=== PATIENT | male | born 1950 | race Caucasian/White ===

== ENCOUNTER 2016-08-22 07:46 | Inpatient (IN) | payer OTHER ==
[2016-08-22] MEDS ORDERED: ASPIRIN EC 325 MG TAB PO ONE ×2 (07:52→09:25)
[2016-08-22] MEDS ORDERED: diphenhydrAMINE 25 MG CAP PO ONE (07:52)
[2016-08-22] MEDS ORDERED: NS 1,000 ML IV ONE (07:52)
[2016-08-22] MEDS ORDERED: DIAZEPAM 5 MG TAB PO ONE (07:52)
[2016-08-22] MEDS ORDERED: FAMOTIDINE 20 MG TAB PO ONE (07:52)
[2016-08-22 08:43] LABS: % IMMATURE GRANULYOCYTES 0.4 % (0.0-1.1); ABSOLUTE IMMATURE GRANULOCYTES 0.04 10^3/uL (0.00-0.10); ADD DIFF? NO; ADD MORPH? NO; ADD SCAN? NO; ATYPICAL LYMPHOCYTE FLAG 0 (0-99); FRAGMENT RBC FLAG 0 (0-99); HEMATOCRIT 39.3 % (40.0-51.0); HEMOGLOBIN 12.8 g/dL (13.7-17.5); LEFT SHIFT FLG 0 (0-99); LIPEMIA HEMOLYSIS FLAG 80 (0-99); MEAN CELL HEMOGLOBIN 31.7 pg (27.9-34.1); MEAN CELL HEMOGLOBIN CONCENTR. 32.6 g/dL (32.4-36.7); MEAN CELL VOLUME 97.3 fL (81.5-99.8); MEAN PLATELET VOLUME 10.5 fL (8.7-11.7); PLATELET CLUMPS FLAG 0 (0-99); PLATELET COUNT 162 10^3/uL (150-400); RED BLOOD CELL COUNT 4.04 10^6/uL (4.40-6.38); RED CELL DISTRIBUTION WIDTH 15.6 % (11.5-15.2)
[2016-08-22 09:02] LABS: INR 1.73 (0.83-1.16); PROTIME(PATIENT) 20.3 SEC (12.0-15.0)
[2016-08-22] MEDS ORDERED: LIDOCAINE 1% 30 ML SDV ONE (09:05)
[2016-08-22] MEDS ORDERED: IOPAMIDOL (ISOVUE 370) 100 ML BTL IV ONE ×2 (09:06→11:00)
[2016-08-22] MEDS ORDERED: MIDAZOLAM 2 MG/2 ML VIAL ONE ×2 (09:06→10:39)
[2016-08-22] MEDS ORDERED: fentaNYL 100 MCG/2 ML INJ ONE ×2 (09:06→10:46)
[2016-08-22 09:10] LABS: ANION GAP 15 mEq/L (8-16); CARBON DIOXIDE 29 mEq/l (22-31); CHLORIDE 94 mEq/L (97-110); CHOLESTEROL 61 mg/dL (140-220); CHOLESTEROL/HDL RATIO 2.18 RATIO (1.00-4.97); CREATININE 1.8 mg/dL (0.7-1.3); GLOMERULAR FILTRATION RATE 38; GLUCOSE 78 mg/dL (70-100); HIGH DENSITY LIPOPROTEIN 28 mg/dL (40-65); LDL/HDL RATIO 0.75 RATIO (1.00-3.64); LOW DENSITY LIPOPROTEIN 21 mg/dL (80-100); MAGNESIUM 1.9 mg/dL (1.6-2.3); NON-HIGH DENSITY LIPOPROTEIN 33 mg/dL (90-129); POTASSIUM 3.4 mEq/L (3.5-5.2); SODIUM 138 mEq/L (134-144); TRIGLYCERIDE 62 mg/dL (40-150); VERY LOW DENSITY LIPOPROTEINS 12 mg/dL (8-25)
--- NOTE | 2016-08-22 09:20 | CPEKG ---
Heart Rate: 77 RR Interval: 779 QRSD Interval: 130 QT Interval: 440 QTC Interval: 499 QRS [place]: -80 T Wave [place]: 78 EKG Severity - ABNORMAL ECG - EKG Impression: NORMAL SINUS RHYTHM EKG Impression: PAIRED VENTRICULAR PREMATURE COMPLEXES EKG Impression: NONSPECIFIC IVCD WITH LAD EKG Impression: CONSIDER ANTERIOR INFARCT EKG Impression: MODERATE BASELINE ARTIFACT Electronically Signed By: iHlton Lara 22-Aug-2016 13:04:38
[2016-08-22] MEDS ORDERED: FAMOTIDINE 20 MG TAB ONE (09:24)
[2016-08-22] MEDS ORDERED: BIVALIRUDIN 250 MG/5 ML VIAL IV ONE ×2 (10:39→11:08)
[2016-08-22] MEDS ORDERED: NITROGLYCERIN 1,500 MCG/15 ML VIAL MISC ONE (11:05)
[2016-08-22] MEDS ORDERED: OXYCODONE/APAP 5/325 TAB PO PRN (12:25)
[2016-08-22] MEDS ORDERED: HYDROCODONE/APAP 5/325 TAB PO PRN (12:25)
[2016-08-22] MEDS ORDERED: NITROGLYCERIN 0.4 MG BTL SL PRN (12:25)
[2016-08-22] MEDS ORDERED: ATROPINE SULFATE 1 MG/10 ML SYR IVP PRN (12:25)
[2016-08-22] MEDS ORDERED: ONDANSETRON 4 MG/2 ML VIAL IVP PRN (12:25)
--- NOTE | 2016-08-22 12:27 | CPIP ---
[f rep st] INVASIVE CARDIAC PROCEDURE DATE OF PROCEDURE: 08/22/2016 PROCEDURE: 1. Coronary angiography. 2. Left ventricular end-diastolic pressure. 3. Right heart catheterization. 4. Intravascular ultrasound of proximal left anterior descending coronary artery. INDICATION: 1. Cardiomyopathy. 2. Class 3 congestive heart failure symptoms. 3. Class 3 exertional dyspnea concerning for an anginal equivalent. 4. Normal pharmacologic nuclear stress test concerning for potential 3VD. ACCESS: Patient was prepped and draped in sterile fashion. 1% lidocaine was used to anesthetize th e right inguinal region. A 6-Nepalese introducer sheath was placed selectively in the right common fe moral artery via modified Seldinger technique. A 7-Nepalese introducer sheath was placed selectively in the right common femoral vein via modified Seldinger technique. CORONARY ANGIOGRAPHY: A 6-Nepalese JL4 was advanced to the left main coronary artery and images were obtained. The left main coronary artery bifurcated into an LAD and circumflex coronary arteries. T he left main coronary artery had mild diffuse disease with no stenosis greater than 20%. The left a nterior descending coronary artery gave rise to 4 prominent diagonal branches the left anterior desc ending coronary artery is diffusely diseased. In the proximal segment there is an eccentric calcifi ed shelf of uncertain severity. In the mid vessel there is sequential 20-30% stenosis present and i n the distal vessel there is a single discrete 60% stenosis present. The diagonal branches appeared free of any significant disease. The circumflex coronary artery is a moderate to large sized vesse l. The circumflex coronary artery gave rise to 2 OM branches. The circumflex coronary artery had m ild diffuse disease throughout. There was no stenosis greater than 20%. Six-Nepalese JR4 was advance d to the right coronary artery and images obtained. The right coronary artery is diffusely diseased . The right coronary artery had a proximal 50% stenosis present and in the distal vessel there is s equential 50% stenosis present as well. LEFT VENTRICULAR END-DIASTOLIC PRESSURE: A pigtail catheter was advanced in the left ventricle and left ventricular end-diastolic pressure obtained. Left ventricular end-diastolic pressure is elevat ed at 34 mmHg. Left ventriculography was not performed secondary to chronic renal insufficiency. I ntravascular ultrasound of the left anterior descending coronary artery. A 6-Nepalese EBU 3.5 cathete r was advanced to the left main coronary artery and images obtained. Angiography confirmed the pres ence of an intermediate grade lesion involving the proximal left anterior descending coronary artery of uncertain severity. A loose wire was placed in the distal vessel and position verified by angio graphy. Intravascular ultrasound probe was advanced and images obtained. Intravascular ultrasound demonstrated an eccentric calcified shelf in the proximal left anterior descending coronary artery w hich approached 50% in severity. RIGHT HEART CATHETERIZATION: Right heart catheter was advanced in the right atrium and right atrial pressure was obtained. Right atrial pressure was elevated at 24 mmHg. The catheter was then advan ying in the right ventricle and pressure obtained. The right ventricular pressure was 50/18 mmHg. T he catheter was then advanced to the pulmonary artery position and pressure obtained. The pulmonary artery pressure was 46/30 mmHg. Catheter was then advanced in the wedge position and pressure obta ined. The pulmonary capillary wedge pressure was 34 mmHg. Cardiac output was 7.39. Cardiac index 2.74. COMPLICATIONS: None. CONCLUSIONS: 1. Moderate coronary artery disease without flow limitation. 2. Elevated left ventricular end-diastolic pressure of 34 mmHg. 3. Moderate pulmonary hypertension with a mean pulmonary artery pressure of 42 mmHg. The transpulm onary gradient was 8 mmHg. /[id number]/MODL
[2016-08-22] MEDS ORDERED: ATROPINE SULFATE 1 MG/10 ML SYR ONE (13:53)
[2016-08-22] MEDS: CARVEDILOL 6.25 MG TAB PO SCH (18:59)
[2016-08-22] MEDS ORDERED: NON-FORMULARY NEW DRUG (Carvedilol [Coreg] 12.5 MG) PO SCH (21:00)
[2016-08-22] MEDS: ASPIRIN EC 81 MG TAB PO SCH ×2 (22:19→22:30)
[2016-08-22] MEDS: ALLOPURINOL 300 MG TAB PO SCH ×2 (22:19→22:30)
[2016-08-22] MEDS: glyBURIDE 2.5 MG TAB PO SCH ×2 (22:19→22:30)
[2016-08-23 04:44] LABS: % IMMATURE GRANULYOCYTES 0.7 % (0.0-1.1); ABSOLUTE IMMATURE GRANULOCYTES 0.05 10^3/uL (0.00-0.10); ADD DIFF? NO; ADD MORPH? NO; ADD SCAN? NO; ATYPICAL LYMPHOCYTE FLAG 0 (0-99); FRAGMENT RBC FLAG 0 (0-99); HEMOGLOBIN 12.5 g/dL (13.7-17.5); LEFT SHIFT FLG 0 (0-99); LIPEMIA HEMOLYSIS FLAG 80 (0-99); MEAN CELL HEMOGLOBIN 32.1 pg (27.9-34.1); MEAN CELL HEMOGLOBIN CONCENTR. 32.1 g/dL (32.4-36.7); MEAN PLATELET VOLUME 10.7 fL (8.7-11.7); PLATELET CLUMPS FLAG 0 (0-99); PLATELET COUNT 161 10^3/uL (150-400); RED CELL DISTRIBUTION WIDTH 15.9 % (11.5-15.2)
[2016-08-23 04:51] LABS: ANION GAP 14 mEq/L (8-16); CALCIUM 8.9 mg/dL (8.5-10.4); CARBON DIOXIDE 34 mEq/l (22-31); CHLORIDE 94 mEq/L (97-110); CREATININE 1.9 mg/dL (0.7-1.3); GLOMERULAR FILTRATION RATE 36; GLUCOSE 85 mg/dL (70-100); POTASSIUM 3.5 mEq/L (3.5-5.2); SODIUM 142 mEq/L (134-144)
[2016-08-23] MEDS: CARVEDILOL 6.25 MG TAB PO SCH ×2 (08:42→18:22)
[2016-08-23] MEDS: glyBURIDE 2.5 MG TAB PO SCH ×2 (08:44→20:43)
[2016-08-23] MEDS: LEVOTHYROXINE 75 MCG TAB PO SCH (08:45)
[2016-08-23] MEDS: FUROSEMIDE 100 MG/10 ML VIAL IVP SCH ×2 (12:09→15:41)
--- NOTE | 2016-08-23 13:00 | PDCARPN ---
Cardiology Progress Note Chief Complaint: Anasarca, Pedal edema Assessment/Plan: Assessment: 1. Moderate coronary artery disease 2. Pulmonary hypertension 3. Right heart failure 4. Renal insufficiency Plan: Start IV furosemide today, 80 mg twice daily. Dose to be adjusted tomorrow based on renal function. Estimate that he will need 2- 3 days of intravenous diuresis while in the hospital. 08/23/16 12:59 Subjective: reports pedal edema, this is my 1st visit with the patient Time Spent With Patient: 20 minutes Objective: Vital Signs (8 Hrs) Temp Pulse Resp BP Pulse Ox 08/23/16 11:15 36.4 C 66 16 113/75 96 08/23/16 08:42 85 114/68 08/23/16 07:48 36.4 C 58 L 18 102/1 L 98 Intake/Output (24 Hrs) 08/22/16 08/23/16 08/24/16 11:59 11:59 11:59 Intake Total 800 Output Total 1390 Balance -590 Intake: Oral (ml) 800 Output: Urine (ml) 1390 Urinal 1390 Other: Weight 153.7 kg Intake Quantity Yes Sufficient Result Diagrams: 08/23/16 04:02 08/23/16 04:02 ICD10 Worksheet Patient Problems: Problems Problem Status Onset Anasarca Acute Pulmonary hypertension Acute Chronic Disease Mgmt/Transitional Care Acute
[2016-08-23] MEDS: ALLOPURINOL 300 MG TAB PO SCH (20:43)
[2016-08-23] MEDS: ASPIRIN EC 81 MG TAB PO SCH (20:43)
[2016-08-24 05:24] LABS: ANION GAP 15 mEq/L (8-16); CALCIUM 8.8 mg/dL (8.5-10.4); CARBON DIOXIDE 28 mEq/l (22-31); CHLORIDE 94 mEq/L (97-110); CREATININE 2.1 mg/dL (0.7-1.3); GLOMERULAR FILTRATION RATE 32; GLUCOSE 65 mg/dL (70-100); MAGNESIUM 2.1 mg/dL (1.6-2.3); POTASSIUM 3.5 mEq/L (3.5-5.2); SODIUM 137 mEq/L (134-144)
[2016-08-24] MEDS: LEVOTHYROXINE 75 MCG TAB PO SCH (05:26)
[2016-08-24] MEDS: CARVEDILOL 6.25 MG TAB PO SCH ×2 (09:03→18:13)
[2016-08-24] MEDS: glyBURIDE 2.5 MG TAB PO SCH ×2 (09:03→19:48)
[2016-08-24] MEDS ORDERED: PROTOCOL POTASSIUM 1 DOSE MISC PRN (09:31)
[2016-08-24] MEDS ORDERED: PROTOCOL MAGNESIUM 1 DOSE IV PRN (09:31)
--- NOTE | 2016-08-24 10:15 | PDCARPN ---
Cardiology Progress Note Assessment/Plan: Assessment/ Plan: 65-year-old male with combined left ventricular systolic heart failure, more prominent right heart failure, pulmonary hypertension, morbid obesity, and chronic renal insufficiency. He was admitted after right and left heart catheterization on August 22. His angiogram showed moderate non flow-limiting coronary disease, left ventricular end-diastolic pressure of 34, mean PA pressure of 46. Had IV diuresis yesterday, and his creatinine has bumped slightly. 1. right greater than left heart failure: Acute on chronic. This is primarily related to his morbid obesity. He was counseled that he should wear his CPAP every night.Given his bump in creatinine and evidence of contraction alkalosis we will change him to his oral Demadex. As an outpatient he was taking 80 mg by mouth daily, per Dr. Maldonado. electrolyte protocol. Check BNP. 2. Pulmonary hypertension: As above, related to morbid obesity and sleep apnea. 3. Chronic renal insufficiency: Creatinine slightly worse today. Change to oral diuretics. Check basic metabolic panel tomorrow. 4. Morbid obesity: He understands the of most importance of continued weight loss. 5. diabetes: Continue his oral agents. Hopefully weight loss will help his overall metabolic picture. 6. moderate non flow-limiting coronary disease: He is on aspirin as an outpatient. His LDL is profoundly reduced here in the hospital. I have not started a statin, but this should be considered as an outpatient, perhaps with a repeat lipid panel prior to initiation. 7.. Paroxysmal atrial fibrillation: Currently in sinus rhythm with PVCs. Restart warfarin. His CHADS2 Vasc score is 4. 8. sleep apnea: He was encouraged to wear his CPAP. 9. Nonhealing lower extremity ulcers: This is likely related to his profound edema/venous stasis and less likely peripheral arterial disease. However, as per Dr. Maldonado' August 06 outpatient know, consideration should be given to radiographic evaluation of his lower extremity arteries. This has not been done during this admission due to his bump in creatinine. 10. Hypothyroidism: I do not see TSH since 2014. We will check that now. Continue levothyroxine. 08/24/16 10:15 Subjective: Robert denies chest pain or significant dyspnea. His lower extremity edema is minimally improved with 1 day of IV diuresis. He had a very short-lived episode of epistaxis this morning. Previously has not had significant problems with bleeding on chronic warfarin therapy. Objective: Vital Signs (8 Hrs) Temp Pulse Resp BP Pulse Ox 08/24/16 09:03 70 103/64 08/24/16 07:53 36.3 C 78 16 115/71 91 L 08/24/16 04:00 36.5 C 105 H 17 109/62 91 L Intake/Output (24 Hrs) 08/23/16 08/24/16 08/25/16 05:59 05:59 05:59 Intake Total 300 2230 Output Total 1390 1600 Balance -1090 630 Intake: Oral (ml) 300 2230 Output: Urine (ml) 1390 1600 Urinal 1390 1600 Other: Weight 153.7 kg 155.1 kg Intake Quantity Yes Yes Sufficient Number of Voids Urinal 2 No acute distress. JVP is to the ear. Regular rate and rhythm. 2/6 early systolic murmur at the left lower sternal border. No gallop. Lungs clear to auscultation bilaterally that was or rales Abdomen is obese Extremities are warm. There is tense brawny 2+ pitting edema to the knee bilaterally. Diffuse erythema. Ulcers are present. Neuro alert and oriented x3 without gross focal neurological deficits Result Diagrams: 08/23/16 04:02 08/24/16 04:42 Telemetry: Sinus rhythm with PVCs. Echocardiogram: I reviewed his November 2015 echo. This shows an left ventricular ejection fraction of 40%. Moderate RV dilation with mild to moderate RV systolic dysfunction. He does have tricuspid regurgitation and mild pulmonary hypertension based on this echo. ICD10 Worksheet Patient Problems: Problems Problem Status Onset Anasarca Acute Pulmonary hypertension Acute Chronic Disease Mgmt/Transitional Care Acute
[2016-08-24] MEDS: FUROSEMIDE 100 MG/10 ML VIAL IVP SCH (10:19)
[2016-08-24] MEDS: WARFARIN SODIUM 5 MG TAB PO SCH ×2 (10:39→16:15)
[2016-08-24] MEDS: TORSEMIDE 20 MG TAB PO SCH (10:52)
--- NOTE | 2016-08-24 12:38 | WOCRNPDOC ---
[facility] Advanced Assessment Note - Skin Integrity Problem, Advanced Assess Left Lateral Foot Diabetic Ulcer Dressing Type: Mepilex, Other Other Dressing Type: Medipore tape Dressing Description: Clean/Dry, Intact Exudate Amount: Scant Exudate Color: Reddish/Yellow Exudate Characteristic(s): Serosanguinous Sussy Wound Tissue: Dry, Calloused Wound Bed Color: Red Wound Bed Constitution: Smooth Tissue Wound Edges: Epithelizing Site Odor: None Site Measurement - Head-to-Toe Length X Width X Depth (cm): 1cmx0.4cmx0.2cm Skin Integrity Problem Comment: Healing diabetic foot ulcer noted on L lateral foot, plantar surface, over 5th metatarsal. Wound bed comprised of smooth tissue w/ no necrosis noted, and sussy-wound tissue is hyperkeratotic per dx. Patient is currently seeing a rack loader in the outpatient setting for this wound, and reports having a silver foam dressing. I sent some [employer] non- bordered silver foam down for nursing to apply. He also reports having off- loading inserts in his shoes, and has been wearing shoes for any ambulation as part of his ongoing treatment. Right Anterior Lower Leg Dressing Type: Allevyn Life Dressing Description: Clean/Dry, Intact Exudate Amount: Scant Exudate Color: Reddish/Yellow Exudate Characteristic(s): Serosanguinous Integumentary Issue Intervention: Visualized Under Dressing Sussy Wound Tissue: Erythema, Swollen, Weeping Sussy Wound Swelling: Moderate Wound Bed Constitution: Smooth Tissue, Loose Slough Site Odor: None Site Measurement - Head-to-Toe Length X Width X Depth (cm): 1.1cmx1.4cmx0.2cm Skin Integrity Problem Comment: Shallow ulceration noted on R anterior LE, uncertain of wound etiology. Patient's BLE are currently weepy and edematous r/ t diuresis, and both lower extremities have scattered small, fluid-filled blisters. He reports that this wound developed 4 days ago, but he is uncertain of the cause. He does not recall any trauma to this leg, nor does he report a previous blister at this site. Presently, the wound is comprised of mostly smooth tissue. There was some loose slough noted, but this was easily removed w / gauze. Erythema and swelling in sussy-wound tissue appears unrelated to this injury, and is bilateral. Recommend silver gel and protective bordered dressing , and advised him to consult wound care in the outpatient setting if this wound does not heal.
[2016-08-24] MEDS ORDERED: POTASSIUM CL 10 MEQ TAB PO ONE ×2 (15:57→20:40)
[2016-08-24] MEDS ORDERED: POTASSIUM CL 20 MEQ TAB PO ONE (16:30)
[2016-08-24 18:23] LABS: POTASSIUM 3.9 mEq/L (3.5-5.2)
[2016-08-24] MEDS: ASPIRIN EC 81 MG TAB PO SCH (19:48)
[2016-08-24] MEDS: ALLOPURINOL 300 MG TAB PO SCH (19:48)
[2016-08-25 04:57] LABS: INR 1.43 (0.83-1.16); PROTIME(PATIENT) 17.4 SEC (12.0-15.0)
[2016-08-25 05:13] LABS: ANION GAP 13 mEq/L (8-16); CALCIUM 8.7 mg/dL (8.5-10.4); CARBON DIOXIDE 31 mEq/l (22-31); CHLORIDE 93 mEq/L (97-110); CREATININE 2.1 mg/dL (0.7-1.3); GLOMERULAR FILTRATION RATE 32; GLUCOSE 62 mg/dL (70-100); MAGNESIUM 2.1 mg/dL (1.6-2.3); POTASSIUM 3.6 mEq/L (3.5-5.2); SODIUM 137 mEq/L (134-144)
[2016-08-25] MEDS: glyBURIDE 2.5 MG TAB PO SCH ×2 (08:07→19:34)
[2016-08-25] MEDS: TORSEMIDE 20 MG TAB PO SCH (08:07)
[2016-08-25] MEDS: CARVEDILOL 6.25 MG TAB PO SCH ×2 (08:08→16:54)
[2016-08-25] MEDS: LEVOTHYROXINE 75 MCG TAB PO SCH (08:08)
[2016-08-25] MEDS ORDERED: POTASSIUM CL 10 MEQ TAB PO ONE ×2 (08:33→19:12)
--- NOTE | 2016-08-25 09:45 | PDCARPN ---
Cardiology Progress Note Chief Complaint: R>LHF Assessment/Plan: Assessment: 65-year-old male with combined left ventricular systolic heart failure, NICM with EF as low as 15% but more recently 40%, more prominent right heart failure , pulmonary hypertension, morbid obesity, T2DM, and CKD, admitted after right and left heart catheterization on August 22. His angiogram showed moderate non flow-limiting coronary disease, left ventricular end-diastolic pressure of 34, mean PA pressure of 46. #. right greater than left heart failure: Acute on chronic. - we discussed presence of contraction alkalosis and also reviewed this with Dr. Maldonado - will start Lasix gtt at 5 mL/hr - add Diamox to mitigate contraction alkalosis #. contraction alkalosis: add Diamox #. Pulmonary hypertension: As above, related to morbid obesity and sleep apnea. - continue compliant CPAP usage #. CKD with ANGELLA: Cr 2.1 today which is slightly above b/l of 1.8 - will monitor #. Morbid obesity: He understands the of most importance of continued weight loss but mobility is limited due to wounds on legs #. diabetes: Continue his oral agents. #. moderate non flow-limiting coronary disease: continue ASA - LDL 21 in this admittiosn #. Paroxysmal atrial fibrillation: Currently in sinus rhythm with PVCs. - warfarin resumed for [id number] of 4 (age, htn, CHF, DM) #. sleep apnea: He was encouraged to wear his CPAP. #. Nonhealing lower extremity ulcers: likely related to his profound edema/ venous stasis and less likely peripheral arterial disease. - will consider inpt versus outpt evaluation to r/o PVD #. Hypothyroidism: TSH 4.6 #. LOS: continued inpt due to need for IV diuresis Plan: 08/25/16 09:40 08/25/16 09:46 Subjective: Feels somewhat better in regards to his edema. Weight loss/diuresis has been minimal. No dyspnea, pnd/orthopnea, palpitations. Reviewed/Discussed With: family Time Spent With Patient: 25 minutes Objective: Vital Signs (8 Hrs) Temp Pulse Resp BP Pulse Ox 08/25/16 07:43 97.5 F 72 18 113/68 92 08/25/16 04:00 97.6 F 70 15 115/71 90 L Intake/Output (24 Hrs) 08/24/16 08/25/16 08/26/16 05:59 05:59 05:59 Intake Total 2230 1900 400 Output Total 1600 2140 Balance 630 -240 400 Intake: Oral (ml) 2230 1900 400 Output: Urine (ml) 1600 2140 Urinal 1600 2140 Other: Weight 155.1 kg 155.9 kg Intake Quantity Yes Yes Yes Sufficient Number of Voids Urinal 2 Result Diagrams: 08/23/16 04:02 08/25/16 04:18 Cardiac Labs: Laboratory Tests 08/24/16 04:42 NT-Pro-B Natriuret Pep 6220 H TSH 4.640 EKG: SR with delayed RWP, 1st deg AVB, LAFB, IVCD, frequent PVCs with 1 PVC couplet Telemetry: SR with frequent PVCs - Physical Exam Constitutional: no apparent distress, obese, No general pain Eyes: PERRL Ears, Nose, Mouth, Throat: moist mucous membranes Cardiovascular: regular rate and rhythm, No systolic murmur Respiratory: clear to auscultate bilat, no crackles Gastrointestinal: normoactive bowel sounds Genitourinary: No fan in urethra Skin: warm, erythema, other (brawny 2-3+ edema) Neurologic: AAOx3 Psychiatric: cooperative, interactive ICD10 Worksheet Patient Problems: Problems Problem Status Onset Anasarca Acute Pulmonary hypertension Acute Chronic Disease Mgmt/Transitional Care Acute
[2016-08-25] MEDS ORDERED: FUROSEMIDE 100 MG in D5W 100 ML IV SCH (10:00)
[2016-08-25] MEDS: acetaZOLAMIDE 250 MG TAB PO SCH (10:35)
[2016-08-25] MEDS: WARFARIN SODIUM 5 MG TAB PO SCH ×2 (16:53→17:23)
[2016-08-25 18:36] LABS: POTASSIUM 3.9 mEq/L (3.5-5.2)
[2016-08-25] MEDS: ALLOPURINOL 300 MG TAB PO SCH (19:34)
[2016-08-25] MEDS: ASPIRIN EC 81 MG TAB PO SCH (19:34)
[2016-08-25] MEDS: FUROSEMIDE 100 MG in D5W 100 ML IV SCH (19:39)
[2016-08-26 05:04] LABS: ANION GAP 13 mEq/L (8-16); CARBON DIOXIDE 30 mEq/l (22-31); CHLORIDE 92 mEq/L (97-110); CREATININE 2.2 mg/dL (0.7-1.3); GLOMERULAR FILTRATION RATE 30; GLUCOSE 76 mg/dL (70-100); MAGNESIUM 2.1 mg/dL (1.6-2.3); POTASSIUM 3.5 mEq/L (3.5-5.2); SODIUM 135 mEq/L (134-144)
[2016-08-26] MEDS: LEVOTHYROXINE 75 MCG TAB PO SCH (06:08)
[2016-08-26] MEDS: acetaZOLAMIDE 250 MG TAB PO SCH (08:29)
[2016-08-26] MEDS: CARVEDILOL 6.25 MG TAB PO SCH ×2 (08:29→18:35)
[2016-08-26] MEDS: glyBURIDE 2.5 MG TAB PO SCH ×2 (08:29→21:00)
[2016-08-26] MEDS ORDERED: POTASSIUM CL 10 MEQ TAB PO ONE ×2 (09:13→19:59)
[2016-08-26] MEDS: TORSEMIDE 20 MG TAB PO SCH (10:33)
[2016-08-26] MEDS: FUROSEMIDE 100 MG in D5W 100 ML IV SCH ×2 (10:44→19:04)
--- NOTE | 2016-08-26 12:31 | PDCARPN ---
Cardiology Progress Note Chief Complaint: R>LHF Assessment/Plan: Assessment: 65-year-old male with combined left ventricular systolic heart failure, NICM with EF as low as 15% but more recently 40%, more prominent right heart failure , pulmonary hypertension, morbid obesity, T2DM, and CKD, admitted after right and left heart catheterization on August 22. His angiogram showed moderate non flow-limiting coronary disease, left ventricular end-diastolic pressure of 34, mean PA pressure of 46. #. right greater than left heart failure: Acute on chronic. - continue Lasix gtt at 20 mL/hr - cont Diamox to mitigate contraction alkalosis #. contraction alkalosis: added Diamox #. Pulmonary hypertension: As above, related to morbid obesity and sleep apnea. - continue compliant CPAP usage #. CKD with ANGELLA: Cr 2.2 today which is above b/l of 1.8 - will monitor #. Morbid obesity: He understands the of most importance of continued weight loss but mobility is limited due to wounds on legs #. diabetes: Continue his oral agents. #. moderate non flow-limiting coronary disease: continue ASA - LDL 21 in this admission #. Paroxysmal atrial fibrillation: Currently in sinus rhythm with PVCs. - warfarin resumed for [id number] of 4 (age, htn, CHF, DM) - INR for tomorrow #. sleep apnea: He was encouraged to wear his CPAP. #. Nonhealing lower extremity ulcers: likely related to his profound edema/ venous stasis and less likely peripheral arterial disease. - will consider inpt versus outpt evaluation to r/o PVD #. Hypothyroidism: TSH 4.6 #. LOS: continued inpt due to need for IV diuresis Plan: - Cont IV lasix gtt - Cont Diamox 08/26/16 12:28 Subjective: Reports no issues. Has had enhanced diuresis since starting Lasix gtt. Objective: Vital Signs (8 Hrs) Temp Pulse Resp BP Pulse Ox 08/26/16 07:14 97.7 F 59 L 15 104/75 90 L Intake/Output (24 Hrs) 08/25/16 08/26/16 08/27/16 05:59 05:59 05:59 Intake Total 1900 1075 240 Output Total 2140 3555 1325 Balance -240 -2480 -1085 Intake: Oral (ml) 1900 1000 240 IV Infused (ml) 75 Furosemide 100 mg In D5w 75 100 ml @ 20 mls/hr IV CONT CHELI Rx#:[id number] Output: Urine (ml) 2140 3555 1325 Urinal 2140 3555 1325 Other: Weight 155.9 kg 154 kg Intake Quantity Yes Yes Sufficient Result Diagrams: 08/23/16 04:02 08/26/16 03:52 Telemetry: SR with PVCs - Physical Exam Constitutional: no apparent distress Eyes: PERRL Ears, Nose, Mouth, Throat: moist mucous membranes Cardiovascular: regular rate and rhythm, no murmurs Respiratory: clear to auscultate bilat, no crackles Gastrointestinal: normoactive bowel sounds Genitourinary: No fan in urethra Skin: warm, fluctuance, other (blisterlike lesions on ant fontanez) Neurologic: AAOx3 Psychiatric: cooperative, interactive ICD10 Worksheet Patient Problems: Problems Problem Status Onset Anasarca Acute Chronic Disease Mgmt/Transitional Care Acute Pulmonary hypertension Acute
[2016-08-26 18:32] LABS: POTASSIUM 3.7 mEq/L (3.5-5.2)
[2016-08-26] MEDS: WARFARIN SODIUM 5 MG TAB PO SCH (18:36)
[2016-08-26] MEDS: ASPIRIN EC 81 MG TAB PO SCH (21:00)
[2016-08-26] MEDS: ALLOPURINOL 300 MG TAB PO SCH (21:00)
[2016-08-27 05:35] LABS: INR 1.48 (0.83-1.16); PROTIME(PATIENT) 17.9 SEC (12.0-15.0)
[2016-08-27] MEDS: LEVOTHYROXINE 75 MCG TAB PO SCH (05:49)
[2016-08-27 05:55] LABS: ANION GAP 12 mEq/L (8-16); CALCIUM 9.1 mg/dL (8.5-10.4); CARBON DIOXIDE 33 mEq/l (22-31); CHLORIDE 92 mEq/L (97-110); CREATININE 2.2 mg/dL (0.7-1.3); GLOMERULAR FILTRATION RATE 30; GLUCOSE 67 mg/dL (70-100); MAGNESIUM 2.2 mg/dL (1.6-2.3); POTASSIUM 3.5 mEq/L (3.5-5.2); SODIUM 137 mEq/L (134-144)
[2016-08-27] MEDS: FUROSEMIDE 100 MG in D5W 100 ML IV SCH ×3 (07:15→18:20)
[2016-08-27] MEDS ORDERED: POTASSIUM CL 10 MEQ TAB PO ONE ×2 (08:02→20:17)
[2016-08-27] MEDS: acetaZOLAMIDE 250 MG TAB PO SCH (09:07)
[2016-08-27] MEDS: glyBURIDE 2.5 MG TAB PO SCH ×2 (09:07→18:19)
[2016-08-27] MEDS: TORSEMIDE 20 MG TAB PO SCH (09:08)
[2016-08-27] MEDS: CARVEDILOL 6.25 MG TAB PO SCH ×2 (09:08→18:19)
--- NOTE | 2016-08-27 10:44 | PDCARPN ---
Cardiology Progress Note Chief Complaint: R>LHF Assessment/Plan: Assessment: 65-year-old male with combined left ventricular systolic heart failure, NICM with EF as low as 15% but more recently 40%, more prominent right heart failure , pulmonary hypertension, morbid obesity, T2DM, and CKD, admitted after right and left heart catheterization on August 22. His angiogram showed moderate non flow-limiting coronary disease, left ventricular end-diastolic pressure of 34, mean PA pressure of 46. #. right greater than left heart failure: Acute on chronic. - continue Lasix gtt at 20 mL/hr - cont Diamox to mitigate contraction alkalosis - has had excellent output #. contraction alkalosis: added Diamox #. Pulmonary hypertension: As above, related to morbid obesity and sleep apnea. - continue compliant CPAP usage #. CKD with ANGELLA: Cr 2.2 today which is above b/l of 1.8 - will monitor #. Morbid obesity: He understands the of most importance of continued weight loss but mobility is limited due to wounds on legs #. diabetes: Continue his oral agents. #. moderate non flow-limiting coronary disease: continue ASA - LDL 21 in this admission #. Paroxysmal atrial fibrillation: Currently in sinus rhythm with PVCs. - warfarin resumed for [id number] of 4 (age, htn, CHF, DM) - INR for tomorrow #. sleep apnea: He was encouraged to wear his CPAP. #. Nonhealing lower extremity ulcers: likely related to his profound edema/ venous stasis and less likely peripheral arterial disease. - outpt evaluation to r/o PVD #. Hypothyroidism: TSH 4.6 #. LOS: continued inpt due to need for IV diuresis Plan: - Cont IV lasix gtt - Cont Diamox 08/26/16 12:28 08/27/16 10:40 Subjective: Reports fatigue due to poor sleep. No dyspnea. Objective: Vital Signs (8 Hrs) Temp Pulse Resp BP Pulse Ox 08/27/16 07:26 97.6 F 66 19 103/62 90 L 08/27/16 04:00 97.6 F 67 18 104/69 93 Intake/Output (24 Hrs) 08/26/16 08/27/16 08/28/16 05:59 05:59 05:59 Intake Total 1075 1045 20.2 Output Total 3555 4925 1200 Balance -2480 -3880 -1179.8 Intake: Oral (ml) 1000 940 IV Infused (ml) 75 105 20.2 Furosemide 100 mg In D5w 75 105 20.2 100 ml @ 20 mls/hr IV CONT CHELI Rx#:[id number] Output: Urine (ml) 3555 4925 1200 Urinal 3555 4925 1200 Other: Weight 151.5 kg Intake Quantity Yes Yes Sufficient Result Diagrams: 08/23/16 04:02 08/27/16 04:41 Telemetry: SR w/ PVCs - Physical Exam Constitutional: no apparent distress Eyes: PERRL Ears, Nose, Mouth, Throat: moist mucous membranes Cardiovascular: regular rate and rhythm Respiratory: clear to auscultate bilat, no crackles Gastrointestinal: normoactive bowel sounds, no tenderness Neurologic: AAOx3 ICD10 Worksheet Patient Problems: Problems Problem Status Onset Anasarca Acute Chronic Disease Mgmt/Transitional Care Acute Pulmonary hypertension Acute
--- NOTE | 2016-08-27 15:44 | WOCRNPDOC ---
[facility] Advanced Assessment Note - Skin Integrity Problem, Advanced Assess Left Lateral Foot Diabetic Ulcer Dressing Type: Other Other Dressing Type: Aquacel Ag foam Dressing Description: Intact, Shadowed Exudate Amount: Minimal Exudate Color: Reddish/Yellow Exudate Characteristic(s): Serosanguinous Integumentary Issue Intervention: Dressing Changed Aimee Wound Tissue: Hyperkeratotic Aimee Wound Swelling: Mild Wound Bed Color: Red Wound Bed Constitution: Granulation Tissue Site Odor: Moderate Skin Integrity Problem Comment: Wound unchanged since previous assessment on . Wound bed consists of granulation tissue, unattached along margins. Periwound tissue is hyperkeratotic circumferentially. Dressing was not scheduled to be changed until tomorrow, but was shadowed and malodorous. Changed the frequency to daily. Patient to follow-up with crematorium operator after DC. Right Anterior Lower Leg Dressing Type: Allevyn Life Dressing Description: Clean/Dry, Intact Exudate Amount: Scant Exudate Color: Reddish/Yellow Exudate Characteristic(s): Mucous Integumentary Issue Intervention: Visualized Under Dressing Aimee Wound Tissue: Erythema, Swollen (edematous) Aimee Wound Swelling: Moderate Wound Bed Color: Red Wound Bed Constitution: Granulation Tissue Wound Edges: Epithelizing Skin Integrity Problem Comment: 100% granulation tissue throughout wound bed, w / epithelializing margins. Patient's entire RLE is edematous and erythmatous, but this is unrelated to this wound. Continue to keep site covered using moist healing.
[2016-08-27] MEDS ORDERED: WARFARIN SODIUM 2.5 MG TAB PO ONE (16:00)
[2016-08-27] MEDS: WARFARIN SODIUM 5 MG TAB PO SCH (16:02)
[2016-08-27 19:47] LABS: POTASSIUM 3.8 mEq/L (3.5-5.2)
[2016-08-27] MEDS: ASPIRIN EC 81 MG TAB PO SCH (20:37)
[2016-08-27] MEDS: ALLOPURINOL 300 MG TAB PO SCH (20:37)
[2016-08-28 05:22] LABS: ANION GAP 15 mEq/L (8-16); CALCIUM 9.2 mg/dL (8.5-10.4); CARBON DIOXIDE 33 mEq/l (22-31); CHLORIDE 92 mEq/L (97-110); CREATININE 2.1 mg/dL (0.7-1.3); GLOMERULAR FILTRATION RATE 32; GLUCOSE 83 mg/dL (70-100); MAGNESIUM 2.2 mg/dL (1.6-2.3); POTASSIUM 3.8 mEq/L (3.5-5.2); SODIUM 140 mEq/L (134-144)
[2016-08-28] MEDS: CARVEDILOL 6.25 MG TAB PO SCH (08:02)
[2016-08-28] MEDS: LEVOTHYROXINE 75 MCG TAB PO SCH (08:02)
[2016-08-28] MEDS: acetaZOLAMIDE 250 MG TAB PO SCH (08:03)
[2016-08-28] MEDS: glyBURIDE 2.5 MG TAB PO SCH (08:03)
[2016-08-28] MEDS ORDERED: POTASSIUM CL 10 MEQ TAB PO ONE (08:13)
[2016-08-28 08:23] LABS: INR 1.59 (0.83-1.16)
[2016-08-28] MEDS: FUROSEMIDE 100 MG in D5W 100 ML IV SCH (10:27)
[2016-08-28 10:59] VITALS: BP 87/55; PULSE 65; RESP 14; TEMP 97.6; O2SAT 94
--- NOTE | 2016-08-28 15:15 | GDS ---
[f rep st] DISCHARGE SUMMARY DISCHARGE DIAGNOSES: 1. Right greater than left heart failure. 2. Nonischemic cardiomyopathy with an EF last measured at 40%. 3. Pulmonary hypertension. 4. Morbid obesity. 5. Type 2 diabetes mellitus. 6. Moderate non-flow limiting coronary artery disease. 7. Paroxysmal atrial fibrillation. PROCEDURES: On 08/22/2016: Left and right heart catheterization that showed LVEDP of 34, mean PA pressure of 46, and moderate non-flow limiting coronary artery disease. BRIEF HISTORY: Please see dictated H and P from our office for complete details. In brief, the patient is a 65-year-old male admitted for elective right and left heart catheterization and then admitted further for IV diuresis. He has been followed in the outpatient setting with worsening edema. HOSPITAL COURSE BY PROBLEM: 1. Right greater than left heart failure. He had excellent diuresis with Lasix GTT at 20 mL/h. He is being discharged on torsemide at 80 mg p.o. b.i.d. 2. Contraction alkalosis. Diamox added through this admission. He will be continued for 1 week post discharge. 3. Pulmonary hypertension. We discussed compliant usage of CPAP. 4. CKD with acute kidney injury. His typical baseline creatinine is 1.8, and he was up to 2.1 in this admission. 5. Morbid obesity. We discussed weight loss in this admission. He is advised to consider seeing Endocrinology versus Bariatric Surgery for aggressive weight loss. 6. Type 2 diabetes mellitus. His oral agents were continued in this admission. 7. Moderate non-flow limiting coronary artery disease. He has been on aspirin therapy which has been continued. 8. Paroxysmal atrial fibrillation. In this admission, he remained in sinus rhythm. His warfarin was restarted, and his INR is 1.6 on day of discharge. He is advised to follow up with Coumadin clinic in 5 days' time. 9. Sleep apnea. Again, we have encouraged him to compliantly use his CPAP. 10. Nonhealing left lower extremity foot ulcer and right lower extremity ulcer. This is likely related to venous stasis. He will be considered for outpatient evaluation for peripheral vascular disease. He is also advised to consider seeing Wound Clinic as he has not had much in way of success of healing his lower extremity wounds. RESULTS PENDING: None. PHYSICAL EXAM: VITAL SIGNS: On day of discharge, blood pressure of 87/55, heart rate 65, respirations 14, O2 saturation 94% on room air, temp of 97.6. GENERAL: He is a very pleasant male in no apparent distress. EYES: PERRL. HEART: Regular rate and rhythm. LUNGS: Clear to auscultation bilaterally. ABDOMEN: Soft, nontender. LOWER EXTREMITIES: Show brawny edema with some oozing blistering. Legs are erythematous. LABORATORY DATA: CBC on 08/23/2016 showed WBC 7.21, hemoglobin 12.5, hematocrit 39, platelet count of 161. BNP of 140. Potassium 3.8, chloride 92, CO2 of 33, creatinine 2.1, BUN 98, glucose 83. DIET: Reviewed low-sodium and caloric restriction of less than 2000 calories per day. ACTIVITY: As tolerated. Consider Silver Sneakers. DISCHARGE MEDICATIONS: Please see med reconciliation for complete details. He is being discharged on warfarin, glyburide, levothyroxine, carvedilol, aspirin, allopurinol. His new medications are Diamox 250 p.o. daily, and torsemide dose is being increased to 80 p.o. b.i.d. FOLLOWUP: 1. Follow up labs in 1 week's time. 2. Coumadin Clinic in 1 week's time. 3. Consider [facility]. 4. Follow up with Dr. Maldonado in 1 week's time. Please note that greater than 30 minutes was spent on discharge and coordination of care. /[id number]/MODL MTDD
== END 2016-08-28 16:00 | disposition home or self-care (01) | DRG 287 ==
LOC: FCATH 07:46 → F2W 11:19 → OBSVTOIN 08-23 13:00
PROVIDERS: ADMIT Internal Medicine Cardiovascular Disease; ATTEND Internal Medicine Cardiovascular Disease
PROC: B2111ZZ Fluoroscopy of Multiple Coronary Arteries using Low Osmolar Contrast (ICD-10-PCS; principal; 2016-08-22)
PROC: 4A023N8 Measurement of Cardiac Sampling and Pressure, Bilateral, Percutaneous Approach (ICD-10-PCS; principal; 2016-08-22)
PROC: B240ZZ3 Ultrasonography of Single Coronary Artery, Intravascular (ICD-10-PCS; principal; 2016-08-22)
DX: I50.23 Acute on chronic systolic (congestive) heart failure (principal); I50.1 Left ventricular failure, unspecified; I42.9 Cardiomyopathy, unspecified; E87.3 Alkalosis; I27.2 Other secondary pulmonary hypertension; E66.01 Morbid (severe) obesity due to excess calories; I25.10 Atherosclerotic heart disease of native coronary artery without angina pectoris; I48.0 Paroxysmal atrial fibrillation; N18.9 Chronic kidney disease, unspecified; N17.9 Acute kidney failure, unspecified; E11.22 Type 2 diabetes mellitus with diabetic chronic kidney disease; G47.30 Sleep apnea, unspecified; E03.9 Hypothyroidism, unspecified; E11.621 Type 2 diabetes mellitus with foot ulcer; L97.529 Non-pressure chronic ulcer of other part of left foot with unspecified severity; L97.919 Non-pressure chronic ulcer of unspecified part of right lower leg with unspecified severity; Z79.82 Long term (current) use of aspirin; Z68.41 Body mass index [BMI] 40.0-44.9, adult
CPT/HCPCS: 80048-PO; C1753; C1769; C1887; J0461; J0583; J1200; J1644; J2250; J3010; Q9967

== ENCOUNTER → 2017-07-03 | Outpatient (CLI) | payer OTHER | LOC: BHCLAF 09:15 | PROVIDERS: ATTEND Internal Medicine Interventional Cardiology | DX: I50.9 Heart failure, unspecified (principal); R06.02 Shortness of breath; R60.9 Edema, unspecified | CPT/HCPCS: 93306-PO ==

== ENCOUNTER 2017-07-23 09:56 | Inpatient (IN) | payer OTHER ==
--- NOTE | 2017-07-23 10:19 | EDPHY ---
H & P Stated Complaint: Sent by PCP for infection to left foot. Time Seen by Provider: 07/23/17 10:18 HPI/ROS: CHIEF COMPLAINT: Worsening discharging erythema to left foot HISTORY OF PRESENT ILLNESS: Patient has a history of a chronic diabetic foot ulcer. He presents to the ED after his addictions counselor assistant has reported increased erythema, discharge in drainage from the left foot. Patient denies any acute fever. He did have an upper respiratory infection a week ago. During that time he was fairly weak and was experiencing a cough. The patient has not been on recent antibiotics. He denies any abdominal pain, vomiting or diarrhea. He denies any chest pain or shortness of breath currently. The patient has no sensation in his lower extremity secondary to neuropathy and denies acute pain. REVIEW OF SYSTEMS: A comprehensive 10 point review of systems is otherwise negative aside from elements mentioned in the history of present illness. Source: Patient - Personal History Current Tetanus Diphtheria and Acellular Pertussis (TDAP): Yes - Medical/Surgical History Hx Asthma: No Hx Chronic Respiratory Disease: No Hx Diabetes: Yes Hx Cardiac Disease: Yes Hx Renal Disease: No Hx Cirrhosis: No Hx Alcoholism: No Hx HIV/AIDS: No Hx Splenectomy or Spleen Trauma: No Other PMH: Morbid obesity, DM2, 3rd toe right foot surgery, pulmonary HTN, HTN, paroxysmal AFib, BPH, SUHAS w/CPAP, cardiomyopathy, hypothyroidism, perirectal abcess, CHF, DMII, Rosario placed one week, gout. - Social History Smoking Status: Former smoker - Physical Exam Exam: General Appearance: Alert male, obese Eyes: Pupils equal and round no pallor or injection ENT, Mouth: Mucous membranes moist Respiratory: There are no retractions, lungs are clear to auscultation Cardiovascular: Regular rate and rhythm Gastrointestinal: Abdomen is soft and nontender, no masses, bowel sounds normal Neurological: Decreased sensation to light touch bilateral lower extremities Skin: Diabetic foot ulcer noted to the lateral aspect of the left foot with active drainage and erythema Musculoskeletal: Neck is supple nontender Extremities: No clinical evidence of septic arthritis Constitutional: Initial Vital Signs Temperature (C) 36.5 C 07/23/17 10:02 Heart Rate 77 07/23/17 10:02 Respiratory Rate 18 07/23/17 10:02 Blood Pressure 129/90 H 07/23/17 10:02 O2 Sat (%) 95 07/23/17 10:02 O2 Delivery Mode Room Air Allergies/Adverse Reactions: No Known Allergies Allergy (Unverified 04/12/09 16:18) Home Medications: Medication Instructions Recorded Allopurinol [Allopurinol 300 MG 300 mg PO HS 04/22/16 (RX)] Aspirin EC [Aspirin EC 81 mg (*)] 81 mg PO HS 04/22/16 Herbals/Supplements -Info Only 1 ea PO DAILY 04/22/16 Levothyroxine [Synthroid 75 mcg 75 mcg PO DAILY06 04/22/16 (*)] Warfarin Sodium [Coumadin 5MG (*)] 7.5 mg PO SUTUTHSA 04/22/16 Carvedilol [Coreg] 12.5 mg PO BID 08/22/16 Warfarin Sodium [Coumadin 5MG (*)] 5 mg PO MWF 08/22/16 glyBURIDE [Glyburide] 2.5 mg PO BID 08/22/16 Torsemide 80 mg PO BID #60 tablet 08/28/16 acetaZOLAMIDE [Diamox] 250 mg PO DAILY #7 tab 08/28/16 Medical Decision Making - Diagnostics EKG Interpretation: EKG: Complete interpretation has been separately recorded in the [facility] archive. Summary impression: Sinus rhythm, first-degree AV block Imaging Results: Imaging Impressions Chest X-Ray 07/23/17 10:22 Impression: 1. Borderline cardiomegaly. 2. Poor inspiration with compressive changes at the lung bases. 3. Mild increased markings suspected at the lung bases that could represent some dependent interstitial edema versus less likely interstitial infiltrate. ED Course/Re-evaluation: I consulted with pharmacy the patient will be given a 4.5 g dose of Zosyn. The patient had blood cultures x2 obtained. The patient is afebrile and has no evidence of septic physiology. The patient will require admission to the hospital for further evaluation and management of his diabetic foot infection. Consultation is made with the hospitalist service and he will be admitted by Dr. Salcedo. Differential Diagnosis: Differential diagnosis considered includes cellulitis, abscess, necrotizing fasciitis, dehydration, renal failure, heart failure - Data Points Laboratory Results: Laboratory Results 07/23/17 10:30 07/23/17 10:30 07/23/17 07/23/17 07/23/17 10:30 10:30 10:30 WBC RBC Hgb Hct MCV MCH MCHC RDW Plt Count MPV Neut % (Auto) Lymph % (Auto) [place] % (Auto) Eos % (Auto) Baso % (Auto) Nucleat RBC Rel Count Absolute Neuts (auto) Absolute Lymphs (auto) Absolute Monos (auto) Absolute Eos (auto) Absolute Basos (auto) Absolute Nucleated RBC Immature Gran % Seg Neutrophils % Band Neutrophils % Lymphocytes % Monocytes % Eosinophils % Basophils % Metamyelocytes % Immature Gran # Absolute Seg Neuts Absolute Band Neuts Absolute Lymphocytes Absolute Monocytes Absolute Eosinophils Absolute Basophils Absolute Metamyelocyte Platelet Estimate Polychromasia Smear Review By PT 33.3 SEC H SEC (12.0-15.0) INR 3.30 H (0.83-1.16) Sodium 136 mEq/L mEq/L (135-145) Potassium 4.9 mEq/L mEq/L (3.5-5.2) Chloride 94 mEq/L L mEq/L (97-110) Carbon Dioxide 29 mEq/l mEq/l (22-31) Anion Gap 13 mEq/L mEq/L (8-16) BUN Cancelled 111 mg/dL H* mg/dL (7-23) Creatinine 1.9 mg/dL H mg/dL (0.7-1.3) Estimated GFR 35 Glucose 226 mg/dL H mg/dL (70-100) Calcium 9.0 mg/dL mg/dL (8.5-10.4) Specimen Hemolysis Cancelled 07/23/17 10:30 WBC 12.44 10^3/uL H 10^3/uL (3.80-9.50) RBC 4.69 10^6/uL 10^6/uL (4.40-6.38) Hgb 13.6 g/dL L g/dL (13.7-17.5) Hct 41.9 % % (40.0-51.0) MCV 89.3 fL fL (81.5-99.8) MCH 29.0 pg pg (27.9-34.1) MCHC 32.5 g/dL g/dL (32.4-36.7) RDW 17.7 % H % (11.5-15.2) Plt Count 204 10^3/uL 10^3/uL (150-400) MPV 10.7 fL fL (8.7-11.7) Neut % (Auto) Not Reported Lymph % (Auto) Not Reported [place] % (Auto) Not Reported Eos % (Auto) Not Reported Baso % (Auto) Not Reported Nucleat RBC Rel Count 0.0 % % (0.0-0.2) Absolute Neuts (auto) Not Reported Absolute Lymphs (auto) Not Reported Absolute Monos (auto) Not Reported Absolute Eos (auto) Not Reported Absolute Basos (auto) Not Reported Absolute Nucleated RBC 0.00 10^3/uL 10^3/uL (0-0.01) Immature Gran % Not Reported Seg Neutrophils % 69 % % Band Neutrophils % 5 % % Lymphocytes % 11 % % Monocytes % 10 % % Eosinophils % 1 % % Basophils % 2 % % Metamyelocytes % 2 % % Immature Gran # Not Reported Absolute Seg Neuts 8.58 10^/uL H 10^/uL (1.70-6.50) Absolute Band Neuts 0.62 10^3/uL 10^3/uL (0.00-0.70) Absolute Lymphocytes 1.37 10^3/uL 10^3/uL (1.00-3.00) Absolute Monocytes 1.24 10^3/uL H 10^3/uL (0.30-0.80) Absolute Eosinophils 0.12 10^3/uL 10^3/uL (0.03-0.40) Absolute Basophils 0.25 10^3/uL H 10^3/uL (0.02-0.10) Absolute Metamyelocyte 0.25 10^3/mL H 10^3/mL (0.00-0.00) Platelet Estimate ADEQUATE (ADEQ) Polychromasia 2+ H Smear Review By Pending PT INR Sodium Potassium Chloride Carbon Dioxide Anion Gap BUN Creatinine Estimated GFR Glucose Calcium Specimen Hemolysis Departure - Departure Disposition: [facility] Inpatient Acute Clinical Impression: Diabetic infection of left foot, Heart failure, Renal insufficiency Condition: Fair
--- NOTE | 2017-07-23 10:53 | CPEKG ---
Heart Rate: 73 RR Interval: 822 P-R Interval: 288 QRSD Interval: 130 QT Interval: 412 QTC Interval: 454 P Newhall: 41 QRS Newhall: 269 T Wave [place]hall: 62 EKG Severity - ABNORMAL ECG - EKG Impression: SINUS RHYTHM EKG Impression: FIRST DEGREE AV BLOCK EKG Impression: PROBABLE LEFT ATRIAL ABNORMALITY EKG Impression: NONSPECIFIC IVCD WITH LAD EKG Impression: CONSIDER ANTERIOR INFARCT Electronically Signed By: Guerrero Demarco 23-Jul-2017 12:12:50
[2017-07-23 10:55] LABS: PLATELET COUNT 204 10^3/uL (150-400)
[2017-07-23 11:04] LABS: INR 3.3 (0.83-1.16); PROTIME(PATIENT) 33.3 SEC (12.0-15.0)
[2017-07-23] MEDS ORDERED: NS 500 ML IV ONE (11:48)
[2017-07-23] MEDS ORDERED: NS 1,000 ML IV ONE (11:51)
[2017-07-23] MEDS ORDERED: ONDANSETRON DISINTEGRATING 4 MG TAB PO PRN (11:51)
[2017-07-23] MEDS ORDERED: ONDANSETRON 4 MG/2 ML VIAL IVP PRN (11:51)
[2017-07-23] MEDS ORDERED: ACETAMINOPHEN 325 MG TAB PO PRN (11:51)
--- NOTE | 2017-07-23 11:57 | ASMTLACE ---
TALA Acuity / Level of Answers: Yes Care: Did the patient have an inpatient admission? Comorbidities - select Answers: Chronic pulmonary disease all that apply Congestive heart failure Diabetes (uncontrolled or controlled) # of Emergency department Answers: 1-2 visits in the last 6 months Score: 9 Date Signed: 07/23/2017 11:57 AM Electronically Signed By:Erma Alan RN
[2017-07-23] MEDS ORDERED: PIPERACILLIN/TAZO 4.5 GM/DEX 100 ML IV ONE (12:00)
[2017-07-23] MEDS ORDERED: VANCOMYCIN HCL/NORMAL SALINE 250 ML IV ONE (13:00)
[2017-07-23] MEDS ORDERED: HEPARIN 5,000 UNIT/0.5 ML SYR SC SCH (14:00)
--- NOTE | 2017-07-23 15:44 | GHP ---
[f rep st] HISTORY AND PHYSICAL DATE OF ADMISSION: 07/23/2017 CHIEF COMPLAINT: Worsening lower extremity wound. HISTORY OF PRESENT ILLNESS: This is a 66-year-old male with a history of diabetes, who presents afte r being evaluated in the outpatient setting by his primary lead technical architect for his chronic diabetic foot w fartun, found to have worsening and progression of his wound, was instructed to present to the emergenc y department for evaluation. In the ED, patient reports a recent upper respiratory illness preceding his presentation to the ED by approximately 10 days, associated with subjective fevers, chills, coug h, malaise, and loose stools. Patient reports that his symptoms have all but resolved. Patient curr ently denies any shortness of breath. Denies fevers. Denies nausea, vomiting, diarrhea, dysuria. D oes report change in the odor of his wound as well as swelling in his lower extremity. PAST MEDICAL HISTORY: 1. Diabetes. 2. Atrial fibrillation. 3. Chronic systolic heart failure. 4. Gout. 5. Obesity. SOCIAL HISTORY: Negative for tobacco, alcohol, or illicit drugs. FAMILY HISTORY: Positive for diabetes. REVIEW OF SYSTEMS: A 10-point review of systems is negative with the exception of that reported in t he HPI. PHYSICAL EXAMINATION: VITAL SIGNS: Blood pressure is 129/90, heart rate 77, respiratory rate 18, 95 % on room air, 36.5. GENERAL: This is an obese, elderly male sitting up in bed. HEENT: Notable fo r dry mucous membranes. Eye exam is negative for any icterus. CARDIAC: Sounds are distant, but reg ular. PULMONARY: No rales, rhonchi, or wheezing. GASTROINTESTINAL: Positive bowel sounds. Abdome n is obese and nontender. MUSCULOSKELETAL: Notable for symmetric lower extremity edema. There is a significant wound on the lateral aspect of the left foot with purulent drainage. No other rashes ar e noted. NEUROLOGIC: He is alert and oriented x3. PSYCHIATRIC: He is pleasant and cooperative on interview and examination. DATA: Chest x-ray which I personally reviewed and interpreted shows no acute infiltrates or edema. Laboratory: White count is 12.4, hematocrit 41.9, platelet count of 204. INR 3.3. Creatinine 1.8, sodium 135, blood glucose of 210. ASSESSMENT AND PLAN: This is a 66-year-old male with a chronic left diabetic foot wound, presenting with worsening purulence. 1. Acute diabetic foot infection. We will initiate empiric antibiotics with intravenous vancomycin and either Zosyn or cefepime. Have consulted Wound Care for recommendations on best way to proceed d iagnostically approaching the wound. We will wait on additional imaging until the appropriate care leon gutierrez are involved. 2. Chronic kidney disease. Patient appears to be at baseline renal function. Creatinine 1.8 at pre sentation. We will renally dose medications accordingly. 3. Chronic systolic heart failure. Last documentation in our system I can see is systolics in the 4 0s. We will continue his outpatient medications. He appears compensated at this time. I have chose n to give some fluids as he clinically appears a little bit volume back. We will hold diuretics this evening, can reinitiate tomorrow. We will continue patient's anticoagulation which he attributes to his depressed systolic function. 4. Diabetes. We will continue his outpatient medications where appropriate and cover hyperglycemia with sliding scale insulin. 5. Hypothyroidism. We will continue patient's home dosing of Synthroid. 6. Prophylaxis: Patient is on full-dose anticoagulation. DISPOSITION: I expect greater than 2 midnights as the patient is presenting with a diabetic foot wou nd requiring IV antibiotics and diagnostic workup. I have discussed the case with the emergency room physician. We will initiate empiric antibiotics now that blood cultures have been drawn. /[id number]/MODL
--- NOTE | 2017-07-23 16:27 | PDMN ---
Medical Necessity Medical necessity: Pt meets IP criteria per MD; est los >2 mn for eval/tx of diabetic foot infection requiring diagnostic workup, IV abx, Wound Care consult & therapies; hx CKD, systolic heart failure, diabetes, AFIB on AC; per H&P & order 07/23/17
[2017-07-23] MEDS ORDERED: GADOBUTROL 10 ML VIAL IVP ONE (18:10)
[2017-07-23] MEDS: ASPIRIN EC 81 MG TAB PO SCH (20:34)
[2017-07-23] MEDS: PIPERACILLIN/TAZO 3.375 GM/DEX 50 ML IV SCH (20:35)
[2017-07-23] MEDS: ALLOPURINOL 300 MG TAB PO SCH (20:35)
[2017-07-23] MEDS: CARVEDILOL 6.25 MG TAB PO SCH (21:02)
--- NOTE | 2017-07-23 21:15 | GCON ---
[f rep st] CONSULTATION INPATIENT INFECTIOUS DISEASE CONSULTATION REFERRING PHYSICIAN: Selina Salcedo MD REASON FOR REFERRAL: Left foot diabetic infection. HISTORY OF PRESENT ILLNESS: Patient is a 66-year-old male, who presented to [facility] Emergency Room on 07/23/2017. The patient was sent over by his facility practice specialist secondary to a chronic le ft lateral foot plantar diabetic ulcer worsening. The patient had an increase in erythema, discharge and malodor from that foot over the last week. He denied any fever and chills. The patient also almonte d a recent respiratory virus infection a couple of weeks ago. His symptoms have all resolved at this point. PAST MEDICAL HISTORY: 1. Diabetes type 2. 2. Obesity. 3. Pulmonary hypertension. 4. Hypertension. 5. Paroxysmal atrial fibrillation. 6. Benign prostatic hypertrophy. 7. Obstructive sleep apnea. 8. Hypothyroidism. 9. Cardiomyopathy. 10. History of a perirectal abscess. 11. Congestive heart failure. 12. Gout. PAST SURGICAL HISTORY: Status post right 3rd toe amputation secondary to diabetic foot infection. ANTIBIOTICS: 1. Vancomycin. 2. Zosyn. ALLERGIES: The patient has no known medical allergies. SOCIAL HISTORY: The patient is . No significant tobacco, alcohol or drug use noted. FAMILY HISTORY: Reviewed but noncontributory. REVIEW OF SYSTEMS: Other than that detailed above in history of present illness, a comprehensive 10- system review is negative. PHYSICAL EXAMINATION: VITAL SIGNS: Temperature maximum is 36.5, temperature current 36.4. Heart ra te 69, respiratory rate is 20, blood pressure is 111/68. GENERAL: The patient is a well-formed, obe se, older male, in no acute distress. He is not toxic in appearance. He is alert and oriented x3. He has a pleasant demeanor. HEENT: Normocephalic for age. Atraumatic. No scleral icterus. No ora l lesion or drainage from the nares. Eyes: Lids and conjunctivae are within normal limits. Pupils are equal and round bilaterally. NECK: Supple. No meningismus. LUNGS: Clear to auscultation bila terally with good effort. HEART: Regular rate and rhythm. No murmur, rub, or gallop noted. No sig nificant peripheral edema. ABDOMEN: Soft, nontender. SKIN: Warm and dry to the touch. No rash no hanna. Patient has a chronic left plantar ulcer underneath the 5th MTP, which also extends to the late ral aspect of the foot with a significant amount of surrounding soft tissue erythema as well as indur ation and callus. There is significant malodor of the wound. Unable to express any pus. Fluctuance noted during surrounding tissue palpation. No tenderness but patient has underlying neuropathy. MU SCULOSKELETAL: No other muscle belly tenderness is noted. No joint line effusion or arthritis seen. NEURO: Cranial nerves 2-12 seem to be intact. Peripheral sensation seems intact in extremities. LABORATORY DATA: The patient has a CBC dated 07/23/2017, shows a white blood cell count of 12.4, hem oglobin of 13.6, hematocrit of 41.9, and platelet count of 204. Differential is within normal limits . Serum chemistries on 07/23/2017 show sodium of 135, potassium 4.6, chloride of 96, bicarb of 25, B UN of 109 and creatinine of 1.8. MICROBIOLOGIC DATA: Patient has blood cultures dated 07/23/2017 which are pending. ASSESSMENT: Acute worsening or chronic left-sided diabetic foot ulcer. Suspect the patient has a de ep seated infection of the left foot. Will need an MRI with contrast. Patient does have underlying acute kidney injury probably secondary to dehydration. Baseline creatinine function appears to be in the upper 1's over the last year. We will continue the vancomycin and Zosyn renally adjusted. We w ill evaluate the MRI and probably have Surgery come and see him for debridement tomorrow. PLAN: 1. MRI of the left foot with and without contrast. 2. Likely surgical consult tomorrow for debridement. 3. Follow up blood cultures and clinical course. /[id number]/MODL
[2017-07-23] MEDS ORDERED: D50W 25 GM/50 ML VIAL IVP PRN (22:32)
[2017-07-23] MEDS: INSULIN LISPRO 100 UNIT/ML SC SCH (23:45)
[2017-07-24] MEDS ORDERED: VANCOMYCIN 1 GM in NS 250 ML IV SCH (01:30)
[2017-07-24] MEDS ORDERED: VANCOMYCIN HCL/NORMAL SALINE 250 ML IV SCH ×2 (01:30→01:33)
[2017-07-24] MEDS: LEVOTHYROXINE 75 MCG TAB PO SCH (04:30)
[2017-07-24] MEDS: PIPERACILLIN/TAZO 3.375 GM/DEX 50 ML IV SCH ×3 (04:30→20:43)
[2017-07-24 05:09] LABS: PLATELET COUNT 199 10^3/uL (150-400)
[2017-07-24 05:21] LABS: INR 3.69 (0.83-1.16); PROTIME(PATIENT) 36.3 SEC (12.0-15.0)
[2017-07-24] MEDS ORDERED: Herbals/Supplements -Info Only PO SCH (09:00)
[2017-07-24] MEDS: INSULIN LISPRO 100 UNIT/ML SC SCH ×4 (09:27→21:27)
[2017-07-24] MEDS: CARVEDILOL 6.25 MG TAB PO SCH ×2 (09:45→21:25)
[2017-07-24] MEDS: VITAMIN B COMPLEX 1 EA CAP/TAB PO SCH (09:45)
--- NOTE | 2017-07-24 10:22 | PCMIDPN ---
Assessment/Plan: 1. 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 Will therefore discontinue vancomycin and continue Zosyn as is, renally dosed at 3.375 g IV q.8 hours. Will call Podiatry today; will likely need debridement tomorrow, as his INR is too high for surgery today. Blood cultures remain negative. Check ESR and CRP. Reviewed plan with patient moving forward (need for surgical debridement, await cultures to tailor antibiotics, etc). He expressed understanding. Subjective: Chart reviewed. Patient tells me he really has very little sensation in his feet. States he has had this ulceration for quite some time now, and it was looking markedly improved up until last week. He does not walk around barefoot , and has no water exposure. He has a cat and a dog, but they do not lick his wound. 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 Risks for MRSA therefore low. Objective: Zosyn 3.375 g IV q.8 hours day 1 Vancomycin 1 g IV q.12 hours day 1 Afebrile Vital Signs Temp Pulse Resp BP Pulse Ox 36.9 C 74 16 107/64 94 07/24/17 07:32 07/24/17 09:45 07/24/17 07:32 07/24/17 09:45 07/24/17 07:32 Laboratory Results 07/24/17 04:25 07/23/17 07/24/17 07/25/17 05:59 05:59 05:59 Intake Total 1400 Output Total 1950 400 Balance -550 -400 Blood cultures pending Reviewed MRI with Radiology. Patient with osteomyelitis distal 5th metatarsal - Physical Exam General Appearance: no apparent distress, obese EENT: pharynx normal, No thrush Respiratory: lungs clear Extremities: other (Lower extremities with chronic venous stasis changes. Left foot with nickel sized ulceration plantar aspect 5th metatarsal laterally that is malodorous. Am able to express bloody purulence from the wound. Minimal tenderness given lack of sensation in this area.) ICD10 Worksheet Patient Problems: Problems Problem Status Onset Diabetic infection of left foot Acute Heart failure Acute Renal insufficiency Acute Anasarca Acute Chronic Disease Mgmt/Transitional Care Acute Pulmonary hypertension Acute
[2017-07-24] MEDS ORDERED: PHYTONADIONE 100 MCG TAB PO ONE ×2 (10:41→10:45)
--- NOTE | 2017-07-24 12:08 | WOCRNPDOC ---
WOCRN Advanced Assessment Note - Skin Integrity Problem, Advanced Assess Pannus Dermatitis Dressing Type: Open to Air Exudate Amount: None Aimee Wound Tissue: Blanching, Erythema, Denuded Aimee Wound Swelling: Mild Wound Bed Color: Red Wound Bed Constitution: Red/[place] - Non Granular Tissue Skin Integrity Problem Comment: Linear wounds noted at base of skin crease along bilateral pannus, consistent in appearance w/ intertriginous dermatitis r/ t moisture. In addition, patient has mirrored areas of denudement in the pannus , w/ satellite lesions indicative of candidiasis. Will have nursing initiate tx of miconazole 2% powder and pillow cases BID to keep folds dry. Bilateral Groin Dermatitis Dressing Type: Open to Air Exudate Amount: None Exudate Characteristic(s): None Aimee Wound Tissue: Blanching, Erythema, Denuded Aimee Wound Swelling: Mild Wound Bed Color: Red Wound Bed Constitution: Red/[place] - Non Granular Tissue Skin Integrity Problem Comment: Linear wounds noted at base of skin crease along bilateral groin folds, consistent in appearance w/ intertriginous dermatitis r/t moisture. Patient has mirrored areas of denudement w/ satellite lesions indicative of candidiasis. Will have nursing initiate tx of miconazole 2 % powder and pillow cases BID to keep folds dry.
--- NOTE | 2017-07-24 15:39 | HOSPPROG ---
Hospitalist Progress Note Assessment/Plan: # acute diabetic foot infection- being followed in the outpatient setting with Podiatry MRI foot (personally reviewed and interpreted) confirm infection with concern for osteomyelitis - ID consulting - continue Zosyn IV - DC vancomycin - podiatry consulted by Dr. Day for debridement # supratherapeutic INR- warfarin held overnight INR jumped 3.3->3.9 - give small dose 100 mcg vitamin K now - hold warfarin # diabetes- BS [id number] - oxygen saturations 94% on room air - continue sliding scale insulin # hypothyroidism-continue Synthroid # prophylaxis -on full-dose anticoagulation # diet diabetic # disposition greater than 2 midnights this requires debridement and ongoing IV antibiotics I have discussed the case with Dr. Day will proceed with IV antibiotics and surgical debridement Subjective: Denies chest pain Objective: Vital Signs Temp Pulse Resp BP Pulse Ox 36.9 C 78 12 108/69 94 07/24/17 07:32 07/24/17 10:54 07/24/17 10:54 07/24/17 10:54 07/24/17 14:30 Laboratory Results 07/24/17 04:28 07/24/17 04:25 07/23/17 07/24/17 07/25/17 05:59 05:59 05:59 Intake Total 1400 100 Output Total 1950 525 Balance -550 -425 PT 36.3 SEC (12.0-15.0) H 07/24/17 04:25 INR 3.69 (0.83-1.16) H 07/24/17 04:25 - Physical Exam Constitutional: obese Eyes: anicteric sclera Ears, Nose, Mouth, Throat: moist mucous membranes Cardiovascular: regular rate and rhythym Respiratory: no respiratory distress Gastrointestinal: normoactive bowel sounds Genitourinary: no bladder fullness Skin: warm, other (Left foot lateral wound) Musculoskeletal: No asymmetric calves Neurologic: AAOx3 Psychiatric: interacting appropriately Lymph, Heme, Immunologic: no cervical LAD ICD10 Worksheet Patient Problems: Problems Problem Status Onset Diabetic infection of left foot Acute Heart failure Acute Renal insufficiency Acute Anasarca Acute Chronic Disease Mgmt/Transitional Care Acute Pulmonary hypertension Acute
--- NOTE | 2017-07-24 17:36 | PDCONSULT ---
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 He was seen by his pharmacist hospital and sent in for IV antibiotics as the foot became swollen, the ulcer had some drainage and became malodorous. The patient denies any pain he has no fevers or chills. Review of systems significant for recent flu/URI with bed rest for 5 days prior to having this problem Diabetic foot neuropathy Obesity All others are reviewed and are negative Past medical history: Diabetes type 2, morbid obesity, diabetic neuropathy, gout, atrial fibrillation, congestive heart failure Past surgical history: Right 4th toe amputation Allergies: No known drug allergies Medications at home include: Allopurinol [Allopurinol 300 MG (RX)] 150 mg PO HS 04/22/16 [Last Taken 07/22/17 ] Aspirin EC [Aspirin EC 81 mg (*)] 81 mg PO HS 04/22/16 [Last Taken 07/22/17] Herbals/Supplements -Info Only 1 ea PO DAILY 04/22/16 [Last Taken 04/20/16] Levothyroxine [Synthroid 75 mcg (*)] 75 mcg PO DAILY06 04/22/16 [Last Taken ] Carvedilol [Coreg] 12.5 mg PO BID 08/22/16 [Last Taken 07/23/17] Warfarin Sodium [Coumadin 5MG (*)] 5 mg PO DAILY@16 08/22/16 [Last Taken ] Spironolactone [Aldactone 25 MG (*)] 12.5 mg PO DAILY 07/23/17 [Last Taken Unknown] Torsemide 40 mg PO DAILY 07/23/17 [Last Taken 07/23/17] Vit B Comp/C/FA/Iron/Vit E [Vitamin B Complex Tablet] 1 each PO DAILY 07/23/17 [ Last Taken Unknown] Family history: Noncontributory (diabetes) Social history: Denies smoking alcohol or illicit drug use Temp Pulse Resp BP Pulse Ox 36.6 C 77 18 123/76 H 94 07/24/17 16:00 07/24/17 16:00 07/24/17 16:00 07/24/17 16:00 07/24/17 16:00 Alert oriented. Well-developed obese man Normal affect Sclerae anicteric Oropharynx moist Lungs clear bilaterally Abdomen soft protuberant normoactive bowel sounds 2+ over 2+ femoral popliteal and dorsalis pedis pulses bilaterally Bilateral venous insufficiency changes CEAP class 2-3. Left lateral ulcer 1 cm in diameter with surrounding erythema to the mid forefoot approximately 6-7 cm from the ulcer. Malodor. The tract goes to the bone. MRI reviewed on PACS agree with finding which shows osteo myelitis with destruction of the metatarsal joint. 07/24/17 04:28 07/24/17 04:25 Total Bilirubin 2.6 mg/dL (0.1-1.4) H 07/24/17 04:25 Conjugated Bilirubin 1.2 mg/dL (0.0-0.5) H 07/24/17 04:25 Unconjugated Bilirubin 1.4 mg/dL (0.0-1.1) H 07/24/17 04:25 AST 27 IU/L (17-59) 07/24/17 04:25 ALT 35 IU/L (21-72) 07/24/17 04:25 Impression/plan: Diabetic foot ulcer in presence of neuropathy and morbid obesity. Acquired coagulopathy. Atrial fibrillation. Wound debridement is requested but INR is 3.9 today. Pulse lavage was performed at bedside with 3 L of normal saline and debridement of ulcer bed sharply acute bleeding tissue. Continue antibiotics if desires to avoid surgery would re-evaluate after course of 6 weeks of antibiotics. If necessary 5th ray amputation with wound VAC and delayed closure is an option. This was discussed in detail with the patient. All questions were addressed. Continue to monitor blood sugars
[2017-07-24] MEDS: ALLOPURINOL 300 MG TAB PO SCH (21:25)
[2017-07-24] MEDS: ASPIRIN EC 81 MG TAB PO SCH (21:25)
[2017-07-25 04:57] LABS: INR 2.69 (0.83-1.16); PROTIME(PATIENT) 28.5 SEC (12.0-15.0)
[2017-07-25] MEDS: LEVOTHYROXINE 75 MCG TAB PO SCH (05:35)
[2017-07-25] MEDS: PIPERACILLIN/TAZO 3.375 GM/DEX 50 ML IV SCH ×3 (05:35→21:22)
--- NOTE | 2017-07-25 09:18 | HOSPPROG ---
Hospitalist Progress Note Assessment/Plan: #Left foot diabetic ulcer -bedside irrigation by Dr. Whiteside 07/23. May need partial amputation in future -IV Zosyn #Leukocytosis: resolved. Blood cultures negative #CKD: Cr 2 (at baseline) #Permanent a fib: holding coumadin with elevated INR. Can likely restart Thursday #DM 2: SSI #Compensated systolic HF: Coreg. Will resume diuretics tomorrow #Gout: renally-dosed Allopurinol #Non-flow limiting CAD: ASA CAth 08/22) #Moderate pulmonary HTN: #Diet: DM #DVT ppx: on coumadin #Disp: warrants inpatient admission for diabetic ulcer, IV abx. Plan for home with IV abx vs. SNF depending on costs; CM will discuss with patient today Subjective: denies pain in foot. " Have min feeling there" Objective: Vital Signs Temp Pulse Resp BP Pulse Ox 36.3 C 73 16 111/73 94 07/25/17 08:00 07/25/17 08:00 07/25/17 08:00 07/25/17 08:00 07/25/17 08:00 Laboratory Results 07/25/17 04:29 07/25/17 04:29 07/24/17 07/25/17 07/26/17 05:59 05:59 05:59 Intake Total 1400 100 300 Output Total 1950 1300 125 Balance -550 -1200 175 PT 28.5 SEC (12.0-15.0) H 07/25/17 04:29 INR 2.69 (0.83-1.16) H 07/25/17 04:29 - Time Spent With Patient Time Spent with Patient: greater than 35 minutes Time Spent with Patient: Greater than 35 minutes spent on this patients care, greater than 50% of time spent counseling, educating, and coordinating care regarding the above mentioned plan. - Physical Exam Constitutional: obese Eyes: PERRL Ears, Nose, Mouth, Throat: moist mucous membranes Cardiovascular: regular rate and rhythym, no murmur, rub, or gallop Respiratory: no respiratory distress, reduced air movement, No rhonchi Gastrointestinal: normoactive bowel sounds Genitourinary: No fan in urethra Skin: warm Musculoskeletal: other (left 5th metatarsal wound size of nickel. No purulence) Neurologic: other (decreased sensation to light touch BL feet) Psychiatric: interacting appropriately ICD10 Worksheet Patient Problems: Problems Problem Status Onset Diabetic infection of left foot Acute Heart failure Acute Renal insufficiency Acute Anasarca Acute Chronic Disease Mgmt/Transitional Care Acute Pulmonary hypertension Acute
[2017-07-25] MEDS: CARVEDILOL 6.25 MG TAB PO SCH ×2 (09:22→21:22)
[2017-07-25] MEDS: VITAMIN B COMPLEX 1 EA CAP/TAB PO SCH (09:22)
[2017-07-25] MEDS: INSULIN LISPRO 100 UNIT/ML SC SCH ×4 (09:23→21:22)
[2017-07-25] MEDS ORDERED: ALTEPLASE 2 MG VIAL IVP PRN (10:49)
--- NOTE | 2017-07-25 10:52 | PCMIDPN ---
Assessment/Plan: 1. Left Diabetic foot infection/osteomyelitis of distal 5th metatarsal: Appreciate 's assistance. Status post bedside pulse lavage. No culture data to go by. Blood cultures remain sterile. I stopped vancomycin yesterday given low suspicion for MRSA. Talked to the patient about the need for 6 weeks of IV antibiotics moving forward, and wound care. Have notified social work, who will start working on his plan moving forward. PICC line today. 07/25/17 10:49 Subjective: In good spirits. Status post pulse lavage of his foot wound yesterday. No diarrhea. Objective: Zosyn 3.375 g IV q.8 hours day 2 Afebrile Vital Signs Temp Pulse Resp BP Pulse Ox 36.3 C 73 16 111/73 94 07/25/17 08:00 07/25/17 08:00 07/25/17 08:00 07/25/17 08:00 07/25/17 08:00 Laboratory Results 07/25/17 04:29 07/25/17 04:29 07/24/17 07/25/17 07/26/17 05:59 05:59 05:59 Intake Total 1400 100 300 Output Total 1950 1300 250 Balance -550 -1200 50 ESR 40 MM/HR (0-20) H 07/24/17 04:28 C-Reactive Protein 39.4 mg/L (<10.0) H 07/24/17 04:28 Blood cultures remain sterile - Physical Exam General Appearance: no apparent distress, obese EENT: No thrush Respiratory: lungs clear Extremities: other (Left foot, lateral 5th metatarsal area with nickel sized ulceration that has a clean base. Minimal surrounding dusky erythema. Patient has no sensation in this area. I am not able to express any purulence from the ulceration.) ICD10 Worksheet Patient Problems: Problems Problem Status Onset Diabetic infection of left foot Acute Heart failure Acute Renal insufficiency Acute Anasarca Acute Chronic Disease Mgmt/Transitional Care Acute Pulmonary hypertension Acute
--- NOTE | 2017-07-25 10:55 | SOAPPROG ---
SOAP Progress Note Assessment/Plan: Assessment:no overnight complaints. afebrile. foot wound soft, immature granulation with extension toward distal phalynx. INR 2.8. wound irrigated last evening. continuing zosyn per ID reccs. will likely need at least partial if not complete ray amp in the future. Plan: 07/25/17 10:53 07/25/17 10:55 Objective: Vital Signs Temp Pulse Resp BP Pulse Ox 36.3 C 73 16 111/73 94 07/25/17 08:00 07/25/17 08:00 07/25/17 08:00 07/25/17 08:00 07/25/17 08:00 Laboratory Results 07/25/17 04:29 07/25/17 04:29 07/24/17 07/25/17 07/26/17 05:59 05:59 05:59 Intake Total 1400 100 300 Output Total 1950 1300 250 Balance -550 -1200 50 PT 28.5 SEC (12.0-15.0) H 07/25/17 04:29 INR 2.69 (0.83-1.16) H 07/25/17 04:29 ICD10 Worksheet Patient Problems: Problems Problem Status Onset Diabetic infection of left foot Acute Heart failure Acute Renal insufficiency Acute Anasarca Acute Chronic Disease Mgmt/Transitional Care Acute Pulmonary hypertension Acute
--- NOTE | 2017-07-25 12:06 | ASMTCMCOM ---
CM Note CM Note Notes: Chart reviewed for discharge planning purposes. Pt has complex medical history. He is here with diabetic foot would r/o osteomylitis. 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 Has had HHC in the past he thinks through the hospital. He verablized no preference. Needs wound debridement and final antibiotic choice is unknown at present. Plan home with likely home infusion and HHC RN. CM to follow. Date Signed: 07/25/2017 12:06 PM Electronically Signed By:Gail Turner RN
--- NOTE | 2017-07-25 12:09 | ASMTCMCOM ---
CM Note CM Note Notes: Spoke w/MD, pt will need 6 weeks IV abx. Spoke w/pt, will send referral to [facility] to run benefits. DC Plan: Home infusion/[facility] Date Signed: 07/25/2017 12:08 PM Electronically Signed By:Gail Turner RN
--- NOTE | 2017-07-25 14:15 | ASMTCMCOM ---
CM Note CM Note Notes: Received call from [facility] copay for IV abx is $585.00/week. Spoke w/pt cannot afford but will go to SNF as needs 6 weeks of IV therapy. Would like referrals sent to SNFs in [place]. Dr Day notified. DC Plan: SNF Date Signed: 07/25/2017 02:14 PM Electronically Signed By:Gail Turner RN
[2017-07-25] MEDS: WARFARIN SODIUM 5 MG TAB PO SCH ×2 (16:37→17:18)
[2017-07-25] MEDS: ALLOPURINOL 300 MG TAB PO SCH (21:22)
[2017-07-25] MEDS: ASPIRIN EC 81 MG TAB PO SCH (21:22)
[2017-07-26] MEDS: LEVOTHYROXINE 75 MCG TAB PO SCH (05:14)
[2017-07-26] MEDS: PIPERACILLIN/TAZO 3.375 GM/DEX 50 ML IV SCH ×2 (05:14→12:41)
[2017-07-26 05:38] LABS: INR 2.03 (0.83-1.16)
--- NOTE | 2017-07-26 07:17 | SOAPPROG ---
SOAP Progress Note Assessment/Plan: Assessment:PICC placed yesterday. ID note reviewed - plan for 6 wks zosyn. patient without complaints. avss. comfortable. wound clean, unchanged. 5th MT osteo - patient desirous to keep his toe - I am not optimistic he will heal with abx alone but given his 2 year history, there is no urgency to surgery. he will plan to follow-up with his marine resource economist in [place] (Dr. Zaldivar). no further acute intervention needed at this time. no overnight complaints. afebrile. foot wound soft, immature granulation with extension toward distal phalynx. INR 2.8. wound irrigated last evening. continuing zosyn per ID reccs. will likely need at least partial if not complete ray amp in the future. Plan: 07/25/17 10:53 07/25/17 10:55 07/26/17 07:13 Objective: Vital Signs Temp Pulse Resp BP Pulse Ox 36.5 C 74 18 113/75 90 L 07/26/17 04:00 07/26/17 04:00 07/26/17 04:00 07/26/17 04:00 07/26/17 04:00 Laboratory Results 07/25/17 04:29 07/26/17 05:05 07/25/17 07/26/17 07/27/17 05:59 05:59 05:59 Intake Total 100 800 Output Total 1300 1300 Balance -1200 -500 PT 23.0 SEC (12.0-15.0) H 07/26/17 05:05 INR 2.03 (0.83-1.16) H 07/26/17 05:05 ICD10 Worksheet Patient Problems: Problems Problem Status Onset Diabetic infection of left foot Acute Heart failure Acute Renal insufficiency Acute Anasarca Acute Chronic Disease [facility]/Transitional Care Acute Pulmonary hypertension Acute
[2017-07-26 07:20] VITALS: RESP 16
--- NOTE | 2017-07-26 08:42 | HOSPPROG ---
Hospitalist Progress Note Assessment/Plan: #Left foot diabetic ulcer -bedside irrigation by Dr. Whiteside 07/23. May need partial amputation in future -IV Zosyn x 6 weeks. PICC placed #Leukocytosis: resolved. Blood cultures negative #CKD: Cr 2 (at baseline) #Permanent a fib: resume Coumadin today #DM 2: SSI #Compensated systolic HF: Coreg. Will resume diuretics tomorrow #Gout: renally-dosed Allopurinol #Non-flow limiting CAD: ASA (Cath 08/22) #Moderate pulmonary HTN: #Diet: DM #DVT ppx: on coumadin #Disp: warrants inpatient admission for diabetic ulcer, IV abx. Plan for home with IV abx vs. SNF depending on costs; CM will discuss with patient today Subjective: no pain in foot. Deciding whether to do IV abx at home or SNF Objective: Vital Signs Temp Pulse Resp BP Pulse Ox 36.6 C 75 16 110/71 93 07/26/17 07:18 07/26/17 07:18 07/26/17 07:18 07/26/17 07:18 07/26/17 07:18 Laboratory Results 07/25/17 04:29 07/26/17 05:05 07/25/17 07/26/17 07/27/17 05:59 05:59 05:59 Intake Total 100 800 Output Total 1300 1300 125 Balance -1200 -500 -125 PT 23.0 SEC (12.0-15.0) H 07/26/17 05:05 INR 2.03 (0.83-1.16) H 07/26/17 05:05 - Physical Exam Constitutional: no apparent distress, obese Eyes: PERRL Ears, Nose, Mouth, Throat: moist mucous membranes Cardiovascular: regular rate and rhythym Respiratory: no respiratory distress, no rales or rhonchi Gastrointestinal: normoactive bowel sounds, soft, non-tender abdomen Genitourinary: no bladder fullness Skin: warm Musculoskeletal: other (left foot wound wrapped. No LE erythema) Neurologic: AAOx3, CN II-XII Intact Psychiatric: interacting appropriately ICD10 Worksheet Patient Problems: Problems Problem Status Onset Diabetic infection of left foot Acute Heart failure Acute Renal insufficiency Acute Anasarca Acute Chronic Disease Mgmt/Transitional Care Acute Pulmonary hypertension Acute
--- NOTE | 2017-07-26 08:50 | PDIAF ---
- Diagnosis Diagnosis: Osteomyelitis left 5th metatarsal Code Status: Full Code - Medication Management Discharge Medications: Medications to Continue on Transfer Allopurinol [Allopurinol 300 MG (RX)] 150 mg PO HS 04/22/16 [Last Taken 07/22/17 ] Aspirin EC [Aspirin EC 81 mg (*)] 81 mg PO HS 04/22/16 [Last Taken 07/22/17] Herbals/Supplements -Info Only 1 ea PO DAILY 04/22/16 [Last Taken 04/20/16] Levothyroxine [Synthroid 75 mcg (*)] 75 mcg PO DAILY06 04/22/16 [Last Taken ] Carvedilol [Coreg] 12.5 mg PO BID 08/22/16 [Last Taken 07/23/17] Warfarin Sodium [Coumadin 5MG (*)] 5 mg PO DAILY@16 08/22/16 [Last Taken ] Spironolactone [Aldactone 25 MG (*)] 12.5 mg PO DAILY 07/23/17 [Last Taken Unknown] Torsemide 40 mg PO DAILY 07/23/17 [Last Taken 07/23/17] Vit B Comp/C/FA/Iron/Vit E [Vitamin B Complex Tablet] 1 each PO DAILY 07/23/17 [ Last Taken Unknown] Mcc Antibiotics: Zosyn 3.375 g IV q.8 hours Geophysical Laboratory Chief Antibiotic Stop Date: 09/06/17 Discharge Medications: Refer to the Discharge Home Medication list for PRN reason. - Labs/Radiology CBC w/diff Date: 07/30/17 (Fax results to Dr. Arya Caldwell [phone]) CMP Date: 07/30/17 (Fax results to Dr. Arya Caldwell [phone]) - Follow Up Care Current Providers and Referrals: Lucy sEparza MD [Primary Care Provider] - As per Instructions Arya Caldwell MD [Medical Doctor] - (Our clinic will call to schedule)
[2017-07-26] MEDS: INSULIN LISPRO 100 UNIT/ML SC SCH ×2 (08:55→12:40)
--- NOTE | 2017-07-26 08:55 | PCMIDPN ---
Assessment/Plan: 1. Left Diabetic foot infection/osteomyelitis of distal 5th metatarsal: Patient will go to a [facility] facility in [place]. Inter agency form completed. Needs antibiotics through September 06 along with wound care. No new recommendations at this point in time. Awaiting placement. Subjective: In good spirits, no complaints. No diarrhea. Objective: Zosyn 3.375 g IV q.8 hours day 3 No fever Vital Signs Temp Pulse Resp BP Pulse Ox 36.6 C 75 16 110/71 93 07/26/17 07:18 07/26/17 07:18 07/26/17 07:18 07/26/17 07:18 07/26/17 07:18 Laboratory Results 07/25/17 04:29 07/26/17 05:05 07/25/17 07/26/17 07/27/17 05:59 05:59 05:59 Intake Total 100 800 Output Total 1300 1300 125 Balance -1200 -500 -125 ESR 40 MM/HR (0-20) H 07/24/17 04:28 C-Reactive Protein 39.4 mg/L (<10.0) H 07/24/17 04:28 Blood culture sterile - Physical Exam General Appearance: alert, no apparent distress, obese Extremities: other (Left foot wrapped, I did not take the dressing down. No significant cellulitis.) ICD10 Worksheet Patient Problems: Problems Problem Status Onset Diabetic infection of left foot Acute Heart failure Acute Renal insufficiency Acute Anasarca Acute Chronic Disease [facility]/Transitional Care Acute Pulmonary hypertension Acute
[2017-07-26] MEDS: CARVEDILOL 6.25 MG TAB PO SCH (08:56)
[2017-07-26] MEDS: VITAMIN B COMPLEX 1 EA CAP/TAB PO SCH (08:57)
--- NOTE | 2017-07-26 09:22 | ASMTCMCOM ---
CM Note CM Note Notes: Chart reviewed, Met with patient to review placement options and he was unaware this plan of care would require he stay at SNF for entire duration of IV therapy. Reviewed options with patient . He states he will discuss with when she arrives this pm after work, He is accepted to both [facility] as well as [facility] in [place]. He again states cost of [place] services is cost prohibitive. CM to follow Date Signed: 07/26/2017 09:21 AM Electronically Signed By:Lidia Danielle RN
--- NOTE | 2017-07-26 13:18 | ASMTCMCOM ---
CM Note CM Note Notes: Patient had inquired of MD whether or not he might be able to go from SNF to home if he is able to come up with money to cover costs. We reviewed that his numbers on out of packet cost were based on home infusion services. He can pursue that if he wishes with his ID doctor if that becomes a option. He would like to have his transport him to their choice of facility [facility] in [place] on [address], Final orders faxed via [employer]. Awaiting return call from facility, CARYL to follow. Date Signed: 07/26/2017 10:59 AM Electronically Signed By:Lidia Danielle RN
[2017-07-26 15:22] VITALS: BP 129/88; PULSE 74; TEMP 97.5; O2SAT 95
--- NOTE | 2017-07-26 15:47 | WOCRNPDOC ---
WOCRN Advanced Assessment Note - Skin Integrity Problem, Advanced Assess Left Lateral Foot Diabetic Ulcer Dressing Type: Gauze Dressing Description: Shadowed Exudate Amount: Moderate Exudate Color: Brown Exudate Characteristic(s): Dried, Sanguinous Aimee Wound Tissue: Erythema, Swollen, Calloused Aimee Wound Swelling: Moderate Wound Bed Color: Red Wound Bed Constitution: Red/[place] - Non Granular Tissue, Undermining (0.6cm from 12-10 o'clock) Site Measurement - Head-to-Toe Length X Width X Depth (cm): 0.6cmx0.5cmx0.4cm Skin Integrity Problem Comment: Left lateral foot DFU over 5th metatarsal, undermining almost circumferentially approx. 0.6cm. Some trace adhered necrotic tissue, otherwise mostly red, bloody non-granulating tissue. Periwound tissue w / callous and mod swelling throughout. Did not probe the wound extensively, but softness of underlying tissue does suggest it goes deeper than the 0.4cm at wound base. Will have nursing apply Aqaucel Ag to help manage exudate and confer some antimicrobial benefit, followed by foam and kerrlix to secure.
[2017-07-26] MEDS ORDERED: WARFARIN SODIUM 5 MG TAB PO SCH ×2 (16:00)
--- NOTE | 2017-07-26 16:26 | PDIAF ---
- Diagnosis Diagnosis: Osteomyelitis left 5th metatarsal Code Status: Full Code - Medication Management Discharge Medications: Medications to Continue on Transfer Allopurinol [Allopurinol 300 MG (RX)] 150 mg PO HS 04/22/16 [Last Taken 07/22/17 ] Aspirin EC [Aspirin EC 81 mg (*)] 81 mg PO HS 04/22/16 [Last Taken 07/22/17] Herbals/Supplements -Info Only 1 ea PO DAILY 04/22/16 [Last Taken 04/20/16] Levothyroxine [Synthroid 75 mcg (*)] 75 mcg PO DAILY06 04/22/16 [Last Taken ] Carvedilol [Coreg] 12.5 mg PO BID 08/22/16 [Last Taken 07/23/17] Warfarin Sodium [Coumadin 5MG (*)] 5 mg PO DAILY@16 08/22/16 [Last Taken ] Spironolactone [Aldactone 25 MG (*)] 12.5 mg PO DAILY 07/23/17 [Last Taken Unknown] Torsemide 40 mg PO DAILY 07/23/17 [Last Taken 07/23/17] Vit B Comp/C/FA/Iron/Vit E [Vitamin B Complex Tablet] 1 each PO DAILY 07/23/17 [ Last Taken Unknown] Alteplase [Cathflo Activase 2 mg (*)] 2 mg IVP PRN PRN vial 07/26/17 [Last Taken Unknown] Insulin Lispro [HumaLOG LISPRO] 0 unit SC ACHS unit 07/26/17 [Last Taken Unknown] Piperacillin/Tazo 3.375 gm/Dex [Zosyn 3.375 gm (Premix)] 3.375 ml IV Q8H bag [Last Taken Unknown] Usp Antibiotics: Zosyn 3.375 g IV q.8 hours Usp Antibiotic Stop Date: 09/06/17 Discharge Medications: Refer to the Discharge Home Medication list for PRN reason. - Orders Services needed: Registered Nurse, Master Retail Sales Consultant Diet Recommendation: ADA 2200 consistent carb Diet Texture: Regular Texture Diet Additional: Follow glucose levels. May benefit from low-dose glargine - Labs/Radiology CBC w/diff Date: 07/30/17 (Fax results to Dr. Arya Caldwell [phone]) CMP Date: 07/30/17 (Fax results to Dr. Arya Caldwell [phone]) - Follow Up Care Current Providers and Referrals: Lucy Esparza MD [Primary Care Provider] - As per Instructions Arya Caldwell MD [Medical Doctor] - (Our clinic will call to schedule)
--- NOTE | 2017-07-26 17:06 | GDS ---
[f rep st] DISCHARGE SUMMARY DISCHARGE DIAGNOSES: 1. Diabetes, A1c 7.8, progressive chronic diabetic foot wound. 2. Permanent atrial fibrillation, compensated systolic heart failure. 3. Gout. 4. Obesity. 5. Hypothyroidism. 6. Leukocytosis. 7. Chronic kidney disease with creatinine 1.8 to 1.2. HISTORY OF PRESENT ILLNESS: A 66-year-old male with history of diabetes, presenting after being eval uated as an outpatient by his primary ibm bpm architect for his chronic diabetic foot wound, found to have w orsening progression of his wound. In the ED he reported upper respiratory symptoms 10 days prior, i ncluding subjective fevers, cough, chills, malaise, and loose stools. He does report change in the o zo of his wound, as well as swelling in the lower extremity. HOSPITAL COURSE BY PROBLEM: 1. Acute on chronic diabetic foot infection: MRI showed postoperative change versus osteo of distal left 5th metatarsal. He was evaluated by Surgery, and underwent bedside pulse lavage. He was evalu ated by ID, who started him on 6 weeks of IV Zosyn and wound care. He was unable to afford the cost for home antibiotics. He will continue his treatment at [facility]. PICC line in place. Followup labs will be sent to Dr. Caldwell with Infectious Disease. Antibiotics will be continued thr ough September 06, 2017. 2. Supratherapeutic international normalized ratio: Initially was 3.9. This was held, and it is at 2 today. He may resume this. 3. Diabetes: A1c 7.3. He had previously been on glyburide, but in his most recent clinic notes I d o not see any oral agents. He has been on sliding scale here. We will continue this at discharge fo r good control given acute infection. Could consider low-dose glargine. 4. Hypothyroidism: Synthroid. 5. Permanent atrial fibrillation: Rate controlled on Coreg. Resume Coumadin. 6. Diet: Diabetic. 7. Leukocytosis secondary to acute diabetic foot ulcer: This resolved with antibiotics. 8. CKD: Creatinine was at baseline. 9. Compensated systolic heart failure: No evidence of volume overload. Continue Coreg and diuretic s. 10. Gout: Renally dosed allopurinol. 11. History of non flow-limiting coronary artery disease: This was on catheterization August 2016. Continue aspirin and beta juanita. He is followed by Cardiology. 12. Moderate pulmonary hypertension: Stable. DISPOSITION: The patient is stable for discharge to [facility]. MEDICATIONS: Zosyn 3.75 IV q.8 hours. Stop date 09/06/2017. FOLLOWUP: 1. CBC with diff on 07/30. 2. CMP on 07/30/2017. 3. INR on 07/30 for atrial fibrillation. 4. Follow up with Dr. Crow, PCP. 5. Dr. Arya Caldwell with Infectious Disease. 6. Followup glucose control. Could consider low-dose glargine if warranted. /[id number]/MODL
--- NOTE | 2017-07-27 13:52 | ASDISCHSUM ---
Discharge Information Plan Status:SNF Medically Cleared to Leave:07/25/2017 Discharge Date:07/26/2017 05:47 PM CM D/C Disposition: ADT D/C Disposition:Longterm Facility Projected Discharge Date:07/26/2017 11:00 AM Transportation at D/C: Discharge Delay Reason: Follow-Up Date:07/26/2017 11:00 AM Discharge Slot: Final Diagnosis: Placement Information Referral Type:Home Infusion Referral ID:[id number] Provider Name: Address 1: Phone Number: Address 2: Fax Number: City: Selection Factors: State: Referral Type:*Mcfp/SNF Referral ID:[id number] Provider Name:[facility] Address 1:[address] [place] [address] Address 2: City:[place] Selection Factors: State:[place] Patient Contact Information Contact Name:EMIL Relationship: Address:[address] Work Phone: [facility] Phone: State/Zip Code:[place] [address] Email: Financial Information Financial Class:Medicare Primary Plan Desc:MEDICARE INPATIENT Primary Plan Number:[id number] Secondary Plan Desc:NAKUL EDUARDO JAMES Secondary Plan Number:[id number] Assessment Information LACE LACE Acuity / Level of Answers: Yes Care: Did the patient have an inpatient admission? Comorbidities - select Answers: Chronic pulmonary disease all that apply Congestive heart failure Diabetes (uncontrolled or controlled) # of Emergency department Answers: 1-2 visits in the last 6 months Score: 9 Date Signed: 07/23/2017 11:57 AM Electronically Signed By:Erma Alan RN [facility] CM Progress Note CM Note CM Note Notes: Chart reviewed for discharge planning purposes. Pt has complex medical history. He is here with diabetic foot would r/o osteomylitis. Likely to need alf antibiotics. Has had HHC in the past he thinks through the hospital. He verablized no preference. Needs wound debridement and final antibiotic choice is unknown at present. Plan home with likely home infusion and HHC RN. CM to follow. Date Signed: 07/25/2017 12:06 PM Electronically Signed By:Gail Turner RN [facility] Progress Note CM Note CM Note Notes: Spoke w/, pt will need 6 weeks IV abx. Spoke w/pt, will send referral to [facility] to run benefits. DC Plan: Home infusion/[facility] Date Signed: 07/25/2017 12:08 PM Electronically Signed By:Gail Turner RN [facility] Progress Note CM Note CM Note Notes: Received call from [facility], pt's copay for IV abx is $585.00/week. Spoke w/pt cannot afford but will go to SNF as needs 6 weeks of IV therapy. Would like referrals sent to SNFs in [place]. Dr Day notified. DC Plan: SNF Date Signed: 07/25/2017 02:14 PM Electronically Signed By:Gail Turner RN [facility] CM Progress Note CM Note CM Note Notes: Chart reviewed, Met with patient to review placement options and he was unaware this plan of care would require he stay at SNF for entire duration of IV therapy. Reviewed options with patient . He states he will discuss with when she arrives this pm after work, He is accepted to both [facility] as well as [facility] in [place]. He again states cost of [place] services is cost prohibitive. CM to follow Date Signed: 07/26/2017 09:21 AM Electronically Signed By:Lidia Danielle RN Case Management Discharge Plan Note Case Management Discharge Discharge Order Complete? Answers: Yes Patient to Obtain Answers: Other Notes: snf Medications Transportation Arranged Answers: Family/Friends Faxed Final Orders Answers: Yes Notes: [facility] [place] Agency/Facility Transfer Answers: Yes Notes: [facility] [place] Report Printed & Faxed to Receiving Agency Family Notified Answers: Yes Date Signed: 07/26/2017 10:54 AM Electronically Signed By:Lidia Danielle RN [facility] Progress Note CM Note CM Note Notes: Patient had inquired of MD whether or not he might be able to go from SNF to home if he is able to come up with money to cover costs. We reviewed that his numbers on out of packet cost were based on home infusion services. He can pursue that if he wishes with his ID doctor if that becomes a option. He would like to have his transport him to their choice of facility [facility] in [place] [address], Final orders faxed via [facility]. Awaiting return call from facility, CM to follow. Date Signed: 07/26/2017 10:59 AM Electronically Signed By:Lidia Danielle RN Intervention Information
== END 2017-07-26 17:47 | DRG 982 ==
LOC: F3E 14:39
PROVIDERS: ADMIT Hospitalist; ATTEND Hospitalist
PROC: 0JDR0ZZ Extraction of Left Foot Subcutaneous Tissue and Fascia, Open Approach (ICD-10-PCS; principal; 2017-07-25)
PROC: 02HV33Z Insertion of Infusion Device into Superior Vena Cava, Percutaneous Approach (ICD-10-PCS; 2017-07-25)
DX: E11.69 Type 2 diabetes mellitus with other specified complication (principal); M86.672 Other chronic osteomyelitis, left ankle and foot; E11.621 Type 2 diabetes mellitus with foot ulcer; L97.529 Non-pressure chronic ulcer of other part of left foot with unspecified severity; I50.22 Chronic systolic (congestive) heart failure; E11.22 Type 2 diabetes mellitus with diabetic chronic kidney disease; E11.40 Type 2 diabetes mellitus with diabetic neuropathy, unspecified; N18.9 Chronic kidney disease, unspecified; I48.2 Chronic atrial fibrillation; M10.9 Gout, unspecified; E66.9 Obesity, unspecified; E03.9 Hypothyroidism, unspecified; I25.10 Atherosclerotic heart disease of native coronary artery without angina pectoris; I27.20 Pulmonary hypertension, unspecified; G47.33 Obstructive sleep apnea (adult) (pediatric); N40.0 Benign prostatic hyperplasia without lower urinary tract symptoms; Z68.37 Body mass index [BMI] 37.0-37.9, adult
CPT/HCPCS: 97116-GP; 97161-GP; 97165-GO; A9585; C1751; G8978-GP-CH; G8979-GP-CH; G8980-GP-CH; G8987-GO-CI; G8988-GO-CI; G8989-GO-CI; J1815; J2543; J3370

== ENCOUNTER 2017-11-10 09:00 | Inpatient (IN) | payer OTHER ==
--- NOTE | 2017-11-10 09:32 | CPEKG ---
Heart Rate: 67 RR Interval: 896 P-R Interval: 191 QRSD Interval: 120 QT Interval: 428 QTC Interval: 452 P Al[place]: 0 QRS [place]: 253 T Wave Al[place]: 74 EKG Severity - ABNORMAL ECG - EKG Impression: SINUS RHYTHM EKG Impression: MULTIPLE VENTRICULAR PREMATURE COMPLEXES EKG Impression: PROBABLE LEFT ATRIAL ABNORMALITY EKG Impression: NONSPECIFIC IVCD WITH LAD EKG Impression: CONSIDER INFERIOR INFARCT EKG Impression: EXTENSIVE ANTERIOR INFARCT, AGE INDETERMINATE Electronically Signed By: Papi Vela 10-Nov-2017 14:37:47
[2017-11-10 09:52] LABS: PLATELET COUNT 176 10^3/uL (150-400)
--- NOTE | 2017-11-10 09:55 | EDPHY ---
H & P Time Seen by Provider: 11/10/17 09:11 HPI/ROS: Chief complaint. Water retention HPI. 67-year-old male with history of CHF and renal disease presents emergency department with 3 month history of water retention. He has been using diuretics but not losing weight. He has shortness of breath with exertion. No chest pain. He has cough but no fever. No abdominal pain. Swelling in both legs. Has been seen by survey data technician who recommends admission. Similar symptoms previously. Symptoms began after having ft infection and in [facility] for antibiotics. ROS Constitutional. no fever/chills, no weakness Eyes. no problems with vision ENT. no sore throat, no nasal drainage Cardiovascular. no chest pain Respiratory. Shortness of breath with exertion and cough Abdominal. no abdominal pain, no nausea/vomiting, no diarrhea . no problems urinating MS. Leg swelling Skin. no rash Lymph. no swollen glands Neuro. no headache, no dizziness, no difficulty walking or with speech Past Medical/Surgical History: Past medical history obesity, diabetes, pulmonary hypertension, essential hypertension, AFib, cardiomyopathy, hypothyroid, CHF, gout Social History: , nonsmoker, no alcohol Smoking Status: Former smoker Physical Exam: General Appearance: Alert well-developed male mild distress vital signs are stable Eyes: Pupils equal and round no pallor or injection. ENT, Mouth: Mucous membranes are moist. Respiratory: There are no retractions, lungs are clear to auscultation. Cardiovascular: Regular rate and rhythm. Gastrointestinal: Abdomen is soft and nontender, no masses, bowel sounds normal. Neurological: Awake and alert, sensory and motor exams grossly normal. Skin: Warm and dry, no rashes. Musculoskeletal: Neck is supple nontender. Extremities 3+ edema bilaterally Psychiatric: Patient is oriented X 3, there is no agitation. Constitutional: Initial Vital Signs Temperature (C) 36.4 C 11/10/17 09:05 Heart Rate 71 11/10/17 09:05 Respiratory Rate 18 11/10/17 09:05 Blood Pressure 104/78 11/10/17 09:05 O2 Sat (%) 95 11/10/17 09:05 O2 Delivery Mode Nasal Cannula Allergies/Adverse Reactions: No Known Allergies Allergy (Unverified 04/12/09 16:18) Home Medications: Medication Instructions Recorded Allopurinol [Allopurinol 300 MG 150 mg PO HS 04/22/16 (RX)] Aspirin EC [Aspirin EC 81 mg (*)] 81 mg PO HS 04/22/16 Herbals/Supplements -Info Only 1 ea PO DAILY 04/22/16 Levothyroxine [Synthroid 75 mcg 75 mcg PO DAILY06 04/22/16 (*)] Carvedilol [Coreg] 12.5 mg PO BID 08/22/16 Warfarin Sodium [Coumadin 5MG (*)] 5 mg PO DAILY@16 08/22/16 Spironolactone [Aldactone 25 MG 12.5 mg PO DAILY 07/23/17 (*)] Vit B Comp/C/FA/Iron/Vit E 1 each PO DAILY 07/23/17 [Vitamin B Complex Tablet] Medical Decision Making - Diagnostics EKG Interpretation: EKG interpreted by me shows normal sinus rhythm. First-degree AV block. Interventricular conduction delay with left axis deviation, appearance of old anterior OH. No arrhythmia. The rate is 67 No significant change from previous EKG July 2017 Procedures: IV normal saline, monitor ED Course/Re-evaluation: Re-evaluation 10:30 a.m.. Patient is stable. The patient and I discussed imaging and lab results. We discussed treatment plan including recommendation for admission. He expresses understanding and agreement I consulted and discussed case Dr. Trevizo, hospitalist, who agrees to the admission Differential Diagnosis: I considered congestive heart failure, acute coronary syndrome, renal failure, pneumonia. This appears to be CHF in the setting of chronic renal disease - Data Points Laboratory Results: Laboratory Results 11/10/17 09:20 11/10/17 09:20 11/10/17 11/10/17 11/10/17 09:57 09:20 09:20 WBC 7.10 10^3/uL 10^3/uL (3.80-9.50) RBC 4.17 10^6/uL L 10^6/uL (4.40-6.38) Hgb 12.4 g/dL L g/dL (13.7-17.5) Hct 38.7 % L % (40.0-51.0) MCV 92.8 fL fL (81.5-99.8) MCH 29.7 pg pg (27.9-34.1) MCHC 32.0 g/dL L g/dL (32.4-36.7) RDW 17.2 % H % (11.5-15.2) Plt Count 176 10^3/uL 10^3/uL (150-400) MPV 11.2 fL fL (8.7-11.7) Neut % (Auto) 75.1 % H % (39.3-74.2) Lymph % (Auto) 9.2 % L % (15.0-45.0) Barren % (Auto) 11.1 % % (4.5-13.0) Eos % (Auto) 3.2 % % (0.6-7.6) Baso % (Auto) 0.4 % % (0.3-1.7) Nucleat RBC Rel Count 0.0 % % (0.0-0.2) Absolute Neuts (auto) 5.33 10^3/uL 10^3/uL (1.70-6.50) Absolute Lymphs (auto) 0.65 10^3/uL L 10^3/uL (1.00-3.00) Absolute Monos (auto) 0.79 10^3/uL 10^3/uL (0.30-0.80) Absolute Eos (auto) 0.23 10^3/uL 10^3/uL (0.03-0.40) Absolute Basos (auto) 0.03 10^3/uL 10^3/uL (0.02-0.10) Absolute Nucleated RBC 0.00 10^3/uL 10^3/uL (0-0.01) Immature Gran % 1.0 % % (0.0-1.1) Immature Gran # 0.07 10^3/uL 10^3/uL (0.00-0.10) Sodium 138 mEq/L mEq/L (135-145) Potassium 3.9 mEq/L mEq/L (3.3-5.0) Chloride 93 mEq/L L mEq/L (97-110) Carbon Dioxide 30 mEq/l mEq/l (22-31) Anion Gap 15 mEq/L mEq/L (8-16) BUN 139 mg/dL H* mg/dL (7-23) Creatinine 2.4 mg/dL H mg/dL (0.7-1.3) Estimated GFR 27 Glucose 128 mg/dL H mg/dL (70-100) Calcium 9.0 mg/dL mg/dL (8.5-10.4) POC Troponin I 0.02 ng/mL ng/mL (0.00-0.08) NT-Pro-B Natriuret Pep 8760 pg/mL H pg/mL (0-125) Point of Care Test Results: Chemistry 11/10/17 09:57 POC Troponin I 0.02 ng/mL ng/mL (0.00-0.08) Departure - Departure Disposition: [facility] Inpatient Acute Clinical Impression: Acute exacerbation of congestive heart failure Qualifiers: Heart failure type: unspecified Qualified Code(s): I50.9 - Heart failure, unspecified Condition: Fair Referrals: JESSICA,JERAD [Other] - As per Instructions
[2017-11-10] MEDS ORDERED: FUROSEMIDE 100 MG/10 ML VIAL IVP ONE (12:04)
[2017-11-10 12:17] LABS: INR 4.11 (0.83-1.16); PROTIME(PATIENT) 39.4 SEC (12.0-15.0)
--- NOTE | 2017-11-10 13:02 | GHP ---
[f rep st] HISTORY AND PHYSICAL DATE OF ADMISSION: 11/10/2017 CHIEF COMPLAINT: Volume overload. HISTORY OF PRESENT ILLNESS: This is a 67-year-old man with chronic CHF as well as chronic kidney dis ease who presents with volume overload. He has been working with Dr. Crowell of Nephrology on diuresis as an outpatient. However, he has been unsuccessful. He was admitted here in July for a diabeti c foot infection with osteomyelitis, discharged to [facility] on July 26. It is about that time, he started to notice increased lower extremity edema. It has progressed since. He has n ot changed his diet, although he has certainly been in different living situations which may have con tributed to increased salt intake. He does not normally salt his food, however. He has had slightly worsening cough, but not any significant shortness of breath. He does not use oxygen at home. He d enies any chest pain. He does notice increased abdominal girth as well. He believes he has gained a bout 30 or 40 pounds of fluid. In my chart review, I see about a 9 kg weight gain at least on his in itial weight from July. PAST MEDICAL/SURGICAL HISTORY: 1. Diabetes mellitus, currently off all medications. His last A1c was reported as 5%. 2. Systolic congestive heart failure with an EF of 40% followed by Dr. Maldonado. 3. Paroxysmal atrial fibrillation on anticoagulation. 4. Gout. 5. Chronic kidney disease with a baseline creatinine somewhere around 2. 6. Morbid obesity. 7. Osteomyelitis. He has been off antibiotics for at least a month. MEDICATIONS: Please see medication reconciliation. ALLERGIES: No known drug allergies. SOCIAL HISTORY: He is currently living at home. He does not drink or smoke. He is . FAMILY HISTORY: Reviewed and noncontributory. REVIEW OF SYSTEMS: 10-point review of systems is conducted and is negative except per HPI. PHYSICAL EXAM: VITAL SIGNS: Blood pressure 121/79, heart rate 67, respiration rate 20, saturating 9 4% on 2 L. Temperature 36.4. GENERAL. The patient is a pleasant man who is resting comfortably, alt arti he is coughing occasionally. HEENT: Shows him to be normocephalic, atraumatic. CARDIOVASCULA R: Very distant S1 and S2. I do not appreciate any murmurs, rubs, or gallops. PULMONARY: Shows mi ld inspiratory right-sided wheezes as well as left basilar crackles. He has 2+ edema bilaterally to his mid thighs. ABDOMEN: Shows him to be slightly distended. He is nontender. There is no guardin g or rebound. SKIN: Shows no rash. : Shows no Rosario. NEUROLOGIC: Shows him to be alert and or iented x3. He is moving all extremities. PSYCHIATRIC: Shows a normal mood and affect. LABS: Hemoglobin is 12.4. White count is 7.1. INR is 4.11. Creatinine is 2.4. BUN is 139. BNP i s 8760. DATA: 1. I personally viewed and interpreted his chest x-ray. It is read as normal. I see mild increased diffuse infiltrates consistent with CHF as well as some cephalization. 2. EKG, which I personally viewed and interpreted, shows sinus arrhythmia. There are frequent PACs. He has a borderline 1st degree AV block. He has incomplete left bundle branch pattern. IMPRESSION/PLAN: 1. Acute on chronic congestive heart failure exacerbation: Suspect that change in diet was the prec ipitant giving the time course. Unsuccessfully diuresed as an outpatient. I have discussed with chani mann Renal as well as Cardiology who both will consult. Dr. Sykes recommends an initial dose of Lasi x 80 intravenous which I have ordered for now. Will defer to Cardiology whether repeating echocardio gram would be of benefit. I do not have any evidence that he is having active ischemia. His EKG is relatively unchanged. He will be monitored on telemetry. 2. Paroxysmal atrial fibrillation: His INR is elevated. Suspect that this is due to hepatic conges tion. Will hold his Coumadin for tonight's dose and recheck an INR tomorrow. He is rate controlled on Coreg. Will continue this. I have checked LFTs as well. 3. Diabetes mellitus: He is off medications. His initial blood glucose is 128. Would follow this daily with his BMP at this point. 4. Chronic kidney disease: His BUN and creatinine are slightly above their baseline. Will need to take care with this while diuresing. 5. Venous thromboembolism risk is low as he is on Coumadin. 6. Code status: He would like to be full code. /[id number]/MODL
--- NOTE | 2017-11-10 13:26 | PDMN ---
Medical Necessity Medical necessity: est los>2mn for acute on chronic CHF exacerbation, with cough and increased abd girth, failing OP diuresis, INR 4.8; admit to PCU for IV Lasix, hold Coumadin, nephrology and cardiology consults; comorbid PAF on AC , DM, CKD; per order and H&P 11/10/17
--- NOTE | 2017-11-10 14:52 | ASMTCMCOM ---
CM Note CM Note Notes: Patient admitted for acute on chronic CHF exacerbation. He has been unsuccessfully diuresed as an outpatient. He will be followed by Cardiology and Nephrology while here. Patient lives with his and has a supportive daughter. He spent some time at [facility] after his last hospitalization in July (nonhealing diabetic foot ulcer). No therapies have been ordered; however, Case Management is available if he has any discharge needs. Date Signed: 11/10/2017 02:52 PM Electronically Signed By:Dina Porras RN
[2017-11-10] MEDS: ACETAMINOPHEN 325 MG TAB PO PRN ×2 (17:27→22:22)
--- NOTE | 2017-11-10 18:15 | GCON ---
[f rep st] CONSULTATION NEPHROLOGY CONSULTATION DATE OF CONSULTATION: 11/10/2017 REASON FOR CONSULTATION: Volume overload. HISTORY OF PRESENT ILLNESS: I have been asked to evaluate Mr. Mak regarding his volume overload. He is a 67-year-old gentleman with history of longstanding diabetes and hypertension, as well as con gestive heart failure. He also has a history of chronic renal failure with a creatinine that has bee n progressively rising over the past several years. Since early 2017 his creatinine has mainly been 2 or higher, and for the past 2-3 months has been around 2.5-3. He was recently evaluated by my part ner, Dr. Crowell, approximately 6 weeks ago. At that time, the patient was on Lasix alone and metolazon e was added. Metolazone was subsequently switched to spironolactone due to hypokalemia. Due to incr ease in his BUN and creatinine, his spironolactone was held. The metolazone was then added again at his last clinic appointment approximately 2 weeks ago. His pattern has been that he does achieve pastora e net diuresis, but this is at the cause of an elevated BUN and creatinine. He has not been on an AC E inhibitor or angiotensin receptor juanita recently and does not use any NSAIDs. There have been di scussions about inpatient admission for more aggressive diuresis, but he has declined in the past. Yesterday he called with complaints of ongoing volume overload and requested hospital admission and, therefore, was instructed to report to the emergency room, which he did this afternoon. His BUN and creatinine today are 139 and 2.4, respectively. A chest x-ray was essentially clear. He received on e dose of IV Lasix on admission and repeat echocardiogram is pending. He is not completely clear if his baseline shortness of breath has significantly changed, though he does report the development of a cough recently. This is worse when he lies down in bed. Of note, he does have a history of sleep apnea, but has not been compliant with CPAP. The most recent echocardiogram in the [facility] is from 2016. This documented a left ventricular ejection fraction of approximately 4 5% with pulmonary hypertension and somewhat depressed RV function. His blood pressure has been runni ng slightly low with systolic readings in the 90s to 100s. He denies any lightheadedness or dizzines s with standing. His only antihypertensive currently is carvedilol. PAST MEDICAL HISTORY: 1. Chronic renal failure as outlined above. 2. Congestive heart failure; in 2016 left ventricular ejection fraction equals 40%, right ventricle mildly dilated with slightly reduced systolic function, trace mitral valve regurgitation, pulmonary h ypertension, mild tricuspid valve regurgitation. 3. Paroxysmal atrial fibrillation on anticoagulation. 4. Longstanding type 2 diabetes mellitus complicated by peripheral neuropathy. 5. Longstanding hypertension, very well controlled recently. 6. Gout. 7. Obstructive sleep apnea, untreated. 8. Hypothyroidism. 9. History of osteomyelitis. 10. Gout. PAST SURGICAL HISTORY: Cataracts. ALLERGIES: No known drug allergies. ADMISSION MEDICATIONS: Lasix 80 mg twice daily, metolazone 5 mg daily, carvedilol mg twice daily, Coumadin daily, Synthroid daily, allopurinol daily, aspirin 81 mg daily, chromium daily, cinn sondra daily, benfotiamine daily, vitamin B complex daily. SOCIAL HISTORY: He is originally from [place]. Following graduation from the [employer], he mo anna to [place] in 1970. 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 He is a former smoker , but quit many years ago. FAMILY HISTORY: Negative for renal disease or heart disease that he is aware. REVIEW OF SYSTEMS: Positive for edema, weight gain, shortness of breath and cough. He denies any ch est pain. He does have some mild numbness in his feet bilaterally. He denies any difficulty voiding . Aside from other positives in the HPI, the remainder of the 10 organ system review is negative. PHYSICAL EXAM: GENERAL: He is in no acute distress. VITAL SIGNS: Blood pressure is 103/62, heart rate is 73, oxygenation is 94% on room air. HEENT: Sclerae are anicteric. Oral mucosa is moist. I cannot visualize his oropharynx. NECK: Large and supple. I cannot appreciate JVD or lymphadenopat hy. There are no carotid bruits. LUNGS: Diminished breath sounds throughout. Essentially clear to auscultation. BACK: No CVA tenderness. HEART: Very distant heart sounds, but regular rate and rhythm. I cannot appreciate murmurs, gallops, or rubs. ABDOMEN: Obese, but soft, nontender with normoactive bowel sounds. Some abdominal wall edema is present. I cannot appreciate hepatosplenomegaly, masses, or bruits. EXTREMITIES: Pitting edema is present in his lower extremit ies bilaterally extending to above the knees. His feet are warm and appear well perfused, but I lukas ot appreciate any pedal pulses. SKIN: There are no skin rashes. He does have some chronic venous s tasis changes in his lower legs bilaterally and what appears to be a heel ulcer on the medial aspect of his right lower fontanez. : A Rosario catheter is absent. NEURO: He is awake, alert, and appropria te. There is no facial droop. Sensation is mildly diminished in his feet bilaterally. LABS: Sodium 138, potassium 3.9, chloride 93, CO2 30, BUN 139, creatinine 2.4, glucose 128, calcium 9.0, albumin 3.7, total protein 7.5. Brain natriuretic peptide 8760. AST 31, ALT 27, alkaline phosp hatase 166, total bilirubin 2.9. INR is 4.1. White blood cell count 7.1, hemoglobin 12.4, platelets 176. IMPRESSION AND PLAN: 1. Volume overload: I suspect this is driven by a combination of heart failure and renal failure. It is unclear to me how much of his renal failure is due to cardiorenal syndrome versus progressive d iabetic nephropathy or hypertensive nephrosclerosis. His volume status does appear to have become mu ch more challenging over the past few months, which makes me concerned that his cardiac function may have changed. An echocardiogram is pending; I agree with this. I believe Cardiology has also been a sked to evaluate him. Lasix 80 mg IV twice daily has been ordered; I agree with this dosing for now. He is not on an FRANCHESKA inhibitor or angiotensin receptor juanita; therefore, options for medical manag ement will be somewhat limited. I do suspect that his BUN and creatinine will increase even further with additional diuresis. If his cardiac function has decreased significantly since last documented, it may be worth a trial of inotropic support. Higher blood pressure may be of benefit and I will cu t his carvedilol dose in half. We did discuss today that the outcome of this could theoretically res ult in him initiating chronic dialysis, though there is certainly no indication to pursue this this e vening. He does understand. He should absolutely avoid any imaging studies utilizing IV contrast. Of note, efforts at diuresis do appear to have been successful in the past, but have needed to be abo rted due to worsened azotemia. At this time, I am concerned that the only means of improving his vol ume status long-term will be with dialysis. 2. Chronic renal failure: As noted above, it is unclear to me how much of this is due to underlying diabetic and hypertensive disease versus cardiorenal syndrome. If his echocardiogram is significant ly worse, I think it would be worth a trial of inotropic therapy. He should avoid FRANCHESKA inhibitors and angiotensin receptor blockers, and I believe would actually benefit from significantly higher blood pressure and therefore I have reduced his carvedilol dose as noted above. He is at very high risk of reaching ESRD as a result of his overall situation. He has had a serologic evaluation in the past t hat was negative, though it does not appear that he has had significant proteinuria. 3. Hypertension: His blood pressure is actually running borderline low as outlined above. I have d ecreased his carvedilol. I would be tempted to discontinue it altogether, but do not wish to provoke rapid atrial fibrillation. 4. Obstructive sleep apnea: He has apparently been noncompliant with CPAP which makes me suspicious that his overall clinical picture is being driven by worsened pulmonary hypertension and cor pulmona le. Thank you for the consultation. We will follow with you. /[id number]/MODL
--- NOTE | 2017-11-10 19:41 | GCON ---
[f rep st] CONSULTATION CARDIOLOGY CONSULT CHIEF COMPLAINT: Shortness of breath. Volume overload. HISTORY OF PRESENT ILLNESS: This is a 67-year-old male with history of nonischemic cardiomyopathy an d chronic renal insufficiency who presents to [facility] with complaints of volume overload, mainly in the l ower extremities. The patient denies any chest pain. He does indicate having mild dyspnea on exerti on and orthopnea. He indicated that he was trying to work with outpatient Cardiology, Nephrology for fluid restriction as well as diabetic management. However, he indicates that the last couple of wee ks, he has been gaining excessive weight and has not been responding to the diuretics appropriately. ECG shows sinus rhythm with no acute ST changes. The patient did have an INR in the ER of 4.1. Tro ponins are negative x1 set. BNP was elevated over 8000. Blood pressure and heart rate are currently stable. PAST MEDICAL HISTORY: Significant for diabetes mellitus, chronic renal insufficiency, systolic heart failure. Paroxysmal atrial fibrillation. Gout. Morbid obesity. SOCIAL HISTORY: The patient denies any active smoking or drinking or drug use. FAMILY HISTORY: Noncontributory. REVIEW OF SYSTEMS: Patient currently denies any vision changes. No headache. No palpitations. No chest pain. No abdominal pain. He does indicate having lower extremity swelling. No throat pain. No neurologic issues. He does indicate having orthopnea at night as well as dyspnea with minimal to moderate exertion. PHYSICAL EXAM: VITAL SIGNS: Patient is afebrile at 96, blood pressure 130/70, the heart rate is 72, respiratory rate is 12, satting 95% on 2 L nasal cannula. HEENT: Pupils equal and reactive to ligh t and accommodation. Extraocular movements intact. CARDIOVASCULAR: Regular rate and rhythm. S1, S 2. LUNGS: Decreased breath sounds bilaterally, especially at the bases. ABDOMEN: Obese, soft, non tender. No guarding. EXTREMITIES: There is 2 to 3+ edema, pitting, bilaterally in the lower extrem ities. NEUROLOGIC: The patient is the patient is alert and oriented x3. LABORATORY VALUES: Currently show a sodium 138, potassium 3.9, chloride 93, BUN of 139, creatinine o f 2.4. BNP of 8760. Troponin negative x1 set. INR 4.1, hemoglobin 12.4, hematocrit 38.7, platelets of 176, white count of 7.1. Chest x-ray shows mild cardiomegaly. ASSESSMENT/PLAN: Shortness of breath/volume overload. At this time, we will continue with aggressiv e IV diuresis. However, we will be mindful of the patient's underlying renal insufficiency as well a s his baseline elevated BUN and creatinine. Suggest Nephrology to be consulted as well for additiona l assistance. Check laboratory values in the morning and repeat echocardiogram, as it has been nearl y 5 months since his last echocardiogram. /[id number]/MODL
[2017-11-10] MEDS: CARVEDILOL 6.25 MG TAB PO SCH (20:34)
[2017-11-10] MEDS: ASPIRIN EC 81 MG TAB PO SCH (20:34)
[2017-11-10] MEDS: FUROSEMIDE 100 MG/10 ML VIAL IVP SCH (20:35)
[2017-11-10] MEDS ORDERED: CARVEDILOL 6.25 MG TAB PO SCH (21:00)
[2017-11-10] MEDS ORDERED: WARFARIN SODIUM 5 MG TAB PO SCH (21:00)
[2017-11-11] MEDS: ACETAMINOPHEN 325 MG TAB PO PRN ×2 (04:09→08:43)
[2017-11-11 04:41] LABS: INR 4.22 (0.83-1.16); PROTIME(PATIENT) 40.2 SEC (12.0-15.0)
[2017-11-11] MEDS: LEVOTHYROXINE 75 MCG TAB PO SCH (05:37)
[2017-11-11] MEDS ORDERED: LIDOCAINE 4%/MENTHOL 1% PATCH TD ONE (06:42)
[2017-11-11] MEDS: LIDOCAINE 4%/MENTHOL 1% PATCH TD SCH (06:43)
--- NOTE | 2017-11-11 07:04 | PDCARPN ---
Cardiology Progress Note Chief Complaint: edema Assessment/Plan: Assessment: edema HF AF gout Plan: 11/11/17 07:02 c/o right knee pain--consistent with hx of gout, start colchicine continue diuresis appreciate renal input check echo Agree if EF reduced, may need dobutamine support and coreg cessation Subjective: c/o knee pain Reviewed/Discussed With: multidisciplinary team Time Spent with Patient: greater than 25 minutes Time Spent with Patient: Greater than 25 minutes spent on this patients care, greater than 50% of time spent counseling, educating, and coordinating care regarding the above mentioned plan. Objective: Vital Signs (8 Hrs) Temp Pulse Resp BP Pulse Ox 11/11/17 03:54 36.6 C 72 20 112/67 93 11/10/17 23:07 36.6 C 67 15 94/73 L 87 L Intake/Output (24 Hrs) 11/10/17 11/11/17 11/12/17 05:59 05:59 05:59 Intake Total 1050 Output Total 1760 100 Balance -710 -100 Intake: Oral (ml) 1050 Output: Urine (ml) 1760 100 Toilet 150 Urinal 1610 100 Other: Weight 140.6 kg Result Diagrams: 11/10/17 09:20 11/11/17 03:46 - Physical Exam Constitutional: no apparent distress Eyes: PERRL Ears, Nose, Mouth, Throat: moist mucous membranes Cardiovascular: regular rate and rhythm Peripheral Pulses: 1+: femoral (R), femoral (L) Respiratory: no crackles, reduced air movement Gastrointestinal: normoactive bowel sounds Genitourinary: no suprapubic tenderness Skin: other (LE edema) Musculoskeletal: other (c/o right knee pain) Neurologic: AAOx3 Psychiatric: cooperative ICD10 Worksheet Patient Problems: Problems Problem Status Onset Acute exacerbation of congestive heart failure Acute Anasarca Acute Chronic Disease Mgmt/Transitional Care Acute Diabetic infection of left foot Acute Heart failure Acute Pulmonary hypertension Acute Renal insufficiency Acute
[2017-11-11] MEDS ORDERED: PERFLUTREN LIPID MICROSPHERES 1.1 MG/ML VIAL IV ONE (07:48)
[2017-11-11] MEDS: ALLOPURINOL 300 MG TAB PO SCH (08:42)
[2017-11-11] MEDS: CARVEDILOL 6.25 MG TAB PO SCH ×2 (08:42→20:22)
[2017-11-11] MEDS: VITAMIN B COMPLEX 1 EA CAP/TAB PO SCH (08:43)
--- NOTE | 2017-11-11 08:44 | SOAPPROG ---
SOAP Progress Note Assessment/Plan: Assessment: #ANGELLA on CKD -underlying advanced CKD likely DM/HTN with cardiorenal. Recently baseline Cr ~ 2.5 -Now with worsening volume status--anticipate he will need HD soon to manage definitively- I had long discussion with him about this and he is willing to proceed when time (will hold today to await TTE results, cardiology eval but anticipate need for it soon). TTE pending/cards following to see if able to better optimize cardiac function -continue lasix, may need diamox if bicarb continues to rise #CHF with severe volume overload -TTE pending, cards seeing- may consider trial ionotropes -continue diuresis-- I anticipate he will need dialysis to manage definitively and would hold coumadin in anticipation of line placement -continue CPAP at night #gout -will start short course prednisone-- no NSAIDs given renal function -check uric acid-- suspect diuresis/worsening renal function contributing, will need allopurinol soon #Anemia of CKD -Hb at goal, not on Epo #MBD of CKD -check phos, PTH Martha Trevizo MD [facility] [phone] 11/11/17 09:24 Subjective: Having R knee pain- thinks it feels like prior gout flare. No n/v. Objective: Vital Signs Temp Pulse Resp BP Pulse Ox 36.8 C 99 18 117/76 90 L 11/11/17 08:21 11/11/17 08:21 11/11/17 08:21 11/11/17 08:21 11/11/17 08:21 Laboratory Results 11/11/17 03:46 11/10/17 11/11/17 11/12/17 05:59 05:59 05:59 Intake Total 1050 Output Total 1760 100 Balance -710 -100 PT 40.2 SEC (12.0-15.0) H 11/11/17 03:46 INR 4.22 (0.83-1.16) H 11/11/17 03:46 Physical Exam - Physical Exam General Appearance: alert, no apparent distress EENT: other (mmm) Neck: supple Respiratory: lungs clear Cardiac/Chest: regular rate, rhythm, other (no rub) Abdomen: non-tender, soft Extremities: other (++edema bilat, +venous stasis changes, R knee swollen/tender ) Neuro/Psych: alert, oriented x 3 ICD10 Worksheet Patient Problems: Problems Problem Status Onset Acute exacerbation of congestive heart failure Acute Anasarca Acute Chronic Disease Mgmt/Transitional Care Acute Diabetic infection of left foot Acute Heart failure Acute Pulmonary hypertension Acute Renal insufficiency Acute
[2017-11-11] MEDS ORDERED: COLCHICINE 0.6 MG CAP/TAB PO SCH ×2 (09:00)
[2017-11-11] MEDS: FUROSEMIDE 100 MG/10 ML VIAL IVP SCH ×2 (09:05→20:22)
[2017-11-11] MEDS: HYDROCODONE/APAP 5/325 TAB PO PRN ×4 (09:06→22:38)
[2017-11-11] MEDS ORDERED: RANITIDINE SYRUP 15 MG/1 ML UDSYR PO SCH (09:30)
[2017-11-11] MEDS ORDERED: COLCHICINE 0.6 MG CAP/TAB PO ONE (09:45)
--- NOTE | 2017-11-11 09:46 | ECHO ---
[email or web address] [address] [address] Main: [phone] Fax: Transthoracic Echocardiogram Name: MICHELLE BHANDARI MR#: [id number] Study Date: 11/11/2017 Study Time: 07:31 AM Date of : 1950 Age: 67 year(s) Height: 185.4 cm (73 in.) Weight: 142.88 kg (315 lb.) BSA: 2.61 m2 Gender: Male Examination: Echo with Definity Indication: HF Image Quality: Technically Difficult Contrast: Requested by: Nakul Mitchell BP: 112 mmHg/67 mmHg Heart Rate: Rhythm: Indication: HF Procedure Staff Square Shear Operator: Diane Navarro RDCS Reading Physician: Nakul Mitchell MD Requesting Provider: Conclusions: Moderately to severely reduced systolic function. The ejection fraction is estimated to be 25-30 %. Moderate to severe mitral regurgitation. Moderate tricuspid regurgitation is present. Technically difficult exam due to patient body habitus. Unable to adequately assess pulmonary pressure due to inadequate TR velocity measurement. . Measurements: Chambers Valvular Assessment AV/MV Valvular Assessment TV/PV Normal Normal Normal Name Value Range Name Value Range Name Value Range Ao Elizabeth (2D): 3.2 cm (1.4 cm-2.6 AV Vmax: 1.14 m/s (1 m/s-1.7 TR Vmax: 2.82 mm/s ( - ) cm) m/s) TR PGmax: 32 mmHg ( - ) IVSd (2D): 1.0 cm (0.6 cm-1.1 AV meanP mmHg ( - ) syst. PAP: 37 mmHg ( - ) cm) JARED (VTI): 3.2 cm ( - ) PV Vmax: 0.86 m/s (0.6 m/s-0.9 LVDd (2D): 6.5 cm (4.2 cm-5.9 MV E Vmax: 0.85 m/s ( - ) m/s) cm) MV PHT: 0.054 s ( - ) PV PGmax: 3 mmHg ( - ) LVDs (2D): 5.8 cm (2.1 cm-4 MVA (PHT): 4.1 s ( - ) cm) LVPWd (2D): 1.0 cm (0.6 cm-1 cm) LVOTd 2.2 cm 2.2 cm mm LVEF (BP): 37 % (>=55 %) EF Range: 25-30 % RVDd(2D): 4.4 cm (1.9 cm-3.8 cmmm) Continued Measurements: Chambers Valvular Assessment AV/MV Valvular Assessment TV/PV Patient: MICHELLE BHANDARI Study Date: 11/11/2017 Page 1 of 2 07:31 AM Name Value Name Value Name Value LADs: 5.1 cm MV DecTime: 215 m/s CVP (est.): 5 mmHg LADs Lon.2 cm MV E' Septal: 0.06 m/s LA Area: 36.2 cm2 MV E/E' Septal: 13.20 LA Volume: 146 ml MV E/E' Lateral: 6.60 LA Volume Index: 55.9 ml/m2 Additional Vessels Name Value Ao Ascendin.2 cm Findings: Left Ventricle: Left ventricle upper limits of normal. No LV hypertrophy. Moderately to severely reduced systolic function. The ejection fraction is estimated to be 25-30 %. Regional wall motion abnormality noted. Unable to assess diastolic dysfunction. Right Ventricle: Normal size right ventricle. Normal RV function. Left Atrium: The left atrium is severely dilated. Right Atrium: The right atrium is normal in size. Mitral Valve: The mitral valve is normal in appearance and function. Moderate to severe mitral regurgitation. No mitral stenosis is present. Aortic Valve: The aortic valve is tri-leaflet. There is no significant aortic valve regurgitation. No aortic valve stenosis is present. Tricuspid Valve: The tricuspid valve is normal in appearance and function. The pulmonary artery pressure is normal. Right ventricular systolic pressure measures 37mmHg. Moderate tricuspid regurgitation is present. Pulmonic Valve: The pulmonic valve is normal in appearance and function. There is no pulmonic regurgitation seen. Aorta: The aorta is normal. Normal size aortic root measuring 3.2 cm. Normal size ascending aorta measuring 3.2 cm. IVC: The IVC is normal sized. Pericardium: No pericardial effusion. No pleural effusion. Exam Comments: Technically difficult exam due to patient body habitus. Unable to adequately assess pulmonary pressure due to inadequate TR velocity measurement. . (No Signature Object) Patient: MICHELLE BHANDARI Study Date: 11/11/2017 Page 2 of 2 07:31 AM [id number]
[2017-11-11] MEDS: FAMOTIDINE 20 MG TAB PO SCH (09:54)
[2017-11-11] MEDS: predniSONE 20 MG TAB PO SCH (09:54)
--- NOTE | 2017-11-11 12:29 | ASMTCMCOM ---
CM Note CM Note Notes: 11/11/2017 Case Management Note Discussed pt during rounds this morning. Transitional Care RN to follow after discharge. There are currently no therapy evals ordered at this time. Case Management d/c poc: independent with follow up as directed. Case Management to follow. Date Signed: 11/11/2017 12:28 PM Electronically Signed By:Kassidy Mitchell RN
--- NOTE | 2017-11-11 15:09 | HOSPPROG ---
Hospitalist Progress Note Assessment/Plan: 67 yo M w ckd, non ischemic CMP here w volume overload, renal failure renal: markedly elevated bun diuresing may need HD for volume removal sCHF: diuresis ef 25-30% down from 40 per cardiology, may need dobutamine, holdong of carvedilol gout: pred colchicine as tolerated pAF: in sinus AC on hold dispo: inpt Subjective: case d/w dr whitley. leg pain improved Objective: Vital Signs Temp Pulse Resp BP Pulse Ox 36.3 C 73 15 135/82 H 91 L 11/11/17 11:15 11/11/17 11:15 11/11/17 11:15 11/11/17 11:15 11/11/17 11:15 Laboratory Results 11/11/17 03:46 11/10/17 11/11/17 11/12/17 05:59 05:59 05:59 Intake Total 1050 250 Output Total 1760 1050 Balance -710 -800 PT 40.2 SEC (12.0-15.0) H 11/11/17 03:46 INR 4.22 (0.83-1.16) H 11/11/17 03:46 - Physical Exam Constitutional: no apparent distress, appears nourished Eyes: PERRL, anicteric sclera Ears, Nose, Mouth, Throat: moist mucous membranes, hearing normal Cardiovascular: regular rate and rhythym, no murmur, rub, or gallop, edema Respiratory: no respiratory distress, no rales or rhonchi Gastrointestinal: normoactive bowel sounds, soft, non-tender abdomen Genitourinary: No fan in urethra Skin: warm Musculoskeletal: other (edema) Neurologic: AAOx3 ICD10 Worksheet Patient Problems: Problems Problem Status Onset Acute exacerbation of congestive heart failure Acute Anasarca Acute Chronic Disease Mgmt/Transitional Care Acute Diabetic infection of left foot Acute Heart failure Acute Pulmonary hypertension Acute Renal insufficiency Acute
[2017-11-11] MEDS: ASPIRIN EC 81 MG TAB PO SCH (20:21)
[2017-11-11] MEDS: PATCH REMOVAL 1 EA PATCH TD SCH (20:28)
[2017-11-12] MEDS: LEVOTHYROXINE 75 MCG TAB PO SCH (05:58)
--- NOTE | 2017-11-12 07:11 | PDCARPN ---
Cardiology Progress Note Chief Complaint: edema Assessment/Plan: Assessment: edema HF AF gout Plan: 11/11/17 07:02 c/o right knee pain--consistent with hx of gout, start colchicine continue diuresis appreciate renal input check echo Agree if EF reduced, may need dobutamine support and coreg cessation 11/12/17 07:09 patient's edema reduced less SOB labs relatively stable EF reduced on echo Though inotropes can be used, his labs/clinical status are slowly improving and I'm concerned about inducing AF with RVR with dobutamine Certainly if patient worsens, this would be option Continue aggressive IV diuresis Knee pain resolved with colchicine Subjective: feels better Reviewed/Discussed With: multidisciplinary team Time Spent with Patient: greater than 25 minutes Time Spent with Patient: Greater than 25 minutes spent on this patients care, greater than 50% of time spent counseling, educating, and coordinating care regarding the above mentioned plan. Objective: Vital Signs (8 Hrs) Temp Pulse Resp BP Pulse Ox 11/12/17 07:06 36.3 C 73 16 107/73 97 11/12/17 04:00 68 12 112/71 96 Intake/Output (24 Hrs) 11/11/17 11/12/17 11/13/17 05:59 05:59 05:59 Intake Total 1050 1300 Output Total 1760 4100 Balance -710 -2800 Intake: Oral (ml) 1050 1300 Output: Urine (ml) 1760 4100 Toilet 150 2150 Urinal 1610 1950 Other: Weight 140.6 kg 138.3 kg Number of Voids Toilet 4 Urinal 1 Number of Stools Toilet 1 Result Diagrams: 11/10/17 09:20 11/12/17 03:27 - Physical Exam Constitutional: no apparent distress Eyes: PERRL Ears, Nose, Mouth, Throat: moist mucous membranes Cardiovascular: systolic murmur, irregularly irregular Peripheral Pulses: 1+: femoral (R), femoral (L) Respiratory: no crackles Gastrointestinal: normoactive bowel sounds Genitourinary: no suprapubic tenderness Skin: other (reduced LE edema) Musculoskeletal: no muscular tenderness Neurologic: AAOx3 Psychiatric: cooperative ICD10 Worksheet Patient Problems: Problems Problem Status Onset Acute exacerbation of congestive heart failure Acute Anasarca Acute Chronic Disease Mgmt/Transitional Care Acute Diabetic infection of left foot Acute Heart failure Acute Pulmonary hypertension Acute Renal insufficiency Acute
[2017-11-12] MEDS ORDERED: COLCHICINE 0.6 MG CAP/TAB PO SCH (09:00)
[2017-11-12] MEDS: CARVEDILOL 6.25 MG TAB PO SCH ×2 (09:15→20:12)
[2017-11-12] MEDS: COLCHICINE 0.6 MG CAP/TAB PO SCH (09:15)
[2017-11-12] MEDS: ALLOPURINOL 300 MG TAB PO SCH (09:15)
[2017-11-12] MEDS: predniSONE 20 MG TAB PO SCH (09:17)
[2017-11-12] MEDS: VITAMIN B COMPLEX 1 EA CAP/TAB PO SCH (09:17)
[2017-11-12] MEDS: FAMOTIDINE 20 MG TAB PO SCH (09:17)
[2017-11-12] MEDS: FUROSEMIDE 100 MG/10 ML VIAL IVP SCH ×2 (09:18→14:40)
[2017-11-12] MEDS: LIDOCAINE 4%/MENTHOL 1% PATCH TD SCH (09:58)
[2017-11-12 11:02] LABS: INR 4.3 (0.83-1.16); PROTIME(PATIENT) 40.8 SEC (12.0-15.0)
--- NOTE | 2017-11-12 12:48 | SOAPPROG ---
SOAP Progress Note Assessment/Plan: Assessment/Plan: 67 y/o M with CKD Stage IV presents with volume overload and found to have reduced EF of 25-30% on TTE. ANGELLA on CKD -underlying advanced CKD likely DM/HTN with cardiorenal. Recently baseline Cr ~ 2.5 -will hold iHD for now, BUN 130's but stable and making good urine, however not sure it will improve -continue lasix 80mg IV BID for now -Cr down to 2.4, UO>4L CHF with severe volume overload -TTE as above, cardiology considering dobutamine gtt however may exacerbate arrhythmia and will hold for now -diuresis as above, on BB -continue CPAP at night Gout -continue short course prednisone-- no NSAIDs given renal function -uric acid >13, will need to begin low dose colchicine and renally dosed allopurinol 100mg daily upon discharge Anemia of CKD -Hb at goal, not on Epo 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 He states he wants to "give it a few more days" before he begins dialysis. He denies N/V, confusion, or trouble breathing at this time. Objective: Vital Signs Temp Pulse Resp BP Pulse Ox 36.4 C 76 18 101/67 91 L 11/12/17 12:00 11/12/17 12:00 11/12/17 12:00 11/12/17 12:00 11/12/17 12:00 Laboratory Results 11/12/17 03:27 11/11/17 11/12/17 11/13/17 05:59 05:59 05:59 Intake Total 1050 1300 Output Total 1760 4100 Balance -710 -2800 PT 40.8 SEC (12.0-15.0) H 11/12/17 10:47 INR 4.30 (0.83-1.16) H 11/12/17 10:47 Physical Exam - Physical Exam General Appearance: WD/WN, alert, no apparent distress EENT: PERRL/EOMI, pharynx normal Neck: non-tender, full range of motion, supple Respiratory: accessory muscle use, decreased breath sounds, crackles Cardiac/Chest: edema, JVD, irregularly irregular Abdomen: normal bowel sounds, non-tender, soft, distended Skin: other (chronic venous stasis) Extremities: pedal edema, swelling Neuro/Psych: alert, normal mood/affect, oriented x 3 ICD10 Worksheet Patient Problems: Problems Problem Status Onset Acute exacerbation of congestive heart failure Acute Anasarca Acute Chronic Disease Mgmt/Transitional Care Acute Diabetic infection of left foot Acute Heart failure Acute Pulmonary hypertension Acute Renal insufficiency Acute
--- NOTE | 2017-11-12 15:48 | HOSPPROG ---
Hospitalist Progress Note Assessment/Plan: 67 yo M w ckd, non ischemic CMP here w volume overload, renal failure renal: markedly elevated bun diuresing may need HD for volume removal sCHF: diuresis ef 25-30% down from 40 per cardiology, may need dobutamine, holding of carvedilol may be worth reevaluating EF after diuresis gout: pred colchicine as tolerated much improved 5 days pred pAF: in sinus AC on hold dispo: inpt Subjective: case d/w dr Mitchell Objective: Vital Signs Temp Pulse Resp BP Pulse Ox 36.4 C 75 16 115/77 93 11/12/17 15:24 11/12/17 15:24 11/12/17 15:24 11/12/17 15:24 11/12/17 15:24 Laboratory Results 11/12/17 03:27 11/11/17 11/12/17 11/13/17 05:59 05:59 05:59 Intake Total 1050 1300 480 Output Total 1760 4100 525 Balance -710 -2800 -45 PT 40.8 SEC (12.0-15.0) H 11/12/17 10:47 INR 4.30 (0.83-1.16) H 11/12/17 10:47 - Physical Exam Constitutional: no apparent distress Eyes: PERRL, anicteric sclera Ears, Nose, Mouth, Throat: moist mucous membranes, hearing normal Cardiovascular: regular rate and rhythym, no murmur, rub, or gallop, edema Respiratory: no respiratory distress, no rales or rhonchi Gastrointestinal: normoactive bowel sounds, soft, non-tender abdomen Genitourinary: no bladder fullness, No fan in urethra Skin: warm Musculoskeletal: other (R knee not warm) Neurologic: AAOx3, sensation intact bilaterally Psychiatric: interacting appropriately, not anxious Lymph, Heme, Immunologic: no cervical LAD ICD10 Worksheet Patient Problems: Problems Problem Status Onset Acute exacerbation of congestive heart failure Acute Anasarca Acute Chronic Disease Mgmt/Transitional Care Acute Diabetic infection of left foot Acute Heart failure Acute Pulmonary hypertension Acute Renal insufficiency Acute
--- NOTE | 2017-11-12 15:50 | ASMTCMCOM ---
CM Note CM Note Notes: Pts case discussed in morning rounds. CM met w/ pt for dispo planning. PT is recommending HC w/ 24hr supervision. Pt reports that he does not think that HC will be helpful at this time. Pt was agreeable for CM to call his Maite, his . CM left a msg for Maite. CM to follow. Plan: TBD Date Signed: 11/12/2017 03:49 PM Electronically Signed By:ORLANDO Diaz
[2017-11-12] MEDS: ASPIRIN EC 81 MG TAB PO SCH (20:12)
[2017-11-12] MEDS: PATCH REMOVAL 1 EA PATCH TD SCH (23:36)
[2017-11-13 04:16] LABS: INR 3.62 (0.83-1.16); PROTIME(PATIENT) 35.8 SEC (12.0-15.0)
[2017-11-13] MEDS: HYDROCODONE/APAP 5/325 TAB PO PRN ×2 (04:32→20:12)
[2017-11-13] MEDS: LEVOTHYROXINE 75 MCG TAB PO SCH (04:32)
--- NOTE | 2017-11-13 06:58 | PDCARPN ---
Cardiology Progress Note Chief Complaint: edema Assessment/Plan: Assessment: edema HF AF gout Plan: 11/11/17 07:02 c/o right knee pain--consistent with hx of gout, start colchicine continue diuresis appreciate renal input check echo Agree if EF reduced, may need dobutamine support and coreg cessation 11/12/17 07:09 patient's edema reduced less SOB labs relatively stable EF reduced on echo Though inotropes can be used, his labs/clinical status are slowly improving and I'm concerned about inducing AF with RVR with dobutamine Certainly if patient worsens, this would be option Continue aggressive IV diuresis Knee pain resolved with colchicine 11/13/17 06:55 patient feels OK, but BUN/Cr are rising I discussed with nephrology yesterday about temporary dialysis if BUN worsens I have explained to patient that we may be encountering diuretic resistance development and that dialysis would be helpful Would avoid dobutamine currently as HR already in 90s Patient appears amenable to dialysis although he would like to discuss further with nephrology Subjective: feels OK Reviewed/Discussed With: multidisciplinary team Time Spent with Patient: greater than 25 minutes Time Spent with Patient: Greater than 25 minutes spent on this patients care, greater than 50% of time spent counseling, educating, and coordinating care regarding the above mentioned plan. Objective: Vital Signs (8 Hrs) Temp Pulse Resp BP Pulse Ox 11/13/17 04:00 36.4 C 75 14 110/68 92 11/12/17 23:27 36.4 C 74 16 111/64 92 Intake/Output (24 Hrs) 11/12/17 11/13/17 11/14/17 05:59 05:59 05:59 Intake Total 1300 480 Output Total 4100 1750 Balance -2800 -1270 Intake: Oral (ml) 1300 480 Output: Urine (ml) 4100 1750 Toilet 2150 1375 Urinal 1950 375 Other: Weight 138.3 kg 141.43 kg Number of Voids Toilet 4 2 Urinal 1 1 Number of Stools Toilet 1 Result Diagrams: 11/10/17 09:20 11/13/17 03:29 - Physical Exam Constitutional: no apparent distress Eyes: PERRL Ears, Nose, Mouth, Throat: moist mucous membranes Cardiovascular: regular rate and rhythm Peripheral Pulses: 1+: femoral (R), femoral (L) Respiratory: no crackles Gastrointestinal: normoactive bowel sounds Genitourinary: no suprapubic tenderness Skin: other (LE edema) Musculoskeletal: other (right knee tenderness) Neurologic: AAOx3 Psychiatric: cooperative ICD10 Worksheet Patient Problems: Problems Problem Status Onset Acute exacerbation of congestive heart failure Acute Anasarca Acute Chronic Disease Mgmt/Transitional Care Acute Diabetic infection of left foot Acute Heart failure Acute Pulmonary hypertension Acute Renal insufficiency Acute
[2017-11-13] MEDS: FUROSEMIDE 100 MG/10 ML VIAL IVP SCH ×2 (08:46→16:33)
[2017-11-13] MEDS: COLCHICINE 0.6 MG CAP/TAB PO SCH (08:47)
[2017-11-13] MEDS: ALLOPURINOL 300 MG TAB PO SCH (08:48)
[2017-11-13] MEDS: FAMOTIDINE 20 MG TAB PO SCH (08:48)
[2017-11-13] MEDS: CARVEDILOL 6.25 MG TAB PO SCH ×2 (08:49→20:12)
[2017-11-13] MEDS: VITAMIN B COMPLEX 1 EA CAP/TAB PO SCH (08:49)
[2017-11-13] MEDS: predniSONE 20 MG TAB PO SCH (08:49)
[2017-11-13] MEDS: LIDOCAINE 4%/MENTHOL 1% PATCH TD SCH (08:50)
[2017-11-13] MEDS: ACETAMINOPHEN 325 MG TAB PO PRN (08:57)
--- NOTE | 2017-11-13 10:24 | SOAPPROG ---
[facility] Progress Note Assessment/Plan: Assessment: Patient with severe systolic heart failure and advanced CKD presents with severe volume overload 1. Renal Failure Very high BUN/Cr ratio. Not uremic. Given poor systolic function, I believe he is going to need dialysis in terms of having any meaningful chance of avoiding recurrent hospital admissions. I believe he would have a better quality and quantity of life with peritoneal dialysis. I spent time explaining this modality to him. For now, we will follow and educate. He does not have emergent need to start dialysis now. 2. Systolic Heart Failure Most recent EF 25%. Cards following. Lung exam clear. 3. Volume overload Add metolazone and follow. Continue IV lasix. 4. Gout Worse today. Continue colchicine and prednisone Plan: 11/13/17 10:19 11/13/17 10:21 Subjective: Doing fair Objective: Vital Signs Temp Pulse Resp BP Pulse Ox 36.5 C 86 16 111/75 90 L 11/13/17 08:00 11/13/17 08:00 11/13/17 08:00 11/13/17 08:00 11/13/17 08:00 Laboratory Results 11/13/17 03:29 11/12/17 11/13/17 11/14/17 05:59 05:59 05:59 Intake Total 1300 480 240 Output Total 4100 1750 Balance -2800 -1270 240 PT 35.8 SEC (12.0-15.0) H 11/13/17 03:29 INR 3.62 (0.83-1.16) H 11/13/17 03:29 Physical Exam - Physical Exam General Appearance: no apparent distress Respiratory: lungs clear Cardiac/Chest: regular rate, rhythm Skin: normal color Extremities: pedal edema (3+ LE Edema) Neuro/Psych: oriented x 3 ICD10 Worksheet Patient Problems: Problems Problem Status Onset Acute exacerbation of congestive heart failure Acute Anasarca Acute Chronic Disease Mgmt/Transitional Care Acute Diabetic infection of left foot Acute Heart failure Acute Pulmonary hypertension Acute Renal insufficiency Acute
[2017-11-13] MEDS: METOLAZONE 2.5 MG TAB PO SCH (12:22)
--- NOTE | 2017-11-13 15:12 | HOSPPROG ---
Hospitalist Progress Note Assessment/Plan: 67 yo M w ckd, non ischemic CMP here w volume overload, renal failure renal: markedly elevated bun diuresing may need HD for volume removal discussions initiated re: PD sCHF: diuresis ef 25-30% down from 40 per cardiology, may need dobutamine, holding of carvedilol may be worth reevaluating EF after diuresis gout: pred colchicine as tolerated much improved 5 days pred pAF: in sinus AC on hold dispo: inpt Subjective: case d.w dr thacker Objective: Vital Signs Temp Pulse Resp BP Pulse Ox 36.4 C 72 14 93/72 L 95 11/13/17 11:10 11/13/17 11:10 11/13/17 11:10 11/13/17 11:10 11/13/17 11:10 Laboratory Results 11/13/17 03:29 11/12/17 11/13/17 11/14/17 05:59 05:59 05:59 Intake Total 1300 480 240 Output Total 4100 1750 400 Balance -2800 -1270 -160 PT 35.8 SEC (12.0-15.0) H 11/13/17 03:29 INR 3.62 (0.83-1.16) H 11/13/17 03:29 - Physical Exam Constitutional: no apparent distress, appears nourished Eyes: PERRL, anicteric sclera Ears, Nose, Mouth, Throat: moist mucous membranes, hearing normal Cardiovascular: no murmur, rub, or gallop, edema Respiratory: no respiratory distress, no rales or rhonchi Gastrointestinal: normoactive bowel sounds, soft, non-tender abdomen Genitourinary: No fan in urethra Skin: warm Musculoskeletal: full muscle strength Neurologic: AAOx3 ICD10 Worksheet Patient Problems: Problems Problem Status Onset Acute exacerbation of congestive heart failure Acute Anasarca Acute Chronic Disease Mgmt/Transitional Care Acute Diabetic infection of left foot Acute Heart failure Acute Pulmonary hypertension Acute Renal insufficiency Acute
--- NOTE | 2017-11-13 15:14 | ASMTCMCOM ---
CM Note CM Note Notes: Pts case discussed in morning rounds. CM has been unable to get in contact w/ pts since she works during the day. CM spoke to pts daughter Elvie and spoke to her about PTs recommendations. Elvie will speak to pts about this. Pt was reluctant to having PT when CM spoke to him. CM to follow. Plan: TBD Date Signed: 11/13/2017 03:13 PM Electronically Signed By:ORLANDO Diaz
[2017-11-13] MEDS: ASPIRIN EC 81 MG TAB PO SCH (20:12)
[2017-11-13] MEDS: PATCH REMOVAL 1 EA PATCH TD SCH (20:14)
[2017-11-14] MEDS: ACETAMINOPHEN 325 MG TAB PO PRN ×2 (01:06→22:42)
[2017-11-14 04:48] LABS: INR 2.8 (0.83-1.16); PROTIME(PATIENT) 29.4 SEC (12.0-15.0)
[2017-11-14] MEDS: LEVOTHYROXINE 75 MCG TAB PO SCH (05:09)
[2017-11-14] MEDS: LIDOCAINE 4%/MENTHOL 1% PATCH TD SCH (08:34)
[2017-11-14] MEDS: ALLOPURINOL 300 MG TAB PO SCH (08:35)
[2017-11-14] MEDS: FAMOTIDINE 20 MG TAB PO SCH (08:35)
[2017-11-14] MEDS: predniSONE 20 MG TAB PO SCH (08:35)
[2017-11-14] MEDS: CARVEDILOL 6.25 MG TAB PO SCH ×2 (08:35→20:04)
[2017-11-14] MEDS: COLCHICINE 0.6 MG CAP/TAB PO SCH (08:35)
[2017-11-14] MEDS: HYDROCODONE/APAP 5/325 TAB PO PRN ×2 (08:36→12:37)
[2017-11-14] MEDS: VITAMIN B COMPLEX 1 EA CAP/TAB PO SCH (08:36)
--- NOTE | 2017-11-14 08:58 | SOAPPROG ---
[facility] Progress Note Assessment/Plan: Assessment:1. cm..non ischemi ef 25%...seeems to be tolerating current therapy well...no changes from my standpoint today 2. crf...assessing needs for dialysis with renal md's Plan:1.continue current care from cv standpoint 11/14/17 08:56 Subjective: pt feeling ok today...b/p stable and o>i 500cc...considerling dialysis with renal MD's Objective: Vital Signs Temp Pulse Resp BP Pulse Ox 36.4 C 84 13 113/80 93 11/14/17 07:59 11/14/17 07:59 11/14/17 07:59 11/14/17 07:59 11/14/17 07:59 Laboratory Results 11/14/17 03:28 11/13/17 11/14/17 11/15/17 05:59 05:59 05:59 Intake Total 480 1490 Output Total 1750 3300 575 Balance -1270 -1810 -575 PT 29.4 SEC (12.0-15.0) H 11/14/17 03:28 INR 2.80 (0.83-1.16) H 11/14/17 03:28 Physical Exam - Physical Exam Respiratory: lungs clear Cardiac/Chest: edema (stable with some venous stasis changes), systolic murmur ICD10 Worksheet Patient Problems: Problems Problem Status Onset Anasarca Acute Pulmonary hypertension Acute Chronic Disease Mgmt/Transitional Care Acute Diabetic infection of left foot Acute Heart failure Acute Renal insufficiency Acute Acute exacerbation of congestive heart failure Acute
[2017-11-14] MEDS: METOLAZONE 2.5 MG TAB PO SCH (09:05)
[2017-11-14] MEDS: FUROSEMIDE 100 MG/10 ML VIAL IVP SCH ×2 (09:05→14:41)
--- NOTE | 2017-11-14 09:57 | SOAPPROG ---
PATRICE Progress Note Assessment/Plan: Assessment: Patient with severe systolic heart failure and advanced CKD presents with severe volume overload 1. Renal Failure Long talk again with patient and daughter. I believe his best choice to optimize quantity and quality of life would by peritoneal dialysis. I have given information on this. 2. Systolic Heart Failure Most recent EF 25%. On exam, it would seem that he has RHF > LHF, but this is not born out on echo. 3. Volume overload Add metolazone and follow. Continue IV lasix. 4. Gout Continue prednisone and colchicine. Given renal failure, colchicine would need to be decreased in dosing. Plan: 11/13/17 10:19 11/13/17 10:21 11/14/17 09:54 Subjective: Volume improving, but R knee painful Objective: Vital Signs Temp Pulse Resp BP Pulse Ox 36.4 C 84 13 113/80 93 11/14/17 07:59 11/14/17 07:59 11/14/17 07:59 11/14/17 07:59 11/14/17 07:59 Laboratory Results 11/14/17 03:28 11/13/17 11/14/17 11/15/17 05:59 05:59 05:59 Intake Total 480 1490 Output Total 1750 3300 575 Balance -1270 -1810 -575 PT 29.4 SEC (12.0-15.0) H 11/14/17 03:28 INR 2.80 (0.83-1.16) H 11/14/17 03:28 Physical Exam - Physical Exam General Appearance: no apparent distress Respiratory: lungs clear Cardiac/Chest: regular rate, rhythm Abdomen: non-tender Skin: normal color Extremities: pedal edema Neuro/Psych: oriented x 3 ICD10 Worksheet Patient Problems: Problems Problem Status Onset Acute exacerbation of congestive heart failure Acute Anasarca Acute Chronic Disease Mgmt/Transitional Care Acute Diabetic infection of left foot Acute Heart failure Acute Pulmonary hypertension Acute Renal insufficiency Acute
--- NOTE | 2017-11-14 14:43 | HOSPPROG ---
Hospitalist Progress Note Assessment/Plan: 67 yo M w ckd, non ischemic CMP here w volume overload, renal failure renal: markedly elevated bun diuresing slowly but steadily discussions initiated re: PD will discuss catheter placement sCHF: diuresis ef 25-30% down from 40 per cardiology, may need dobutamine, holding of carvedilol may be worth reevaluating EF after diuresis gout: pred colchicine as tolerated much improved 5 days pred pAF: in sinus AC on hold dispo: inpt Subjective: case d/w dr cadena Objective: Vital Signs Temp Pulse Resp BP Pulse Ox 36.7 C 84 14 122/84 H 94 11/14/17 11:59 11/14/17 11:59 11/14/17 11:59 11/14/17 11:59 11/14/17 11:59 Laboratory Results 11/14/17 03:28 11/13/17 11/14/17 11/15/17 05:59 05:59 05:59 Intake Total 480 1490 500 Output Total 1750 3300 2525 Balance -1270 -1810 -2024 PT 29.4 SEC (12.0-15.0) H 11/14/17 03:28 INR 2.80 (0.83-1.16) H 11/14/17 03:28 - Physical Exam Constitutional: no apparent distress, appears nourished Eyes: PERRL, anicteric sclera Ears, Nose, Mouth, Throat: moist mucous membranes, hearing normal Cardiovascular: regular rate and rhythym, no murmur, rub, or gallop, edema Respiratory: no respiratory distress, no rales or rhonchi Gastrointestinal: normoactive bowel sounds, soft, non-tender abdomen Genitourinary: no bladder fullness, No fan in urethra Skin: warm, normal color Musculoskeletal: full muscle strength, no muscle tenderness Neurologic: AAOx3 ICD10 Worksheet Patient Problems: Problems Problem Status Onset Acute exacerbation of congestive heart failure Acute Anasarca Acute Chronic Disease Mgmt/Transitional Care Acute Diabetic infection of left foot Acute Heart failure Acute Pulmonary hypertension Acute Renal insufficiency Acute
[2017-11-14] MEDS: ASPIRIN EC 81 MG TAB PO SCH (20:03)
[2017-11-14] MEDS: PATCH REMOVAL 1 EA PATCH TD SCH (20:05)
[2017-11-15 04:54] LABS: INR 2.43 (0.83-1.16); PROTIME(PATIENT) 26.4 SEC (12.0-15.0)
[2017-11-15] MEDS: ACETAMINOPHEN 325 MG TAB PO PRN (05:34)
[2017-11-15] MEDS: LEVOTHYROXINE 75 MCG TAB PO SCH (05:34)
[2017-11-15] MEDS: ALLOPURINOL 300 MG TAB PO SCH (07:58)
[2017-11-15] MEDS: VITAMIN B COMPLEX 1 EA CAP/TAB PO SCH (07:59)
[2017-11-15] MEDS: predniSONE 20 MG TAB PO SCH (07:59)
[2017-11-15] MEDS: FAMOTIDINE 20 MG TAB PO SCH (07:59)
[2017-11-15] MEDS: COLCHICINE 0.6 MG CAP/TAB PO SCH (07:59)
[2017-11-15] MEDS: FUROSEMIDE 100 MG/10 ML VIAL IVP SCH ×2 (07:59→14:22)
[2017-11-15] MEDS: METOLAZONE 2.5 MG TAB PO SCH (07:59)
[2017-11-15] MEDS: CARVEDILOL 6.25 MG TAB PO SCH ×2 (07:59→20:24)
[2017-11-15] MEDS: LIDOCAINE 4%/MENTHOL 1% PATCH TD SCH (08:16)
--- NOTE | 2017-11-15 09:35 | SOAPPROG ---
SOAP Progress Note Assessment/Plan: Assessment:1. cm..non ischemi ef 25%...seeems to be tolerating current therapy well...no changes from my standpoint today 2. crf.. Plan:1.continue current care from cv standpoint 11/14/17 08:56 11/15/17 09:34 Subjective: pt doing well..diuresing well..considering dialysis Objective: Vital Signs Temp Pulse Resp BP Pulse Ox 35.6 C L 82 12 116/85 H 88 L 11/15/17 07:57 11/15/17 07:57 11/15/17 07:57 11/15/17 07:57 11/15/17 07:57 Laboratory Results 11/15/17 03:52 11/14/17 11/15/17 11/16/17 05:59 05:59 05:59 Intake Total 1490 2100 Output Total 3300 5754 Balance -1810 -3675 PT 26.4 SEC (12.0-15.0) H 11/15/17 03:52 INR 2.43 (0.83-1.16) H 11/15/17 03:52 Physical Exam - Physical Exam Respiratory: lungs clear Cardiac/Chest: regular rate, rhythm, edema (stable edema), systolic murmur ICD10 Worksheet Patient Problems: Problems Problem Status Onset Acute exacerbation of congestive heart failure Acute Anasarca Acute Chronic Disease Mgmt/Transitional Care Acute Diabetic infection of left foot Acute Heart failure Acute Pulmonary hypertension Acute Renal insufficiency Acute
--- NOTE | 2017-11-15 09:38 | SOAPPROG ---
SOAP Progress Note Assessment/Plan: Assessment: Patient with severe systolic heart failure and advanced CKD presents with severe volume overload 1. Renal Failure Cr stable with diuresis, which is good. He may have element of cardiorenal. Lytes stable. I believe that PD is reasonable option. I have given a DVD relating to this. BUN high, steroids also contributing. 2. Systolic Heart Failure Most recent EF 25%. On exam, it would seem that he has RHF > LHF, but this is not born out on echo. 3. Volume overload Add metolazone and follow. Continue IV lasix. 4. Gout Continue prednisone and colchicine. Given renal failure, colchicine would need to be decreased in dosing. Subjective: Doing pretty well today. Objective: Vital Signs Temp Pulse Resp BP Pulse Ox 35.6 C L 82 12 116/85 H 88 L 11/15/17 07:57 11/15/17 07:57 11/15/17 07:57 11/15/17 07:57 11/15/17 07:57 Laboratory Results 11/15/17 03:52 11/14/17 11/15/17 11/16/17 05:59 05:59 05:59 Intake Total 1490 2100 Output Total 3300 5775 Balance -1810 -3675 PT 26.4 SEC (12.0-15.0) H 11/15/17 03:52 INR 2.43 (0.83-1.16) H 11/15/17 03:52 Physical Exam - Physical Exam Respiratory: lungs clear Cardiac/Chest: regular rate, rhythm Neuro/Psych: oriented x 3 ICD10 Worksheet Patient Problems: Problems Problem Status Onset Acute exacerbation of congestive heart failure Acute Anasarca Acute Chronic Disease Mgmt/Transitional Care Acute Diabetic infection of left foot Acute Heart failure Acute Pulmonary hypertension Acute Renal insufficiency Acute
--- NOTE | 2017-11-15 14:02 | HOSPPROG ---
Hospitalist Progress Note Assessment/Plan: 67 yo M w ckd, non ischemic CMP here w volume overload, renal failure renal: markedly elevated bun diuresing slowly but steadily discussions initiated re: PD will discuss catheter placement good diuresis w improved renal function overnight sCHF: diuresis ef 25-30% down from 40 per cardiology, may need dobutamine, holding of carvedilol may be worth reevaluating EF after diuresis gout: pred colchicine as tolerated much improved 5 days pred 11/11-11/15 pAF: in sinus AC on hold dispo: inpt Subjective: case d/w dr thacker Objective: Vital Signs Temp Pulse Resp BP Pulse Ox 36.6 C 85 16 120/79 98 11/15/17 11:48 11/15/17 11:48 11/15/17 11:48 11/15/17 11:48 11/15/17 11:48 Laboratory Results 11/15/17 03:52 11/14/17 11/15/17 11/16/17 05:59 05:59 05:59 Intake Total 1490 2100 Output Total 3300 5775 450 Balance -1810 -3675 -450 PT 26.4 SEC (12.0-15.0) H 11/15/17 03:52 INR 2.43 (0.83-1.16) H 11/15/17 03:52 - Physical Exam Constitutional: no apparent distress, appears nourished Eyes: PERRL, anicteric sclera Ears, Nose, Mouth, Throat: moist mucous membranes, hearing normal Cardiovascular: regular rate and rhythym, no murmur, rub, or gallop Respiratory: no respiratory distress, no rales or rhonchi Gastrointestinal: normoactive bowel sounds, soft, non-tender abdomen Genitourinary: No fan in urethra Skin: warm, normal color Musculoskeletal: full muscle strength Neurologic: AAOx3 ICD10 Worksheet Patient Problems: Problems Problem Status Onset Acute exacerbation of congestive heart failure Acute Anasarca Acute Chronic Disease Mgmt/Transitional Care Acute Diabetic infection of left foot Acute Heart failure Acute Pulmonary hypertension Acute Renal insufficiency Acute
--- NOTE | 2017-11-15 15:08 | ASMTCMCOM ---
CM Note CM Note Notes: 11/15/2017 Case Management Note Discussed pt during rounds this morning. Met w/pt to discuss d/c plan. Discussed need for group home manager and PT. Pt in agreement. Faxed referral to [facility] via [employer]. Left VM. Case Management d/c poc: [facility] pending acceptance Case Management will continue to follow. Date Signed: 11/15/2017 03:07 PM Electronically Signed By:Kassidy Mitchell RN
[2017-11-15] MEDS: ASPIRIN EC 81 MG TAB PO SCH (20:24)
[2017-11-15] MEDS: PATCH REMOVAL 1 EA PATCH TD SCH (20:24)
[2017-11-16 03:53] LABS: INR 2.13 (0.83-1.16); PROTIME(PATIENT) 23.9 SEC (12.0-15.0)
[2017-11-16] MEDS: LEVOTHYROXINE 75 MCG TAB PO SCH (05:01)
[2017-11-16] MEDS: LIDOCAINE 4%/MENTHOL 1% PATCH TD SCH (08:54)
[2017-11-16] MEDS: ALLOPURINOL 300 MG TAB PO SCH (08:55)
[2017-11-16] MEDS: FAMOTIDINE 20 MG TAB PO SCH (08:55)
[2017-11-16] MEDS: VITAMIN B COMPLEX 1 EA CAP/TAB PO SCH (08:56)
[2017-11-16] MEDS: CARVEDILOL 6.25 MG TAB PO SCH ×2 (08:56→20:50)
[2017-11-16] MEDS: COLCHICINE 0.6 MG CAP/TAB PO SCH (08:56)
[2017-11-16 10:21] LABS: HEPATITIS B SURFACE ANTIGEN NEGATIVE (NEGATIVE)
--- NOTE | 2017-11-16 10:23 | SOAPPROG ---
SOAP Progress Note Assessment/Plan: Assessment: CKD 4. creat at baseline, but urea nitrogen rising gout flare, recent steroids, may be contributing to urea nitrogen level volume overload, diuresing nicely CHF with EF of about 25% Plan: counseled regarding the possible need for dialysis, all questions answered will check timed urine collection would probably do best with PD if he and his can manage, coming this evening, they will discuss tonight continue therapy for gout (allopurinol and colchicine) 11/16/17 10:18 Subjective: frustrated about his gout no cp sob nausea vomiting or anorexia still with right knee pain, but overall better understands situation Objective: Vital Signs Temp Pulse Resp BP Pulse Ox 36.4 C 70 16 125/80 H 98 11/16/17 07:10 11/16/17 07:10 11/16/17 07:10 11/16/17 07:10 11/16/17 07:10 Laboratory Results 11/16/17 03:12 11/15/17 11/16/17 11/17/17 05:59 05:59 05:59 Intake Total 2100 1200 Output Total 5775 3775 375 Balance -3675 -2575 -375 PT 23.9 SEC (12.0-15.0) H 11/16/17 03:12 INR 2.13 (0.83-1.16) H 11/16/17 03:12 Physical Exam - Physical Exam General Appearance: WD/WN, alert, obese Neck: non-tender Respiratory: No rhonchi, No wheezing, No pleural rub Cardiac/Chest: regular rate, rhythm, edema, No gallop, No friction rub Abdomen: normal bowel sounds, non-tender, soft Skin: other (changes of venous stasis) Extremities: other (bilateral edema) Neuro/Psych: alert, normal mood/affect, oriented x 3 ICD10 Worksheet Patient Problems: Problems Problem Status Onset Acute exacerbation of congestive heart failure Acute Anasarca Acute Chronic Disease Mgmt/Transitional Care Acute Diabetic infection of left foot Acute Heart failure Acute Pulmonary hypertension Acute Renal insufficiency Acute
[2017-11-16 10:38] LABS: HEPATITIS C ANTIBODY TOTAL NEGATIVE (NEGATIVE)
[2017-11-16] MEDS: ACETAMINOPHEN 325 MG TAB PO PRN ×2 (10:41→20:50)
[2017-11-16] MEDS: FUROSEMIDE 100 MG/10 ML VIAL IVP SCH ×2 (11:00→16:36)
[2017-11-16] MEDS: METOLAZONE 2.5 MG TAB PO SCH (11:01)
--- NOTE | 2017-11-16 11:41 | ASMTCMCOM ---
CM Note CM Note Notes: 11/15/2017 Case Management Note Discussed pt during rounds this morning. Pt continues to require IV lasix. Phone call from [facility] accepting pt. Case Management d/c poc: [facility] RN PT Case Management to follow. Date Signed: 11/16/2017 11:41 AM Electronically Signed By:Kassidy Mitchell RN
--- NOTE | 2017-11-16 13:29 | PDCARPN ---
Cardiology Progress Note Chief Complaint: lower extremity edema Assessment/Plan: Assessment: Kwame is a 67 y/o M with a history of CRI, NICMP with EF of 25%, PAF, moderate CAD by angiogram in 08/2016, moderate to severe MR, and moderate TR admitted with systolic CHF. He is diuresing with IV Lasix but his BUN is rising. He is considering PD and will discuss this with his this evening. Plan: 1. NICMP with CHF- He is diuresing with IV Lasix. I/0 -2575. Continue BB for his CMP. He is not on a FRANCHESKA-I secondary to renal insufficiency. 2. CRI-considering PD 3. PAF- currently in NSR. Coumadin has been on hold b/c he has been supratherapeutic. 11/16/17 13:52 Subjective: He denies any CP or SOB. His edema is improving but still present. He is having rt knee pain. Reviewed/Discussed With: hospitalist Objective: Vital Signs (8 Hrs) Temp Pulse Resp BP Pulse Ox 11/16/17 11:12 36.4 C 61 14 121/70 H 94 11/16/17 07:10 36.4 C 70 16 125/80 H 98 Intake/Output (24 Hrs) 11/15/17 11/16/17 11/17/17 05:59 05:59 05:59 Intake Total 2100 1200 Output Total 5775 3775 575 Balance -3675 -2575 -575 Intake: Oral (ml) 2100 1200 Output: Urine (ml) 5775 3775 575 Toilet 3100 2725 Urinal 2675 1050 575 Other: Weight 140.2 kg 140.3 kg Intake Quantity Yes Sufficient Number of Voids Toilet 2 Number of Stools Toilet 1 Result Diagrams: 11/10/17 09:20 11/16/17 03:12 Telemetry: NSR - Physical Exam Constitutional: no apparent distress Cardiovascular: regular rate and rhythm, no rubs, no gallops, systolic murmur Respiratory: clear to auscultate bilat, no crackles, no wheezes Skin: other (edema L>R to just below the knees) Neurologic: AAOx3 ICD10 Worksheet Patient Problems: Problems Problem Status Onset Acute exacerbation of congestive heart failure Acute Anasarca Acute Chronic Disease Mgmt/Transitional Care Acute Diabetic infection of left foot Acute Heart failure Acute Pulmonary hypertension Acute Renal insufficiency Acute
--- NOTE | 2017-11-16 15:20 | HOSPPROG ---
Hospitalist Progress Note Assessment/Plan: 67 yo M w ckd, non ischemic CMP here w volume overload, renal failure renal: markedly elevated bun diuresing slowly but steadily discussions initiated re: PD will discuss catheter placement good diuresis w improved renal function overnight 11/16- continues sCHF: diuresis ef 25-30% down from 40 per cardiology, may need dobutamine, holding of carvedilol may be worth reevaluating EF after diuresis gout: pred colchicine as tolerated much improved 5 days pred 11/11-11/15 pAF: in sinus AC on hold dispo: inpt Subjective: case d/w dr santiago Objective: Vital Signs Temp Pulse Resp BP Pulse Ox 36.4 C 87 14 114/67 93 11/16/17 15:13 11/16/17 15:13 11/16/17 15:13 11/16/17 15:13 11/16/17 15:13 Laboratory Results 11/16/17 03:12 11/15/17 11/16/17 11/17/17 05:59 05:59 05:59 Intake Total 2100 1200 Output Total 5742 3775 775 Balance -3675 -2575 -775 PT 23.9 SEC (12.0-15.0) H 11/16/17 03:12 INR 2.13 (0.83-1.16) H 11/16/17 03:12 - Physical Exam Constitutional: no apparent distress, appears nourished Eyes: PERRL, anicteric sclera Ears, Nose, Mouth, Throat: moist mucous membranes, hearing normal Cardiovascular: regular rate and rhythym, no murmur, rub, or gallop Respiratory: no respiratory distress, no rales or rhonchi Gastrointestinal: normoactive bowel sounds, soft, non-tender abdomen Genitourinary: no bladder fullness, No fan in urethra Skin: warm, normal color Musculoskeletal: full muscle strength Neurologic: AAOx3 ICD10 Worksheet Patient Problems: Problems Problem Status Onset Acute exacerbation of congestive heart failure Acute Anasarca Acute Chronic Disease Mgmt/Transitional Care Acute Diabetic infection of left foot Acute Heart failure Acute Pulmonary hypertension Acute Renal insufficiency Acute
[2017-11-16] MEDS: WARFARIN SODIUM 5 MG TAB PO SCH (16:33)
[2017-11-16] MEDS: ASPIRIN EC 81 MG TAB PO SCH (20:50)
[2017-11-16] MEDS: PATCH REMOVAL 1 EA PATCH TD SCH (21:00)
[2017-11-17 20:49] LABS: PLATELET COUNT 159 10^3/uL (150-400)
--- NOTE | 2017-11-17 22:30 | GPROG ---
[f rep st] PROGRESS NOTE DATE OF SERVICE: 11/17/2017 SUBJECTIVE: The patient feels a bit better today. He denies chest pain, shortness of breath, or ort hopnea. He continues to have lower extremity edema. He complains of gout pain in his right knee. H e is afebrile. OBJECTIVE: VITAL SIGNS: Stable. GENERAL: The patient is awake, alert and oriented, in no distress . HEENT: Head is atraumatic, normocephalic. Pupils equal, round, reactive to light. Extraocular m ovements intact. Oropharynx is clear. Mucous membranes are moist. NECK: Supple. There is no JVD. HEART: Regular rate and rhythm. LUNGS: Reveal faint crackles at bilateral bases, otherwise clear to auscultation. ABDOMEN: Soft, nondistended, and nontender. Normoactive bowel tones. EXTREMITIE S: He has 2+ bilateral brawny, pitting edema. His right knee is slightly swollen secondary to gout. NEUROLOGIC: Exam is grossly nonfocal. LABORATORY DATA: All his labs were reviewed this morning. Of note, his BUN is 150. Creatinine is 2 .1, down from 2.2, blood sugar 235. ASSESSMENT AND PLAN: The patient is a 67-year-old male admitted with acute on chronic heart failure with acute kidney injury. 1. Acute systolic heart failure. He has diuresed 3 kg overnight. Will continue aggressive IV Lasix diuresis. Continue to follow his I's and O's and daily weights. 2. Acute kidney injury. The chronicity of this is unclear. Nephrology is following and considering initiation of peritoneal dialysis. There may be a cardiorenal component. 3. Diabetes mellitus. Continue current management. 4. Gout. The patient is not a candidate for Indocin given his acute kidney injury. Continue colchi cine. Consider addition of prednisone if pain persists. 5. Disposition: Continue inpatient status. PT/OT evaluations are requested for disposition krystle Calle #: [id number]
[2017-11-18] MEDS: COLCHICINE 0.6 MG CAP/TAB PO SCH ×2 (05:52→09:05)
[2017-11-18] MEDS: FUROSEMIDE 100 MG/10 ML VIAL IVP SCH ×4 (05:52→15:08)
[2017-11-18] MEDS: FAMOTIDINE 20 MG TAB PO SCH ×2 (05:52→09:06)
[2017-11-18] MEDS: ASPIRIN EC 81 MG TAB PO SCH ×2 (05:52→20:14)
[2017-11-18] MEDS: CARVEDILOL 6.25 MG TAB PO SCH ×3 (05:52→20:14)
[2017-11-18] MEDS: ALLOPURINOL 300 MG TAB PO SCH ×2 (05:52→09:06)
[2017-11-18] MEDS: VITAMIN B COMPLEX 1 EA CAP/TAB PO SCH ×2 (05:53→09:05)
[2017-11-18] MEDS: PATCH REMOVAL 1 EA PATCH TD SCH ×2 (05:53→20:14)
[2017-11-18] MEDS: WARFARIN SODIUM 5 MG TAB PO SCH (05:53)
[2017-11-18] MEDS: LEVOTHYROXINE 75 MCG TAB PO SCH ×2 (05:53→05:54)
[2017-11-18] MEDS: LIDOCAINE 4%/MENTHOL 1% PATCH TD SCH ×2 (05:53→09:06)
[2017-11-18] MEDS ORDERED: POTASSIUM CL 20 MEQ TAB PO ONE ×2 (06:58→09:45)
--- NOTE | 2017-11-18 09:55 | SOAPPROG ---
SOAP Progress Note Assessment/Plan: Assessment: CKD 4. creat at baseline, but urea nitrogen rising, leveled off [id number] gout flare, recent steroids, may be contributing to urea nitrogen level volume overload, diuresing nicely CHF with EF of about 25% Plan: counseled regarding the possible need for dialysis, all questions answered will check timed urine collection, measured GFR about 15 ml/min would probably do best with PD if he and his can manage continue therapy for gout (allopurinol and colchicine), stopped metolazone 24 hour uric acid was quite low at 186, consistent with thiazide diuretic effect 11/16/17 10:18 11/18/17 09:52 Subjective: feeling better no cp nausea or vomiting SOB about at his baseline knee continues to feel better appetite improving spirits good slept OK Objective: Vital Signs Temp Pulse Resp BP Pulse Ox 36.6 C 86 12 100/63 90 L 11/18/17 07:51 11/18/17 07:51 11/18/17 07:51 11/18/17 07:51 11/18/17 07:51 Laboratory Results 11/17/17 03:26 11/18/17 03:33 11/17/17 11/18/17 11/19/17 05:59 05:59 05:59 Intake Total 1150 300 Output Total 1650 1200 Balance -500 -900 PT 23.9 SEC (12.0-15.0) H 11/16/17 03:12 INR 2.13 (0.83-1.16) H 11/16/17 03:12 Physical Exam - Physical Exam General Appearance: alert, obese Neck: supple Respiratory: rales, No rhonchi, No wheezing, No pleural rub Cardiac/Chest: regular rate, rhythm, edema, systolic murmur Abdomen: normal bowel sounds, non-tender, soft Extremities: swelling Neuro/Psych: alert, normal mood/affect, oriented x 3 ICD10 Worksheet Patient Problems: Problems Problem Status Onset Acute exacerbation of congestive heart failure Acute Anasarca Acute Chronic Disease Mgmt/Transitional Care Acute Diabetic infection of left foot Acute Heart failure Acute Pulmonary hypertension Acute Renal insufficiency Acute
[2017-11-18 10:34] LABS: INR 1.71 (0.83-1.16); PROTIME(PATIENT) 20.2 SEC (12.0-15.0)
--- NOTE | 2017-11-18 14:58 | SOAPPROG ---
[facility] Patient Name: MICHELLE BHANDARI Rpt#: [id number] Unit Number: [id number] Attending/ER Physician: Christopher Trevizo MD Patient Type: ADM IN Adm Date/Source: 11/10/17 EMR Discharge Date: Primary Carrier: MEDICARE INPATIENT SOAP NOTE SOAP Progress Note Assessment/Plan: Assessment: CKD 4. creat at baseline, but urea nitrogen rising gout flare, recent steroids, will DC Zarox, can increase uric acid/precipitate gout volume overload, diuresing nicely CHF with EF of about 25% Plan: counseled regarding the possible need for dialysis, all questions answered will check timed urine collection would probably do best with PD if he and his can manage, coming this evening, they will discuss tonight continue therapy for gout (allopurinol and colchicine)/stop zarox 11/16/17 10:18 11/17/17 08:38 Subjective: feels a little better today appetite improved knee feels better, but still some pain 24 hour urine collection underway no cp, SOB continues to improve no nausea or vomiting spirits improving Objective: Vital Signs Temp Pulse Resp BP Pulse Ox 36.9 C 73 18 106/68 91 L 11/17/17 08:02 11/17/17 08:02 11/17/17 08:02 11/17/17 08:02 11/17/17 08:02 Laboratory Results 11/17/17 03:26 11/17/17 03:26 11/16/17 11/17/17 11/18/17 05:59 05:59 05:59 Intake Total 1200 1150 300 Output Total 377 1650 1000 Balance -2575 -500 -700 PT 23.9 SEC (12.0-15.0) H 11/16/17 03:12 INR 2.13 (0.83-1.16) H 11/16/17 03:12 Physical Exam - Physical Exam General Appearance: alert, obese Neck: supple Respiratory: No rales, No rhonchi, No wheezing Cardiac/Chest: regular rate, rhythm, edema, No friction rub Abdomen: normal bowel sounds, non-tender, soft Extremities: swelling Neuro/Psych: alert, normal mood/affect, oriented x 3 ICD10 Worksheet Patient Problems: Problems Problem Status Onset Acute exacerbation of congestive heart failure Acute Anasarca Acute Chronic Disease Mgmt/Transitional Care Acute Diabetic infection of left foot Acute Heart failure Acute Pulmonary hypertension Acute Renal insufficiency Acute *This report may have been compiled using a voice recognition system, and might contain typographical errors and blanks.* Guerrero Sykes MD 11/17/17 [id number] <Electronically signed by Guerrero Sykes MD> 7 T: JANET 11/17/17837 CC:
[2017-11-18] MEDS: WARFARIN SODIUM 2.5 MG TAB PO SCH (15:08)
[2017-11-18] MEDS: ACETAMINOPHEN 325 MG TAB PO PRN (20:18)
--- NOTE | 2017-11-18 20:18 | HOSPPROG ---
Hospitalist Progress Note Objective: Vital Signs Temp Pulse Resp BP Pulse Ox 36.4 C 76 18 110/64 95 11/18/17 15:35 11/18/17 20:14 11/18/17 15:35 11/18/17 20:14 11/18/17 15:35 Laboratory Results 11/17/17 03:26 11/18/17 03:33 11/17/17 11/18/17 11/19/17 05:59 05:59 05:59 Intake Total 1853 342 6914 Output Total 1650 1200 2500 Balance -500 -900 -1050 PT 20.2 SEC (12.0-15.0) H 11/18/17 09:46 INR 1.71 (0.83-1.16) H 11/18/17 09:46 ICD10 Worksheet Patient Problems: Problems Problem Status Onset Acute exacerbation of congestive heart failure Acute Anasarca Acute Chronic Disease Mgmt/Transitional Care Acute Diabetic infection of left foot Acute Heart failure Acute Pulmonary hypertension Acute Renal insufficiency Acute
--- NOTE | 2017-11-18 20:19 | HOSPPROG ---
Hospitalist Progress Note Assessment/Plan: Acute systolic heart failure 2/2 NICM - diuresing effectively, but continues to be volume overloaded -cont high dose lasix -monitor I&O's, daily weights ANGELLA / CKD - Cr 2.4 --> 2.1. Renal following, may need dialysis, considering PD. Gout - Cont allopurinol, colchicine. Already took course of Prednisone. Paroxysmal A fib - rate controlled. Pharmacy to dose coumadin for CVA prevention. DM type 2 - per chart review, last a1c was 6.8% in 09/2017. Not on insulin or oral hypoglycemics. -add SSI for glycemic control Full code Dispo - cont inpt, ADD uncertain Subjective: Pt feels ok, still c/o gout pain in knee. Able to ambulate. No CP or SOB. Still with significant LE edema. Objective: Vital Signs Temp Pulse Resp BP Pulse Ox 36.4 C 76 18 110/64 95 11/18/17 15:35 11/18/17 20:14 11/18/17 15:35 11/18/17 20:14 11/18/17 15:35 Laboratory Results 11/17/17 03:26 11/18/17 03:33 11/17/17 11/18/17 11/19/17 05:59 05:59 05:59 Intake Total 0997 423 0668 Output Total 1650 1200 2500 Balance -500 -900 -1050 PT 20.2 SEC (12.0-15.0) H 11/18/17 09:46 INR 1.71 (0.83-1.16) H 11/18/17 09:46 - Physical Exam Constitutional: no apparent distress Eyes: PERRL Ears, Nose, Mouth, Throat: moist mucous membranes Cardiovascular: regular rate and rhythym Respiratory: no respiratory distress, clear to auscultation Gastrointestinal: normoactive bowel sounds, soft, non-tender abdomen Skin: warm Musculoskeletal: full muscle strength, other (2+ b/l brawny LE edema) Neurologic: AAOx3 Psychiatric: interacting appropriately ICD10 Worksheet Patient Problems: Problems Problem Status Onset Acute exacerbation of congestive heart failure Acute Anasarca Acute Chronic Disease Mgmt/Transitional Care Acute Diabetic infection of left foot Acute Heart failure Acute Pulmonary hypertension Acute Renal insufficiency Acute
[2017-11-18] MEDS ORDERED: D50W 25 GM/50 ML SYR IVP PRN (20:22)
[2017-11-18] MEDS: INSULIN LISPRO 100 UNIT/ML SC SCH (22:13)
[2017-11-19 04:36] LABS: INR 1.77 (0.83-1.16); PROTIME(PATIENT) 20.7 SEC (12.0-15.0)
[2017-11-19] MEDS: LEVOTHYROXINE 75 MCG TAB PO SCH (06:39)
[2017-11-19] MEDS: INSULIN LISPRO 100 UNIT/ML SC SCH ×4 (08:23→21:44)
[2017-11-19] MEDS: COLCHICINE 0.6 MG CAP/TAB PO SCH (08:23)
[2017-11-19] MEDS: CARVEDILOL 6.25 MG TAB PO SCH ×2 (08:24→20:30)
[2017-11-19] MEDS: FAMOTIDINE 20 MG TAB PO SCH (08:24)
[2017-11-19] MEDS: ALLOPURINOL 300 MG TAB PO SCH (08:24)
[2017-11-19] MEDS: VITAMIN B COMPLEX 1 EA CAP/TAB PO SCH (08:24)
[2017-11-19] MEDS: FUROSEMIDE 100 MG/10 ML VIAL IVP SCH ×2 (08:25→16:46)
[2017-11-19] MEDS: POTASSIUM CL 20 MEQ TAB PO SCH (08:25)
[2017-11-19] MEDS: ACETAMINOPHEN 325 MG TAB PO PRN ×2 (08:27→20:50)
[2017-11-19] MEDS: LIDOCAINE 4%/MENTHOL 1% PATCH TD SCH (08:28)
--- NOTE | 2017-11-19 09:55 | SOAPPROG ---
SOAP Progress Note Assessment/Plan: Assessment: CKD 4. creat at baseline, but urea nitrogen rising, leveled off [id number] Elevated urea nitrogen due to CHF, prednisone and CKD gout flare, recent steroids, likely contributing to urea nitrogen level volume overload, diuresing nicely CHF with EF of about 25% Plan: counseled regarding the possible need for dialysis, all questions answered, discussed with , doesn't look like home dialysis is viable for them checked timed urine collection, measured GFR about 15 ml/min would probably do best with PD if he and his can manage, doesn't sound like he will have support at home for PD. If needs dialysis, in-center HD essentially the only option for him continue therapy for gout (allopurinol and colchicine), stopped metolazone 24 hour uric acid was quite low at 186, consistent with thiazide diuretic effect 11/16/17 10:18 11/18/17 09:52 11/19/17 09:52 11/19/17 09:55 Subjective: tired today, didn't sleep well last night sob overall better knee feels better no cp nausea vomiting or anorexia overall spirits good Objective: Vital Signs Temp Pulse Resp BP Pulse Ox 36.4 C 73 15 123/72 H 91 L 11/19/17 07:44 11/19/17 07:44 11/19/17 07:44 11/19/17 07:44 11/19/17 07:44 Laboratory Results 11/17/17 03:26 11/19/17 03:18 11/18/1718 11/20/17 05:59 05:59 05:59 Intake Total 300 3250 100 Output Total 1200 4602 800 Balance -900 -1352 -700 PT 20.7 SEC (12.0-15.0) H 11/19/17 03:18 INR 1.77 (0.83-1.16) H 11/19/17 03:18 Physical Exam - Physical Exam General Appearance: alert Neck: non-tender Respiratory: rales, No rhonchi, No wheezing Cardiac/Chest: regular rate, rhythm, systolic murmur, No friction rub Abdomen: normal bowel sounds, non-tender, soft Skin: other (changes of venous insufficiency) Neuro/Psych: alert, normal mood/affect, oriented x 3 ICD10 Worksheet Patient Problems: Problems Problem Status Onset Acute exacerbation of congestive heart failure Acute Anasarca Acute Chronic Disease Mgmt/Transitional Care Acute Diabetic infection of left foot Acute Heart failure Acute Pulmonary hypertension Acute Renal insufficiency Acute
--- NOTE | 2017-11-19 11:24 | HOSPPROG ---
Hospitalist Progress Note Assessment/Plan: Acute systolic heart failure 2/2 NICM - diuresing slowly, but continues to be volume overloaded -cont high dose lasix -monitor I&O's, daily weights ANGELLA / CKD - Cr 2.4 --> 1.9. Renal following, may need dialysis, considering PD , but hoping to avoid. Discussed with renal. Gout - Cont allopurinol, colchicine. Already took course of Prednisone. Paroxysmal A fib - rate controlled. Pharmacy to dose coumadin for CVA prevention. DM type 2 - per chart review, last a1c was 6.8% in 09/2017. Not on insulin or oral hypoglycemics. -add SSI for glycemic control Full code Dispo - cont inpt, ADD uncertain, PT/OT evals, suspect he'll need SNF Subjective: Pt feels ok, he is ambulating more. Right knee gout pain is a wee bit better today. Excellent uop with IV Lasix. No CP or SOB. Objective: Vital Signs Temp Pulse Resp BP Pulse Ox 36.4 C 72 19 111/67 95 11/19/17 07:44 11/19/17 11:18 11/19/17 11:18 11/19/17 11:18 11/19/17 11:18 Laboratory Results 11/17/17 03:26 11/19/17 03:18 11/18/17 11/19/17 11/20/17 05:59 05:59 05:59 Intake Total 300 3250 100 Output Total 1200 4602 1000 Balance -900 -1352 -900 PT 20.7 SEC (12.0-15.0) H 11/19/17 03:18 INR 1.77 (0.83-1.16) H 11/19/17 03:18 - Physical Exam Constitutional: no apparent distress Eyes: PERRL Ears, Nose, Mouth, Throat: moist mucous membranes Cardiovascular: regular rate and rhythym Respiratory: no respiratory distress Gastrointestinal: normoactive bowel sounds, soft, non-tender abdomen Skin: warm Musculoskeletal: other (2+ b/l LE brawny pre-tibial edema, slightly improved from yesterday) Neurologic: AAOx3 Psychiatric: interacting appropriately ICD10 Worksheet Patient Problems: Problems Problem Status Onset Acute exacerbation of congestive heart failure Acute Anasarca Acute Chronic Disease Mgmt/Transitional Care Acute Diabetic infection of left foot Acute Heart failure Acute Pulmonary hypertension Acute Renal insufficiency Acute
[2017-11-19] MEDS: WARFARIN SODIUM 5 MG TAB PO SCH (16:46)
[2017-11-19] MEDS: ASPIRIN EC 81 MG TAB PO SCH (20:30)
[2017-11-19] MEDS: PATCH REMOVAL 1 EA PATCH TD SCH (20:32)
[2017-11-20 04:11] LABS: PLATELET COUNT 169 10^3/uL (150-400)
[2017-11-20 04:27] LABS: INR 1.8 (0.83-1.16)
[2017-11-20] MEDS: LEVOTHYROXINE 75 MCG TAB PO SCH (06:27)
[2017-11-20] MEDS: INSULIN LISPRO 100 UNIT/ML SC SCH ×4 (09:39→21:14)
[2017-11-20] MEDS: VITAMIN B COMPLEX 1 EA CAP/TAB PO SCH (09:40)
[2017-11-20] MEDS: POTASSIUM CL 20 MEQ TAB PO SCH (09:40)
[2017-11-20] MEDS: COLCHICINE 0.6 MG CAP/TAB PO SCH (09:40)
[2017-11-20] MEDS: ALLOPURINOL 300 MG TAB PO SCH (09:40)
[2017-11-20] MEDS: FAMOTIDINE 20 MG TAB PO SCH (09:40)
[2017-11-20] MEDS: CARVEDILOL 6.25 MG TAB PO SCH ×2 (09:41→21:15)
[2017-11-20] MEDS: FUROSEMIDE 100 MG/10 ML VIAL IVP SCH ×2 (09:43→15:11)
[2017-11-20] MEDS: LIDOCAINE 4%/MENTHOL 1% PATCH TD SCH (09:43)
--- NOTE | 2017-11-20 10:30 | SOAPPROG ---
SOAP Progress Note Assessment/Plan: Assessment/Plan: ANGELLA: pt with improving Cr down to 1.9 with diuresis, but urine CrCl still 20 and BUN quite high, but coming down. He is not uremic and has no dialysis needs currently, hopefully will not need it as his only option would be in- center dialysis. - Will continue diuresis as below. - Will continue to monitor. - Avoid hypotension and nephrotoxins. Hypervolemia: improving with Lasix but still massively volume overloaded. - Will decrease Lasix to 60mg IV BID given metabolic alkalosis. - Will add acetazolamide 250mg BID. - Will continue to monitor. Metabolic alkalosis: due to diuresis, will decrease Lasix and add acetazolamide as above and continue to monitor. Hypokalemia: will continue daily K replacement and continue to monitor, K ok today at 3.8. Subjective: No acute events overnight. Pt still has some pain in his R knee but improving. He is walking around more He states that overall he is much better but still has a lot of extra fluid. He deneis any chest pain or dyspnea. Objective: Vital Signs Temp Pulse Resp BP Pulse Ox 36.7 C 80 15 123/76 H 94 11/20/17 08:21 11/20/17 09:41 11/20/17 08:21 11/20/17 09:41 11/20/17 08:21 Laboratory Results 11/20/17 03:27 11/20/17 03:27 11/19/17 11/20/17 11/21/17 05:59 05:59 05:59 Intake Total 3250 500 120 Output Total 4602 2825 500 Balance -1352 -2325 -380 PT 21.0 SEC (12.0-15.0) H 11/20/17 03:27 INR 1.80 (0.83-1.16) H 11/20/17 03:27 General: alert and oriented, no acute distress Eyes; EOMI, PERRL OP: Clear CV: RRR Resp: nonlabored respirations, CTAB Abd: Soft, NT Ext: +3 edema BLE Neuro: CN II-XII Grossly intact, no asterixis Psych: cooperative, appropriate mood and affect ICD10 Worksheet Patient Problems: Problems Problem Status Onset Acute exacerbation of congestive heart failure Acute Anasarca Acute Chronic Disease [facility]/Transitional Care Acute Diabetic infection of left foot Acute Heart failure Acute Pulmonary hypertension Acute Renal insufficiency Acute
--- NOTE | 2017-11-20 12:02 | ASMTCMCOM ---
CM Note CM Note Notes: Pts case discussed in morning rounds. Pt is making improvements everyday. Pt may be able to d/c home w/ [facility] instead of going to SNF. Pt is resistant to going to a SNF. Pt will continue to work w/ therapies and go on walks w/ staff. CM to follow. Plan: [facility] vs SNF Date Signed: 11/20/2017 12:01 PM Electronically Signed By:ORLANDO Diaz
[2017-11-20] MEDS: acetaZOLAMIDE 250 MG TAB PO SCH (15:10)
[2017-11-20] MEDS: WARFARIN SODIUM 5 MG TAB PO SCH (15:11)
--- NOTE | 2017-11-20 19:26 | HOSPPROG ---
Hospitalist Progress Note Assessment/Plan: Acute systolic heart failure 2/2 NICM - diuresing slowly. Continues to be volume overloaded, but decreasing LE edema -lasix reduced to 60 IV BID per renal, plus diamox -monitor I&O's, daily weights Metabolic alkalosis - likely contraction alkalosis from diuresis -decrease lasix, adding diamox as above -follow ANGELLA / CKD - Cr 2.4 --> 1.9. Renal following, may need dialysis, considering PD , but hoping to avoid. Discussed with renal. Gout - Cont allopurinol, colchicine. Already took course of Prednisone. Starting to improve. Paroxysmal A fib - rate controlled. Pharmacy dosing coumadin for CVA prevention , INR still sub-therapeutic. DM type 2 - per chart review, last a1c was 6.8% in 09/2017. Not on insulin or oral hypoglycemics. -cont SSI for glycemic control Full code Dispo - cont inpt, ADD uncertain, PT/OT evals, suspect he'll need SNF Subjective: Pt feels well, in better spirits today. Ambulating more. Less knee pain. Good uop. No CP or SOB. Objective: Vital Signs Temp Pulse Resp BP Pulse Ox 36.6 C 76 15 110/72 94 11/20/17 15:35 11/20/17 15:35 11/20/17 15:35 11/20/17 15:35 11/20/17 15:35 Laboratory Results 11/20/17 03:27 11/20/17 03:27 11/19/17 11/20/17 11/21/17 05:59 05:59 05:59 Intake Total 3250 500 1420 Output Total 4602 2825 1600 Balance -1352 -2325 -180 PT 21.0 SEC (12.0-15.0) H 11/20/17 03:27 INR 1.80 (0.83-1.16) H 11/20/17 03:27 - Physical Exam Constitutional: no apparent distress Eyes: PERRL Ears, Nose, Mouth, Throat: moist mucous membranes Cardiovascular: regular rate and rhythym Respiratory: no respiratory distress, clear to auscultation Gastrointestinal: normoactive bowel sounds, soft, non-tender abdomen Skin: warm Musculoskeletal: other (1-2+ LE brawny pitting edema, improving) Neurologic: AAOx3 Psychiatric: interacting appropriately ICD10 Worksheet Patient Problems: Problems Problem Status Onset Acute exacerbation of congestive heart failure Acute Anasarca Acute Chronic Disease Mgmt/Transitional Care Acute Diabetic infection of left foot Acute Heart failure Acute Pulmonary hypertension Acute Renal insufficiency Acute
[2017-11-20] MEDS: ASPIRIN EC 81 MG TAB PO SCH (21:15)
[2017-11-20] MEDS: PATCH REMOVAL 1 EA PATCH TD SCH (21:17)
[2017-11-21] MEDS: ACETAMINOPHEN 325 MG TAB PO PRN (03:17)
[2017-11-21] MEDS: LEVOTHYROXINE 75 MCG TAB PO SCH (05:26)
[2017-11-21] MEDS: FAMOTIDINE 20 MG TAB PO SCH (09:01)
[2017-11-21] MEDS: POTASSIUM CL 20 MEQ TAB PO SCH (09:01)
[2017-11-21] MEDS: COLCHICINE 0.6 MG CAP/TAB PO SCH (09:01)
[2017-11-21] MEDS: ALLOPURINOL 300 MG TAB PO SCH (09:01)
[2017-11-21] MEDS: acetaZOLAMIDE 250 MG TAB PO SCH ×2 (09:01→15:31)
[2017-11-21] MEDS: VITAMIN B COMPLEX 1 EA CAP/TAB PO SCH (09:02)
[2017-11-21] MEDS: CARVEDILOL 6.25 MG TAB PO SCH ×2 (09:02→21:41)
[2017-11-21] MEDS: LIDOCAINE 4%/MENTHOL 1% PATCH TD SCH (09:02)
[2017-11-21] MEDS: FUROSEMIDE 100 MG/10 ML VIAL IVP SCH ×2 (09:02→15:30)
[2017-11-21] MEDS: INSULIN LISPRO 100 UNIT/ML SC SCH ×4 (09:04→21:42)
--- NOTE | 2017-11-21 10:50 | HOSPPROG ---
Hospitalist Progress Note Assessment/Plan: Acute systolic heart failure 2/2 NICM - diuresing slowly. Continues to be volume overloaded, but decreasing LE edema -lasix reduced to 40 IV BID per renal, plus diamox -monitor I&O's, daily weights Metabolic alkalosis - likely contraction alkalosis from diuresis -decreased lasix, cont diamox as above -follow ANGELLA / CKD - Cr 2.4 --> 1.9 --> 2.1. Renal following, may need dialysis, considering PD, but hoping to avoid. Discussed with renal. Gout - Cont allopurinol, colchicine. Already took course of Prednisone. Starting to improve. Paroxysmal A fib - rate controlled. Pharmacy dosing coumadin for CVA prevention , INR still sub-therapeutic, slowly on the rise -follow INR daily DM type 2 - per chart review, last a1c was 6.8% in 09/2017. Not on insulin or oral hypoglycemics. -cont SSI for glycemic control Full code Dispo - cont inpt, ADD uncertain, PT/OT evals, suspect he'll need SNF Subjective: PT doing a little better every day, but still with LE edema and gout pain in right knee, all improving. No CP or SOB. He is not ambulating much, but is getting up to chair. Eating fine. Objective: Vital Signs Temp Pulse Resp BP Pulse Ox 36.6 C 68 15 120/62 97 11/21/17 03:44 11/21/17 07:19 11/21/17 07:19 11/21/17 07:19 11/21/17 07:19 Laboratory Results 11/20/17 03:27 11/21/17 03:16 11/20/17 11/21/17 11/22/17 05:59 05:59 05:59 Intake Total 500 1670 Output Total 2825 2725 400 Balance -2325 -1055 -400 PT 21.0 SEC (12.0-15.0) H 11/20/17 03:27 INR 1.80 (0.83-1.16) H 11/20/17 03:27 - Physical Exam Constitutional: no apparent distress Eyes: PERRL Ears, Nose, Mouth, Throat: moist mucous membranes Cardiovascular: regular rate and rhythym Respiratory: no respiratory distress, clear to auscultation Gastrointestinal: normoactive bowel sounds, soft, non-tender abdomen Skin: warm Musculoskeletal: other (1-2+ bl LE brawny pitting edema, slowly improving) Neurologic: AAOx3 Psychiatric: interacting appropriately ICD10 Worksheet Patient Problems: Problems Problem Status Onset Acute exacerbation of congestive heart failure Acute Anasarca Acute Chronic Disease Mgmt/Transitional Care Acute Diabetic infection of left foot Acute Heart failure Acute Pulmonary hypertension Acute Renal insufficiency Acute
[2017-11-21 11:52] LABS: INR 1.79 (0.83-1.16); PROTIME(PATIENT) 20.9 SEC (12.0-15.0)
--- NOTE | 2017-11-21 14:28 | ASMTCMCOM ---
CM Note CM Note Notes: Spoke with RN & MD; discussed concerns regarding pt returning home. Met with pt to discuss; pt adament he does not go to SNF. Pt reports he was at [facility] in the past & became volume overloaded, but it was not addressed by staff; pt believes that is the reason he is now "in the shape he's in". Pt agreeable to [facility]; past notes indicate [facility] is willing to accept. Pt lives with his & son & reports they will be able to assist with ADLs. RN updated. CM will continue to follow. Dc poc-[facility] RN/PT Date Signed: 11/21/2017 02:27 PM Electronically Signed By:Farideh Gruber RN
[2017-11-21] MEDS: WARFARIN SODIUM 5 MG TAB PO SCH (15:31)
--- NOTE | 2017-11-21 18:10 | SOAPPROG ---
SOAP Progress Note Assessment/Plan: Assessment/Plan: ANGELLA: pt with improving Cr with diuresis, Cr today up to 2.1, but urine CrCl still 20 and BUN quite high, but coming down. He is not uremic and has no dialysis needs currently, hopefully will not need it as his only option would be in-center dialysis. - Will continue diuresis as below. - Will continue to monitor. - Avoid hypotension and nephrotoxins. Hypervolemia: improving with Lasix but still massively volume overloaded. - Will decrease Lasix to 40mg IV BID given metabolic alkalosis. - Will add acetazolamide 250mg BID. - Will continue to monitor. Metabolic alkalosis: due to diuresis, improved with addition of acetazolamide, will continue to monitor. Hypokalemia: will continue daily K replacement and continue to monitor, K ok today at 3.7. Subjective: No acute events overnight. Pt continues to have good UOP, denies any chest pain or dyspnea. Objective: Vital Signs Temp Pulse Resp BP Pulse Ox 36.4 C 72 14 112/73 95 11/21/17 15:05 11/21/17 15:05 11/21/17 15:05 11/21/17 15:05 11/21/17 15:05 Laboratory Results 11/20/17 03:27 11/21/17 03:16 11/20/17 11/21/17 11/22/17 05:59 05:59 05:59 Intake Total 500 1670 1000 Output Total 2825 2725 1800 Balance -2325 -1055 -800 PT 20.9 SEC (12.0-15.0) H 11/21/17 11:10 INR 1.79 (0.83-1.16) H 11/21/17 11:10 General: alert and oriented, no acute distress Eyes; EOMI, PERRL OP: Clear CV: RRR Resp: nonlabored respirations Abd: Soft, NT Ext: +2 edema BLE Neuro: CN II-XII grossly intact, no asterixis psych: cooperative ICD10 Worksheet Patient Problems: Problems Problem Status Onset Acute exacerbation of congestive heart failure Acute Anasarca Acute Chronic Disease Mgmt/Transitional Care Acute Diabetic infection of left foot Acute Heart failure Acute Pulmonary hypertension Acute Renal insufficiency Acute
[2017-11-21] MEDS: ASPIRIN EC 81 MG TAB PO SCH ×2 (21:41→21:42)
[2017-11-21] MEDS: PATCH REMOVAL 1 EA PATCH TD SCH (21:45)
[2017-11-22] MEDS: ACETAMINOPHEN 325 MG TAB PO PRN (02:39)
[2017-11-22 04:34] LABS: INR 2.11 (0.83-1.16); PROTIME(PATIENT) 23.7 SEC (12.0-15.0)
[2017-11-22] MEDS: LEVOTHYROXINE 75 MCG TAB PO SCH (06:12)
[2017-11-22] MEDS ORDERED: POTASSIUM CL 20 MEQ TAB PO ONE (07:02)
[2017-11-22] MEDS ORDERED: POTASSIUM CL 10 MEQ TAB PO ONE ×2 (08:13→23:21)
[2017-11-22] MEDS: FUROSEMIDE 40 MG/4 ML VIAL IVP SCH ×2 (08:24→15:20)
[2017-11-22] MEDS: acetaZOLAMIDE 250 MG TAB PO SCH ×2 (08:24→15:20)
[2017-11-22] MEDS: FAMOTIDINE 20 MG TAB PO SCH (08:25)
[2017-11-22] MEDS: COLCHICINE 0.6 MG CAP/TAB PO SCH (08:25)
[2017-11-22] MEDS: INSULIN LISPRO 100 UNIT/ML SC SCH ×4 (08:25→21:41)
[2017-11-22] MEDS: ALLOPURINOL 300 MG TAB PO SCH (08:25)
[2017-11-22] MEDS: VITAMIN B COMPLEX 1 EA CAP/TAB PO SCH (08:25)
[2017-11-22] MEDS: CARVEDILOL 6.25 MG TAB PO SCH ×2 (08:26→21:37)
[2017-11-22] MEDS: LIDOCAINE 4%/MENTHOL 1% PATCH TD SCH (08:28)
[2017-11-22] MEDS: POTASSIUM CL 20 MEQ TAB PO SCH (09:54)
--- NOTE | 2017-11-22 10:36 | HOSPPROG ---
Hospitalist Progress Note Assessment/Plan: Acute systolic heart failure 2/2 NICM - diuresing slowly. Wt 142 kg --> 129 kg. Continues to be volume overloaded, but decreasing LE edema. -lasix reduced to 40 IV BID per renal, diamox added -monitor I&O's, daily weights Metabolic alkalosis - likely contraction alkalosis from diuresis -decreased lasix, cont diamox as above -follow ANGELLA / CKD - Cr 2.4 --> 1.9 --> 2.1. BUN trending down. Renal following, may need dialysis, considering PD, but hoping to avoid. Discussed with renal. Hypokalemia - replace, follow Gout - Cont allopurinol, colchicine. Already took course of Prednisone. Starting to improve. Paroxysmal A fib - rate controlled. Pharmacy dosing coumadin for CVA prevention , INR still sub-therapeutic, slowly on the rise -follow INR daily DM type 2 - per chart review, last a1c was 6.8% in 09/2017. Not on insulin or oral hypoglycemics. -cont SSI for glycemic control Full code Dispo - cont inpt, ADD uncertain, PT/OT evals, suspect he'll need SNF though sounds like he is refusing Subjective: Pt doing fine. No complaints today. No CP or SOB. Spends a lot of time in bed. Objective: Vital Signs Temp Pulse Resp BP Pulse Ox 36.4 C 84 12 106/71 94 11/22/17 07:53 11/22/17 07:53 11/22/17 07:53 11/22/17 07:53 11/22/17 07:53 Laboratory Results 11/20/17 03:27 11/22/17 03:40 11/21/17 11/22/17 11/23/17 05:59 05:59 05:59 Intake Total 1670 1900 Output Total 2725 3600 Balance -1055 -1700 PT 23.7 SEC (12.0-15.0) H 11/22/17 03:40 INR 2.11 (0.83-1.16) H 11/22/17 03:40 - Physical Exam Constitutional: no apparent distress Eyes: PERRL Ears, Nose, Mouth, Throat: moist mucous membranes Cardiovascular: regular rate and rhythym Respiratory: no respiratory distress, clear to auscultation Gastrointestinal: normoactive bowel sounds, soft, non-tender abdomen Skin: warm Musculoskeletal: full muscle strength, other (2+ b/l LE brawny pitting edema L>R ) Neurologic: AAOx3 Psychiatric: interacting appropriately ICD10 Worksheet Patient Problems: Problems Problem Status Onset Acute exacerbation of congestive heart failure Acute Anasarca Acute Chronic Disease Mgmt/Transitional Care Acute Diabetic infection of left foot Acute Heart failure Acute Pulmonary hypertension Acute Renal insufficiency Acute
[2017-11-22] MEDS: WARFARIN SODIUM 2.5 MG TAB PO SCH (15:20)
--- NOTE | 2017-11-22 16:30 | ASMTCMCOM ---
CM Note CM Note Notes: Spoke with RN; pt still having a difficult time getting out of his hospital bed; requiring 2 person assist. Met with pt again, pt's daughter Elvie at bedside; pt admits to having a hard time getting up & ambulating. Discussed concerns about pt returning home & pt's concerns going to SNF again. Pt currently agreeable to considering SNF; pt to discuss with his family. CM will continue to follow. Date Signed: 11/22/2017 04:29 PM Electronically Signed By:Farideh Gruber RN
--- NOTE | 2017-11-22 16:55 | SOAPPROG ---
SOAP Progress Note Assessment/Plan: Assessment/Plan: ANGELLA: pt with improving Cr with diuresis, Cr today stable at 2.1, but urine CrCl still 20 and BUN quite high, but coming down. He is not uremic and has no dialysis needs currently, hopefully will not need it as his only option would be in-center dialysis. - Will continue diuresis as below. - Will continue to monitor. - Avoid hypotension and nephrotoxins. Hypervolemia: improving with Lasix but still massively volume overloaded. - Will continue Lasix 40mg IV BID. - Will continue acetazolamide 250mg BID. - Will continue to monitor. Metabolic alkalosis: due to diuresis, improved with addition of acetazolamide, will continue to monitor. Hypokalemia: K 3.2 today, additional replacement given, will continue to monitor in setting of diuresis. Subjective: No acute events overnight. Pt states that he is feeling better overall, still urinating well and swelling continues to slowly improve. Objective: Vital Signs Temp Pulse Resp BP Pulse Ox 36.4 C 72 14 97/63 L 96 11/22/17 15:46 11/22/17 15:46 11/22/17 15:46 11/22/17 15:46 11/22/17 15:46 Laboratory Results 11/20/17 03:27 11/22/17 03:40 11/21/17 11/22/17 11/23/17 05:59 05:59 05:59 Intake Total 1670 1900 400 Output Total 2725 3600 850 Balance -1055 -1700 -450 PT 23.7 SEC (12.0-15.0) H 11/22/17 03:40 INR 2.11 (0.83-1.16) H 11/22/17 03:40 General: alert and oriented, no acute distress Eyes: EOMI, PERRL OP: Clear CV: RRR Resp: nonlabored respirations Abd; Soft, NT Ext: +2 edema BLE Neuro: CN II-XII grossly intact, no asterixis Psych: cooperative ICD10 Worksheet Patient Problems: Problems Problem Status Onset Acute exacerbation of congestive heart failure Acute Anasarca Acute Chronic Disease Mgmt/Transitional Care Acute Diabetic infection of left foot Acute Heart failure Acute Pulmonary hypertension Acute Renal insufficiency Acute
[2017-11-22] MEDS: PATCH REMOVAL 1 EA PATCH TD SCH (21:38)
[2017-11-23 04:32] LABS: INR 2.11 (0.83-1.16); PROTIME(PATIENT) 23.7 SEC (12.0-15.0)
[2017-11-23] MEDS: LEVOTHYROXINE 75 MCG TAB PO SCH (06:10)
[2017-11-23] MEDS: INSULIN LISPRO 100 UNIT/ML SC SCH ×3 (07:45→18:58)
[2017-11-23] MEDS ORDERED: POTASSIUM CL 10 MEQ TAB PO ONE (08:20)
[2017-11-23] MEDS: COLCHICINE 0.6 MG CAP/TAB PO SCH (08:35)
[2017-11-23] MEDS: FUROSEMIDE 40 MG/4 ML VIAL IVP SCH ×2 (08:36→15:20)
[2017-11-23] MEDS: VITAMIN B COMPLEX 1 EA CAP/TAB PO SCH (08:36)
[2017-11-23] MEDS: FAMOTIDINE 20 MG TAB PO SCH (08:36)
[2017-11-23] MEDS: POTASSIUM CL 20 MEQ TAB PO SCH (08:36)
[2017-11-23] MEDS: CARVEDILOL 6.25 MG TAB PO SCH ×2 (08:36→21:53)
[2017-11-23] MEDS: acetaZOLAMIDE 250 MG TAB PO SCH ×2 (08:36→15:21)
[2017-11-23] MEDS: ALLOPURINOL 300 MG TAB PO SCH (08:36)
[2017-11-23] MEDS: LIDOCAINE 4%/MENTHOL 1% PATCH TD SCH (08:38)
--- NOTE | 2017-11-23 14:02 | SOAPPROG ---
SOAP Progress Note Assessment/Plan: Assessment/Plan: 67 y/o M with CKD Stage IV presents with volume overload and found to have reduced EF of 25-30% on TTE. ANGELLA on CKD -underlying advanced CKD likely DM/HTN with cardiorenal. Recently baseline Cr ~ 2.5 -BUN still trending down, Cr 2.2 today -continue lasix 40mg IV BID for now -monitoring UO, no indication for HD CHF with severe volume overload -TTE as above, cardiology following -diuresis as above, on BB -continue CPAP at night Gout -completed short course prednisone-- no NSAIDs given renal function -uric acid improving on allopurinol and colchicine low dose Metabolic alkalosis -2/2 to contraction -continue diamox 11/23/17 14:41 Subjective: UO>3L yesterday. Planning for rehab soon. Sleeping and not wanting to answer questions. Objective: Vital Signs Temp Pulse Resp BP Pulse Ox 36.5 C 84 12 106/62 94 11/23/17 10:52 11/23/17 10:52 11/23/17 10:52 11/23/17 10:52 11/23/17 10:52 Laboratory Results 11/20/17 03:27 11/23/17 03:40 11/22/17 11/23/17 11/24/17 05:59 05:59 05:59 Intake Total 1900 1300 900 Output Total 3600 2350 900 Balance -1700 -1050 0 PT 23.7 SEC (12.0-15.0) H 11/23/17 03:34 INR 2.11 (0.83-1.16) H 11/23/17 03:34 Physical Exam - Physical Exam General Appearance: WD/WN, alert, mild distress, obese EENT: PERRL/EOMI, TMs normal Neck: non-tender, full range of motion, supple Respiratory: accessory muscle use, decreased breath sounds Cardiac/Chest: normal peripheral pulses, tachycardia Abdomen: normal bowel sounds, non-tender, soft, distended Back: Normal inspection Skin: normal color, warm/dry Extremities: normal range of motion, non-tender, pedal edema Neuro/Psych: alert, normal mood/affect, oriented x 3 ICD10 Worksheet Patient Problems: Problems Problem Status Onset Acute exacerbation of congestive heart failure Acute Anasarca Acute Chronic Disease Mgmt/Transitional Care Acute Diabetic infection of left foot Acute Heart failure Acute Pulmonary hypertension Acute Renal insufficiency Acute
--- NOTE | 2017-11-23 14:22 | HOSPPROG ---
Hospitalist Progress Note Assessment/Plan: DIAGNOSES: Acute systolic heart failure 2/2 NICM - diuresing slowly. * Diamox and Lasix use together at this time due to alkalosis * Excellent diuresis continues, so far renal function holding steady and better than a month ago, suspect at current baseline * Will continue current diuresis, suspect he will need a few more days of IV diuretics here before we try and move on, particularly as we need to follow his renal function very closely Acute on chronic kidney failure * Hemodynamic mechanism * Creatinine stable today over the last few days, notably better than 1 month ago when he was greater than 3 * Will need ongoing close monitoring as we diurese him Hypokalemia - * Will continue to follow closely Gout - Cont allopurinol, colchicine. Status post Prednisone. * Continues to improve Paroxysmal A fib - rate controlled. Pharmacy dosing coumadin for CVA prevention , INR still sub-therapeutic, slowly on the rise -follow INR daily DM type 2 - * Sugars are somewhat variable, has not really been treated home; sliding scale insulin being use hears not consistently effective * Will add some scheduled regular insulin and stop the sliding scale, but he should be seen by product support consultant in the outpatient setting to review treatment options and may do better with a newer agent, cannot use metformin with his renal function Seen by me today on hospitals rounds as well as multidisciplinary rounds Full code SUBJECTIVE: Feels somewhat better overall though still very weak and having the burden of caring quite a bit of weight around as he tries ambulate due to his edema Gout the symptoms still present but continuing to improve OBJECTIVE Vitals reviewed: Stable without fever Disabilities Services Officer, my review: Sinus Exam: alert oriented skin warm dry color ok resps not labored lungs very diminished breath sounds heart regular abd soft nondistended nontender, bowel sounds present limbs warm, still with very remarkable edema of both legs and abdominal wall iv site ok Laboratory data: INR at 2.1 Creatinine stable at 2.2 Sugars and potassium good Objective: Vital Signs Temp Pulse Resp BP Pulse Ox 36.5 C 84 12 106/62 94 11/23/17 10:52 11/23/17 10:52 11/23/17 10:52 11/23/17 10:52 11/23/17 10:52 Laboratory Results 11/20/17 03:27 11/23/17 03:40 11/22/17 11/23/17 11/24/17 06:59 06:59 06:59 Intake Total 1900 1300 900 Output Total 3600 2650 600 Balance -1700 -1350 300 PT 23.7 SEC (12.0-15.0) H 11/23/17 03:34 INR 2.11 (0.83-1.16) H 11/23/17 03:34 - Time Spent With Patient Time Spent with Patient: greater than 35 minutes Time Spent with Patient: Greater than 35 minutes spent on this patients care, greater than 50% of time spent counseling, educating, and coordinating care regarding the above mentioned plan. ICD10 Worksheet Patient Problems: Problems Problem Status Onset Acute exacerbation of congestive heart failure Acute Anasarca Acute Chronic Disease Mgmt/Transitional Care Acute Diabetic infection of left foot Acute Heart failure Acute Pulmonary hypertension Acute Renal insufficiency Acute
[2017-11-23] MEDS: WARFARIN SODIUM 5 MG TAB PO SCH (15:22)
--- NOTE | 2017-11-23 17:09 | ASMTCMCOM ---
CM Note CM Note Notes: 11/23/2017 Case Management Note Met w/pt and Maite [phone]. Pt agreeable to SNF referral. Faxed referrals to [facility] (pt first choice) and [facility]. Discussed benefits of palliative care. Pt in agreement. Provided info. Pt asked to resume conversation tomorrow. Case Management d/c poc: SNF pending acceptance. Case Management to follow. Date Signed: 11/23/2017 05:09 PM Electronically Signed By:Kassidy Mitchell RN
[2017-11-23] MEDS: ASPIRIN EC 81 MG TAB PO SCH (21:53)
[2017-11-23] MEDS: PATCH REMOVAL 1 EA PATCH TD SCH (21:56)
[2017-11-24 04:19] LABS: INR 2.2 (0.83-1.16); PROTIME(PATIENT) 24.5 SEC (12.0-15.0)
[2017-11-24] MEDS: LEVOTHYROXINE 75 MCG TAB PO SCH (05:55)
[2017-11-24] MEDS: INSULIN LISPRO 100 UNIT/ML SC SCH ×3 (08:46→18:45)
[2017-11-24] MEDS: acetaZOLAMIDE 250 MG TAB PO SCH ×2 (10:06→15:23)
[2017-11-24] MEDS: COLCHICINE 0.6 MG CAP/TAB PO SCH ×2 (10:06→20:27)
[2017-11-24] MEDS: ALLOPURINOL 300 MG TAB PO SCH (10:07)
[2017-11-24] MEDS: FAMOTIDINE 20 MG TAB PO SCH (10:07)
[2017-11-24] MEDS: CARVEDILOL 6.25 MG TAB PO SCH ×2 (10:07→20:26)
[2017-11-24] MEDS: VITAMIN B COMPLEX 1 EA CAP/TAB PO SCH (10:07)
[2017-11-24] MEDS: POTASSIUM CL 20 MEQ TAB PO SCH (10:07)
[2017-11-24] MEDS: FUROSEMIDE 40 MG/4 ML VIAL IVP SCH ×2 (10:08→15:23)
[2017-11-24] MEDS: LIDOCAINE 4%/MENTHOL 1% PATCH TD SCH (10:08)
[2017-11-24] MEDS: ACETAMINOPHEN 325 MG TAB PO PRN (10:19)
--- NOTE | 2017-11-24 14:05 | SOAPPROG ---
SOAP Progress Note Assessment/Plan: Assessment/Plan: 67 y/o M with CKD Stage IV presents with volume overload and found to have reduced EF of 25-30% on TTE. ANGELLA on CKD -underlying advanced CKD likely DM/HTN with cardiorenal. Recently baseline Cr ~ 2.5 -BUN still trending down, Cr 2.0 today -consider switching to lasix 80mg po BID tomorrow, may check a Emily 3h post for goal 60-80mEq -monitoring UO, no indication for HD CHF with severe volume overload -TTE as above, cardiology following -diuresis as above, on BB -continue CPAP at night Gout -completed short course prednisone-- no NSAIDs given renal function -uric acid improving on allopurinol -may d/c colchicine once uric acid <7 Metabolic alkalosis -2/2 to contraction -continue diamox for now Hypokalemia -replete prn for goal 3.5mg/dL -may use po or eat more potassium (non-renal diet) 11/24/17 14:03 Subjective: Good UO>2L. Patient feeling much improved. Objective: Vital Signs Temp Pulse Resp BP Pulse Ox 36.9 C 67 19 101/65 93 11/24/17 08:03 11/24/17 08:03 11/24/17 08:03 11/24/17 08:03 11/24/17 08:03 Laboratory Results 11/20/17 03:27 11/24/17 12:02 11/23/17 11/24/17 11/25/17 05:59 05:59 05:59 Intake Total 1300 2170 Output Total 2350 2600 Balance -1050 -430 PT 24.5 SEC (12.0-15.0) H 11/24/17 03:26 INR 2.20 (0.83-1.16) H 11/24/17 03:26 Physical Exam - Physical Exam General Appearance: WD/WN, alert, no apparent distress, obese EENT: PERRL/EOMI, normal ENT inspection Neck: non-tender, full range of motion, supple Respiratory: chest non-tender, lungs clear, decreased breath sounds Abdomen: normal bowel sounds, non-tender, soft, distended Back: Normal inspection Skin: normal color, warm/dry Extremities: normal range of motion, pedal edema Neuro/Psych: alert, normal mood/affect, oriented x 3 ICD10 Worksheet Patient Problems: Problems Problem Status Onset Acute exacerbation of congestive heart failure Acute Anasarca Acute Chronic Disease Mgmt/Transitional Care Acute Diabetic infection of left foot Acute Heart failure Acute Pulmonary hypertension Acute Renal insufficiency Acute
--- NOTE | 2017-11-24 14:27 | ASMTCMCOM ---
CM Note CM Note Notes: 11/24/2017 Case Management Note Met w/pt and El from Palliative Team this morning. See Palliative Note for details. Faxed referral to [facility] Palliative. Discussed pt with [facility] Palliative authorization coordinator on phone. Pt accepted for outpatient Palliative Care with plan for initial meeting at [facility] after d/c. Pt accepted by [facility] for SNF rehab. Case Management d/c poc: [facility] with [facility] Pallative outpatient. Case Management to follow. Date Signed: 11/24/2017 02:27 PM Electronically Signed By:Kassidy Mitchell RN
[2017-11-24] MEDS: WARFARIN SODIUM 5 MG TAB PO SCH (15:23)
--- NOTE | 2017-11-24 15:25 | SOAPPROG ---
PATRICE Progress Note Assessment/Plan: Kwame is a 67 y/o M with a history of CRI, NICMP with EF of 25%, PAF, moderate CAD by angiogram in 08/2016, moderate to severe MR, and moderate TR was admitted with systolic CHF. Course complicated by renal insufficiency. He is diuresing gradually with IV Lasix. Plan: 1. NICMP with CHF- He is diuresing with IV Lasix. Weight down 2KG. Continue BB for his CMP. He is not on a FRANCHESKA-I secondary to renal insufficiency. --> Consider transition to PO lasix in am 2. CRI-Cr stable at 2.2 with diuresis. 3. PAF- currently in NSR. Therapeutic on coumadin Subjective: No chest pain No PND + edema ambulation improved Objective: Vital Signs Temp Pulse Resp BP Pulse Ox 36.9 C 85 19 101/65 94 11/24/17 08:03 11/24/17 12:00 11/24/17 08:03 11/24/17 08:03 11/24/17 12:00 Laboratory Results 11/20/17 03:27 11/24/17 12:02 11/23/17 11/24/17 11/25/17 05:59 05:59 05:59 Intake Total 1300 2170 Output Total 2350 2600 Balance -1050 -430 PT 24.5 SEC (12.0-15.0) H 11/24/17 03:26 INR 2.20 (0.83-1.16) H 11/24/17 03:26 Physical Exam - Physical Exam General Appearance: alert, no apparent distress Respiratory: lungs clear Cardiac/Chest: regular rate, rhythm, systolic murmur Abdomen: non-tender, soft Skin: other (stasis changes) Extremities: pedal edema Neuro/Psych: alert, oriented x 3 ICD10 Worksheet Patient Problems: Problems Problem Status Onset Acute exacerbation of congestive heart failure Acute Anasarca Acute Chronic Disease Mgmt/Transitional Care Acute Diabetic infection of left foot Acute Heart failure Acute Pulmonary hypertension Acute Renal insufficiency Acute
--- NOTE | 2017-11-24 19:29 | HOSPPROG ---
Hospitalist Progress Note Assessment/Plan: DIAGNOSES: Acute systolic heart failure 2/2 NICM - diuresing slowly. * Diamox and Lasix use together at this time due to alkalosis * Excellent diuresis continues, so far renal function holding steady and better than a month ago, suspect at current baseline * Will continue current diuresis, suspect he will need a few more days of IV diuretics here before we try and move on, particularly as we need to follow his renal function very closely Acute on chronic kidney failure * Hemodynamic mechanism * Creatinine stable today over the last few days, notably better than 1 month ago when he was greater than 3 * Will need ongoing close monitoring as we diurese him Hypokalemia - * Will continue to follow closely Gout - Cont allopurinol, colchicine. Status post Prednisone. * Continues to improve Paroxysmal A fib - rate controlled. Pharmacy dosing coumadin for CVA prevention , INR still sub-therapeutic, slowly on the rise -follow INR daily DM type 2 - * Sugars are somewhat variable, has not really been treated home; sliding scale insulin being use hears not consistently effective * Will add some scheduled regular insulin and stop the sliding scale, but he should be seen by automotive teacher in the outpatient setting to review treatment options and may do better with a newer agent, cannot use metformin with his renal function Seen by me today on hospitals rounds as well as multidisciplinary rounds I reviewed in detail today with Dr. Hilton Lubin Full code SUBJECTIVE: Feels somewhat better overall though still very weak and having the burden of caring quite a bit of weight around as he tries ambulate due to his edema Gout the symptoms still present but continuing to improve OBJECTIVE Vitals reviewed: Stable without fever Motion Picture Set Grip, my review: Sinus Exam: alert oriented skin warm dry color ok resps not labored lungs very diminished breath sounds heart regular abd soft nondistended nontender, bowel sounds present limbs still with very remarkable edema of both legs though less of the abdominal wall today iv site ok Laboratory data: INR at 2.1 Creatinine improved to 2.0 Sugars and potassium good Objective: Vital Signs Temp Pulse Resp BP Pulse Ox 36.8 C 69 18 104/76 93 11/24/17 15:19 11/24/17 15:19 11/24/17 15:19 11/24/17 15:19 11/24/17 15:19 Laboratory Results 11/20/17 03:27 11/24/17 12:02 11/23/17 11/24/17 11/25/17 06:59 06:59 06:59 Intake Total 1300 2170 1250 Output Total 2650 2300 1700 Balance -1350 -130 -450 PT 24.5 SEC (12.0-15.0) H 11/24/17 03:26 INR 2.20 (0.83-1.16) H 11/24/17 03:26 - Time Spent With Patient Time Spent with Patient: greater than 35 minutes Time Spent with Patient: Greater than 35 minutes spent on this patients care, greater than 50% of time spent counseling, educating, and coordinating care regarding the above mentioned plan. ICD10 Worksheet Patient Problems: Problems Problem Status Onset Acute exacerbation of congestive heart failure Acute Anasarca Acute Chronic Disease Mgmt/Transitional Care Acute Diabetic infection of left foot Acute Heart failure Acute Pulmonary hypertension Acute Renal insufficiency Acute
[2017-11-24] MEDS: ASPIRIN EC 81 MG TAB PO SCH (20:26)
[2017-11-24] MEDS: PATCH REMOVAL 1 EA PATCH TD SCH (20:28)
[2017-11-25] MEDS: LEVOTHYROXINE 75 MCG TAB PO SCH (06:11)
[2017-11-25] MEDS: ALLOPURINOL 300 MG TAB PO SCH (10:09)
[2017-11-25] MEDS: VITAMIN B COMPLEX 1 EA CAP/TAB PO SCH (10:09)
[2017-11-25] MEDS: POTASSIUM CL 20 MEQ TAB PO SCH (10:09)
[2017-11-25] MEDS: CARVEDILOL 6.25 MG TAB PO SCH ×2 (10:10→20:05)
[2017-11-25] MEDS: FAMOTIDINE 20 MG TAB PO SCH (10:10)
[2017-11-25] MEDS: INSULIN LISPRO 100 UNIT/ML SC SCH ×3 (10:10→18:20)
[2017-11-25] MEDS: acetaZOLAMIDE 250 MG TAB PO SCH ×2 (10:10→15:29)
[2017-11-25] MEDS: COLCHICINE 0.6 MG CAP/TAB PO SCH ×2 (10:10→20:06)
[2017-11-25] MEDS: LIDOCAINE 4%/MENTHOL 1% PATCH TD SCH (10:10)
[2017-11-25] MEDS: FUROSEMIDE 40 MG/4 ML VIAL IVP SCH (10:11)
[2017-11-25] MEDS ORDERED: FUROSEMIDE 40 MG/4 ML VIAL IVP ONE (10:30)
--- NOTE | 2017-11-25 11:49 | SOAPPROG ---
PATRICE Progress Note Assessment/Plan: Kwame is a 67 y/o M with a history of CRI, NICMP with EF of 25%, PAF, moderate CAD by angiogram in 08/2016, moderate to severe MR, and moderate TR was admitted with systolic CHF. Course complicated by renal insufficiency. He is diuresing gradually with IV Lasix. Plan: 1. NICMP with CHF- He is diuresing with IV Lasix. Weight down 2KG. Continue BB for his CMP. He is not on a FRANCHESKA-I secondary to renal insufficiency. --> Will change IV lasix to PO lasix today 2. CRI-Cr stable at 2.0 with diuresis. 3. PAF- currently in NSR. Therapeutic on coumadin 11/25/17 11:47 Subjective: No chest pain No PND limited ambulation edema improved Objective: Vital Signs Temp Pulse Resp BP Pulse Ox 36.4 C 74 18 106/70 95 11/25/17 07:45 11/25/17 07:45 11/25/17 07:45 11/25/17 07:45 11/25/17 07:45 Laboratory Results 11/20/17 03:27 11/25/17 03:16 11/24/17 11/25/17 11/26/17 05:59 05:59 05:59 Intake Total 2170 1500 Output Total 2600 0 275 Balance -430 -550 -275 PT 24.5 SEC (12.0-15.0) H 11/24/17 03:26 INR 2.20 (0.83-1.16) H 11/24/17 03:26 Physical Exam - Physical Exam General Appearance: no apparent distress, other (sleepy) Respiratory: lungs clear Cardiac/Chest: regular rate, rhythm, systolic murmur Abdomen: non-tender, soft Extremities: pedal edema ICD10 Worksheet Patient Problems: Problems Problem Status Onset Acute exacerbation of congestive heart failure Acute Anasarca Acute Chronic Disease Mgmt/Transitional Care Acute Diabetic infection of left foot Acute Heart failure Acute Pulmonary hypertension Acute Renal insufficiency Acute
[2017-11-25] MEDS: ACETAMINOPHEN 325 MG TAB PO PRN (13:04)
--- NOTE | 2017-11-25 14:10 | ASMTCMCOM ---
CM Note CM Note Notes: Pts case discussed in morning rounds. Updates sent to [facility]. CM spoke to Carole at [facility] and informed her that pt will most likely be ready to d/c tomorrow. CM completed non triggering pasrr. CM to follow. Plan: [facility] Date Signed: 11/25/2017 02:09 PM Electronically Signed By:ORLANDO Diaz
[2017-11-25] MEDS: FUROSEMIDE 80 MG TAB PO SCH (15:30)
[2017-11-25] MEDS ORDERED: WARFARIN SODIUM 2.5 MG TAB PO SCH (16:00)
--- NOTE | 2017-11-25 17:23 | SOAPPROG ---
SOAP Progress Note Assessment/Plan: Assessment: CKD 4. creat at baseline, but urea nitrogen better, leveled off [id number] Elevated urea nitrogen due to CHF, prednisone and CKD gout flare, recent steroids, likely contributing to urea nitrogen level volume overload, diuresing nicely CHF with EF of about 25% Plan: counseled regarding the possible need for dialysis, all questions answered, discussed with , doesn't look like home dialysis is viable for them checked timed urine collection, measured GFR about 15 ml/min, maybe a little better today would probably do best with PD if he and his can manage, doesn't sound like he will have support at home for PD. If needs dialysis, in-center HD essentially the only option for him continue therapy for gout (allopurinol and colchicine), stopped metolazone 24 hour uric acid was quite low at 186, consistent with thiazide diuretic effect 11/16/17 10:18 11/18/17 09:52 11/19/17 09:52 11/19/17 09:55 11/25/17 17:20 Subjective: more mobile than when I last saw him tired of the menu sleeping OK, no cp sob nausea or vomiting spirits good, all things considered Objective: Vital Signs Temp Pulse Resp BP Pulse Ox 36.4 C 79 14 110/65 98 11/25/17 15:46 11/25/17 15:46 11/25/17 15:46 11/25/17 15:46 11/25/17 15:46 Laboratory Results 11/20/17 03:27 11/25/17 03:16 11/24/17 11/25/17 11/26/17 05:59 05:59 05:59 Intake Total 2170 1500 Output Total 2600 2050 675 Balance -430 -550 -675 PT 24.5 SEC (12.0-15.0) H 11/24/17 03:26 INR 2.20 (0.83-1.16) H 11/24/17 03:26 Physical Exam - Physical Exam General Appearance: alert Neck: normal inspection Respiratory: No rhonchi, No wheezing Cardiac/Chest: edema, systolic murmur, other (better), No gallop, No friction rub Abdomen: normal bowel sounds, non-tender, soft Skin: warm/dry Extremities: non-tender, swelling Neuro/Psych: alert, normal mood/affect, oriented x 3 ICD10 Worksheet Patient Problems: Problems Problem Status Onset Acute exacerbation of congestive heart failure Acute Anasarca Acute Chronic Disease Mgmt/Transitional Care Acute Diabetic infection of left foot Acute Heart failure Acute Pulmonary hypertension Acute Renal insufficiency Acute
[2017-11-25] MEDS: PATCH REMOVAL 1 EA PATCH TD SCH (20:06)
[2017-11-25] MEDS: ASPIRIN EC 81 MG TAB PO SCH (20:06)
--- NOTE | 2017-11-25 21:14 | HOSPPROG ---
Hospitalist Progress Note Assessment/Plan: DIAGNOSES: Acute systolic heart failure 2/2 NICM - diuresing slowly but has lost approximately 14 kg of weight here so far * Continue current diuretics Acute on chronic kidney failure * Hemodynamic mechanism * Creatinine stable today over the last few days, notably better than 1 month ago when he was greater than 3 * Will need ongoing close monitoring as we diurese him further Hypokalemia - * Will continue to follow closely Gout - Cont allopurinol, colchicine. Status post Prednisone. * Continues to improve and better today with increased in his colchicine dose Paroxysmal A fib - rate controlled. Pharmacy dosing coumadin for CVA prevention , INR still sub-therapeutic, slowly on the rise -follow INR daily DM type 2 - Seen by me today on hospitals rounds as well as multidisciplinary rounds I reviewed in detail today with Dr. Hilton Lubin He is now doing well on oral diuretics, and will potentially plan to discharge him tomorrow to [facility] if he continues to do well without complications SUBJECTIVE: Overall feeling better, walking a little bit more easily, still has trouble getting up out of bed due to weakness and pain Gout the symptoms still present but continuing to improve with the increased dose of colchicine, no diarrhea with that so far OBJECTIVE Vitals reviewed: Stable without fever A R Specialist, my review: Sinus Exam: alert oriented skin warm dry color ok resps not labored lungs very diminished breath sounds heart regular abd soft nondistended nontender, bowel sounds present limbs still with very remarkable edema of both legs though less of the abdominal wall today iv site ok Laboratory data: INR at 2.1 Creatinine stable at 2.0 Objective: Vital Signs Temp Pulse Resp BP Pulse Ox 36.3 C 82 16 101/62 95 11/25/17 20:13 11/25/17 20:13 11/25/17 20:13 11/25/17 20:13 11/25/17 20:13 Laboratory Results 11/20/17 03:27 11/25/17 03:16 11/24/17 11/25/17 11/26/17 06:59 06:59 06:59 Intake Total 2170 1500 740 Output Total 2300 2325 1000 Balance -130 -825 -260 PT 24.5 SEC (12.0-15.0) H 11/24/17 03:26 INR 2.20 (0.83-1.16) H 11/24/17 03:26 ICD10 Worksheet Patient Problems: Problems Problem Status Onset Acute exacerbation of congestive heart failure Acute Anasarca Acute Chronic Disease Mgmt/Transitional Care Acute Diabetic infection of left foot Acute Heart failure Acute Pulmonary hypertension Acute Renal insufficiency Acute
[2017-11-26 04:15] LABS: INR 2.6 (0.83-1.16); PROTIME(PATIENT) 27.8 SEC (12.0-15.0)
[2017-11-26] MEDS: LEVOTHYROXINE 75 MCG TAB PO SCH (06:10)
--- NOTE | 2017-11-26 09:40 | SOAPPROG ---
[facility]EX[facility] Progress Note Assessment/Plan: Assessment: Patient with severe systolic heart failure and advanced CKD presents with severe volume overload 1. Renal Failure Cr is better, suggesting cardiorenal picture. I believe he is going to need dialysis in the near future, unless he is able to show absolute perfect compliance. 2. Systolic Heart Failure Most recent EF 25%. On exam, it would seem that he has RHF > LHF, but this is not born out on echo. 3. Volume overload Much improved. He is going to need very close monitoring. His compliance will need to be enforced. We will need to work with transitional care team, SNF, Cards, and renal. He may need to go on spironolactone. Follow. 4. Gout Continue prednisone and colchicine. Given renal failure, colchicine would need to be decreased in dosing. 11/26/17 09:37 Subjective: Sleepy this am. Objective: Vital Signs Temp Pulse Resp BP Pulse Ox 36.6 C 74 16 105/69 94 11/26/17 03:54 11/26/17 03:54 11/26/17 03:54 11/26/17 03:54 11/26/17 03:54 Laboratory Results 11/20/17 03:27 11/25/17 03:16 11/25/17 11/26/17 11/27/17 05:59 05:59 05:59 Intake Total 1500 2089 Output Total 2049 2299 Balance -550 -210 PT 27.8 SEC (12.0-15.0) H 11/26/17 03:31 INR 2.60 (0.83-1.16) H 11/26/17 03:31 Physical Exam - Physical Exam General Appearance: no apparent distress Respiratory: lungs clear Cardiac/Chest: irregularly irregular Extremities: pedal edema (2+) Neuro/Psych: other (responds appropriately after waking) ICD10 Worksheet Patient Problems: Problems Problem Status Onset Acute exacerbation of congestive heart failure Acute Anasarca Acute Chronic Disease Mgmt/Transitional Care Acute Diabetic infection of left foot Acute Heart failure Acute Pulmonary hypertension Acute Renal insufficiency Acute
[2017-11-26] MEDS: LIDOCAINE 4%/MENTHOL 1% PATCH TD SCH (10:01)
[2017-11-26] MEDS: ALLOPURINOL 300 MG TAB PO SCH (10:02)
[2017-11-26] MEDS: POTASSIUM CL 20 MEQ TAB PO SCH (10:02)
[2017-11-26] MEDS: CARVEDILOL 6.25 MG TAB PO SCH ×2 (10:03→20:12)
[2017-11-26] MEDS: acetaZOLAMIDE 250 MG TAB PO SCH ×2 (10:03→15:17)
[2017-11-26] MEDS: COLCHICINE 0.6 MG CAP/TAB PO SCH (10:03)
[2017-11-26] MEDS: FAMOTIDINE 20 MG TAB PO SCH (10:03)
[2017-11-26] MEDS: FUROSEMIDE 80 MG TAB PO SCH ×2 (10:03→15:17)
[2017-11-26] MEDS: VITAMIN B COMPLEX 1 EA CAP/TAB PO SCH (10:03)
[2017-11-26] MEDS: INSULIN LISPRO 100 UNIT/ML SC SCH ×3 (10:44→20:13)
--- NOTE | 2017-11-26 15:10 | SOAPPROG ---
PATRICE Progress Note Assessment/Plan: Kwame is a 67 y/o M with a history of CRI, NICMP with EF of 25%, PAF, moderate CAD by angiogram in 08/2016, moderate to severe MR, and moderate TR was admitted with systolic CHF. Course complicated by renal insufficiency. He is diuresing gradually with Lasix. Plan: 1. NICM with CHF - He is diuresing with PO Lasix. Weight down approximately 1KG over last 24 to 48 hrs. Continue BB for his CMP. He is not on a FRANCHESKA-I secondary to renal insufficiency. --> Continue gentle diuresis --> OK to DC from a cardiology stand point --> F/U Dr. Eddy in 5 days. 2. CRI-Cr stable at 2.0 with diuresis. 3. PAF- currently in NSR. Therapeutic on coumadin Subjective: No chest pain No orthopnea or PND ambulating to end of pod edema improved Objective: Vital Signs Temp Pulse Resp BP Pulse Ox 36.8 C 70 15 95/63 L 95 11/26/17 12:00 11/26/17 12:00 11/26/17 12:00 11/26/17 12:00 11/26/17 12:00 Laboratory Results 11/20/17 03:27 11/25/17 03:16 11/25/17 11/26/17 11/27/17 05:59 05:59 05:59 Intake Total 1500 2090 400 Output Total 2050 2300 300 Balance -550 -210 100 PT 27.8 SEC (12.0-15.0) H 11/26/17 03:31 INR 2.60 (0.83-1.16) H 11/26/17 03:31 Physical Exam - Physical Exam General Appearance: alert, no apparent distress Respiratory: lungs clear Cardiac/Chest: regular rate, rhythm, systolic murmur Extremities: pedal edema Neuro/Psych: alert ICD10 Worksheet Patient Problems: Problems Problem Status Onset Acute exacerbation of congestive heart failure Acute Anasarca Acute Chronic Disease Mgmt/Transitional Care Acute Diabetic infection of left foot Acute Heart failure Acute Pulmonary hypertension Acute Renal insufficiency Acute
--- NOTE | 2017-11-26 15:13 | ASMTCMCOM ---
CM Note CM Note Notes: Pts case discussed in tx rounds. [facility] does not have a bed for pt until tomorrow. CM to follow. Date Signed: 11/26/2017 03:12 PM Electronically Signed By:ORLANDO Diaz
--- NOTE | 2017-11-26 15:14 | PDIAF ---
- Diagnosis Diagnosis: Acute congestive heart failure, chronic renal failure, acute gout Code Status: Full Code - Medication Management Discharge Medications: Medications to Continue on Transfer Allopurinol [Allopurinol 300 MG (RX)] 150 mg PO DAILY 04/22/16 [Last Taken 11/10] Aspirin EC [Aspirin EC 81 mg (*)] 81 mg PO HS 04/22/16 [Last Taken 11/09/17] Levothyroxine [Synthroid 75 mcg (*)] 75 mcg PO DAILY06 04/22/16 [Last Taken 10/23] Vit B Comp/C/FA/Iron/Vit E [Vitamin B Complex Tablet] 1 each PO DAILY 07/23/17 [ Last Taken 11/09/17] Carvedilol [Coreg (*)] 12.5 mg PO BID 11/10/17 [Last Taken 11/10/17] Colchicine [Colchicine (*)] 0.6 mg PO DAILY ea 11/26/17 [Last Taken Unknown] Famotidine [Pepcid 20 MG (*)] 20 mg PO DAILY tab 11/26/17 [Last Taken Unknown] Furosemide [Lasix 80 MG (*)] 80 mg PO BID@0900,1500 tab 11/26/17 [Last Taken Unknown] Insulin Lispro [HumaLOG LISPRO] 2 unit SC TIDMEAL unit 11/26/17 [Last Taken Unknown] Lidocaine 4%/Menthol 1% [Icy Hot Lidocaine/Menthol 4%/1% Patch (*)] 1 patch TD DAILY patch 11/26/17 [Last Taken Unknown] Patch Removal 1 ea TD DAILY21 patch 11/26/17 [Last Taken Unknown] Potassium Cl [Klor-Con 20 meq (*)] 20 meq PO DAILY tab 11/26/17 [Last Taken Unknown] Warfarin Sodium [Coumadin 2.5MG (*)] 2.5 mg PO SuWe@1600 tab 11/26/17 [Last Taken Unknown] Warfarin Sodium [Coumadin 5MG (*)] 5 mg PO MoTuThFrSa@1600 tab 11/26/17 [Last Taken Unknown] acetaZOLAMIDE [Diamox] 250 mg PO BIDDIUR tab 11/26/17 [Last Taken Unknown] Discharge Medications: Refer to the Discharge Home Medication list for PRN reason. - Orders Diet Recommendation: sodium restricted (2 g sodium daily), ADA 2000 consistent carb Diet Texture: Regular Texture Diet Weigh Patient: daily Additional Instructions: Restricted sodium diet at 2 g per day will be critical to keep the patient from having progressive heart failure Contact Dr. Brigido Maldonado of [facility] and/or Dr. Kwame Hanson of [facility] promptly for any worsening edema or increase in weight suggesting worsening heart failure - Labs/Radiology BMP Date: 12/03/17 (Check weekly while at the [facility]) PT/INR Date: 12/03/17 Call or Fax Lab and Imaging Results to: Dr. Kwame Hanson [facility] - Follow Up Care Current Providers and Referrals: JERAD LOPEZ [Other] - As per Instructions Brigido Maldonado MD [Medical Doctor] - follow up in 1 week
[2017-11-26] MEDS: WARFARIN SODIUM 5 MG TAB PO SCH (15:16)
--- NOTE | 2017-11-26 15:23 | PDDCSUM ---
Discharge Summary Discharge Summary: DISCHARGE DIAGNOSES: -acute systolic congestive heart failure with massive edema -acute on chronic renal failure -acute gouty arthropathy of the knees -hypokalemia -chronic paroxysmal atrial fibrillation well rate controlled on chronic anticoagulation -diabetes mellitus type 2 -generalized deconditioning weakness and gait instability CONSULTANTS: Doctors Hilton Lubin and Kwame Hanson along with other members of [facility] and [facility] PROCEDURES: Echocardiogram showing moderate to severe mitral regurgitation HOSPITAL COURSE SUMMARY: This patient with known chronic systolic heart failure and chronic renal failure comes in with massive volume overload and congestive heart failure. There is nothing to suggest ischemia. His renal function was significantly worsened from his most recent studies, though better than a month ago when his creatinine was 3.5, entering hospital now at 2.4. He was in a sinus rhythm though has history of atrial fibrillation. The patient was started on IV Lasix at high doses, and due to some evidence of alkalosis his metolazone was stopped and acetazolamide was added. Over the course of his hospitalization he had excellent diuresis, with more than 16 kg of fluid removal. He still does have significant volume excess but we have switched him now to oral diuretics for last couple days any does continue to diurese. Fortunately his renal function has improved during his hospital stay and is fairly close to his recent baseline with a creatinine now 2.0. There been no complications of this diuresis. The plan will be to continue diuresis. The patient is probably not been very compliant with low-salt diet and this was emphasized repeatedly to him here. At this point he will be a care to detention facility and we have sent instructions are orders to include low-salt diet and remained recommended the patient keep an eye on that at the nursing facility. In addition to the above the patient did have acute gouty arthropathy of both knees. He did have elevated uric acid levels. Colchicine and lidocaine patches were added and he is having reasonable relief of his pain with that. He also is extremely weak in generalized without any focal weakness. He is able to walk when he gets his feet but not really able to get to his feet by myself. He is therefore being transferred this time detention facility for ongoing physical therapy rehab. PENDING TEST RESULTS: None MEDICATION CHANGES: Warfarin dose has been decreased to 5 mg 5 days a week 2.5 mg 2 days per week Acetazolamide is added for diuretic due to alkalosis Lidocaine patch and colchicine are added for gout Metolazone is discontinued Insulin 2 units before meals is added FOLLOW-UP PLAN: He will be transferred to [facility] for detention and ongoing physical therapy rehabilitation He will follow up with Dr. Brigido Maldonado in Cardiology Clinic 1 week and will continue follow up with Dr. Hanson in Nephrology Clinic Greater than 35 minutes bedside and care coordination time today
--- NOTE | 2017-11-26 15:26 | HOSPPROG ---
Hospitalist Progress Note Assessment/Plan: DIAGNOSES: Acute systolic heart failure 2/2 NICM - diuresing slowly but has lost approximately 14 kg of weight here so far * Continue current diuretics Acute on chronic kidney failure * Hemodynamic mechanism * Creatinine stable today over the last few days, notably better than 1 month ago when he was greater than 3 Hypokalemia - * Resolved with replacement Gout - Cont allopurinol, colchicine. Status post Prednisone. * Continues to improve daily * Offered patient arthrocentesis but he declines at this time as he is improving Paroxysmal A fib - rate controlled. Pharmacy dosing coumadin for CVA prevention , INR still sub-therapeutic, slowly on the rise -follow INR daily DM type 2 - * Sugars in good range Seen by me today on hospitals rounds as well as multidisciplinary rounds I reviewed in detail today with Dr. Hilton Lubin and Dr. Kwame Hanson. At this point he is doing well with continued diuresis on oral diuretics. Is emphasize that he will need ongoing diuretic care as well as strict salt restriction. Is recommended that he have weekly follow up with Dr. Maldonado in Cardiology Clinic. At this point the patient is stable for transfer to senior care facility. Initially we had set him up for transfer to [facility] [place], however we heard now that they will not have a bed for him until tomorrow so his discharge is delayed until tomorrow SUBJECTIVE: States he feels about the same today. Gout symptoms continue slowly improve OBJECTIVE Vitals reviewed: Stable without fever Exercise Teacher, my review: Sinus Exam: alert oriented skin warm dry color ok resps not labored lungs very diminished breath sounds heart regular abd soft nondistended nontender, bowel sounds present limbs still with very some edema of both legs but is visibly better iv site ok Laboratory data: INR at 2.1 Creatinine stable at 2.6 Objective: Vital Signs Temp Pulse Resp BP Pulse Ox 36.8 C 70 15 95/63 L 95 11/26/17 12:00 11/26/17 12:00 11/26/17 12:00 11/26/17 12:00 11/26/17 12:00 Laboratory Results 11/20/17 03:27 11/25/17 03:16 11/25/17 11/26/17 11/27/17 06:59 06:59 06:59 Intake Total 1500 2090 600 Output Total 2325 2024 300 Balance -825 65 300 PT 27.8 SEC (12.0-15.0) H 11/26/17 03:31 INR 2.60 (0.83-1.16) H 11/26/17 03:31 - Time Spent With Patient Time Spent with Patient: greater than 35 minutes Time Spent with Patient: Greater than 35 minutes spent on this patients care, greater than 50% of time spent counseling, educating, and coordinating care regarding the above mentioned plan. ICD10 Worksheet Patient Problems: Problems Problem Status Onset Acute exacerbation of congestive heart failure Acute Anasarca Acute Chronic Disease Mgmt/Transitional Care Acute Diabetic infection of left foot Acute Heart failure Acute Pulmonary hypertension Acute Renal insufficiency Acute
[2017-11-26] MEDS: ASPIRIN EC 81 MG TAB PO SCH (20:12)
[2017-11-26] MEDS: PATCH REMOVAL 1 EA PATCH TD SCH (20:38)
[2017-11-27] MEDS: LEVOTHYROXINE 75 MCG TAB PO SCH (05:54)
[2017-11-27] MEDS ORDERED: COLCHICINE 0.6 MG CAP/TAB PO SCH (09:00)
--- NOTE | 2017-11-27 09:37 | SOAPPROG ---
SOAP Progress Note Assessment/Plan: Assessment/Plan: ANGELLA: pt with improving Cr with diuresis, Cr today stable at 2.0, BUN improving. He is not uremic and has no dialysis needs currently, although likely he will need HD in the future at some point. - Will continue diuresis as below. - Will continue to monitor. - Avoid hypotension and nephrotoxins. Hypervolemia: improving with diuresis. - Continue current dose of Lasix and acetazolamide. - Continue 1500ml fluid restriction on discharge. Hypokalemia: K 3.4 today, additional replacement given. Subjective: No acute events overnight. He continues to have good UOP. He feels fine, going to rehab today. Objective: Vital Signs Temp Pulse Resp BP Pulse Ox 36.7 C 76 15 110/64 94 11/27/17 08:00 11/27/17 08:00 11/27/17 08:00 11/27/17 08:00 11/27/17 08:00 Laboratory Results 11/20/17 03:27 11/27/17 03:15 11/26/17 11/27/17 11/28/17 05:59 05:59 05:59 Intake Total 2090 1250 Output Total 2300 1500 Balance -210 -250 PT 27.8 SEC (12.0-15.0) H 11/26/17 03:31 INR 2.60 (0.83-1.16) H 11/26/17 03:31 General: alert and oriented, no acute distress Eyes; EOMI, PERRL OP: Clear CV: RRR Resp: nonlabored respirations Abd: Soft, NT Ext: +2 edema BLE, much improved overall Neuro: CN II-XII Grossly intact ICD10 Worksheet Patient Problems: Problems Problem Status Onset Acute exacerbation of congestive heart failure Acute Anasarca Acute Chronic Disease Mgmt/Transitional Care Acute Diabetic infection of left foot Acute Heart failure Acute Pulmonary hypertension Acute Renal insufficiency Acute
[2017-11-27] MEDS: LIDOCAINE 4%/MENTHOL 1% PATCH TD SCH (09:56)
[2017-11-27] MEDS: acetaZOLAMIDE 250 MG TAB PO SCH ×2 (09:57→14:42)
[2017-11-27] MEDS: INSULIN LISPRO 100 UNIT/ML SC SCH ×2 (09:57→12:17)
[2017-11-27] MEDS: FAMOTIDINE 20 MG TAB PO SCH (09:57)
[2017-11-27] MEDS: ALLOPURINOL 300 MG TAB PO SCH (09:58)
[2017-11-27] MEDS: VITAMIN B COMPLEX 1 EA CAP/TAB PO SCH (09:58)
[2017-11-27] MEDS: CARVEDILOL 6.25 MG TAB PO SCH (09:58)
[2017-11-27] MEDS: FUROSEMIDE 80 MG TAB PO SCH ×2 (09:58→14:41)
[2017-11-27] MEDS ORDERED: predniSONE 20 MG TAB PO ONE (10:55)
--- NOTE | 2017-11-27 11:00 | PDIAF ---
- Diagnosis Diagnosis: Acute congestive heart failure, chronic renal failure, acute gout Code Status: Full Code - Medication Management Discharge Medications: Medications to Continue on Transfer Allopurinol [Allopurinol 300 MG (RX)] 150 mg PO DAILY 04/22/16 [Last Taken 11/10] Aspirin EC [Aspirin EC 81 mg (*)] 81 mg PO HS 04/22/16 [Last Taken 11/09/17] Levothyroxine [Synthroid 75 mcg (*)] 75 mcg PO DAILY06 04/22/16 [Last Taken 10/23] Vit B Comp/C/FA/Iron/Vit E [Vitamin B Complex Tablet] 1 each PO DAILY 07/23/17 [ Last Taken 11/09/17] Carvedilol [Coreg (*)] 12.5 mg PO BID 11/10/17 [Last Taken 11/10/17] Colchicine [Colchicine (*)] 0.6 mg PO DAILY ea 11/26/17 [Last Taken Unknown] Famotidine [Pepcid 20 MG (*)] 20 mg PO DAILY tab 11/26/17 [Last Taken Unknown] Furosemide [Lasix 80 MG (*)] 80 mg PO BID@0900,1500 tab 11/26/17 [Last Taken Unknown] Insulin Lispro [HumaLOG LISPRO] 2 unit SC TIDMEAL unit 11/26/17 [Last Taken Unknown] Lidocaine 4%/Menthol 1% [Icy Hot Lidocaine/Menthol 4%/1% Patch (*)] 1 patch TD DAILY patch 11/26/17 [Last Taken Unknown] Patch Removal 1 ea TD DAILY21 patch 11/26/17 [Last Taken Unknown] Potassium Cl [Klor-Con 20 meq (*)] 20 meq PO DAILY tab 11/26/17 [Last Taken Unknown] Warfarin Sodium [Coumadin 2.5MG (*)] 2.5 mg PO SuWe@1600 tab 11/26/17 [Last Taken Unknown] Warfarin Sodium [Coumadin 5MG (*)] 5 mg PO MoTuThFrSa@1600 tab 11/26/17 [Last Taken Unknown] acetaZOLAMIDE [Diamox] 250 mg PO BIDDIUR tab 11/26/17 [Last Taken Unknown] predniSONE 20 mg PO DAILY #4 tablet 11/27/17 [Last Taken Unknown] Additional Medication Instructions: stop prednisone after 12/01/17 dose; stop colchicine after gout flare resolved Discharge Medications: Refer to the Discharge Home Medication list for PRN reason. PICC Care - Routine: N/A - Orders Services needed: Registered Nurse, Physical Therapy, Occupational Therapy Isolation Type: None Oxygen: NA Diet Recommendation: sodium restricted, ADA 2000 consistent carb, fluid restriction (use comment for amount) (1.5L/day) Diet Texture: Regular Texture Diet Weigh Patient: daily (keep daily log) Additional Instructions: Restricted sodium diet at 2 g per day will be critical to keep the patient from having progressive heart failure Contact Dr. Brigido Maldonado of [facility] and/or Dr. Crowell of [facility] promptly for any worsening edema or increase in weight suggesting worsening heart failure - Labs/Radiology BMP Date: 12/03/17 (Check weekly while at the [facility]) PT/INR Date: 12/03/17 Call or Fax Lab and Imaging Results to: Dr. Megan Crowell [facility], Dr. Brigido Maldonado - Follow Up Care Current Providers and Referrals: JERAD LOPEZ [Other] - As per Instructions Brigido Maldonado MD [Medical Doctor] - 3-5 days (please call to schedule follow-up ) Lucy Esparza MD [Primary Care Provider] - 3 days of d/c SNF/Rehab Megan Crowell MD [Medical Doctor] - follow up in 1 week (please call to schedule follow-up)
[2017-11-27] MEDS ORDERED: POTASSIUM CL 20 MEQ TAB PO ONE (12:00)
[2017-11-27] MEDS: POTASSIUM CL 20 MEQ TAB PO SCH (12:02)
--- NOTE | 2017-11-27 12:04 | ASMTDCNOTE ---
Case Management Discharge Discharge Order Complete? Answers: Yes Patient to Obtain Answers: Other Notes: [facility] Medications Transportation Arranged Answers: Other Notes: [facility] Transport will Pick (Date 11/27/2017 04:30 PM & Time) EMTALA Complete Answers: No Case Management Transport Answers: Yes Form Complete Faxed Final Orders Answers: Yes Agency/Facility Transfer Answers: Yes Report Printed & Faxed to Receiving Agency Family Notified Answers: No Discharge Comments Notes: Pts case discussed in tx rounds. Pt is being discharged today. CM spoke to [facility] and they have a bed ready for pt. [facility] will be picking pt [facility]. DC orders sent. CM provided ANJANA Miramontes w/ phone number to give report. CM available for changes. Plan: [facility] Date Signed: 11/27/2017 12:03 PM Electronically Signed By:ORLANDO Diaz
[2017-11-27 12:10] VITALS: BP 124/64
--- NOTE | 2017-11-27 12:11 | ASMTLACE ---
LACE Length of stay for Answers: 14 days or more current admission Acuity / Level of Answers: Yes Care: Did the patient have an inpatient admission? Comorbidities - select Answers: Congestive heart failure all that apply Diabetes (uncontrolled or controlled) Mild liver or renal disease Score: 15 Date Signed: 11/27/2017 12:10 PM Electronically Signed By:ORLANDO Diaz
[2017-11-27] MEDS: WARFARIN SODIUM 5 MG TAB PO SCH (14:42)
--- NOTE | 2017-11-27 18:29 | PDDCSUM ---
Discharge Summary Discharge Summary: DISCHARGE SUMMARY FOLLOW-UP ITEMS: Repeat creatinine BUN and lytes next week with results to [facility] in [facility] DATE OF ADMISSION: 11/10/2017 DATE OF DISCHARGE: 11/27/2017 DISCHARGE DIAGNOSES: 1. Acute systolic congestive heart failure exacerbation 2. Nonischemic cardiomyopathy 3. Acute injury on chronic chronic kidney disease stage 3 4. Acute gout flare 5. Acute hypokalemia 6. Paroxysmal atrial fibrillation 7. Diabetes mellitus type 2 8. Acute hyponatremia 9. Acute metabolic alkalosis 10. Secondary hyperparathyroidism 11. Moderate to severe mitral regurgitation CONSULTATIONS: Nephrology, Cardiology PROCEDURES / IMAGIN11/10/2017 echocardiogram demonstrating ejection fraction 25-30% with moderate to severe mitral regurgitation CHIEF COMPLAINT: Acute lower extremity edema SUBJECTIVE: Patient is feeling well at time of discharge, he feels comfortable being discharged at this time PHYSICAL EXAM ON DISCHARGE: Systolic blood pressure is 95-110, heart rate 70-80, afebrile night, net -16 kg length of stay, 1+ bilateral lower extremity edema LABS ON DISCHARGE: Creatinine 2, serum bicarbonate 26, potassium 3.4, INR 2.6 HOSPITAL COURSE BY PROBLEM: 1. Acute systolic congestive heart failure exacerbation. This was the patient' s principal reason for presentation with increased lower extremity edema, most likely secondary to a ejection fraction 25-30% secondary to nonischemic cardiomyopathy with recent weight gain and hospitalization for treatment of osteomyelitis. The patient was seen in consultation by Cardiology, he was initiated on aggressive diuretics, these were titrated at the direction of Nephrology as the patient had acute worsening of his chronic kidney disease. The patient also experienced clinically significant volume shifts, resulting in acute hyponatremia, acute hypokalemia, acute metabolic alkalosis. Consequently , our Nephrology colleagues recommended initiating acetazolamide in addition to his Lasix, and the dosage upon which he stabilized was acetazolamide 250 mg twice daily, Lasix 80 mg twice daily, supplemental potassium. I discussed these dosages with Dr. Megan Crowell prior to discharge, and she will see the patient in follow-up and monitor his outpatient labs. At the time of discharge , the patient has diuresed 16 kg of water weight and he is feeling like he is a safe to ambulate and work with physical therapy. He is also breathing well on room air. 2. Acute gout flare. The patient reports that his principal limitation in mobility is secondary to pain located in his right lower extremity, most likely secondary to an acute gout flare. The patient has experienced gout in a similar area and he has responded positively to prednisone in the past. At the present time, the patient continues to be markedly symptomatic with renally dosed colchicine and allopurinol. Given that nonsteroidal anti-inflammatory medications are contraindicated, the patient was re-initiated on a prednisone burst of 20 mg x5 days, to be discontinued thereafter. Of note, his uric acid level was significantly elevated, and this should be repeated in the setting of a non flare, to determine his baseline. 3. Paroxysmal atrial fibrillation. The patient was rate controlled, he was continued on carvedilol, and his Coumadin dosage was titrated. His Coumadin is therapeutic at time of discharge. 4. Moderate to severe mitral regurgitation. Present on echocardiogram, most likely a result of as well as a contributing factor to his congestive heart failure exacerbation. The degree of regurgitation will be monitored at [facility]. DISCHARGE MEDICATIONS: Please see official discharge medication reconciliation sheet in chart , acetazolamide 250 twice daily, Lasix 80 twice daily, Coreg 6.25 twice daily, potassium 20 mEq daily, prednisone 20 mg x5 days, colchicine 0.6 daily until gout flare resolved. DISCHARGE INSTRUCTIONS: Please have labs drawn next week, follow up with Dr. Crowell and Dr. Brigido Maldonado. TIME SPENT: Greater than 30 minutes were spent on direct patient care, as well as discharge planning and preparation.
[2017-11-28] MEDS ORDERED: predniSONE 20 MG TAB PO SCH (09:00)
--- NOTE | 2017-11-29 15:45 | ASDISCHSUM ---
Discharge Information Plan Status:SNF Medically Cleared to Leave:11/27/2017 Discharge Date:11/27/2017 04:30 PM CM D/C Disposition:Fpc Facility ADT D/C Disposition:Fpc Facility Projected Discharge Date:11/17/2017 11:00 AM Transportation at D/C:Wheelchair Van Discharge Delay Reason: Follow-Up Date:11/17/2017 11:00 AM Discharge Slot: Final Diagnosis: Placement Information Referral Type:*Home Health Care Services Referral ID:[id number] Provider Name: Address 1: Phone Number: Address 2: Fax Number: City: Selection Factors: State: Referral Type:*Fpc/SNF Referral ID:[id number] Provider Name:[facility] Address 1:[address] Address 2: City:[place] Selection Factors: State:[place] Referral Type:Palliative Care Referral ID:[id number] Provider Name:[employer], [facility] Address 1:[address] [place] [address] Address 2: City:[place] Selection Factors: State:[place] Patient Contact Information Contact Name:EMIL Relationship: Address:[address] Work Phone: City:[facility] Phone: [facility]/Zip Code:[place] [address] Email: Financial Information Financial Class:Medicare Primary Plan Desc:MEDICARE INPATIENT Primary Plan Number:[id number] Secondary Plan Desc:[id number] Secondary Plan Number:[id number] Assessment Information LACE LACE Length of stay for Answers: 14 days or more current admission Acuity / Level of Answers: Yes Care: Did the patient have an inpatient admission? Comorbidities - select Answers: Congestive heart failure all that apply Diabetes (uncontrolled or controlled) Mild liver or renal disease Score: 15 Date Signed: 11/27/2017 12:10 PM Electronically Signed By:ORLANDO Diaz [facility] CM Progress Note CM Note CM Note Notes: Patient admitted for acute on chronic CHF exacerbation. He has been unsuccessfully diuresed as an outpatient. He will be followed by Cardiology and Nephrology while here. Patient lives with his and has a supportive daughter. He spent some time at [facility] after his last hospitalization in July (nonhealing diabetic foot ulcer). No therapies have been ordered; however, Case Management is available if he has any discharge needs. Date Signed: 11/10/2017 02:52 PM Electronically Signed By:Dina Porras RN [facility] CM Progress Note CM Note CM Note Notes: 11/11/2017 Case Management Note Discussed pt during rounds this morning. Transitional Care RN to follow after discharge. There are currently no therapy evals ordered at this time. Case Management d/c poc: independent with follow up as directed. Case Management to follow. Date Signed: 11/11/2017 12:28 PM Electronically Signed By:Kassidy Mitchell RN [facility] CM Progress Note CM Note CM Note Notes: Pts case discussed in morning rounds. CM met w/ pt for dispo planning. PT is recommending HC w/ 24hr supervision. Pt reports that he does not think that HC will be helpful at this time. Pt was agreeable for CM to call his Maite, his . CM left a msg for Maite. CM to follow. Plan: TBD Date Signed: 11/12/2017 03:49 PM Electronically Signed By:ORLANDO Diaz [facility] CARYL Progress Note CM Note CM Note Notes: Pts case discussed in morning rounds. CM has been unable to get in contact w/ pts since she works during the day. CM spoke to pts daughter Elvie and spoke to her about PTs recommendations. Elvie will speak to pts about this. Pt was reluctant to having PT when CM spoke to him. CM to follow. Plan: TBD Date Signed: 11/13/2017 03:13 PM Electronically Signed By:ORLANDO Diaz [facility] CARYL Progress Note CM Note CARYL Note Notes: 11/15/2017 Case Management Note Discussed pt during rounds this morning. Met w/pt to discuss d/c plan. Discussed need for manager home improvement and PT. Pt in agreement. Faxed referral to [facility] via [employer]. Left VM. Case Management d/c poc: [facility] pending acceptance Case Management will continue to follow. Date Signed: 11/15/2017 03:07 PM Electronically Signed By:Kassidy Mitchell RN [facility] CM Progress Note CM Note CM Note Notes: 11/15/2017 Case Management Note Discussed pt during rounds this morning. Pt continues to require IV lasix. Phone call from [facility] accepting pt. Case Management d/c poc: [facility] RN PT Case Management to follow. Date Signed: 11/16/2017 11:41 AM Electronically Signed By:Kassidy Mitchell RN [facility] CM Progress Note CM Note CM Note Notes: Pts case discussed in morning rounds. Pt is making improvements everyday. Pt may be able to d/c home w/ [facility] instead of going to SNF. Pt is resistant to going to a SNF. Pt will continue to work w/ therapies and go on walks w/ staff. CM to follow. Plan: [facility] vs SNF Date Signed: 11/20/2017 12:01 PM Electronically Signed By:ORLANDO Diaz [facility] CM Progress Note CM Note CM Note Notes: Spoke with RN & MD; discussed concerns regarding pt returning home. Met with pt to discuss; pt adament he does not go to SNF. Pt reports he was at [facility] in the past & became volume overloaded, but it was not addressed by staff; pt believes that is the reason he is now "in the shape he's in". Pt agreeable to [facility]; past notes indicate [facility] is willing to accept. Pt lives with his & son & reports they will be able to assist with ADLs. RN updated. CM will continue to follow. [facility] RN/PT Date Signed: 11/21/2017 02:27 PM Electronically Signed By:Farideh Gruber RN [facility] CM Progress Note CM Note CM Note Notes: Spoke with RN; pt still having a difficult time getting out of his hospital bed; requiring 2 person assist. Met with pt again, pt's daughter Elvie at bedside; pt admits to having a hard time getting up & ambulating. Discussed concerns about pt returning home & pt's concerns going to SNF again. Pt currently agreeable to considering SNF; pt to discuss with his family. CM will continue to follow. Date Signed: 11/22/2017 04:29 PM Electronically Signed By:Farideh Gruber RN [facility] CM Progress Note CM Note CM Note Notes: 11/23/2017 Case Management Note Met w/pt and Maite [phone]. Pt agreeable to SNF referral. Faxed referrals to [facility] (pt first choice) and [facility]. Discussed benefits of palliative care. Pt in agreement. Provided info. Pt asked to resume conversation tomorrow. Case Management d/c poc: SNF pending acceptance. Case Management to follow. Date Signed: 11/23/2017 05:09 PM Electronically Signed By:Kassidy Mitchell RN [facility] CARYL Progress Note CM Note CM Note Notes: 11/24/2017 Case Management Note Met w/pt and El from Palliative Team this morning. See Palliative Note for details. Faxed referral to [facility]. Discussed pt with [facility] Palliative helper coordinator on phone. Pt accepted for outpatient Palliative Care with plan for initial meeting at [facility] after d/c. Pt accepted by [facility] for SNF rehab. Case Management d/c poc: [facility] with [facility] Pallative outpatient. Case Management to follow. Date Signed: 11/24/2017 02:27 PM Electronically Signed By:Kassidy Mitchell RN [facility] Progress Note CARYL Note CARYL Note Notes: Pts case discussed in morning rounds. Updates sent to [facility]. CARYL spoke to Carole at [facility] and informed her that pt will most likely be ready to d/c tomorrow. CM completed non triggering pasrr. CM to follow. Plan: [facility] Date Signed: 11/25/2017 02:09 PM Electronically Signed By:ORLANDO Diaz [facility] Progress Note CM Note CM Note Notes: Pts case discussed in tx rounds. [facility] does not have a bed for pt until tomorrow. CM to follow. Date Signed: 11/26/2017 03:12 PM Electronically Signed By:ORLANDO Diaz Case Management Discharge Plan Note Case Management Discharge Discharge Order Complete? Answers: Yes Patient to Obtain Answers: Other Notes: [facility] Medications Transportation Arranged Answers: Other Notes: [facility] Transport will Pick (Date 11/27/2017 04:30 PM & Time) LILI Complete Answers: No Case Management Transport Answers: Yes Form Complete Faxed Final Orders Answers: Yes Agency/Facility Transfer Answers: Yes Report Printed & Faxed to Receiving Agency Family Notified Answers: No Discharge Comments Notes: Pts case discussed in tx rounds. Pt is being discharged today. CM spoke to [facility] and they have a bed ready for pt. [facility] will be picking pt up. DC orders sent. CM provided ANJANA Miramontes w/ phone number to give report. CM available for changes. Plan: [facility] Date Signed: 11/27/2017 12:03 PM Electronically Signed By:ORLANDO Diaz Intervention Information Intervention Type:*IM-Signed Date of Service:11/26/2017 03:54 PM Patient Type:Inpatient Staff Member:Barbara Donald Hours: Discipline: Severity: Comment:
== END 2017-11-27 16:30 | DRG 291 ==
LOC: F2W 12:30
PROVIDERS: ADMIT Student in an Organized Health Care Education/Training Program; ATTEND Student in an Organized Health Care Education/Training Program
DX: I13.0 Hypertensive heart and chronic kidney disease with heart failure and stage 1 through stage 4 chronic kidney disease, or unspecified chronic kidney disease (principal); I50.23 Acute on chronic systolic (congestive) heart failure; N18.3 Chronic kidney disease, stage 3 (moderate); I42.9 Cardiomyopathy, unspecified; N17.9 Acute kidney failure, unspecified; E87.70 Fluid overload, unspecified; E87.6 Hypokalemia; E11.22 Type 2 diabetes mellitus with diabetic chronic kidney disease; M10.9 Gout, unspecified; E87.1 Hypo-osmolality and hyponatremia; I34.0 Nonrheumatic mitral (valve) insufficiency; I48.0 Paroxysmal atrial fibrillation; E11.42 Type 2 diabetes mellitus with diabetic polyneuropathy; G47.33 Obstructive sleep apnea (adult) (pediatric)
CPT/HCPCS: 84484-PO; 97116-GP; 97161-GP; 97166-GO; 97530-GO; 97530-GP; 97535-GO; G0472; G8978-GP-CL; G8979-GP-CI; G8980-GP-CK; G8987-GO-CK; G8988-GO-CJ; J1815; J1940; J7512; Q9957

== ENCOUNTER → 2017-11-30 | Outpatient (CLI) | payer OTHER | LOC: BHLMT 10:00 | PROVIDERS: ATTEND Nurse Practitioner Family | DX: I50.33 Acute on chronic diastolic (congestive) heart failure (principal); R06.02 Shortness of breath; I48.0 Paroxysmal atrial fibrillation; I34.0 Nonrheumatic mitral (valve) insufficiency; I27.20 Pulmonary hypertension, unspecified; I25.10 Atherosclerotic heart disease of native coronary artery without angina pectoris; N18.9 Chronic kidney disease, unspecified; R60.9 Edema, unspecified; E66.01 Morbid (severe) obesity due to excess calories | CPT/HCPCS: 93005-PO ==

== ENCOUNTER 2018-02-01 09:15 | Inpatient (IN) | payer OTHER ==
[2018-02-01 11:07] LABS: PLATELET COUNT 187 10^3/uL (150-400)
--- NOTE | 2018-02-01 11:15 | SOAPPROG ---
SOAP Progress Note Assessment/Plan: Assessment: NEEDS DIALYSIS CATH/ LABS PENDING/ SOME FLUID OVERLOAD RISKS AND OPTIONS FULLY DISCUSSED WITH WHO AGREES TO SURGERY AND ANESTHESIA Plan:TUNNELLED DIALYSIS CATH NOW/ AVF IN AM 02/01/18 11:13 Objective: Laboratory Results 02/01/18 10:47 ICD10 Worksheet Patient Problems: Problems Problem Status Onset Acute exacerbation of congestive heart failure Acute Anasarca Acute Chronic Disease Mgmt/Transitional Care Acute Diabetic infection of left foot Acute Heart failure Acute Pulmonary hypertension Acute Renal insufficiency Acute
[2018-02-01 11:16] LABS: INR 1.76 (0.83-1.16); PROTIME(PATIENT) 20.6 SEC (12.0-15.0)
--- NOTE | 2018-02-01 11:37 | PDANEPAE ---
ANE History of Present Illness dialysis catheter placement ANE Past Medical History - Cardiovascular History Hx Hypertension: Yes Hx Arrhythmias: Yes Hx Chest Pain: No Hx Coronary Artery / Peripheral Vascular Disease: No Hx CHF / Valvular Disease: Yes Hx Palpitations: No - Pulmonary History Hx COPD: No Hx Asthma/Reactive Airway Disease: No Hx Recent Upper Respiratory Infection: No Hx Oxygen in Use at Home: No Hx Sleep Apnea: Yes - Neurologic History Hx Cerebrovascular Accident: No Hx Seizures: No Hx Dementia: No - Endocrine History Hx Diabetes: Yes Hypothyroid: No Hyperthyroid: No Obesity: no - Renal History Hx Renal Disorders: Yes - Liver History Hx Hepatic Disorders: No - Neurological & Psychiatric Hx Hx Neurological and Psychiatric Disorders: No - Chronic Pain History Chronic Pain: No ANE Review of Systems Review of Systems: - Exercise capacity Exercise capacity: <4 METS ANE Patient History - Allergies Allergies/Adverse Reactions: No Known Allergies Allergy (Unverified 04/12/09 16:18) - Home Medications Home medications: home medication list seen and reviewed Home Medications: Allopurinol [Allopurinol 300 MG (RX)] 300 mg PO DAILY@04/22/16 [Last Taken ] Aspirin EC [Aspirin EC 81 mg (*)] 81 mg PO HS 04/22/16 [Last Taken 01/31/18] Levothyroxine [Synthroid 75 mcg (*)] 75 mcg PO DAILY@04/22/16 [Last Taken ] Carvedilol [Coreg (*)] 12.5 mg PO BID@11/10/17 [Last Taken 01/31/18 18:00] Acetaminophen [Tylenol 325mg (*)] 325 mg PO Q6HRS PRN 02/01/18 [Last Taken Unknown] Famotidine [Pepcid 20 MG (*)] 20 mg PO DAILY@02/01/18 [Last Taken 01/31/18] Furosemide [Lasix 80 MG (*)] 80 mg PO TID@,02/01/18 [Last Taken 15:00] Potassium Cl [Klor-Con 20 meq (*)] 20 meq PO BID@02/01/18 [Last Taken 18:00] Sodium Chloride [[place]] 1 gissell NS DAILY PRN 02/01/18 [Last Taken Unknown] Spironolactone [Aldactone 25 MG (*)] 25 mg PO BID@02/01/18 [Last Taken 18:00] Vitamin B Complex [Vitamin B Complex (OTC)] 1 each PO DAILY 02/01/18 [Last Taken 01/31/18] Warfarin Sodium [Coumadin 3MG (*)] 3 mg PO WEFR@02/01/18 [Last Taken 1 Week Ago ~01/25/18] Warfarin Sodium [Coumadin 4MG (*)] 4 mg PO SUMOTUTHSA@02/01/18 [Last Taken 1 Week Ago ~01/25/18] acetaZOLAMIDE [Diamox 250 mg (RX)] 250 mg PO BID@02/01/18 [Last Taken 12:00] - Smoking Hx Smoking Status: Former smoker ANE Labs/Vital Signs - Labs Result Diagrams: 02/01/18 10:47 02/01/18 10:47 - Vital Signs Blood Pressure: 87/52 Heart Rate: 75 Respiratory Rate: 20 O2 Sat (%): 100 ANE Physical Exam - Airway Mallampati Score: Class 2 Mouth exam: normal dental/mouth exam - Pulmonary Pulmonary: no respiratory distress - Cardiovascular Cardiovascular: irregularly irregular - ASA Status ASA Status: III ANE Anesthesia Plan Anesthesia Plan: MAC
[2018-02-01] MEDS ORDERED: fentaNYL 100 MCG/2 ML INJ ONE (11:41)
[2018-02-01] MEDS ORDERED: PROPOFOL/EMULSION 500 MG/50 ML BOTTLE IV ONE (11:41)
[2018-02-01] MEDS ORDERED: LIDOCAINE 2% 2 ML INJ ONE ×2 (11:41)
[2018-02-01] MEDS ORDERED: BUPIVACAINE 0.5% 30 ML SDV ONE (11:43)
[2018-02-01] MEDS ORDERED: HEPARIN 50,000 UNIT/10 ML VIAL ONE (11:43)
[2018-02-01] MEDS ORDERED: NA BICARBONATE 50 MEQ/50 ML VIAL ONE (11:43)
[2018-02-01] MEDS ORDERED: LIDOCAINE 1% 300 MG/30 ML SDV ONE (11:43)
[2018-02-01] MEDS ORDERED: SODIUM BICARBONATE 10 MEQ/10 ML SYR IVP ONE (11:58)
[2018-02-01] MEDS ORDERED: NS 500 ML IV ONE (12:00)
--- NOTE | 2018-02-01 12:20 | GCON ---
[f rep st] CONSULTATION NEPHROLOGY CONSULTATION DATE OF CONSULTATION: 02/01/2018 REASON FOR CONSULTATION: Renal failure. HISTORY OF PRESENT ILLNESS: Mr. Mak is well known to our service. He has a history of multiple s ignificant medical issues, including advancing stage 4 chronic kidney disease, obesity, biventricular heart failure with a nonischemic cardiomyopathy, diabetes, and paroxysmal atrial fibrillation, who n ow presents with mental status changes and worsening renal function. History was obtained primarily from the medical staff and the charts. The patient is unable to provide an adequate history at [facility]. The patient was last admitted in November of this year. He has had recurrent admissions for volume overload. During that admission, he underwent an echocardiogram for a known nonischemic cardiomyopat hy, which showed an ejection fraction of 25% to 30% with moderate to severe mitral regurgitation. He was successfully diuresed, and at the time of discharge, his creatinine was stable near 2. Since di scharge, the patient has had ongoing issues with compliance and fluid gains. His diuretics have been adjusted, and he has been on a loop diuretic, spironolactone, and acetazolamide. The patient did almonte ve an elective fistula placement scheduled for tomorrow with Dr. Simmons. Unfortunately, the patient h as had progressively worsening mental status changes, and he was referred for admission today. [place]rbrock wolfly, his blood pressure is running low, near 87. His CBC is stable, but his bicarbonate level is lo w at 14, and his creatinine is up to 4.2. As related to the above issues, we are asked by the [facility] to assist the patient's renal diagnosis and management. PAST MEDICAL HISTORY: 1. Stage 4 chronic kidney disease. 2. History of nonischemic cardiomyopathy with ejection fraction of 25%. 3. Sleep apnea with pulmonary hypertension. 4. Valvular heart disease with mitral regurgitation. 5. 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 6. Hypertension. 7. Gout. 8. Hypothyroidism. 9. Osteomyelitis. PAST SURGICAL HISTORY: Includes cataract surgery. ALLERGIES: No known allergies. HOME MEDICATIONS: Acetazolamide 250 mg b.i.d., vitamin B complex daily, spironolactone 25 mg b.i.d., potassium chloride 20 mEq b.i.d., Lasix 80 mg t.i.d., carvedilol 12.5 mg b.i.d., aspirin 81 mg daily , allopurinol 300 mg daily, Pepcid 20 mg daily, levothyroxine 75 mcg daily, Tylenol p.r.n., warfarin as prescribed. FAMILY HISTORY: Noncontributory. SOCIAL HISTORY: He is originally from [place]. He has lived in [place] since 1970. 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 He has quit smoking. He is . REVIEW OF SYSTEMS: Unobtainable at the present time. PHYSICAL EXAM: GENERAL: At time of exam, the patient can arouse briefly. He knows his name and loc ation. VITAL SIGNS: Temperature afebrile, pulse 75, blood pressure 87/52. HEENT: Eyes, sclerae guadalupe ar. Oropharynx, unable to really examine. NECK: No lymphadenopathy or thyromegaly. LUNGS: Clear to auscultation. CARDIOVASCULAR: regular rate and rhythm, without gallops or rubs. ABDOMEN: Obese. No guarding. Nontender. /RECTAL: Deferred. EXTREMITIES: 1+ bilateral lower extremity edema. INTEGUMENT: The patient has some skin breakdown on his shins relating to edema with some erythema. NEURO: The patient is somnolent. He is able to awaken occasionally and responds to questions, but cannot sustain this. LABORATORY STUDIES: Sodium 140, potassium 5.2, chloride 110, bicarb 14, creatinine 4.2, glucose 137. INR 1.7. White count 9.1, hematocrit 38.7, platelet count 187. IMPRESSION AND PLAN: 1. Renal failure. The patient's creatinine is increased. His blood pressure is running low. His v olume status actually looks pretty good, in light of his past history. At this time, given his blood pressure is low, I do believe it is appropriate to give him some IV fluid. We will continue to brian tor his hemodynamic status. He will not tolerate large amounts of fluid given his poor ejection frac tion and his mitral regurgitation, so caution will be needed to ensure his IV fluids were given judic iously. The patient really should begin dialysis at this point given his lability in volume status a nd laboratory studies. Dr. Simmons is consulting relating to potential access placement. 2. Mental status changes. The patient has had issues with recent mental status changes, per the [facility] staff. Presently, he is somnolent and potentially delirious. His electrolytes appear okay, alt arti he is acidemic. We will check an ABG to make sure he is not hypercapnic. We will also check a TSH. If all of these are normal, then we should evaluate for evidence of infection. Of note, howev er, he does not have an elevated white count or fever. 3. Acidosis. The patient has been on acetazolamide, but he also has renal failure. We will monitor this and treat with either bicarbonate or dialysis. His acetazolamide will be held. 4. Cardiac. As noted, the patient has nonischemic cardiomyopathy and valvular heart disease. We wi ll keep this with his treatments. 5. Anemia. This appears stable. Thank you for allowing us to participate in this gentleman's care. We will continue to follow him cl osely with you. /[id number]/MODL
[2018-02-01] MEDS ORDERED: fentaNYL 100 MCG/2 ML INJ IVP PRN (12:52)
[2018-02-01] MEDS ORDERED: ALBUTEROL 3 ML DEYVIAL IH PRN (12:52)
[2018-02-01] MEDS ORDERED: NALOXONE HCL 0.4 MG/ML INJ IVP PRN (12:52)
--- NOTE | 2018-02-01 12:52 | POSTANESTH ---
Post Anesthetic Evaluation Cardiovascular Status: Normal, Stable, Similar to Pre-Op Cond Respiratory Status: Normal, Stable, Similar to Pre-op Cond. Level of Consciousness/Mental Status: Mildly Sleepy, Arousable Pain Control: Adequate, Prn Tx Ordered Nausea/Vomiting Control: Adequate, Prn Tx Ordered Complications Possibly Related to Anesthesia: None Noted
--- NOTE | 2018-02-01 13:15 | GCON ---
[f rep st] CONSULTATION PEDORTHIST CONSULTATION REASON FOR ADMISSION: Acute renal failure. HISTORY OF PRESENT ILLNESS: The patient is a 67-year-old white male with an extensive past medical h istory, including diabetes mellitus that is poorly controlled, atrial fibrillation, chronic renal ins ufficiency, osteomyelitis, morbid obesity, gout, congestive heart failure. He was admitted with acut e renal failure, requiring a tunneled catheter. He has been followed by Nephrology. On the day of a dmission, he began having altered mental status, and his creatinine increased to 4.2. The patient is awake and alert, but difficult to obtain history from. All history was gleaned from the medical rec ord. PAST MEDICAL HISTORY: Again, significant for renal insufficiency, sleep apnea with pulmonary hyperte nsion, diabetes, gout, osteomyelitis, hypothyroidism, hypertension, severe mitral regurgitation, sev ere cardiomyopathy with ejection fraction of 25%. FAMILY HISTORY: Noncontributory. PAST SURGICAL HISTORY: Cataract surgery. SOCIAL HISTORY: Previous heavy smoker, none for many years. No significant alcohol use. 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 He has lived in [place] for 47 years. Was originally from [place]. REVIEW OF SYSTEMS: A 10-point review of systems was attempted but unable to obtain secondary to the patient's current mental status. PHYSICAL EXAM: VITAL SIGNS: Blood pressure is 87/52, pulse 75, respirations 20, temperature 36.1, o xygen saturation 100% on room air. GENERAL: He is a mildly overweight, elderly white male who is ar ousable but not conversant. HEENT: Eyes are PERRLA, EOMI. Throat shows no erythema or tonsillar hyp ertrophy. NECK: Supple. No cervical adenopathy. HEART: Irregular/irregular, with a 3/6 systolic murmur at the left sternal border without radiation. LUNGS: Diminished breath sounds. Bibasilar ra les. ABDOMEN: Soft, nontender. Bowel sounds are present. EXTREMITIES: No clubbing, cyanosis, or edema. LABORATORY DATA: White count 9.1, hemoglobin 13, hematocrit 38, platelet count 187. INR is 1.76. S odium 140, potassium 4.2, chloride 110. CO2 is 14. BUN is 192. Creatinine 4.2. Glucose is 137. Ar terial blood gas: pH 7.31, pCO2 of 24, PO2 of 96, bicarb of 12, oxygen saturation 97%. IMPRESSION: 1. Acute on chronic renal failure with marked worsening of his baseline creatinine. 2. Altered mental status secondary to above. 3. Cardiomyopathy and severe mitral regurgitation. 4. Cxp-lrfffkd-xzlhcqxzw diabetes. 5. History of peripheral neuropathy. 6. History of hypertension. 7. History of hypothyroidism. 8. History of sleep apnea with pulmonary hypertension. RECOMMENDATIONS: 1. Aggressive blood sugar control. 2. Tunneled catheter replaced soon. 3. Anticipate shunt to be placed soon. 4. Continue the majority of his home medications. 5. DVT and PE prophylaxis. 6. Stress ulcer prophylaxis. /[id number]/MODL
--- NOTE | 2018-02-01 14:16 | ASMTCMCOM ---
CM Note CM Note Notes: 02/01/2018 Case Management Note Pt discussed during rounds this morning. Pt admitted from [facility] for renal failure. Planning for dialysis. Pt is known to case management with recent discharge from on 11/27/2017. Pt discharged to [facility]. Pt had palliative consult during the November admission. Discharged with [facility] Palliative outpatient support. Notified Palliative team of admission. El planning to meet pt tomorrow. Case Management d/c poc: to be determined. Case Management will follow. Date Signed: 02/01/2018 02:16 PM Electronically Signed By:Kassidy Mitchell RN
[2018-02-01] MEDS ORDERED: ACETAMINOPHEN 325 MG TAB PO PRN (14:54)
--- NOTE | 2018-02-01 14:57 | POSTOPPROG ---
Post Op Note Date of Operation: 02/01/18 Surgeon: Grant Simmons Anesthesiologist: JUDIE DIMAS Anesthesia: IV Sedation Pre-op Diagnosis: RENAL FAILURE Post-op Diagnosis: SAME Indication: DIALYSIS ACCESS Procedure: RIGHT IJ PALINDROME INSERTION WITH ULTRASOUND GUIDANCE Findings: GOOD POSITION AND FLOW Inf/Abcess present in the surg proc area at time of surgery?: No Depth: Deep Incisional (Fascial) EBL: Minimal Complications: NONE
[2018-02-01] MEDS ORDERED: FUROSEMIDE 80 MG TAB PO SCH (15:00)
[2018-02-01] MEDS ORDERED: SODIUM CL NASAL 45 ML BTL EACHNARE PRN (15:05)
--- NOTE | 2018-02-01 15:36 | PDMN ---
Medical Necessity Medical necessity: [facility] M326 Renal Failure, Acute: 67 y/o admitted w/ acute renal failure requiring tunneled catheter placement to start dialysis. Newly altered mental status on admission, creatinine increased to 4.2. Extensive past medical hx including diabetes poorly controlled, afib, chronic renal insufficiency, osteomyelitis, morbid obesity gout, CHF w/ EF 25%, HTN, severe mitral regurg.
--- NOTE | 2018-02-01 16:56 | GHP ---
[f rep st] HISTORY AND PHYSICAL DATE OF ADMISSION: 02/01/2018 CHIEF COMPLAINT: Acute on chronic kidney disease. HISTORY OF PRESENT ILLNESS: Mr. Mak is a 67-year-old gentleman with a past medical history of chr onic kidney disease, as well as chronic systolic heart failure and paroxysmal atrial fibrillation, wh o was transferred to [facility] in anticipation of hemodialysis for acute on chronic kidney disease. He had apparently been undergoing an outpatient workup, and was actually scheduled t o have AV fistula surgery done tomorrow. His baseline creatinine has previously been documented to marielos markham around 2.0. He had a creatinine measured at 4.2 with a BUN of 192. His potassium was also elev ated at 5.4. With these findings, he was transferred to [facility] and subsequently had a temporary dialysis catheter placed by Dr. Grant Simmons, and Dr. Hanson has been involved wi th his care today and the plan is for hemodialysis later today. PAST MEDICAL HISTORY: 1. Chronic systolic heart failure with an estimated ejection fraction of 40%, followed by Dr. Maldonado. 2. Atrial fibrillation, paroxysmal. 3. Chronic kidney disease, previously documented as stage 3. 4. Diabetes mellitus, type 2, diet controlled. 5. Gout. 6. Recent treatment for osteomyelitis. MEDICATIONS: This medication list is taken from his most recent discharge summary from November 2017: 1. Acetazolamide 250 mg twice a day. 2. Lasix 80 mg twice a day. 3. Coreg 6.25 mg twice a day. 4. Potassium 20 mEq daily. ALLERGIES: No known drug allergies. FAMILY HISTORY: Parents both , uncertain causes. SOCIAL HISTORY: The patient is apparently and has been listed as a full code status. He res ides in [place]. 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 REVIEW OF SYSTEMS: CONSTITUTIONAL: No reports of any fevers or chills. ENT: No recent upper respi ratory illnesses. CARDIOVASCULAR: No complaints of any chest pains, palpitations, or syncopal episo jose. RESPIRATORY: No reports of any shortness of breath or productive cough. GI: No nausea, vomit ing. Positive for loose stools today after arrival to the hospital. : The patient is producing u rine. NEUROLOGIC: No complaints of any headaches or focal weakness. HEMATOLOGIC: No history of an y deep vein thrombosis or pulmonary embolism. PSYCHIATRIC: No history of anxiety or depression. EN DOCRINE: Negative for polyuria or heat intolerance. His diabetes is apparently diet controlled. SK IN: No report of any new skin rashes. MUSCULOSKELETAL: No focal joint pains. PHYSICAL EXAM: VITAL SIGNS: Temperature 35.7, blood pressure 142/114, heart rate 76, respirations 1 9, saturating 99% with 2 L nasal cannula. GENERAL: The patient is quite sedate at the time my evalu ation, after coming back from the OR from his temporary dialysis catheter. HEENT: Extraocular movem ents intact. No scleral icterus is noted. Neck: No thyroid enlargement appreciated. No jugular ve nous distention noted. CHEST: Clear to auscultation anteriorly with normal respiratory effort. No significant wheezing. HEART: Regular. No murmurs appreciated. ABDOMEN: Soft, nontender, nondiste nded. Normal bowel sounds. : No Rosario catheter in place. EXTREMITIES: Pitting edema of all ext remities including upper and lower. NEUROLOGIC: Somewhat difficult to assess due to sedation. LABORATORY: White blood cell count 9, hemoglobin 13, platelets 187. Sodium 140, potassium 5.2, chlo ride 110, bicarb 14, BUN 192, creatinine is 4.2, glucose is 137. INR 1.7. ABG shows a pH of 7.3/24/ 96/12. IMAGING: Chest x-ray: Tunneled dialysis catheter tip overlying right atrium with no visible complic ation. ASSESSMENT AND PLAN: 1. Acute on chronic kidney disease: At this point in time we could consider patient end- stage, sta rting hemodialysis. Dr. Hanson is involved with the case and plan is for a session of hemodialysi s today. 2. Hyperkalemia, treated prior to transfer here and did improve. He will be having hemodialysis, wh ich should correct. 3. Acute hypoxic respiratory failure: Patient is needing a small amount of oxygen after being in th e operating room today. Likely related to atelectasis. Continue supplemental oxygen, as able wean. 4. Metabolic acidosis: Likely related to uremia. 5. Chronic systolic heart failure: We will continue his medical therapy including Coreg if he is ab le to tolerate, but he has been having some lower blood pressures this afternoon. He is followed by Dr. Maldonado in the outpatient setting. 6. Atrial fibrillation: Coreg for rate control. The patient has been anticoagulated with Coumadin. This is on hold currently in light of catheter placement. 7. Diabetes mellitus, type 2: We will check a hemoglobin A1c with his morning labs to reassess his control, but apparently diet controlled at this time. 8. Gout: Continue allopurinol. 9. Deep venous thrombosis prophylaxis: Compression devices for now. DISPOSITION: I anticipate he will need at least 2-3 days here in the hospital to stabilize him, so w ill admit him under inpatient status. /[id number]/MODL
--- NOTE | 2018-02-01 18:17 | GOP ---
[f rep st] OPERATIVE REPORT DATE OF OPERATION: SURGEON: Grant Simmons MD PREOPERATIVE DIAGNOSIS: Worsening renal failure. POSTOPERATIVE DIAGNOSIS: Worsening renal failure. PROCEDURE PERFORMED: Right IJ tunneled catheter placement with fluoroscopic and ultrasound guidance. FINDINGS: Patient was found to have good flow and position of the catheter. DESCRIPTION OF PROCEDURE: The patient was taken to the operating room where he received a satisfacto ry IV sedation, monitored anesthesia care by Dr. Pride, placed in supine position, prepped and drape d in the usual sterile fashion. Then placed in Trendelenburg. Using ultrasound guidance, a single s tick was made in the right internal jugular vein using 1% Xylocaine local infiltration. A guidewire was introduced, position was confirmed with fluoroscopy. A second incision was made in the anterior chest wall, again with 1% Xylocaine local infiltration and the condom catheter was tunneled over the clavicle into the insertion site. A series of dilators was passed over the guidewire under fluorosco pic guidance and the introducer sheath was introduced into the right atrium. The palindrome catheter was then introduced and the split sheath was removed. Position was confirmed with fluoroscopy. The catheter functioned well with a nice gentle curve as it crossed over the clavicle. This was secured to the exit site with 3-0 Prolene sutures. The entrance site was closed with 3-0 Prolene mattress s utures. Wounds were infiltrated with 0.5% Marcaine. Catheter was flushed and then instilled with th e appropriate amount of 5000 units/cc heparin. The wounds were dressed. He tolerated the procedure well, was taken to the recovery room in good condition. There were no complications. /[id number]/MODL
[2018-02-01] MEDS: CARVEDILOL 6.25 MG TAB PO SCH (19:05)
[2018-02-01] MEDS: ASPIRIN EC 81 MG TAB PO SCH (22:38)
[2018-02-02 04:28] LABS: PLATELET COUNT 149 10^3/uL (150-400)
[2018-02-02 04:36] LABS: INR 1.62 (0.83-1.16); PROTIME(PATIENT) 19.4 SEC (12.0-15.0)
[2018-02-02] MEDS ORDERED: ceFAZolin 2 GM/DEXTROSE 100 ML IV ONE (06:00)
[2018-02-02] MEDS: LEVOTHYROXINE 75 MCG TAB PO SCH (07:06)
--- NOTE | 2018-02-02 08:42 | PDINTPN ---
Computer Hardware Developer Progress Note Assessment/Plan: Assessment/Plan: * Acute on chronic renal failure-dialysis catheter placed yesterday -continue dialysis * Obstructive sleep apnea * Pulmonary hypertension * Hypothyroidism * Hypertension * Non insulin dependent diabetes-blood sugars under control * Severe cardiomyopathy * Severe mitral regurgitation * VT prophylaxis * Stress ulcer prophylaxis * Disposition-? Subjective: Resting comfortably on dialysis. No current complaints. Objective: Vital Signs Temp Pulse Resp BP Pulse Ox 36.1 C 76 17 108/53 L 99 02/01/18 19:30 02/02/18 07:25 02/02/18 07:25 02/02/18 07:25 02/02/18 07:25 Laboratory Results 02/02/18 04:15 02/02/18 04:15 02/01/18 02/02/18 02/03/18 05:59 05:59 05:59 Intake Total 1320 Output Total 1980 Balance -660 PT 19.4 SEC (12.0-15.0) H 02/02/18 04:15 INR 1.62 (0.83-1.16) H 02/02/18 04:15 Chest x-ray by myself. Dialysis catheter in good position. There is no pneumothorax. There is diffuse mild pulmonary edema Physical Exam - Physical Exam General Appearance: alert EENT: PERRL/EOMI Neck: non-tender, full range of motion, supple, normal inspection Respiratory: rales (Bibasilar), No respiratory distress, No wheezing Cardiac/Chest: normal peripheral pulses, regular rate, rhythm, systolic murmur Peripheral Pulses: 2+: carotid (R), carotid (L), femoral (R), femoral (L), dorsalis-pedis (R), dorsalis-pedis (L) Abdomen: normal bowel sounds, non-tender, soft Male Genitalia: deferred Rectal: deferred Skin: normal color, warm/dry Extremities: normal range of motion, non-tender, normal inspection, normal capillary refill Neuro/Psych: alert ICD10 Worksheet Patient Problems: Problems Problem Status Onset Acute exacerbation of congestive heart failure Acute Anasarca Acute Chronic Disease Mgmt/Transitional Care Acute Diabetic infection of left foot Acute Heart failure Acute Pulmonary hypertension Acute Renal insufficiency Acute
[2018-02-02 09:23] LABS: HEPATITIS B CORE AB IGM NEGATIVE (NEGATIVE); HEPATITIS B SURFACE ANTIGEN NEGATIVE (NEGATIVE)
[2018-02-02] MEDS: FAMOTIDINE 20 MG TAB PO SCH (11:19)
[2018-02-02] MEDS: ALLOPURINOL 300 MG TAB PO SCH (11:19)
[2018-02-02] MEDS: CARVEDILOL 6.25 MG TAB PO SCH ×3 (11:19→23:08)
--- NOTE | 2018-02-02 13:56 | SOAPPROG ---
PATRICE Progress Note Assessment/Plan: Assessment/Plan: The patient is a 67 y/o M with a known h/o CKD who presented with symptoms of uremia and began dialysis yesterday. Altered mental status appears greatly improved. CKD now ESRD -tolerated HD this am, will do one more run tomorrow -used mannitol for dysequilibrium, may need to consider tomorrow pending BUN and sympotms -awaiting placement as outpt, lives in [place] (d/w case management who will speak to pt) -acute hep studies (pending), EKG ?, CXR (done) -appreciate Dr. Simmons for TDC placement, and will need future appt for AVF HTN/vol: -BP's low -continue BB for h/o valvular disease -TSH pending -will UF as tolerated Anemia -Hb >12, no EPO indicated BMD -check phos -vitamin D, PTH as outpt Acidosis -bicarb up to 16 -start supplement and will improve on HD Hyperkalemia -improved on HD -renal diet Will continue to follow, consult appreciated. 02/02/18 14:17 Subjective: Patient tolerated HD this am. Feeling very tired but no longer confused. States he would like to review units in [place]. Objective: Vital Signs Temp Pulse Resp BP Pulse Ox 36.1 C 92 80 H 114/69 97 02/01/18 19:30 02/02/18 12:02 02/02/18 12:02 02/02/18 12:02 02/02/18 12:02 Laboratory Results 02/02/18 04:15 02/02/18 04:15 02/01/18 02/02/18 02/03/18 05:59 05:59 05:59 Intake Total 1320 Output Total 1980 Balance -660 PT 19.4 SEC (12.0-15.0) H 02/02/18 04:15 INR 1.62 (0.83-1.16) H 02/02/18 04:15 Physical Exam - Physical Exam General Appearance: no apparent distress, other (sleepy) EENT: PERRL/EOMI, normal ENT inspection, other (poor dentition) Neck: non-tender, full range of motion, supple Respiratory: chest non-tender, decreased breath sounds Cardiac/Chest: regular rate, rhythm, edema Abdomen: normal bowel sounds, non-tender, distended, other (TDC in place on chest with large bandage) Skin: warm/dry, pallor Extremities: normal range of motion, non-tender, pedal edema Neuro/Psych: no motor/sensory deficits, alert, normal mood/affect ICD10 Worksheet Patient Problems: Problems Problem Status Onset Acute exacerbation of congestive heart failure Acute Anasarca Acute Chronic Disease Mgmt/Transitional Care Acute Diabetic infection of left foot Acute Heart failure Acute Pulmonary hypertension Acute Renal insufficiency Acute
[2018-02-02] MEDS ORDERED: NS 1,000 ML IV ONE (15:59)
[2018-02-02] MEDS ORDERED: THROMBIN (BOVINE) 5,000 UNIT VIAL TP ONE (16:00)
[2018-02-02] MEDS ORDERED: THROMBIN (BOVINE) 20,000 UNIT SPRAY TP ONE (16:00)
[2018-02-02] MEDS ORDERED: PROTAMINE SULFATE 50 MG/5 ML VIAL IVP ONE (16:00)
[2018-02-02] MEDS ORDERED: BUPIVACAINE 0.5% 30 ML SDV ONE (16:00)
[2018-02-02] MEDS ORDERED: PAPAVERINE HCL 60 MG/2 ML SDV ONE (16:01)
[2018-02-02] MEDS ORDERED: CEFAZOLIN 2 GM/DEXTROSE/100 ML BAG IV ONE (16:08)
--- NOTE | 2018-02-02 16:15 | PDANEPAE ---
ANE Past Medical History - Cardiovascular History Hx Hypertension: Yes Hx Arrhythmias: Yes Hx Chest Pain: No Hx Coronary Artery / Peripheral Vascular Disease: No Hx CHF / Valvular Disease: Yes Hx Palpitations: No - Pulmonary History Hx COPD: No Hx Asthma/Reactive Airway Disease: No Hx Recent Upper Respiratory Infection: No Hx Oxygen in Use at Home: No Hx Sleep Apnea: No Sleep Apnea Screening Result - Last Documented: Positive - Neurologic History Hx Cerebrovascular Accident: No Hx Seizures: No Hx Dementia: No - Endocrine History Hx Diabetes: Yes Hypothyroid: No Hyperthyroid: No Obesity: yes, mild - Renal History Hx Renal Disorders: Yes - Liver History Hx Hepatic Disorders: No - Neurological & Psychiatric Hx Hx Neurological and Psychiatric Disorders: No - GI History GERD: mild - Chronic Pain History Chronic Pain: No ANE Review of Systems Review of Systems: - Exercise capacity Exercise capacity: <4 METS ANE Patient History - Allergies Allergies/Adverse Reactions: No Known Allergies Allergy (Unverified 04/12/09 16:18) - Home Medications Home Medications: Allopurinol [Allopurinol 300 MG (RX)] 300 mg PO DAILY@04/22/16 [Last Taken ] Aspirin EC [Aspirin EC 81 mg (*)] 81 mg PO HS 04/22/16 [Last Taken 01/31/18] Levothyroxine [Synthroid 75 mcg (*)] 75 mcg PO DAILY@04/22/16 [Last Taken ] Carvedilol [Coreg (*)] 12.5 mg PO BID@11/10/17 [Last Taken 01/31/18 18:00] Acetaminophen [Tylenol 325mg (*)] 325 mg PO Q6HRS PRN 02/01/18 [Last Taken Unknown] Famotidine [Pepcid 20 MG (*)] 20 mg PO DAILY@02/01/18 [Last Taken 01/31/18] Furosemide [Lasix 80 MG (*)] 80 mg PO TID@,02/01/18 [Last Taken 15:00] Potassium Cl [Klor-Con 20 meq (*)] 20 meq PO BID@02/01/18 [Last Taken 18:00] Sodium Chloride [[place]] 1 gissell NS DAILY PRN 02/01/18 [Last Taken Unknown] Spironolactone [Aldactone 25 MG (*)] 25 mg PO BID@02/01/18 [Last Taken 18:00] Vitamin B Complex [Vitamin B Complex (OTC)] 1 each PO DAILY 02/01/18 [Last Taken 01/31/18] Warfarin Sodium [Coumadin 3MG (*)] 3 mg PO WEFR@02/01/18 [Last Taken 1 Week Ago ~01/25/18] Warfarin Sodium [Coumadin 4MG (*)] 4 mg PO SUMOTUTHSA@02/01/18 [Last Taken 1 Week Ago ~01/25/18] acetaZOLAMIDE [Diamox 250 mg (RX)] 250 mg PO BID@02/01/18 [Last Taken 12:00] - NPO status NPO Since - Liquids (Date): 02/02/18 NPO Since - Liquids (Time): 00:00 NPO Since - Solids (Date): 02/02/18 NPO Since - Solids (Time): 00:00 - Smoking Hx Smoking Status: Former smoker ANE Labs/Vital Signs - Labs Result Diagrams: 02/02/18 04:15 02/02/18 04:15 - Vital Signs Blood Pressure: 116/60 Heart Rate: 87 Respiratory Rate: 15 O2 Sat (%): 97 Height: 187.96 cm Weight: 108.4 kg ANE Physical Exam - ASA Status ASA Status: IV ANE Anesthesia Plan Anesthesia Plan: GA w LMA Total IV Anesthesia: No
--- NOTE | 2018-02-02 17:00 | PDANEPAE ---
ANE History of Present Illness esrd ANE Past Medical History - Cardiovascular History Hx Hypertension: Yes Hx Arrhythmias: Yes Hx Chest Pain: No Hx Coronary Artery / Peripheral Vascular Disease: No Hx CHF / Valvular Disease: Yes Hx Palpitations: No - Pulmonary History Hx COPD: No Hx Asthma/Reactive Airway Disease: No Hx Recent Upper Respiratory Infection: No Hx Oxygen in Use at Home: No Hx Sleep Apnea: Yes Sleep Apnea Screening Result - Last Documented: Positive - Neurologic History Hx Cerebrovascular Accident: No Hx Seizures: No Hx Dementia: No - Endocrine History Hx Diabetes: Yes Hypothyroid: No Hyperthyroid: No Obesity: yes, mild - Renal History Hx Renal Disorders: Yes - Liver History Hx Hepatic Disorders: No - Neurological & Psychiatric Hx Hx Neurological and Psychiatric Disorders: No - GI History GERD: mild - Chronic Pain History Chronic Pain: No ANE Review of Systems Review of Systems: - Exercise capacity Exercise capacity: <4 METS ANE Patient History - Allergies Allergies/Adverse Reactions: No Known Allergies Allergy (Unverified 04/12/09 16:18) - Home Medications Home medications: home medication list seen and reviewed Home Medications: Allopurinol [Allopurinol 300 MG (RX)] 300 mg PO DAILY@04/22/16 [Last Taken ] Aspirin EC [Aspirin EC 81 mg (*)] 81 mg PO HS 04/22/16 [Last Taken 01/31/18] Levothyroxine [Synthroid 75 mcg (*)] 75 mcg PO DAILY@04/22/16 [Last Taken ] Carvedilol [Coreg (*)] 12.5 mg PO BID@11/10/17 [Last Taken 01/31/18 18:00] Acetaminophen [Tylenol 325mg (*)] 325 mg PO Q6HRS PRN 02/01/18 [Last Taken Unknown] Famotidine [Pepcid 20 MG (*)] 20 mg PO DAILY@02/01/18 [Last Taken 01/31/18] Furosemide [Lasix 80 MG (*)] 80 mg PO TID@,,02/01/18 [Last Taken 15:00] Potassium Cl [Klor-Con 20 meq (*)] 20 meq PO BID@02/01/18 [Last Taken 18:00] Sodium Chloride [[place]] 1 gissell NS DAILY PRN 02/01/18 [Last Taken Unknown] Spironolactone [Aldactone 25 MG (*)] 25 mg PO BID@02/01/18 [Last Taken 18:00] Vitamin B Complex [Vitamin B Complex (OTC)] 1 each PO DAILY 02/01/18 [Last Taken 01/31/18] Warfarin Sodium [Coumadin 3MG (*)] 3 mg PO WEFR@02/01/18 [Last Taken 1 Week Ago ~01/25/18] Warfarin Sodium [Coumadin 4MG (*)] 4 mg PO SUMOTUTHSA@02/01/18 [Last Taken 1 Week Ago ~01/25/18] acetaZOLAMIDE [Diamox 250 mg (RX)] 250 mg PO BID@02/01/18 [Last Taken 12:00] - NPO status NPO Status: no food or drink >8 hours NPO Since - Liquids (Date): 02/02/18 NPO Since - Liquids (Time): 00:00 NPO Since - Solids (Date): 02/02/18 NPO Since - Solids (Time): 00:00 - Smoking Hx Smoking Status: Former smoker ANE Labs/Vital Signs - Labs Result Diagrams: 02/02/18 04:15 02/02/18 04:15 - Vital Signs Blood Pressure: 116/60 Heart Rate: 87 Respiratory Rate: 15 O2 Sat (%): 97 Height: 187.96 cm Weight: 108.4 kg ANE Physical Exam - Airway Mallampati Score: Class 2 Mouth exam: normal dental/mouth exam - Pulmonary Pulmonary: no respiratory distress - Cardiovascular Cardiovascular: regular rate and rhythym - ASA Status ASA Status: III ANE Anesthesia Plan Anesthesia Plan: GA w LMA
[2018-02-02] MEDS ORDERED: fentaNYL 100 MCG/2 ML INJ ONE (17:19)
[2018-02-02] MEDS ORDERED: PROPOFOL 200 MG/20 ML VIAL ONE (17:20)
[2018-02-02] MEDS ORDERED: LIDOCAINE 2% 2 ML INJ ONE ×3 (17:20)
[2018-02-02] MEDS ORDERED: PHENYLEPHRINE HCL 100 MCG/ML SYR ONE (17:29)
[2018-02-02] MEDS ORDERED: CISATRACURIUM BESYLATE 20 MG/10 ML VIAL IV ONE (17:38)
[2018-02-02] MEDS ORDERED: HEPARIN 10,000 UNIT/10 ML MDV (1,000 UNIT/ML) ONE (17:39)
--- NOTE | 2018-02-02 18:11 | HOSPPROG ---
Hospitalist Progress Note Assessment/Plan: DIAGNOSES: * acute on chronic renal failure * acute hyperkalemia * acute metabolic acidosis * chronic systolic congestive heart failure stable at this time * diabetes mellitus type 2 * chronic atrial fibrillation PLANS: * This patient has progressed to the point of needing dialysis. He was moving that direction in the outpatient setting but needed urgently now. He had dialysis last night but again is in need of urgent dialysis today. * To go to OR today for placement of AV fistula * Follow electrolytes closely * Follow sugars SUBJECTIVE: Patient still fairly groggy when I saw him this morning but had no specific complaints So far no problems with dialysis per the marine propulsion technician OBJECTIVE Vitals reviewed: Overall stable without fever Fee Clerk, my review: Rate control AFib Exam: Quite groggy oriented skin warm dry color ok resps not labored lungs clear BSs heart regular abd soft nondistended nontender, bowel sounds present limbs warm, no edema iv site ok Lab data: Potassium down to normal range today BUN at 135 remains quite elevated Sugar in good range Objective: Vital Signs Temp Pulse Resp BP Pulse Ox 36.5 C 87 15 116/60 97 02/02/18 16:02 02/02/18 17:00 02/02/18 17:00 02/02/18 17:00 02/02/18 17:00 Laboratory Results 02/02/18 04:15 02/02/18 04:15 02/01/18 02/02/18 02/03/18 06:59 06:59 06:59 Intake Total 1320 Output Total 1980 Balance -660 PT 19.4 SEC (12.0-15.0) H 02/02/18 04:15 INR 1.62 (0.83-1.16) H 02/02/18 04:15 ICD10 Worksheet Patient Problems: Problems Problem Status Onset Acute exacerbation of congestive heart failure Acute Anasarca Acute Chronic Disease Mgmt/Transitional Care Acute Diabetic infection of left foot Acute Heart failure Acute Pulmonary hypertension Acute Renal insufficiency Acute
--- NOTE | 2018-02-02 18:39 | POSTOPPROG ---
Post Op Note Date of Operation: 02/02/18 Surgeon: Grant Simmons Cradle Slide Maker: Dary Wong Anesthesiologist: James Pride Anesthesia: GET(General Endotracheal) Pre-op Diagnosis: CRF Post-op Diagnosis: same Procedure: LUE brachiocephalic AVF Findings: excellent thrill, palpable radial pulse Inf/Abcess present in the surg proc area at time of surgery?: No EBL: Minimal Complications: none Specimen(s): none
[2018-02-02] MEDS ORDERED: fentaNYL 100 MCG/2 ML INJ IVP PRN (18:43)
[2018-02-02] MEDS ORDERED: NALOXONE HCL 0.4 MG/ML INJ IVP PRN (18:43)
--- NOTE | 2018-02-02 18:43 | POSTANESTH ---
Post Anesthetic Evaluation Cardiovascular Status: Normal, Stable, Similar to Pre-Op Cond Respiratory Status: Normal, Stable, Similar to Pre-op Cond. Level of Consciousness/Mental Status: Can Participate in Eval Pain Control: Adequate, Prn Tx Ordered Nausea/Vomiting Control: Adequate, Prn Tx Ordered Complications Possibly Related to Anesthesia: None Noted
[2018-02-02] MEDS: ASPIRIN EC 81 MG TAB PO SCH (23:10)
[2018-02-03 04:21] LABS: PLATELET COUNT 151 10^3/uL (150-400)
[2018-02-03 04:27] LABS: INR 1.51 (0.83-1.16); PROTIME(PATIENT) 18.4 SEC (12.0-15.0)
[2018-02-03] MEDS: LEVOTHYROXINE 75 MCG TAB PO SCH (06:36)
[2018-02-03] MEDS: FAMOTIDINE 20 MG TAB PO SCH (06:36)
--- NOTE | 2018-02-03 08:06 | SOAPPROG ---
SOAP Progress Note Assessment/Plan: Assessment/Plan: 67 Y M multiple medical issues s/p tunneled HD catheter, POD#2 , and LUE AVF POD#1. Per RN, HD catheter functioning well. AVF patient with excellent even thrill. Inc's and cath site cdi. Defer d/c plans to medicine. AVF and catheter both usually outpatient procedures , and doing well from surgery. Still, other medical issues.... 02/03/18 08:03 Objective: Vital Signs Temp Pulse Resp BP Pulse Ox 36.4 C 84 14 99/59 L 99 02/03/18 07:52 02/03/18 07:52 02/03/18 07:52 02/03/18 07:52 02/03/18 07:52 Laboratory Results 02/03/18 03:23 02/03/18 03:23 02/02/18 02/03/18 02/04/18 05:59 05:59 05:59 Intake Total 1320 300 Output Total 1980 300 Balance -660 0 PT 18.4 SEC (12.0-15.0) H 02/03/18 03:23 INR 1.51 (0.83-1.16) H 02/03/18 03:23 ICD10 Worksheet Patient Problems: Problems Problem Status Onset Acute exacerbation of congestive heart failure Acute Anasarca Acute Chronic Disease Mgmt/Transitional Care Acute Diabetic infection of left foot Acute Heart failure Acute Pulmonary hypertension Acute Renal insufficiency Acute
[2018-02-03] MEDS ORDERED: SODIUM CITRATE 4% 5 ML in SYRINGE 0 ML DIAL PRN (08:42)
[2018-02-03] MEDS: CARVEDILOL 6.25 MG TAB PO SCH (12:50)
[2018-02-03] MEDS: ALLOPURINOL 300 MG TAB PO SCH (13:25)
--- NOTE | 2018-02-03 13:44 | SOAPPROG ---
PATRICE Progress Note Assessment/Plan: Assessment: 1. esrd: now established on hd, will need placement at outpt clinic. He lives closest to [facility], I have faxed them his insurance info for financial clearance. Will hd again tomorrow. Decrease coreg to allow more uf. S/ p avf placement by Dr. Simmons 02/02, will dialyze via cath until matures in approx 2 months. 2. chf: decrease coreg to allow more uf as above. 3. uremia: doing better on hd, will repeat tomorrow. Plan: 02/03/18 13:41 Subjective: s/p hd earlier today, only achieved 1L uf due to hypotension. Feeling better overall since starting hd this week. Objective: Vital Signs Temp Pulse Resp BP Pulse Ox 36.7 C 95 20 105/65 100 02/03/18 12:00 02/03/18 12:00 02/03/18 12:00 02/03/18 12:00 02/03/18 12:00 Laboratory Results 02/03/18 03:23 02/03/18 03:23 02/02/18 02/03/18 02/04/18 05:59 05:59 05:59 Intake Total 1320 300 Output Total 4510 680 9368 Balance -660 0 -1200 PT 18.4 SEC (12.0-15.0) H 02/03/18 03:23 INR 1.51 (0.83-1.16) H 02/03/18 03:23 Physical Exam - Physical Exam General Appearance: no apparent distress, other (chronically-ill appearing) Respiratory: decreased breath sounds Cardiac/Chest: regular rate, rhythm Abdomen: non-tender, soft Extremities: pedal edema (none), other (+patent LUE avf beneath dressing) ICD10 Worksheet Patient Problems: Problems Problem Status Onset Acute exacerbation of congestive heart failure Acute Anasarca Acute Chronic Disease Mgmt/Transitional Care Acute Diabetic infection of left foot Acute Heart failure Acute Pulmonary hypertension Acute Renal insufficiency Acute
--- NOTE | 2018-02-03 14:18 | ASMTCMCOM ---
CM Note CM Note Notes: CM spoke to ANJANA Kong and Dr. Pierre regarding d/c POC. PT is recommending SNF. A new referral sent to [facility] (P#: [phone]). The doctor following will be Dr. Hanson. CM spoke to pts Maite (P#: [phone]) on the phone. She wants to hold off on referrals to SNFs. She reports that pt was doing very well at home and needed very little assistance. CM to follow. Plan: TBD Date Signed: 02/03/2018 02:17 PM Electronically Signed By:ORLANDO Diaz
--- NOTE | 2018-02-03 15:44 | HOSPPROG ---
Hospitalist Progress Note Assessment/Plan: DIAGNOSES: * acute on chronic renal failure, now with ESRD -HD this morning -needs HD again tomorrow -will need OP HD set up *s/P AV Fistula * acute hyperkalemia, resolved * acute metabolic acidosis, resolved * chronic systolic congestive heart failure * chronic afib -Carvedilol dose decreased today. Monitor closely *Hypotension, slight -Carvedilol dose decreased yesterday -He does not appear to have a volume deficit * diabetes mellitus type 2 * chronic atrial fibrillation * Encephalopathy, likely multifactorial. -no obvious signs of infection -avoiding centrally acting meds -remove Rosario -Bowel regimen Subjective: somewhat confused. Does follow commands. no cp or sob. no fevers. Objective: Vital Signs Temp Pulse Resp BP Pulse Ox 36.7 C 95 20 105/65 95 02/03/18 12:00 02/03/18 12:00 02/03/18 12:00 02/03/18 12:00 02/03/18 14:27 Laboratory Results 02/03/18 03:23 02/03/18 03:23 02/02/18 02/03/18 02/04/18 05:59 05:59 05:59 Intake Total 1320 300 Output Total 0316 582 0497 Balance -660 0 -1250 PT 18.4 SEC (12.0-15.0) H 02/03/18 03:23 INR 1.51 (0.83-1.16) H 02/03/18 03:23 - Physical Exam Constitutional: no apparent distress Eyes: PERRL Ears, Nose, Mouth, Throat: moist mucous membranes, hearing normal Cardiovascular: regular rate and rhythym, No edema Respiratory: no respiratory distress, no rales or rhonchi, clear to auscultation Gastrointestinal: normoactive bowel sounds, soft, non-tender abdomen Skin: warm Musculoskeletal: generalized weakness Neurologic: No AAOx3 Psychiatric: interacting appropriately, not anxious, encephalopathic Lymph, Heme, Immunologic: No petechiae ICD10 Worksheet Patient Problems: Problems Problem Status Onset Acute exacerbation of congestive heart failure Acute Anasarca Acute Chronic Disease Mgmt/Transitional Care Acute Diabetic infection of left foot Acute Heart failure Acute Pulmonary hypertension Acute Renal insufficiency Acute
[2018-02-03] MEDS ORDERED: POLYETHYLENE GLYCOL 3350 17 GM PKT PO PRN (15:45)
[2018-02-03] MEDS ORDERED: BISACODYL 10 MG SUPP PR PRN (15:45)
[2018-02-03] MEDS ORDERED: LACTULOSE 20 GM/30 ML UDCUP PO PRN (15:45)
[2018-02-03] MEDS: CARVEDILOL 3.125 MG TAB PO SCH (16:59)
--- NOTE | 2018-02-03 21:28 | GOP ---
[f rep st] OPERATIVE REPORT DATE OF OPERATION: 02/02/2018 SURGEON: Grant Simmons MD TRACKWALKER: WHIT Horowitz ANESTHESIOLOGIST: Dr. Hodge. PREOPERATIVE DIAGNOSIS: Chronic renal failure. POSTOPERATIVE DIAGNOSIS: Chronic renal failure. PROCEDURE PERFORMED: 1. Left arm ultrasound vein mapping. 2. Left brachiocephalic AV fistula. FINDINGS: The patient was found to have a good cephalic vein at the wrist and in the upper arm; ocasio atif, the radial artery at the wrist was quite calcified, and elected to proceed with a brachiocephali c AV fistula. DESCRIPTION OF PROCEDURE: A curvilinear incision was made in the antecubital space, dissection was c arried down through the subcutaneous tissue. Cephalic vein was dissected free and encircled with a v essel loop. The dissection extended down slightly into the forearm. The biceps aponeurosis divided and the brachial artery was dissected free and controlled with vessel loops. After adequate exposure , the patient was systemically heparinized, and then the cephalic vein was mobilized. It was ligated distally and then mobilized over to the brachial artery where an end-to-side anastomosis was made, c reating a 7 mm anastomosis with a running 6-0 Prolene suture. Flow was first established through the AV fistula and then back down the hand. Suture line appeared to be hemostatic. Heparin was reverse d with protamine. The wound was sprayed with some topical thrombin and infiltrated with 0.5% Marcain e and then closed in layers using 3-0 Vicryl for the subcutaneous tissue and a 4-0 Monocryl subcuticu lar stitch for the skin. All layers were infiltrated with 0.5% Marcaine. He tolerated procedure wel l, was taken to recovery room in good condition with good flow in the fistula and a good distal radia l pulse. /[id number]/MODL
[2018-02-03] MEDS: SENNOSIDES/DOCUSATE SODIUM TAB PO SCH (22:19)
[2018-02-03] MEDS: ASPIRIN EC 81 MG TAB PO SCH (22:19)
[2018-02-04 04:25] LABS: PLATELET COUNT 172 10^3/uL (150-400)
[2018-02-04 04:33] LABS: INR 1.39 (0.83-1.16); PROTIME(PATIENT) 17.2 SEC (12.0-15.0)
[2018-02-04] MEDS: LEVOTHYROXINE 75 MCG TAB PO SCH (06:24)
[2018-02-04] MEDS: FAMOTIDINE 20 MG TAB PO SCH (06:24)
[2018-02-04] MEDS: CARVEDILOL 3.125 MG TAB PO SCH ×2 (09:33→17:59)
--- NOTE | 2018-02-04 10:15 | SOAPPROG ---
SOAP Progress Note Assessment/Plan: Assessment: 1. ESRD New to dialysis. Volume status much improved. Now with catheter and fistula. I do not hear a bruit this am. Catheter function good. Planned admission to a [place] dialysis unit. 2. DC planning Kwame is quite debilitated. Await PT comments re ability to return home vs SNF stay. 3. Not eating well. Monitor nutritional status. 4. Cards Hx of non ischemic CMP and MV disease. Hope to see some improvement with better volume status. BP precludes current use of beta juanita or SRAVANI inhibition Plan: 02/04/18 10:12 02/04/18 10:15 Subjective: Seen on HD Objective: Vital Signs Temp Pulse Resp BP Pulse Ox 36.6 C 94 12 98/60 L 94 02/04/18 07:25 02/04/18 07:25 02/04/18 07:25 02/04/18 07:25 02/04/18 07:25 Laboratory Results 02/04/18 03:36 02/04/18 03:36 02/03/18 02/04/18 02/05/18 05:59 05:59 05:59 Intake Total 300 750 Output Total 300 1250 Balance 0 -500 PT 17.2 SEC (12.0-15.0) H 02/04/18 03:36 INR 1.39 (0.83-1.16) H 02/04/18 03:36 Physical Exam - Physical Exam General Appearance: no apparent distress Respiratory: lungs clear Cardiac/Chest: regular rate, rhythm Extremities: pedal edema (improved) Neuro/Psych: oriented x 3 ICD10 Worksheet Patient Problems: Problems Problem Status Onset Acute exacerbation of congestive heart failure Acute Anasarca Acute Chronic Disease Mgmt/Transitional Care Acute Diabetic infection of left foot Acute Heart failure Acute Pulmonary hypertension Acute Renal insufficiency Acute
[2018-02-04] MEDS: ALLOPURINOL 300 MG TAB PO SCH (10:26)
--- NOTE | 2018-02-04 11:45 | HOSPPROG ---
Hospitalist Progress Note Assessment/Plan: 67 yo M [facility] PMH of DM2, chronic diastolic heart failure admitted with angella on ckd now ESRD and HD dependent. DIAGNOSES: # ANGELLA on CKD: has progressed to ESRD and now requiring HD. Did have HD this am. Has a fistula placed that is now maturing. # DM2: has been diet controlled prior to admit, A1c of 6.4 # chronic a fib: on lower dose of carvedilol given hypotension, was on warfarin prior to admit held for sugery, will need to resume AC when cleared by surger # chronic systolic CHF: EF of 40%, followed by [facility], does not appear decompensated # hypotension: continues to be low, on lower dose carvedilol monitoring HR to determine if needs to be increased again # acute encephalopathy: continues, patient oriented intermittently but thought process quite tangential and occasional bizarre statements, suspect largely related to delirium # deconditioning: patient will likely require SNF, family has been reluctant to start looking into that process, PT/CM involved # IP status, therapies are recommending SNF as above Patient new to my care. Old records reviewed and summarized as above. Subjective: no significant overnight events, patient states he has had a ' horrible day' but is unable to describe why that is the case, he notes that during dialysis he had concerns about the motivation behind the HD Objective: Vital Signs Temp Pulse Resp BP Pulse Ox 36.6 C 94 12 98/60 L 94 02/04/18 07:25 02/04/18 07:25 02/04/18 07:25 02/04/18 07:25 02/04/18 07:25 Laboratory Results 02/04/18 03:36 02/04/18 03:36 02/03/18 02/04/18 02/05/18 05:59 05:59 05:59 Intake Total 300 750 Output Total 300 1250 Balance 0 -500 PT 17.2 SEC (12.0-15.0) H 02/04/18 03:36 INR 1.39 (0.83-1.16) H 02/04/18 03:36 awake alert anicteric op clear rrr systolic murmur cta b soft nt nd no cce warm dry well perfused oriented x2 tangential ICD10 Worksheet Patient Problems: Problems Problem Status Onset Anasarca Acute Pulmonary hypertension Acute Chronic Disease Mgmt/Transitional Care Acute Diabetic infection of left foot Acute Heart failure Acute Renal insufficiency Acute Acute exacerbation of congestive heart failure Acute
[2018-02-04] MEDS: SENNOSIDES/DOCUSATE SODIUM TAB PO SCH ×2 (12:22→23:07)
[2018-02-04] MEDS ORDERED: HEPARIN 50,000 UNIT/10 ML VIAL ONE (16:29)
[2018-02-04] MEDS: ASPIRIN EC 81 MG TAB PO SCH (20:47)
[2018-02-05 04:24] LABS: PLATELET COUNT 172 10^3/uL (150-400)
[2018-02-05] MEDS: LEVOTHYROXINE 75 MCG TAB PO SCH (06:06)
[2018-02-05] MEDS: FAMOTIDINE 20 MG TAB PO SCH (06:06)
--- NOTE | 2018-02-05 08:32 | SOAPPROG ---
SOAP Progress Note Assessment/Plan: Assessment: 67 y/o M s/p LUE AVF S: Sleepy, no complaints. Denies numbness/tingling in L hand. O: Somnolent, but arousable Afebrile No increased WOB LUE: AVF with good thrill, +radial pulse Plan: Ok to go from surgery standpoint. Continue using catheter for dialysis. Follow up in our office as outpt in next couple of weeks. Will take 2-3 months for AVF to mature and be ready for dialysis. 02/05/18 08:31 Objective: Vital Signs Temp Pulse Resp BP Pulse Ox 36.6 C 84 18 99/59 L 95 02/05/18 04:00 02/05/18 04:00 02/05/18 04:00 02/05/18 04:00 02/05/18 04:00 Laboratory Results 02/05/18 04:03 02/05/18 04:03 02/04/18 02/05/18 02/06/18 05:59 05:59 05:59 Intake Total 750 1500 Output Total 1250 2615 Balance -500 -1115 PT 17.2 SEC (12.0-15.0) H 02/04/18 03:36 INR 1.39 (0.83-1.16) H 02/04/18 03:36 ICD10 Worksheet Patient Problems: Problems Problem Status Onset Acute exacerbation of congestive heart failure Acute Anasarca Acute Chronic Disease Mgmt/Transitional Care Acute Diabetic infection of left foot Acute Heart failure Acute Pulmonary hypertension Acute Renal insufficiency Acute
--- NOTE | 2018-02-05 10:07 | SOAPPROG ---
SOAP Progress Note Assessment/Plan: Assessment: New ESRD volume overload better fatigue and weak today appetite not great, but when he finds something he likes, he eats the whole thing Plan: Hold on HD today HD tomorrow physical therapy nutrition fluid restriction 02/05/18 10:01 02/05/18 10:07 Subjective: no cp sob nausea or vomiting spirits good doesn't much like his bed. Sleeping in the chair fluid level seems better Objective: Vital Signs Temp Pulse Resp BP Pulse Ox 36.5 C 89 16 90/52 L 92 02/05/18 08:00 02/05/18 08:00 02/05/18 08:00 02/05/18 08:00 02/05/18 08:00 Laboratory Results 02/05/18 04:03 02/05/18 04:03 02/04/18 02/05/18 02/06/18 05:59 05:59 05:59 Intake Total 750 1500 Output Total 1250 2615 Balance -500 -1115 PT 17.2 SEC (12.0-15.0) H 02/04/18 03:36 INR 1.39 (0.83-1.16) H 02/04/18 03:36 Physical Exam - Physical Exam General Appearance: alert Neck: other (+JVD, RIJ cath present) Respiratory: rales, No rhonchi, No wheezing Cardiac/Chest: edema, JVD, systolic murmur, No friction rub Abdomen: normal bowel sounds, non-tender, soft Skin: other (changes of venous stasis. LLE bandaged skin tear) Neuro/Psych: alert, normal mood/affect, oriented x 3 ICD10 Worksheet Patient Problems: Problems Problem Status Onset Acute exacerbation of congestive heart failure Acute Anasarca Acute Chronic Disease Mgmt/Transitional Care Acute Diabetic infection of left foot Acute Heart failure Acute Pulmonary hypertension Acute Renal insufficiency Acute
[2018-02-05] MEDS: CARVEDILOL 3.125 MG TAB PO SCH ×2 (10:40→18:06)
[2018-02-05] MEDS: ALLOPURINOL 100 MG TAB PO SCH (10:40)
[2018-02-05] MEDS: SENNOSIDES/DOCUSATE SODIUM TAB PO SCH ×2 (10:41→21:33)
--- NOTE | 2018-02-05 14:13 | ASMTCMCOM ---
CM Note CM Note Notes: 02/05/2018 Case Management Note Met w/pt to discuss discharge plans. Faxed referrals to [facility], [facility] and [facility]. [facility] declined pt d/t dialysis. [facility] accepted pt. At pt request called Maite to discuss. Maite to tour [facility] but in agreement. Kathy from [facility] visited pt and can be reached at [phone] for discharge transportation when needed. Case Management d/c poc: [facility] SNF rehab in [place]. Case Management to follow. Date Signed: 02/05/2018 02:13 PM Electronically Signed By:Kassidy Mitchell RN
--- NOTE | 2018-02-05 14:24 | HOSPPROG ---
Hospitalist Progress Note Assessment/Plan: # ESRD - AV fistula placed; currently getting HD from tunneled catheter # WCT - a-fib/flutter with aberrancy vs NSVT - check Mg, phos, ecg; cardiology eval today - cont coreg # CAD, non-obstructive - cont asa, coreg # a-fib - restart coumadin today, follow INR - cont coreg # hypotension - continues to be low, coreg dose reduced # chronic systolic CHF, EF 40% - compensated # acute encephalopathy - seems better today # DM2 - diet controlled # deconditioning - PT/OT Subjective: no complaints today; notified of 13 beats of NSVT today, no CP Objective: Vital Signs Temp Pulse Resp BP Pulse Ox 36.5 C 86 18 85/49 L 98 02/05/18 11:42 02/05/18 11:42 02/05/18 11:42 02/05/18 11:42 02/05/18 11:42 Laboratory Results 02/05/18 04:03 02/05/18 04:03 02/04/18 02/05/18 02/06/18 05:59 05:59 05:59 Intake Total 750 1500 400 Output Total 1250 2615 Balance -500 -1115 400 PT 17.2 SEC (12.0-15.0) H 02/04/18 03:36 INR 1.39 (0.83-1.16) H 02/04/18 03:36 - Physical Exam Constitutional: no apparent distress, appears nourished Cardiovascular: regular rate and rhythym, no murmur, rub, or gallop Respiratory: no respiratory distress, no rales or rhonchi, clear to auscultation Gastrointestinal: soft, non-tender abdomen, no palpable masses, No guarding, No rebound, No distension ICD10 Worksheet Patient Problems: Problems Problem Status Onset Anasarca Acute Pulmonary hypertension Acute Chronic Disease Mgmt/Transitional Care Acute Diabetic infection of left foot Acute Heart failure Acute Renal insufficiency Acute Acute exacerbation of congestive heart failure Acute
[2018-02-05] MEDS ORDERED: WARFARIN SODIUM 3 MG TAB PO SCH (14:45)
[2018-02-05] MEDS ORDERED: INSULIN GLARGINE 100 UNITS/ML UNIT SC SCH (15:00)
--- NOTE | 2018-02-05 15:50 | PDCARPN ---
Cardiology Progress Note Assessment/Plan: The patient is a 67 year-old male with a complex medical and cardiac history. He is typically followed by Dr. Maldonado from our practice. He was admitted to the hospital on 02/01 with worsening volume overload and worsening mental status related to end-stage renal disease. Dr. Simmons placed a tunnelled dialysis catheter on the first hospital day and created a surgical left arm dialysis fistula two days later. The patient has had 1 or 2 dialysis sessions at this point. We are asked to provide input in light of his cardiac history and because of a 13 beat run of wide-complex tachycardia shortly before noon today. Wide Complex Tachycardia: He had a 13 beat run of wide-complex tachycardia at 150 bpm earlier today. He was asymptomatic with this. He denies palpitations at home. However, he mentioned an episode of syncope during our conversation. He could not provide specific details as to when this occurred or what the circumstances were. He has a history of frequent PVCs. The episode of wide- complex tachycardia has the same axis and morphology as his PVCs making nonsustained ventricular tachycardia a distinct possibility. His potassium was 4.4 this morning. A magnesium level has not been checked during this hospital stay. His baseline medical regimen includes cardvedilol. However, his doses have been held because of hypotension. An alternate explanation for today's arrhythmia could be atrial flutter with 2:1 AV conduction and aberrancy. This is supported by the heart rate at almost exactly 150 bpm. His recently placed dialysis catheter overlies the right atrium on x-ray and could be irritating his heart. However, given his cardiac history, I think the focus needs to be on a ventricular source as most likely. I do not think this is necessarily an ischemia driven arrhythmia given the findings of his heart catheterization last year. - Check serum magnesium. - Beta juanita dosing as consistent as possible as allowed by blood pressure. - Continue telemetry and consider outpatient 30 day monitor. Nonischemic Cardiomyopathy: He has severely reduced left ventricular systolic function. LVEF was 25-30% by echocardiography 3 months ago; it was 15-20% by echo in June of this year and 40% in November 2015. In looking through the hospital and office records, I do not see any discussion of consideration for ICD implantation. Chronic Systolic CHF: It has been difficult to control his volume status because of his end-stage renal disease. Dialysis access now provides the opportunity for much improved volume control. Atrial Fibrillation: I find mentions of both permanent and paroxysmal atrial fibrillation in his medical record. Currently, he appears to be in rate- controlled atrial fibrillation. A 12-lead ECG has been requested. An ECG from November of this year clearly demonstrated sinus rhythm. - Continue systemic anticoagulation for stroke prophylaxis. Coronary Artery Disease: He had [id number] CAD by catheterization and intravascular ultrasound in August. He does not report any symptoms consistent with angina. - Would typically consider statin therapy for secondary prevention. However, a lipid panel in August of 2016 demonstrated a total cholesterol of 61 with an LDL of 21. - Will defer this for now. Valvular Heart Disease: Echocardiography in November demonstrated moderate to severe mitral regurgitation and moderate tricuspid regurgitation. - These issues will be followed longitudinally. 02/05/18 15:53 Subjective: No CV complaints. Objective: Vital Signs (8 Hrs) Temp Pulse Resp BP Pulse Ox 02/05/18 15:23 36.8 C 77 12 81/48 L 96 02/05/18 11:42 36.5 C 86 18 85/49 L 98 02/05/18 08:00 36.5 C 89 16 90/52 L 92 Intake/Output (24 Hrs) 02/04/18 02/05/18 02/06/18 05:59 05:59 05:59 Intake Total 750 1500 400 Output Total 1250 2615 10 Balance -500 -1115 390 Intake: Oral (ml) 750 1500 400 Output: Urine (ml) 250 15 10 Catheter 250 Toilet 10 Urinal 15 Dialysis Fluid Removed 1000 2600 Other: Weight 105.4 kg 105 kg Number of Voids Toilet 1 1 Number of Stools Toilet 1 Bladder Scan Volume (ml) Urinal 0 Result Diagrams: 02/05/18 04:03 02/05/18 04:03 - Physical Exam Constitutional: other (Appears older than chronologic age.) Eyes: anicteric sclera Ears, Nose, Mouth, Throat: moist mucous membranes Cardiovascular: no murmurs, no gallops, irregularly irregular Respiratory: clear to auscultate bilat Gastrointestinal: normoactive bowel sounds, no tenderness, no masses Skin: other (2-3+ edema and chronic venous stasis changes) Psychiatric: not anxious ICD10 Worksheet Patient Problems: Problems Problem Status Onset Acute exacerbation of congestive heart failure Acute Anasarca Acute Chronic Disease Mgmt/Transitional Care Acute Diabetic infection of left foot Acute Heart failure Acute Pulmonary hypertension Acute Renal insufficiency Acute
--- NOTE | 2018-02-05 16:09 | ASMTCMCOM ---
CM Note CM Note Notes: 02/05/2018 Case Management Note Received phone call from Nicky from the [facility] requesting Hep B panel results, current medications and flow sheets from dialysis. Faxed all to [phone]. Confirmed receipt. Nicky cell phone [phone]. Nicky accepted pt and is planning on connecting with [facility] rehab to coordinate chair time after d/c. Date Signed: 02/05/2018 04:08 PM Electronically Signed By:Kassidy Mitchell RN
[2018-02-05] MEDS: ASPIRIN EC 81 MG TAB PO SCH (21:33)
[2018-02-06 05:04] LABS: INR 1.28 (0.83-1.16); PROTIME(PATIENT) 16.2 SEC (12.0-15.0)
--- NOTE | 2018-02-06 09:26 | CPEKG ---
Test Reason : OPEN Blood Pressure : / mmHG Vent. Rate : 093 BPM Atrial Rate : 227 BPM P-R Int : 160 ms QRS Dur : 136 ms QT Int : 404 ms P-R-T Axes : 000 -84 083 degrees QTc Int : 503 ms Atrial fibrillation Ventricular premature complex Nonspecific IVCD with LAD Anterolateral infarct, old Atrial fibrillation is new in comparison to prior ECG Confirmed by Hilton Lara [id number]) on 02/06/2018 9:26:38 AM Referred By: Confirmed By:Hilton Lara
--- NOTE | 2018-02-06 10:16 | PDCARPN ---
Cardiology Progress Note Assessment/Plan: Assessment/Plan: 67-year-old male with nonischemic cardiomyopathy, valvular heart disease, paroxysmal atrial fibrillation, progressive renal failure now requiring dialysis. He was admitted on February 01 with worsening creatinine and altered mental status. He has had a dialysis port placed and AV fistula created. 1. Paroxysmal atrial fibrillation and wide complex tachycardia: He has mostly rate controlled in atrial fibrillation. Coreg is intermittently been on hold, would give this if systolic is greater than 80 as he is now asymptomatic. He has also had wide complex tachycardia most consistent with ventricular tachycardia. Coreg if possible. He does not have flow-limiting coronary disease. Decision about whether not he would be a candidate for ICD implant can be deferred until his other medical issues are more stabilized. 2. Nonischemic cardiomyopathy with volume overload: He appears euvolemic today after a few sessions of dialysis. At this point he is not on José Antonio inhibitor, angiotensin receptor juanita, or spironolactone given his renal issues. 3. End-stage renal disease with newly initiated dialysis: Volume status is now centrally managed on dialysis. 4. Valvular heart disease: Based on November 2017 echo he has moderate to severe mitral regurgitation and moderate tricuspid regurgitation. This is mostly related to LV dilation and therefore is secondary valvular regurgitation. It is possible this may improve with improving volume status. However, these valvular lesions do make volume removal more complicated. At this point I would not recommend CT surgery evaluation, we can re-assess outpatient. 5. Intermittent hypertension: This is not far from his baseline. He is currently asymptomatic. Does not appear to be infected. 02/06/18 10:21 Subjective: He reports overall feeling better. He is not lightheaded. He denies chest pain or dyspnea. Reviewed/Discussed With: multidisciplinary team Objective: Vital Signs (8 Hrs) Temp Pulse Resp BP Pulse Ox 02/06/18 07:39 36.3 C 94 16 86/52 L 94 02/06/18 04:00 36.6 C 90 14 94/60 L 95 Intake/Output (24 Hrs) 02/05/18 02/06/18 02/07/18 05:59 05:59 05:59 Intake Total 1500 1200 Output Total 2615 130 100 Balance -1115 1070 -100 Intake: Oral (ml) 1500 1200 Output: Urine (ml) 15 130 100 Toilet 10 Urinal 15 120 100 Dialysis Fluid Removed 2600 Other: Weight 105 kg 106.6 kg Number of Voids Toilet 1 1 Number of Stools Toilet 1 Bladder Scan Volume (ml) Urinal 0 She is to S. At dialysis. JVP 12 cm of water. Irregular regular rhythm. No obvious murmur or S3. Lungs clear anteriorly and laterally. Lower extremities show stigmata of chronic venous stasis with trace bilateral ankle edema Neuro alert and oriented x3 without gross focal neurological deficits. Appropriate mood and affect. Result Diagrams: 02/05/18 04:03 02/06/18 03:36 EKG: Reviewed: Atrial fibrillation. PVCs. Nonspecific IVCD. Telemetry: Atrial fibrillation with ventricular rate about 100s. 2 salvos of nonsustained VT. Occasional PVCs. Echocardiogram: Reviewed from November 2017: Severe global hypokinesis ejection fraction 25-30%. Moderate to severe mitral regurgitation and moderate mitral regurgitation. ICD10 Worksheet Patient Problems: Problems Problem Status Onset Anasarca Acute Pulmonary hypertension Acute Chronic Disease Mgmt/Transitional Care Acute Diabetic infection of left foot Acute Heart failure Acute Renal insufficiency Acute Acute exacerbation of congestive heart failure Acute
--- NOTE | 2018-02-06 11:07 | SOAPPROG ---
SOAP Progress Note Assessment/Plan: Assessment/Plan: The patient is a 67 y/o M with a known h/o CKD who presented with symptoms of uremia and initiation on hemodialysis. CKD now ESRD -on HD today, will plan for next on Thursday -was planning for placement in [place], however severely debilitated and likely going to SNF -acute hep studies, EKG, CXR complete -s/p AVF placement on this admission, has TDC HTN/vol: -BP's low at baseline -BB held per cards, h/o afib -will continue UF as tolerated -hyponatremia should improve with UF as well, would fluid restrict to 1.5L daily Anemia -Hb >12, no EPO indicated BMD -phos at goal, no binder indicated -vitamin D, PTH as outpt Acidosis -bicarb 20 today, should improve on HD Hyperkalemia -improved on HD -renal diet Will continue to follow, consult appreciated. 02/06/18 11:06 Subjective: Tolerating HD today. Objective: Vital Signs Temp Pulse Resp BP Pulse Ox 36.3 C 94 16 86/52 L 94 02/06/18 07:39 02/06/18 07:39 02/06/18 07:39 02/06/18 07:39 02/06/18 07:39 Laboratory Results 02/05/18 04:03 02/06/18 03:36 02/05/18 02/06/18 02/07/18 05:59 05:59 05:59 Intake Total 1500 1200 Output Total 2615 130 100 Balance -1115 1070 -100 PT 16.2 SEC (12.0-15.0) H 02/06/18 03:36 INR 1.28 (0.83-1.16) H 02/06/18 03:36 Physical Exam - Physical Exam General Appearance: no apparent distress, other (ill appearing) EENT: PERRL/EOMI, pharynx normal Neck: non-tender, full range of motion, normal inspection Respiratory: decreased breath sounds Cardiac/Chest: edema, systolic murmur, irregularly irregular Abdomen: normal bowel sounds, non-tender, soft Skin: warm/dry, pallor Extremities: normal range of motion, pedal edema Neuro/Psych: no motor/sensory deficits, alert, other (tired) ICD10 Worksheet Patient Problems: Problems Problem Status Onset Acute exacerbation of congestive heart failure Acute Anasarca Acute Chronic Disease Mgmt/Transitional Care Acute Diabetic infection of left foot Acute Heart failure Acute Pulmonary hypertension Acute Renal insufficiency Acute
[2018-02-06] MEDS: CARVEDILOL 3.125 MG TAB PO SCH ×3 (11:14→20:31)
[2018-02-06] MEDS ORDERED: HEPARIN 50,000 UNIT/10 ML VIAL ONE (12:38)
[2018-02-06] MEDS: FAMOTIDINE 20 MG TAB PO SCH (12:46)
[2018-02-06] MEDS: LEVOTHYROXINE 75 MCG TAB PO SCH (12:46)
[2018-02-06] MEDS: ALLOPURINOL 100 MG TAB PO SCH (12:47)
[2018-02-06] MEDS: SENNOSIDES/DOCUSATE SODIUM TAB PO SCH ×2 (12:47→20:48)
[2018-02-06] MEDS: WARFARIN SODIUM 4 MG TAB PO SCH (12:47)
--- NOTE | 2018-02-06 12:56 | HOSPPROG ---
Hospitalist Progress Note Assessment/Plan: # ESRD - AV fistula placed; instituted HD here via tunneled catheter # WCT - appears consistent with VT - BPs low, but will trial coreg 3.125 today and follow; hold for SBP<80 # CAD, non-obstructive - cont asa, coreg # a-fib - coumadin restarted, follow INR - cont coreg # hypotension - continues to be low, coreg dose reduced # chronic systolic CHF, EF 40% - compensated # acute encephalopathy - seems better today # DM2 - diet controlled # deconditioning - PT/OT - will need SNF Subjective: no CP or syncope; felt ok on HD Objective: Vital Signs Temp Pulse Resp BP Pulse Ox 36.4 C 99 14 85/56 L 92 02/06/18 11:50 02/06/18 11:50 02/06/18 11:50 02/06/18 11:50 02/06/18 11:50 Laboratory Results 02/05/18 04:03 02/06/18 03:36 02/05/18 02/06/18 02/07/18 05:59 05:59 05:59 Intake Total 1500 1200 Output Total 2615 130 100 Balance -1115 1070 -100 PT 16.2 SEC (12.0-15.0) H 02/06/18 03:36 INR 1.28 (0.83-1.16) H 02/06/18 03:36 - Physical Exam Constitutional: chronically ill appearing Cardiovascular: irregularly irregular, No systolic murmur, No bradycardia, No edema Respiratory: no respiratory distress, no rales or rhonchi, clear to auscultation Gastrointestinal: soft, non-tender abdomen, no palpable masses, No guarding, No rebound, No distension ICD10 Worksheet Patient Problems: Problems Problem Status Onset Anasarca Acute Pulmonary hypertension Acute Chronic Disease Mgmt/Transitional Care Acute Diabetic infection of left foot Acute Heart failure Acute Renal insufficiency Acute Acute exacerbation of congestive heart failure Acute
--- NOTE | 2018-02-06 16:19 | ASMTCMCOM ---
CM Note CM Note Notes: 02/06/2018 Case Management Note Confirmed with Nicky [phone] pt has chair time on Thursday02/08/2018 at 13:00. Pt to arrive [facility] 12:[facility] to [facility] [place]. Pt to have dialysis MWF. Discussed with Shira [phone] from [facility] rehab. Shira has arranged transport from [facility] to the [facility] for Thursday. Case Management d/c poc: Anticipating d/c tomorrow to [facility] rehab Case Management to follow. Date Signed: 02/06/2018 04:19 PM Electronically Signed By:Kassidy Mitchell RN
[2018-02-06] MEDS: ASPIRIN EC 81 MG TAB PO SCH (20:31)
[2018-02-07 04:41] LABS: INR 1.3 (0.83-1.16); PROTIME(PATIENT) 16.4 SEC (12.0-15.0)
[2018-02-07] MEDS: FAMOTIDINE 20 MG TAB PO SCH (06:24)
[2018-02-07] MEDS: LEVOTHYROXINE 75 MCG TAB PO SCH (06:24)
[2018-02-07] MEDS: WARFARIN SODIUM 4 MG TAB PO SCH (08:39)
[2018-02-07] MEDS: SENNOSIDES/DOCUSATE SODIUM TAB PO SCH ×2 (08:39→22:08)
[2018-02-07] MEDS: ALLOPURINOL 100 MG TAB PO SCH (08:39)
[2018-02-07] MEDS: CARVEDILOL 3.125 MG TAB PO SCH (09:52)
--- NOTE | 2018-02-07 09:56 | HOSPPROG ---
Hospitalist Progress Note Assessment/Plan: 67M with CKD, NICM, a-fib progressed to ESRD, admitted for emergent HD. AVF placed. Intermittent VT on tele as well as hypotension since admission. # ESRD - AV fistula placed; instituted HD here via tunneled catheter # VT - continues to have episodes - will try to cautiously continue coreg given low EF and VT - considering amiodarone today - may need EP consult or ICD # cardiomyopathy, sCHF - compensated - last EF 20% - difficulty starting BB given BPs - holding candice with low BPs # CAD, non-obstructive - cont asa, coreg # a-fib - coumadin restarted, follow INR - cont coreg if BP tolerates # hypotension - continues to be low, coreg dose reduced # acute encephalopathy - seems better today # DM2 - diet controlled # deconditioning - PT/OT - will need SNF Subjective: episode of syncope yesterday afternoon Objective: Vital Signs Temp Pulse Resp BP Pulse Ox 36.1 C 84 10 L 91/58 L 92 02/07/18 08:00 02/07/18 08:00 02/07/18 08:00 02/07/18 08:00 02/07/18 08:00 Laboratory Results 02/05/18 04:03 02/07/18 03:18 02/06/18 02/07/18 02/08/18 05:59 05:59 05:59 Intake Total 1200 750 Output Total 130 2950 Balance 1070 -2200 PT 16.4 SEC (12.0-15.0) H 02/07/18 03:18 INR 1.30 (0.83-1.16) H 02/07/18 03:[address] Pinedo; tele reviewed - Physical Exam Constitutional: chronically ill appearing Cardiovascular: regular rate and rhythym, no murmur, rub, or gallop Respiratory: no rales or rhonchi, clear to auscultation, No expiratory wheeze, No inspiratory crackles, No bronchial breath sounds Gastrointestinal: soft, non-tender abdomen, no palpable masses, No guarding, No rebound, No distension ICD10 Worksheet Patient Problems: Problems Problem Status Onset Anasarca Acute Pulmonary hypertension Acute Chronic Disease Mgmt/Transitional Care Acute Diabetic infection of left foot Acute Heart failure Acute Renal insufficiency Acute Acute exacerbation of congestive heart failure Acute
--- NOTE | 2018-02-07 10:48 | PDCARPN ---
Cardiology Progress Note Assessment/Plan: Assessment/Plan: 67-year-old male with nonischemic cardiomyopathy, valvular heart disease, atrial fibrillation, progressive renal failure now requiring dialysis. He was admitted on February 01 with worsening creatinine and altered mental status. He has had a dialysis port placed and AV fistula created. 1.Atrial fibrillation and wide complex tachycardia: He has mostly rate controlled atrial fibrillation. Coreg has intermittently been on hold, would give this if systolic is greater than 90. We may be limited by his hypotension, especially since he had syncope yesterday evening when getting up which was likely orthostatically mediated (had HD earlier that day). He has also had wide complex tachycardia most consistent with ventricular tachycardia. Coreg if possible. Will start amiodarone orally in the short term. Repeat limited echo. EP consult 02/09 for consideration of ICD since he may be at optimally tolerated medical therapy. He does not have flow-limiting coronary disease. 2. Nonischemic cardiomyopathy with volume overload: He appears euvolemic today after a few sessions of dialysis. At this point he is not on José Antonio inhibitor, angiotensin receptor juanita, or spironolactone given hypotension. 3. End-stage renal disease with newly initiated dialysis: Volume status is now managed with dialysis. 4. Valvular heart disease: Based on November 2017 echo he has moderate to severe mitral regurgitation and moderate tricuspid regurgitation. This is mostly related to LV dilation and therefore is secondary valvular regurgitation. It is possible this may improve with improving volume status. However, these valvular lesions do make volume removal more complicated. At this point I would not recommend CT surgery evaluation, we can re-assess outpatient. 5. Intermittent hypertension: This is not far from his baseline. Syncope yesterday evening, likely a combination of fluid removal at HD and coreg. Does not appear to be infected. 02/07/18 10:49 Subjective: Feels better today. No nausea. Denies chest pain or dyspnea. Yesterday he evening he was getting up out of the chair and had an episode of syncope. He does not recall any prodrome. There is no VT event on telemetry at that time. Reviewed/Discussed With: hospitalist (Dr. Trevizo) Objective: Vital Signs (8 Hrs) Temp Pulse Resp BP Pulse Ox 02/07/18 08:00 36.1 C 84 10 L 91/58 L 92 02/07/18 03:21 36.5 C 81 12 94/52 L 92 Intake/Output (24 Hrs) 02/06/18 02/07/18 02/08/18 05:59 05:59 05:59 Intake Total 1200 750 Output Total 130 2950 Balance 1070 -2200 Intake: Oral (ml) 1200 750 Output: Urine (ml) 130 250 Toilet 10 Urinal 120 250 Dialysis Fluid Removed 2700 Other: Weight 106.6 kg 103.9 kg Number of Voids Toilet 1 Number of Stools Bedside Commode 1 Fatigued. No acute distress JVP less than 12. Irregular regular rhythm. No S3. Soft early systolic murmur at the left lower sternal border Lungs clear to auscultation without wheeze rhonchi rales Extremities warm. Chronic venous stasis. No significant edema. Result Diagrams: 02/05/18 04:03 02/07/18 03:18 Telemetry: AFib. 6 beat run of VT overnight. ICD10 Worksheet Patient Problems: Problems Problem Status Onset Anasarca Acute Pulmonary hypertension Acute Chronic Disease Mgmt/Transitional Care Acute Diabetic infection of left foot Acute Heart failure Acute Renal insufficiency Acute Acute exacerbation of congestive heart failure Acute
[2018-02-07] MEDS: AMIODARONE HCL 200 MG TAB PO SCH (12:36)
[2018-02-07] MEDS ORDERED: PERFLUTREN LIPID MICROSPHERES 1.1 MG/ML VIAL IV ONE (12:45)
--- NOTE | 2018-02-07 13:43 | SOAPPROG ---
SOAP Progress Note Assessment/Plan: Assessment/Plan: The patient is a 67 y/o M with a known h/o CKD who presented with symptoms of uremia and initiation on hemodialysis. CKD now ESRD -on HD today, will dialyze if still admitted tomorrow -has 1:30pm chair time at [facility] tomorrow per CM, appreciated -acute hep studies, EKG, CXR complete -s/p AVF placement on this admission, has TDC HTN/vol: -BP's low at baseline -Coreg resumed low dose, cardiology following -will continue UF as tolerated -hyponatremia should improve with UF as well, would fluid restrict to 1.5L daily Anemia -Hb >12, no EPO indicated BMD -phos at goal, no binder indicated -vitamin D, PTH as outpt Acidosis -bicarb up to 23 with HD Hyperkalemia -improved on HD -renal diet Will continue to follow, consult appreciated. 02/07/18 13:42 Subjective: Had episode of syncope yesterday afternoon. No issues today. Objective: Vital Signs Temp Pulse Resp BP Pulse Ox 36.6 C 81 12 73/54 L 94 02/07/18 11:51 02/07/18 11:51 02/07/18 11:51 02/07/18 11:51 02/07/18 11:51 Laboratory Results 02/05/18 04:03 02/07/18 03:18 02/06/18 02/07/18 02/08/18 05:59 05:59 05:59 Intake Total 1200 750 Output Total 130 2950 Balance 1070 -2200 PT 16.4 SEC (12.0-15.0) H 02/07/18 03:18 INR 1.30 (0.83-1.16) H 02/07/18 03:18 Physical Exam - Physical Exam General Appearance: alert, no apparent distress, other (ill appearing) EENT: PERRL/EOMI Neck: non-tender, supple Respiratory: chest non-tender, decreased breath sounds Cardiac/Chest: irregularly irregular Abdomen: normal bowel sounds, non-tender, distended Skin: pallor Extremities: pedal edema Neuro/Psych: no motor/sensory deficits, disoriented to time ICD10 Worksheet Patient Problems: Problems Problem Status Onset Acute exacerbation of congestive heart failure Acute Anasarca Acute Chronic Disease Mgmt/Transitional Care Acute Diabetic infection of left foot Acute Heart failure Acute Pulmonary hypertension Acute Renal insufficiency Acute
--- NOTE | 2018-02-07 14:00 | ASMTCMCOM ---
CM Note CM Note Notes: 02/07/2018 Case Management Note Discussed with Pt to have further cardiac evaluation. Notified [facility] rehab. Cancelled Thursday chair time at [facility] [place]. Will reschedule once d/c date becomes clear. Case Management d/c poc: [facility] re[facility] Case Management to follow. Date Signed: 02/07/2018 01:59 PM Electronically Signed By:Kassidy Mitchell RN
--- NOTE | 2018-02-07 14:01 | ECHO ---
[email or web address] [place] [id number] Main: [phone] Fax: Transthoracic Echocardiogram Name: MICHELLE BHANDARI MR#: [id number] Study Date: 02/07/2018 Study Time: 12:57 PM Date of : 1950 Age: 67 year(s) Height: ( ) Weight: ( ) BSA: Gender: Male Examination: Limited Echo with Definity Indication: Eval for LV apical thrombus Image Quality: Contrast: Requested by: Chance Colon BP: / Heart Rate: Rhythm: Indication: Eval for LV apical thrombus Procedure Staff Manager Performance Improvement: Nalini Alcantar ANTHONY Reading Physician: Niki Pinedo MD Requesting Provider: Christopher Trevizo Conclusions: No LV apical thrombus.. Measurements: Chambers Valvular Assessment AV/MV Valvular Assessment TV/PV Normal Normal Normal Name Value Range Name Value Range Name Value Range Continued Measurements: Findings: Left Ventricle: No LV apical thrombus.. Exam Comments: 2 cc of Definity admistered to obtain pictures.. (No Signature Object) Patient: MICHELLE BHANDARI Study Date: 02/07/2018 Page 1 of 1 12:57 PM [id number]
--- NOTE | 2018-02-07 14:02 | ECHO ---
[email or web address] [address] [address] Main: [phone] Fax: Transthoracic Echocardiogram Name: MICHELLE BHANDARI MR#: [id number] Study Date: 02/07/2018 Study Time: 11:59 AM Date of : 1950 Age: 67 year(s) Height: 188 cm (74 in.) Weight: 103.87 kg (229 lb.) BSA: 2.3 m2 Gender: Male Examination: Limited Echo Indication: Reassess LV systolic function and MR Image Quality: Technically Difficult Contrast: Requested by: Niki Pinedo BP: 73 mmHg/54 mmHg Heart Rate: Rhythm: Indication: Reassess LV systolic function and MR Procedure Staff Plant Engineering Supervisor: Nalini Alcantar RDCS Reading Physician: Niki Pinedo MD Requesting Provider: Christopher Trevizo Conclusions: Moderately to severely reduced systolic function. Severe global hypokinesis. Moderate to severe mitral regurgitation. Directed study to re-evaluate ejection fraction. Measurements: Chambers Valvular Assessment AV/MV Valvular Assessment TV/PV Normal Normal Normal Name Value Range Name Value Range Name Value Range LVDd (2D): 6.0 cm (4.2 cm-5.9 AV meanP mmHg ( - ) TR Vmax: 1.75 mm/s ( - ) cm) JARED (VTI): 3.7 cm ( - ) TR PGmax: 12 mmHg ( - ) LVOTd 2.9 cm 2.9 cm mm MV meanP mmHg ( - ) syst. PAP: 17 mmHg ( - ) EF Range: 20-25 % MVA (Vmax): 2.5 m/s ( - ) Continued Measurements: Chambers Valvular Assessment AV/MV Valvular Assessment TV/PV Name Value Name Value Name Value LADs Lon.3 cm MV Annulus: 3.5 cm CVP (est.): 5 mmHg LA Area: 30.7 cm2 MV VTI: 18.10 cm MR ERO: 0.270 cm2 MR PISA radius: 8 mm MR Reg. Volume: 31 ml MR Reg. Fraction: 18 % Findings: Left Ventricle: Moderately to severely reduced systolic function. The ejection fraction is estimated to be 20-25 %. Patient: MICHELLE BHANDARI Study Date: 02/07/2018 Page 1 of 2 11:59 AM Severe global hypokinesis. Mitral Valve: Moderate to severe mitral regurgitation. (No Signature Object) Patient: MICHELLE BHANDARI Study Date: 02/07/2018 Page 2 of 2 11:59 AM [id number]
[2018-02-07] MEDS: ASPIRIN EC 81 MG TAB PO SCH (22:08)
[2018-02-08 04:36] LABS: PLATELET COUNT 178 10^3/uL (150-400)
[2018-02-08 04:45] LABS: INR 1.6 (0.83-1.16); PROTIME(PATIENT) 19.2 SEC (12.0-15.0)
[2018-02-08] MEDS: FAMOTIDINE 20 MG TAB PO SCH (05:12)
[2018-02-08] MEDS: LEVOTHYROXINE 75 MCG TAB PO SCH (05:12)
--- NOTE | 2018-02-08 09:08 | PDCARPN ---
Cardiology Progress Note Assessment/Plan: Assessment/Plan: 67-year-old male with nonischemic cardiomyopathy, valvular heart disease, atrial fibrillation, progressive renal failure now requiring dialysis. He was admitted on February 01 with worsening creatinine and altered mental status. He has had a dialysis port placed and AV fistula created. 1.Atrial fibrillation and wide complex tachycardia: He has mostly rate controlled atrial fibrillation. Coreg has been discontinued to persistent hypotension that is symptomatic. He also had an episode of syncope that was likely hypotension mediated. He has also had wide complex tachycardia most consistent with ventricular tachycardia. Amiodarone started yesterday. Repeat limited echo on 02/07 shows LVEF 25% and mod to severe MR. EP consult 02/09 for consideration of ICD since he may be at optimally tolerated medical therapy. He does not have flow-limiting coronary disease. Continue warfarin for AF and CHADS2-VASC score of 2. 2. Nonischemic cardiomyopathy: He appears euvolemic today after a few sessions of dialysis. At this point he is not on beta juanita, José Antonio inhibitor, angiotensin receptor juanita, or spironolactone given symptomatic hypotension. 3. End-stage renal disease with newly initiated dialysis: Volume status is now managed with dialysis. 4. Valvular heart disease: moderate to severe mitral regurgitation and moderate tricuspid regurgitation. This is mostly related to LV dilation and therefore is secondary valvular regurgitation. It is possible this may improve with improving volume status. However, these valvular lesions do make volume removal more complicated. At this point I would not recommend CT surgery evaluation, we can re-assess outpatient. 5. Intermittent hypotension: Syncope 02/06 evening, likely a combination of fluid removal at HD and coreg. Does not appear to be infected. 02/08/18 09:06 Subjective: He did not have any lightheadedness or syncope yesterday. He ambulated without difficulty. He denies dyspnea or chest pain. Nausea is improved. Reviewed/Discussed With: hospitalist (Dr. Trevizo) Objective: Vital Signs (8 Hrs) Temp Pulse Resp BP Pulse Ox 02/08/18 03:14 36.6 C 81 13 94/61 L 94 Intake/Output (24 Hrs) 02/07/18 02/08/18 02/09/18 05:59 05:59 05:59 Intake Total 750 1500 Output Total 2950 300 Balance -2200 1200 Intake: Oral (ml) 750 1500 Output: Urine (ml) 250 300 Urinal 250 300 Dialysis Fluid Removed 2700 Other: Weight 103.9 kg 106 kg Intake Quantity Yes Sufficient Number of Stools Bedside Commode 1 Lying flat. No acute distress JVP less than 12 cm water. Irregularly irregular rhythm without obvious murmur. Lungs clear anteriorly and laterally no lower extremity edema Neuro alert and oriented x3 without gross focal neurological deficits. Appropriate mood and affect. Result Diagrams: 02/08/18 03:16 02/08/18 03:16 Telemetry: 1 episode of nonsustained VT yesterday afternoon. Atrial fibrillation ICD10 Worksheet Patient Problems: Problems Problem Status Onset Anasarca Acute Pulmonary hypertension Acute Chronic Disease Mgmt/Transitional Care Acute Diabetic infection of left foot Acute Heart failure Acute Renal insufficiency Acute Acute exacerbation of congestive heart failure Acute
[2018-02-08] MEDS: WARFARIN SODIUM 4 MG TAB PO SCH (10:58)
--- NOTE | 2018-02-08 13:27 | HOSPPROG ---
Hospitalist Progress Note Assessment/Plan: 67M with CKD, NICM, a-fib progressed to ESRD, admitted for emergent HD. AVF placed. Intermittent VT on tele as well as hypotension since admission. Unable to use BB given severe hypotension. Amiodarone started for VT. # ESRD - AV fistula placed; instituted HD here via tunneled catheter # VT - continues to have episodes - maybe decreased in last 24 hours? - not tolerating coreg - amiodarone started yesterday - EP consult tomorrow # cardiomyopathy, sCHF - compensated - last EF 20% - per my chart reviewed, had been on BB for 3 months; EF still low - likely needs ICD for this indication as well # CAD, non-obstructive - cont asa, coreg # a-fib - cont coreg if BP tolerates - hold coreg tonight # hypotension - continues to be low, coreg on hold # acute encephalopathy - seems better today # DM2 - diet controlled # deconditioning - PT/OT - will need SNF # palliative care consult - discussed with patient Subjective: discussed with RN - RN requesting palliative care consult; patient denies CP or syncope in last 24 hours Objective: Vital Signs Temp Pulse Resp BP Pulse Ox 36.4 C 80 18 73/45 L 96 02/08/18 12:13 02/08/18 12:13 02/08/18 12:13 02/08/18 12:13 02/08/18 12:13 Laboratory Results 02/08/18 03:16 02/08/18 03:16 02/07/1818 02/09/18 05:59 05:59 05:59 Intake Total 750 1500 Output Total 2950 300 100 Balance -2200 1200 -100 PT 19.2 SEC (12.0-15.0) H 02/08/18 03:16 INR 1.60 (0.83-1.16) H 02/08/18 03:16 tele personally reviewed high risk with NSVT - Physical Exam Constitutional: chronically ill appearing Cardiovascular: regular rate and rhythym, no murmur, rub, or gallop Respiratory: no respiratory distress, no rales or rhonchi, clear to auscultation Gastrointestinal: soft, non-tender abdomen, no palpable masses, No guarding, No rebound, No distension ICD10 Worksheet Patient Problems: Problems Problem Status Onset Anasarca Acute Pulmonary hypertension Acute Chronic Disease Mgmt/Transitional Care Acute Diabetic infection of left foot Acute Heart failure Acute Renal insufficiency Acute Acute exacerbation of congestive heart failure Acute
[2018-02-08] MEDS: SENNOSIDES/DOCUSATE SODIUM TAB PO SCH ×2 (14:39→20:18)
--- NOTE | 2018-02-08 14:51 | SOAPPROG ---
SOAP Progress Note Assessment/Plan: Assessment/Plan: The patient is a 67 y/o M with a known h/o CKD who presented with symptoms of uremia and initiation on hemodialysis. CKD now ESRD -on HD today, now MWF schedule -has 1:30pm chair time at [facility] tomorrow per CM -acute hep studies, EKG, CXR complete -s/p AVF placement on this admission, has TDC -palliative consult HTN/vol: -BP's low at baseline -unable to tolerate BB, amio loaded -will continue UF as tolerated -getting EP consult for possible VT Hyponatremia -fluid restriction 1.5L -will modulate on HD Anemia -Hb >12, no EPO indicated BMD -phos at goal, no binder indicated -vitamin D, PTH as outpt Acidosis -modulating on HD, may need po supplement as well Hyperkalemia -improved on HD -renal diet Will continue to follow, consult appreciated. 02/08/18 14:50 Subjective: Patient still having episodes of wide complex tachycardia. Tolerated HD today. Palliative consult requested. Objective: Vital Signs Temp Pulse Resp BP Pulse Ox 36.4 C 80 18 73/45 L 96 02/08/18 12:13 02/08/18 12:13 02/08/18 12:13 02/08/18 12:13 02/08/18 12:13 Laboratory Results 02/08/18 03:16 02/08/18 03:16 02/07/18 02/08/18 02/09/18 05:59 05:59 05:59 Intake Total 750 1500 Output Total 2950 300 100 Balance -2200 1200 -100 PT 19.2 SEC (12.0-15.0) H 02/08/18 03:16 INR 1.60 (0.83-1.16) H 02/08/18 03:16 Physical Exam - Physical Exam General Appearance: no apparent distress, other (ill appearing) EENT: PERRL/EOMI, pharynx normal Neck: non-tender, full range of motion, supple Respiratory: decreased breath sounds Cardiac/Chest: edema, irregularly irregular Abdomen: normal bowel sounds, non-tender, soft, distended Skin: pallor Extremities: normal range of motion, pedal edema Neuro/Psych: normal mood/affect, disoriented to time ICD10 Worksheet Patient Problems: Problems Problem Status Onset Acute exacerbation of congestive heart failure Acute Anasarca Acute Chronic Disease Mgmt/Transitional Care Acute Diabetic infection of left foot Acute Heart failure Acute Pulmonary hypertension Acute Renal insufficiency Acute
[2018-02-08] MEDS: AMIODARONE HCL 200 MG TAB PO SCH (17:38)
[2018-02-08] MEDS: ALLOPURINOL 100 MG TAB PO SCH (17:39)
[2018-02-08] MEDS ORDERED: HEPARIN 50,000 UNIT/10 ML VIAL ONE (17:52)
[2018-02-08] MEDS: ASPIRIN EC 81 MG TAB PO SCH (20:18)
[2018-02-09] MEDS: FAMOTIDINE 20 MG TAB PO SCH (05:21)
[2018-02-09] MEDS: LEVOTHYROXINE 75 MCG TAB PO SCH (05:21)
[2018-02-09] MEDS: ALLOPURINOL 100 MG TAB PO SCH (08:03)
[2018-02-09] MEDS: AMIODARONE HCL 200 MG TAB PO SCH (08:03)
[2018-02-09] MEDS: SENNOSIDES/DOCUSATE SODIUM TAB PO SCH ×2 (08:04→19:48)
--- NOTE | 2018-02-09 08:28 | SOAPPROG ---
SOAP Progress Note Assessment/Plan: Assessment/Plan: The patient is a 67 y/o M with a known h/o CKD who presented with symptoms of uremia and initiation on hemodialysis. CKD now ESRD -HD MWF schedule -has 1:30pm chair time at [facility], on hold for now -acute hep studies, EKG, CXR complete -s/p AVF placement on this admission, has TDC -palliative consult pending HTN/vol: -BP's low at baseline -unable to tolerate BB, amio loaded -will continue UF as tolerated -getting EP consult for possible ICD today Hyponatremia -fluid restriction 1.5L -modulating on HD Anemia -Hb >12, no EPO indicated BMD -phos at goal, no binder indicated -vitamin D, PTH as outpt Acidosis -modulating on HD, goal >20 Hyperkalemia -improved on HD -renal diet Will continue to follow, consult appreciated. 02/09/18 08:26 Subjective: Tolerated HD yesterday. Misses his dog Buster. No new episodes of syncope. Objective: Vital Signs Temp Pulse Resp BP Pulse Ox 36.5 C 71 18 86/44 L 95 02/09/18 08:00 02/09/18 08:00 02/09/18 08:00 02/09/18 08:00 02/09/18 08:00 Laboratory Results 02/08/18 03:16 02/09/18 05:20 02/08/18 02/09/18 02/10/18 05:59 05:59 05:59 Intake Total 1500 940 Output Total 300 100 Balance 1200 840 PT 19.2 SEC (12.0-15.0) H 02/08/18 03:16 INR 1.60 (0.83-1.16) H 02/08/18 03:16 Physical Exam - Physical Exam General Appearance: WD/WN, alert, no apparent distress EENT: PERRL/EOMI, pharynx normal Neck: non-tender, full range of motion, supple Respiratory: decreased breath sounds Cardiac/Chest: edema, irregularly irregular Abdomen: normal bowel sounds, non-tender, soft Skin: warm/dry, pallor Extremities: normal range of motion, pedal edema, other (AVF with bandage, TDC) Neuro/Psych: no motor/sensory deficits, normal mood/affect, disoriented to time ICD10 Worksheet Patient Problems: Problems Problem Status Onset Acute exacerbation of congestive heart failure Acute Anasarca Acute Chronic Disease Mgmt/Transitional Care Acute Diabetic infection of left foot Acute Heart failure Acute Pulmonary hypertension Acute Renal insufficiency Acute
--- NOTE | 2018-02-09 08:33 | SOAPPROG ---
SOALEXYS Progress Note Assessment/Plan: Assessment/Plan: 67 Y M multiple medical issues s/p tunneled HD catheter, and LUE AVF. Post op check. Cath site C/D/I. Functioning well per RN. AVF inc C/D/I, no erythema. AVF with palpable even thrill and audible bruit. 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 Doing well from HD access surgeries. EP study today 2/2 VT. Palliative consult planned per RN. Outpatient f/u upon d/c with Dr. Simmons to assess flow and maturity of AVF. 02/09/18 08:30 Objective: Vital Signs Temp Pulse Resp BP Pulse Ox 36.5 C 71 18 86/44 L 95 02/09/18 08:00 02/09/18 08:00 02/09/18 08:00 02/09/18 08:00 02/09/18 08:00 Laboratory Results 02/08/18 03:16 02/09/18 05:20 02/08/18 02/09/18 02/10/18 05:59 05:59 05:59 Intake Total 1500 940 Output Total 300 100 Balance 1200 840 PT 19.2 SEC (12.0-15.0) H 02/08/18 03:16 INR 1.60 (0.83-1.16) H 02/08/18 03:16 ICD10 Worksheet Patient Problems: Problems Problem Status Onset Acute exacerbation of congestive heart failure Acute Anasarca Acute Chronic Disease Mgmt/Transitional Care Acute Diabetic infection of left foot Acute Heart failure Acute Pulmonary hypertension Acute Renal insufficiency Acute
[2018-02-09 10:09] LABS: INR 1.68 (0.83-1.16); PROTIME(PATIENT) 19.9 SEC (12.0-15.0)
--- NOTE | 2018-02-09 12:11 | HOSPPROG ---
Hospitalist Progress Note Assessment/Plan: 67M with CKD, NICM, a-fib progressed to ESRD, admitted for emergent HD. AVF placed. Intermittent VT on tele as well as hypotension since admission. Unable to use BB given severe hypotension. Amiodarone started for VT. Met with patient and today. She had been frustrated with not getting any answers. I tried to answer all her questions today and she was satisfied. # ESRD - AV fistula placed; instituted HD here via tunneled catheter # VT - continues to have episodes - though none in 24 hours - not tolerating coreg d/t hypotension - amiodarone - EP consult today # cardiomyopathy, sCHF - compensated - last EF 20% - per my chart reviewed, had been on BB for 3 months; EF still low - likely needs ICD for this indication as well # CAD, non-obstructive - cont asa, coreg # a-fib - hold BB # hypotension - continues to be low, coreg on hold # acute encephalopathy - seems better today # DM2 - diet controlled # deconditioning - PT/OT - will need SNF # code status - patient and will discuss and fill out MOST Subjective: long discussion with patient, his and CARYL Bell Objective: Vital Signs Temp Pulse Resp BP Pulse Ox 36.5 C 71 18 86/44 L 95 02/09/18 08:00 02/09/18 08:00 02/09/18 08:00 02/09/18 08:00 02/09/18 08:00 Laboratory Results 02/08/18 03:16 02/09/18 05:20 02/08/18 02/09/18 02/10/18 05:59 05:59 05:59 Intake Total 1500 940 Output Total 300 100 100 Balance 1200 840 -100 PT 19.9 SEC (12.0-15.0) H 02/09/18 09:55 INR 1.68 (0.83-1.16) H 02/09/18 09:55 - Time Spent With Patient Time Spent with Patient: greater than 35 minutes Time Spent with Patient: Greater than 35 minutes spent on this patients care, greater than 50% of time spent counseling, educating, and coordinating care regarding the above mentioned plan. - Physical Exam Constitutional: no apparent distress, other (sitting in chair) ICD10 Worksheet Patient Problems: Problems Problem Status Onset Anasarca Acute Pulmonary hypertension Acute Chronic Disease Mgmt/Transitional Care Acute Diabetic infection of left foot Acute Heart failure Acute Renal insufficiency Acute Acute exacerbation of congestive heart failure Acute
--- NOTE | 2018-02-09 16:33 | ASMTCMCOM ---
CM Note CM Note Notes: Rounded on this patient with Dr. Trevizo. He and is had concerns about patients status and prognosis. They want to redo MOST form and would like a notary to come to the patient's room. They report they have enough support at home. He is to go to [facility] upon discharge and will begin outpatient dialysis at [facility] in [place] on MWF with a chair time of 7am. He was seen by EP eye physician and his input is still pending. CM to follow. Plan: [facility] SNF with outpatient dialysis, Date Signed: 02/09/2018 04:33 PM Electronically Signed By:Lidia Danielle RN
--- NOTE | 2018-02-09 17:07 | PDCARCONS ---
Cardiology Consult Reason for Consult: Nonischemic cardiomyopathy. Ventricular tachycardia. Atrial fibrillation. Syncope. Electrophysiology consultation Chief Complaint: Syncope Requesting Physician: Dr. Niki Pinedo History of Present Illness: 67-year-old male with nonischemic cardiomyopathy, recently diagnosed with renal failure, admitted with syncope. Syncope is likely related to hypovolemia post dialysis. On telemetry monitoring is seen to have 4-6 beat runs of ventricular tachycardia asymptomatic. History Information - Allergies/Home Medication List Allergies/Adverse Reactions: No Known Allergies Allergy (Unverified 04/12/09 16:18) Home Medications: Allopurinol [Allopurinol 300 MG (RX)] 300 mg PO DAILY@04/22/16 [Last Taken ] Aspirin EC [Aspirin EC 81 mg (*)] 81 mg PO HS 04/22/16 [Last Taken 01/31/18] Levothyroxine [Synthroid 75 mcg (*)] 75 mcg PO DAILY@04/22/16 [Last Taken ] Carvedilol [Coreg (*)] 12.5 mg PO BID@11/10/17 [Last Taken 01/31/18 18:00] Acetaminophen [Tylenol 325mg (*)] 325 mg PO Q6HRS PRN 02/01/18 [Last Taken Unknown] Famotidine [Pepcid 20 MG (*)] 20 mg PO DAILY@02/01/18 [Last Taken 01/31/18] Furosemide [Lasix 80 MG (*)] 80 mg PO TID@,,02/01/18 [Last Taken 15:00] Potassium Cl [Klor-Con 20 meq (*)] 20 meq PO BID@02/01/18 [Last Taken 18:00] Sodium Chloride [[place]] 1 gissell NS DAILY PRN 02/01/18 [Last Taken Unknown] Spironolactone [Aldactone 25 MG (*)] 25 mg PO BID@02/01/18 [Last Taken 18:00] Vitamin B Complex [Vitamin B Complex (OTC)] 1 each PO DAILY 02/01/18 [Last Taken 01/31/18] Warfarin Sodium [Coumadin 3MG (*)] 3 mg PO WEFR@02/01/18 [Last Taken 1 Week Ago ~01/25/18] Warfarin Sodium [Coumadin 4MG (*)] 4 mg PO SUMOTUTHSA@02/01/18 [Last Taken 1 Week Ago ~01/25/18] acetaZOLAMIDE [Diamox 250 mg (RX)] 250 mg PO BID@08,12 02/01/18 [Last Taken 12:00] Past Medical History: - Past Medical History atrial fibrillation - Social History Smoking Status: Former smoker Physical Exam Physical Exam: Temp Pulse Resp BP Pulse Ox 36.5 C 87 16 69/54 L 96 02/09/18 16:26 02/09/18 16:26 02/09/18 16:26 02/09/18 16:26 02/09/18 16:26 O2 (L/minute) 1 Constitutional: no apparent distress, appears nourished Eyes: PERRL, EOMI Ears, Nose, Mouth, Throat: moist mucous membranes Cardiovascular: systolic murmur, No regular rate and rhythym (Irregularly irregular) Respiratory: no respiratory distress Gastrointestinal: normoactive bowel sounds, soft, non-tender abdomen, no palpable masses Genitourinary: no bladder fullness Skin: warm Lab and Imaging 02/08/18 03:16 02/09/18 05:20 WBC 11.64 10^3/uL (3.80-9.50) H 02/08/18 03:16 RBC 4.31 10^6/uL (4.40-6.38) L 02/08/18 03:16 Hgb 13.7 g/dL (13.7-17.5) 02/08/18 03:16 Hct 39.8 % (40.0-51.0) L 02/08/18 03:16 MCV 92.3 fL (81.5-99.8) 02/08/18 03:16 MCH 31.8 pg (27.9-34.1) 02/08/18 03:16 MCHC 34.4 g/dL (32.4-36.7) 02/08/18 03:16 RDW 16.7 % (11.5-15.2) H 02/08/18 03:16 Plt Count 178 10^3/uL (150-400) 02/08/18 03:16 MPV 10.5 fL (8.7-11.7) 02/08/18 03:16 Neut % (Auto) 64.7 % (39.3-74.2) 02/08/18 03:16 Lymph % (Auto) 10.8 % (15.0-45.0) L 02/08/18 03:16 [place] % (Auto) 17.8 % (4.5-13.0) H 02/08/18 03:16 Eos % (Auto) 4.0 % (0.6-7.6) 02/08/18 03:16 Baso % (Auto) 0.7 % (0.3-1.7) 02/08/18 03:16 Nucleat RBC Rel Count 0.0 % (0.0-0.2) 02/08/18 03:16 Absolute Neuts (auto) 7.53 10^3/uL (1.70-6.50) H 02/08/18 03:16 Absolute Lymphs (auto) 1.26 10^3/uL (1.00-3.00) 02/08/18 03:16 Absolute Monos (auto) 2.07 10^3/uL (0.30-0.80) H 02/08/18 03:16 Absolute Eos (auto) 0.47 10^3/uL (0.03-0.40) H 02/08/18 03:16 Absolute Basos (auto) 0.08 10^3/uL (0.02-0.10) 02/08/18 03:16 Absolute Nucleated RBC 0.00 10^3/uL (0-0.01) 02/08/18 03:16 Immature Gran % 2.0 % (0.0-1.1) H 02/08/18 03:16 Immature Gran # 0.23 10^3/uL (0.00-0.10) H 02/08/18 03:16 RBC/WBC/PLT Morphology TNP 02/08/18 03:16 Platelet Estimate TNP 02/08/18 03:16 PT 19.9 SEC (12.0-15.0) H 02/09/18 09:55 INR 1.68 (0.83-1.16) H 02/09/18 09:55 Puncture Site RIGHT RADIAL 02/01/18 11:40 Patient Temperature 37.0 DEGREES 02/01/18 11:40 pCO2 24 mmHg (34-38) L 02/01/18 11:40 pO2 96 mmHg (65-75) H 02/01/18 11:40 Total CO2 12 mEq/L (23-27) L 02/01/18 11:40 ABG pH 7.31 (7.35-7.45) L 02/01/18 11:40 ABG HCO3 12 mEq/L (22-26) L 02/01/18 11:40 ABG O2 Saturation 97 % (92-95) H 02/01/18 11:40 ABG Base Excess -12.9 mEq/L (-2.5-2.5) L 02/01/18 11:40 O2 Concentration % ROOM AIR % (0-100) 02/01/18 11:40 Sodium 131 mEq/L (135-145) L 02/09/18 05:20 Potassium 4.9 mEq/L (3.3-5.0) 02/09/18 05:20 Chloride 92 mEq/L (97-110) L 02/09/18 05:20 Carbon Dioxide 22 mEq/l (22-31) 02/09/18 05:20 Anion Gap 17 mEq/L (8-16) H 02/09/18 05:20 BUN 52 mg/dL (7-23) H 02/09/18 05:20 Creatinine 5.6 mg/dL (0.7-1.3) H 02/09/18 05:20 Estimated GFR 10 02/09/18 05:20 Glucose 127 mg/dL (70-100) H 02/09/18 05:20 Hemoglobin A1c 6.4 % (4.0-6.0) H 02/02/18 04:15 Estim Average Glucose 137 mg/dL (68-126) H 02/02/18 04:15 Calcium 8.6 mg/dL (8.5-10.4) 02/09/18 05:20 Phosphorus 5.3 mg/dL (2.5-4.5) H 02/05/18 04:00 Magnesium 1.9 mg/dL (1.6-2.3) 02/06/18 03:36 Hep Bs Antigen NEGATIVE (NEGATIVE) 02/02/18 07:50 Hep Bs Antibody Negative 02/02/18 07:50 Hep Bs Antibody, Quant <5.0 mIU/mL 02/02/18 07:50 Hep B Core IgM Ab NEGATIVE (NEGATIVE) 02/02/18 07:50 Patient ABO/Rh A POSITIVE 02/01/18 11:42 Visualized and Interpreted EKG results: Yes EKG additional interpertation: Atrial fibrillation, nonspecific IVCD, QRS duration 136 milliseconds A/P Assessment: 1. Nonischemic cardiomyopathy 2.Mitral regurgitation 3. Renal insufficiency on hemodialysis, right subclavian port, recently placed AV fistula 4. Atrial fibrillation 5. Nonsustained ventricular tachycardia 6. Syncope Plan: 67-year-old male with nonischemic cardiomyopathy, syncope unrelated to arrhythmias however does have nonsustained ventricular tachycardia. He meets SCD-HeFT criteria for ICD implantation. We discussed various treatment options including subcutaneous ICD, transvenous IC D. Pros and cons of each were discussed. Transvenous ICD is a better option in my opinion because the patient may need future upgrade to biventricular ICD. We did discuss that he is at a higher risk of bleeding because of anticoagulation, infection because of central venous access related to hemodialysis. Risks of transvenous ICD implantation including but not limited to , myocardial infarction, stroke, cardiac tamponade which may require emergent cardiac surgery, infection, bleeding, pneumothorax, lead dislodgement and risks of sedation/anesthesia were discussed. Long-term issues like ICD pocket erosion , lead failure, venous stenosis, superior vena cava syndrome, need for lead extraction were discussed. Need for close long-term follow-up in our device clinic was emphasized. Need for generator change was discussed. We discussed that appropriate and inappropriate ICD shocks can occur. The risk of inappropriate ICD shocks is higher in patients with atrial fibrillation. He wants to discuss this further with his prior to making a decision. This was a complex discussion with the patient due to need for review of records , discussion of pathophysiology of disease and discussion regarding multiple treatment modalities. I spent 45 minutes with the patient, more than 50% of which was spent in counseling. I discussed this by phone with hospital design technology teacher Dr. Niki Pinedo. His outpatient design technology teacher Dr. Brigido Maldonado [place] of [place].
[2018-02-09] MEDS: ASPIRIN EC 81 MG TAB PO SCH (19:46)
[2018-02-09] MEDS: HYDROCODONE/APAP 5/325 TAB PO PRN (23:43)
[2018-02-10 04:09] LABS: INR 1.73 (0.83-1.16); PROTIME(PATIENT) 20.4 SEC (12.0-15.0)
[2018-02-10] MEDS: AMIODARONE HCL 200 MG TAB PO SCH (08:43)
[2018-02-10] MEDS: FAMOTIDINE 20 MG TAB PO SCH (08:44)
[2018-02-10] MEDS: ALLOPURINOL 100 MG TAB PO SCH (08:44)
[2018-02-10] MEDS: LEVOTHYROXINE 75 MCG TAB PO SCH (08:44)
[2018-02-10] MEDS: SENNOSIDES/DOCUSATE SODIUM TAB PO SCH ×2 (10:20→22:47)
--- NOTE | 2018-02-10 10:23 | HOSPPROG ---
Hospitalist Progress Note Assessment/Plan: Assessment: 67M p/w with evolution of ESRD, NICM, a-fib, admitted for emergent HD Plan: # ESRD - AV fistula placed, currently receiving HD through R chest cath -outpt HD via tunneled catheter -worsening BUN/Cr today, may require HD prior to DC # VT - continues to have episodes, likely triggered by cardiomyopathy -holding bblocker given relative hypotension -cont amio 400mg daily -d/w Dr. Baker/[employer], she reports patient elects to proceed w/ AICD, make NPO after MN # non-ischemic cardiomyopathy, chronic systolic CHF - compensated - last EF 20%, unable miles ACEi or bblocker # CAD, non-obstructive - cont asa # a-fib - hold BB, systemic anticoagulation indicated for CVA ppx (coumadin) - currently in NSR on tele (personally interpreted) # hypotension - symptomatic, likely 2/2 low EF, checking orthostatics today to gauge degree, counseled patient to adjust positions carefully # acute hyponatremia - worsening, will receive HD, repeat level in AM # acute encephalopathy - resolved # DM2 - diet controlled diet. cardiac, NPO in MN code. full ppx. high risk, lovenox 40 while INR < 2 dispo. ADD pending AICD High level of medical complexity, high risk worsening morbidity/mortality 2/2 issues outlined above. Subjective: no pain, lightheadedness w/ standing Objective: Vital Signs Temp Pulse Resp BP Pulse Ox 36.4 C 80 14 86/52 L 95 02/10/18 07:52 02/10/18 07:52 02/10/18 07:52 02/10/18 07:52 02/10/18 07:52 Laboratory Results 02/08/18 03:16 02/10/18 03:15 02/09/18 02/10/18 02/11/18 05:59 05:59 05:59 Intake Total 940 800 Output Total 100 175 125 Balance 840 625 -125 PT 20.4 SEC (12.0-15.0) H 02/10/18 03:15 INR 1.73 (0.83-1.16) H 02/10/18 03:15 - Pending Discharge Pending Discharge Within 48 Hours: Yes Pending Discharge Date: 02/12/18 Pending Discharge Time: 11:00 - Physical Exam Constitutional: no apparent distress, appears nourished, not in pain, No uncomfortable Cardiovascular: systolic murmur (II/ at apex), No irregularly irregular, No tachycardia, No edema Respiratory: no respiratory distress, no rales or rhonchi, clear to auscultation Gastrointestinal: normoactive bowel sounds, soft, non-tender abdomen, no palpable masses, No distension Neurologic: AAOx3, sensation intact bilaterally, No weakness Psychiatric: interacting appropriately, not anxious, not encephalopathic, thought process linear ICD10 Worksheet Patient Problems: Problems Problem Status Onset Anasarca Acute Pulmonary hypertension Acute Chronic Disease Mgmt/Transitional Care Acute Diabetic infection of left foot Acute Heart failure Acute Renal insufficiency Acute Acute exacerbation of congestive heart failure Acute
--- NOTE | 2018-02-10 10:30 | SOAPPROG ---
SOAP Progress Note Assessment/Plan: Assessment: 1. esrd: now established on hd, [facility] spot [facility] [address] on mwf schedule. S/p avf placement by Dr. Simmons 02/02, will dialyze via cath until matures in approx 2 months. Hold add'l uf as appears dry and struggling with hypotension. Hd today, will cont mwf schedule until d/c. 2. chf: now appears dry, hypotensive. Coreg held. For ICD, ?here vs as outpt. 3. uremia: resolved. 4. hypotension: coreg held, is likely dry at this point s/p aggressive uf on hd. Hold uf for now. Plan: 02/03/18 13:41 02/10/18 10:27 02/10/18 10:30 Subjective: Feeling well except for being "wiped out" s/p hd. Objective: Vital Signs Temp Pulse Resp BP Pulse Ox 36.4 C 80 14 86/52 L 95 02/10/18 07:52 02/10/18 07:52 02/10/18 07:52 02/10/18 07:52 02/10/18 07:52 Laboratory Results 02/08/18 03:16 02/10/18 03:15 02/09/18 02/10/18 02/11/18 05:59 05:59 05:59 Intake Total 940 800 Output Total 100 175 125 Balance 840 625 -125 PT 20.4 SEC (12.0-15.0) H 02/10/18 03:15 INR 1.73 (0.83-1.16) H 02/10/18 03:15 Physical Exam - Physical Exam General Appearance: no apparent distress Neck: other (no jvd) Respiratory: normal breath sounds Cardiac/Chest: irregularly irregular Abdomen: non-tender, soft Extremities: pedal edema (none), other (+patent LUE avf) ICD10 Worksheet Patient Problems: Problems Problem Status Onset Acute exacerbation of congestive heart failure Acute Anasarca Acute Chronic Disease Mgmt/Transitional Care Acute Diabetic infection of left foot Acute Heart failure Acute Pulmonary hypertension Acute Renal insufficiency Acute
[2018-02-10] MEDS ORDERED: ceFAZolin 2 GM/DEXTROSE 100 ML IV ONE (12:04)
[2018-02-10] MEDS ORDERED: BACITRACIN IRRIGATION/NS 50,000 UNITS/1,000 ML BTL IRR ONE (12:04)
--- NOTE | 2018-02-10 14:03 | PDCARPN ---
Cardiology Progress Note Chief Complaint: Syncope Assessment/Plan: Assessment: The patient is a 67 y/o M with a history of NICMP, valvular heart disease, NSVT , atrial fibrillation, and ESRD on HD admitted with syncope related to hypotension. A recent echo showed a EF of 20-25% with moderate to severe MR. He had a consultations with Dr. Baker to discuss a ICD and decided to proceed. Unfortunately, he had breakfast this morning and therefore will be scheduled for tomorrow with Dr. Kat. His INR is subtherapeutic at 1.7. The risk, benefits, and alternatives of the procedure have been discussed with the patient and his and they would like to proceed. 02/10/18 15:24 Subjective: Pt denies any CP or SOB. Reviewed/Discussed With: hospitalist Objective: Vital Signs (8 Hrs) Temp Pulse Resp BP Pulse Ox 02/10/18 07:52 36.4 C 80 14 86/52 L 95 Intake/Output (24 Hrs) 02/09/18 02/10/18 02/11/18 05:59 05:59 05:59 Intake Total 940 800 Output Total 100 175 125 Balance 840 625 -125 Intake: Oral (ml) 940 800 Output: Urine (ml) 100 175 125 Toilet 100 Urinal 100 75 125 Other: Weight 107 kg Number of Voids Toilet 1 Urinal 1 Number of Stools Bedside Commode 0 Toilet 1 Result Diagrams: 02/08/18 03:16 02/10/18 03:15 - Physical Exam Constitutional: no apparent distress Cardiovascular: irregularly irregular Neurologic: AAOx3 ICD10 Worksheet Patient Problems: Problems Problem Status Onset Acute exacerbation of congestive heart failure Acute Anasarca Acute Chronic Disease Mgmt/Transitional Care Acute Diabetic infection of left foot Acute Heart failure Acute Pulmonary hypertension Acute Renal insufficiency Acute
[2018-02-10] MEDS ORDERED: HEPARIN 50,000 UNIT/10 ML VIAL ONE (18:43)
[2018-02-10] MEDS: HYDROCODONE/APAP 5/325 TAB PO PRN (22:46)
[2018-02-10] MEDS: ASPIRIN EC 81 MG TAB PO SCH (22:46)
[2018-02-11 04:03] LABS: PLATELET COUNT 135 10^3/uL (150-400)
[2018-02-11 04:12] LABS: INR 1.42 (0.83-1.16); PROTIME(PATIENT) 17.5 SEC (12.0-15.0)
[2018-02-11] MEDS ORDERED: ceFAZolin 2 GM/DEXTROSE 100 ML IV ONE (06:00)
[2018-02-11] MEDS ORDERED: BACITRACIN IRRIGATION/NS 50,000 UNITS/1,000 ML BTL IRR ONE (06:00)
[2018-02-11] MEDS: AMIODARONE HCL 200 MG TAB PO SCH (07:44)
[2018-02-11] MEDS: LEVOTHYROXINE 75 MCG TAB PO SCH (07:44)
[2018-02-11] MEDS: FAMOTIDINE 20 MG TAB PO SCH (07:44)
[2018-02-11] MEDS: SENNOSIDES/DOCUSATE SODIUM TAB PO SCH ×2 (07:45→22:51)
--- NOTE | 2018-02-11 08:51 | PDPROPOC ---
Sedation Plan of Care Sedation Plan of Care: vital signs stable, mental status noted, patient educated of risks, benefits, alternatives, patient can tolerate sedation ASA Classification: ASA 2 Planned drugs: fentanyl, midazolam Mallampati Score: Class 1 Mallampati Reference Image: Patient passed 3-3-2 rule?: Yes
[2018-02-11] MEDS ORDERED: LIDO/EPI 1% **for epidural** 30 ML SDV ONE (08:57)
[2018-02-11] MEDS ORDERED: IOPAMIDOL (ISOVUE-300) 50 ML VIAL ONE (08:57)
[2018-02-11] MEDS ORDERED: fentaNYL 100 MCG/2 ML INJ ONE (08:57)
[2018-02-11] MEDS ORDERED: LIDOCAINE 1% 300 MG/30 ML SDV ONE (08:57)
[2018-02-11] MEDS ORDERED: MIDAZOLAM 2 MG/2 ML VIAL ONE (08:57)
[2018-02-11] MEDS ORDERED: BUPIVACAINE 0.5% 30 ML SDV ONE (08:58)
--- NOTE | 2018-02-11 09:32 | PDHPUP ---
History & Physical Update H&P update statement: This history and physical update is based on an assessment of the patient which was completed after admission or registration (within 24 hours), but prior to the surgery/procedure. H&P update: H&P reviewed & patient examined (AV fistula in the left arm with dialysis catheter in the right. Access increased risk. No sign of secondary infection. Will proceed with ICD from the left.), no change in patient's condition since H&P completed
--- NOTE | 2018-02-11 09:32 | SOAPPROG ---
SOAP Progress Note Assessment/Plan: Assessment/Plan: ESRD: newly started on HD. - Will plan on HD again tomorrow on MWF schedule. - Pt has outpatient chair set up at [address] on MWF. Hypervolemia: markedly improved, will continue to modulate on HD. Hyponatremia: will modulate on HD. Hypotension: Coreg held, will continue to monitor. CINDY: pt not on phos binder, will continue to monitor. Anemia: no need for epo at this time, will continue to monitor. Subjective: No acute events overnight. Pt is going for AICD placement today. He has no chest pain or dyspnea. He notes his swelling is markedly down. He has no other complaints this am. Objective: Vital Signs Temp Pulse Resp BP Pulse Ox 37.0 C 80 15 91/57 L 98 02/11/18 08:00 02/11/18 08:00 02/11/18 08:00 02/11/18 08:00 02/11/18 08:00 Laboratory Results 02/11/18 03:48 02/11/18 03:48 02/10/18 02/11/18 02/12/18 05:59 05:59 05:59 Intake Total 800 300 Output Total 175 150 Balance 625 150 PT 17.5 SEC (12.0-15.0) H 02/11/18 03:48 INR 1.42 (0.83-1.16) H 02/11/18 03:48 General: alert and oriented, no acute distress Eyes: EOMI, PERRL OP: Clear CV: RRR Resp: nonlabored respirations Abd: Soft, NT/ND Ext: trace edema BLE Neuro: CN II-XII Grossly intact, no asterixis Psych: cooperative, appropriate mood and affect Access: RIJ tunneled catheter ICD10 Worksheet Patient Problems: Problems Problem Status Onset Acute exacerbation of congestive heart failure Acute Anasarca Acute Chronic Disease Mgmt/Transitional Care Acute Diabetic infection of left foot Acute Heart failure Acute Pulmonary hypertension Acute Renal insufficiency Acute
--- NOTE | 2018-02-11 10:24 | PDCTREPORT ---
Cardiothoracic Procedure Rpt Cardiothoracic Procedure Report: Procedure: Implantation of a single-chamber ICD in the setting of syncope nonsustained ventricular tachycardia. After obtaining informed consent patient was brought to the cardiac catheterization lab in the fasting state. Of note, the patient is on dialysis. He has had a prolonged hospitalization with a newly placed AV fistula in the left arm. He has a chronic indwelling hemodialysis catheter in the right chest. After reviewing options it was elected to implant the ICD in the left subclavian fossa. Left subclavian fossa was sterilely prepped and draped. Using an 18 gauge percutaneous needle the subclavian vein on the left was entered. A guidewire advanced into the right heart. Using a 10 blade an incision was made including the guidewire. Using a combination of sharp and blunt dissection a pacemaker pocket was created. A bacitracin soaked sponge was placed in the pocket. Using a 7 Algerian safety sheath lead was advanced into the RV apex. Appropriate sensitivities and thresholds were confirmed. The sheath was torn away. The lead was secured to the fascia using 0 Ethibond x2. It was evaluated under fluoroscopy to assure ourselves there was enough slack. Bacitracin soaked sponge was removed. The pocket was copiously irrigated. A ICD generator was delivered to the field. It was attached to the lead. Set screws were tightened per industry standards. The entire system was coiled in the pocket. Standard three-layer closure was used to close the incision. Pressure dressing was applied the patient is taken to recovery for continued care. Under fluoroscopy there was good lead position with no obvious pneumothorax. The device is a Ilivia 7 VR-T serial [id number] Lead is a Plexa Pro MRI S 65 serial [id number] Right ventricular sensing is 7.9 mV. Impedance is 552 Ohms capture at 0.6 volts with a pulse with a 0.4 milliseconds. VF detection is greater than 207. VT detection greater than 171. VT therapies are ATP x3 with 40 joules x8. VF therapies are ATP x1 with 40 joules x8. Conclusions: Successful implantation of a single-chamber ICD. Chest x-ray pending. Patient Problems: Problems Problem Status Onset Anasarca Acute Pulmonary hypertension Acute Chronic Disease Mgmt/Transitional Care Acute Diabetic infection of left foot Acute Heart failure Acute Renal insufficiency Acute Acute exacerbation of congestive heart failure Acute
[2018-02-11] MEDS: ALLOPURINOL 100 MG TAB PO SCH (13:51)
--- NOTE | 2018-02-11 15:52 | ASMTCMCOM ---
CM Note CM Note Notes: CM called Ellie with surgery. Ellie does notaries here at the hospital. Ellie met w/ the pt and . Ellie reports that she is unable to notarize [facility] paperwork. Pt and was understanding. Updates sent to [facility]. CM to follow. Plan: [facility] Date Signed: 02/11/2018 03:51 PM Electronically Signed By:ORLANDO Diaz
--- NOTE | 2018-02-11 17:38 | HOSPPROG ---
Hospitalist Progress Note Assessment/Plan: Assessment: 67M p/w with evolution of ESRD, NICM, a-fib, admitted for acute encephalopathy 2/2 uremia requiring emergent HD Plan: # ESRD - AV fistula placed, currently receiving HD through R chest cath -outpt HD via tunneled catheter -d/w Dr. Crowell, she recommends HD in AM prior to DC, then will f/u MWF # VT - continues to have episodes, likely triggered by cardiomyopathy -holding bblocker given relative hypotension -cont amio 400mg daily -d/w [employer], RALF w/o complication today, will perform device check prior to DC and arrange outpt f/u # non-ischemic cardiomyopathy, chronic systolic CHF - compensated - last EF 20%, unable miles ACEi or bblocker # CAD, non-obstructive - cont asa # a-fib - hold BB, systemic anticoagulation indicated for CVA ppx (coumadin) - currently in NSR on tele (personally interpreted) # hypotension - symptomatic, likely 2/2 low EF # acute hyponatremia - stabilized s/p HD, repeat level in AM # acute encephalopathy - 2/2 metabolic effects of uremia, patient's confirms with me today that patient's mental status was significantly impaired from his baseline, which is what occasioned his presentation, and has improved w / his HD # DM2 - diet controlled diet. cardiac code. full ppx. high risk, lovenox 40 while INR < 2 dispo. ADD 02/12 Counseled patient and extensively regarding issues above, as well as reassured them that at rehab, he will have OT recs that match his LUE ROM restrictions from AICD Subjective: mild L chest pain at surg site Objective: Vital Signs Temp Pulse Resp BP Pulse Ox 36.6 C 66 21 H 83/47 L 98 02/11/18 16:00 02/11/18 16:00 02/11/18 16:00 02/11/18 16:00 02/11/18 16:00 Laboratory Results 02/11/18 03:48 02/11/18 03:48 02/10/18 02/11/18 02/12/18 05:59 05:59 05:59 Intake Total 800 300 500 Output Total 175 150 100 Balance 625 150 400 PT 17.5 SEC (12.0-15.0) H 02/11/18 03:48 INR 1.42 (0.83-1.16) H 02/11/18 03:48 - Time Spent With Patient Time Spent with Patient: greater than 35 minutes Time Spent with Patient: Greater than 35 minutes spent on this patients care, greater than 50% of time spent counseling, educating, and coordinating care regarding the above mentioned plan. - Pending Discharge Pending Discharge Within 24 Hours: Yes Pending Discharge Date: 02/12/18 Pending Discharge Time: 11:00 - Physical Exam Constitutional: no apparent distress, appears nourished, uncomfortable Cardiovascular: regular rate and rhythym, no murmur, rub, or gallop, edema ( mild bilat LE) Respiratory: no respiratory distress, no rales or rhonchi, clear to auscultation Gastrointestinal: normoactive bowel sounds, soft, non-tender abdomen, no palpable masses Skin: other (mild, non-tender/non-indurated ecchymoses inferiorly along pocket w /o erythema) Neurologic: AAOx3 Psychiatric: interacting appropriately, not anxious, not encephalopathic, thought process linear ICD10 Worksheet Patient Problems: Problems Problem Status Onset Anasarca Acute Pulmonary hypertension Acute Chronic Disease Mgmt/Transitional Care Acute Diabetic infection of left foot Acute Heart failure Acute Renal insufficiency Acute Acute exacerbation of congestive heart failure Acute
[2018-02-11] MEDS: ACETAMINOPHEN 325 MG TAB PO PRN ×2 (18:40→22:27)
[2018-02-11] MEDS: ASPIRIN EC 81 MG TAB PO SCH (22:29)
[2018-02-12 05:29] LABS: PLATELET COUNT 136 10^3/uL (150-400)
[2018-02-12 06:25] LABS: INR 1.27 (0.83-1.16); PROTIME(PATIENT) 16.1 SEC (12.0-15.0)
[2018-02-12] MEDS: FAMOTIDINE 20 MG TAB PO SCH (07:40)
[2018-02-12] MEDS: LEVOTHYROXINE 75 MCG TAB PO SCH (07:40)
--- NOTE | 2018-02-12 07:41 | PDCARPN ---
Cardiology Progress Note Chief Complaint: Follow-up post ICD placement Assessment/Plan: Assessment: Successful implantation of a single-chamber ICD in the setting of a nonischemic cardiomyopathy reduced LV systolic function with syncope and ventricular tachycardia. Day 2 chest x-ray pending. Pacemaker interrogation pending. Wound check 1 week. Optimization of device at 30 days. 02/12/18 07:40 Subjective: Uneventful night. Postop chest x-ray revealed no pneumothorax. Telemetry overnight revealed no significant dysrhythmia. Objective: Vital Signs (8 Hrs) Temp Pulse Resp BP Pulse Ox 02/12/18 04:00 36.4 C 76 16 91/56 L 96 Intake/Output (24 Hrs) 02/11/18 02/12/18 02/13/18 05:59 05:59 05:59 Intake Total 300 1280 Output Total 150 150 Balance 150 1130 Intake: Oral (ml) 300 1280 Output: Urine (ml) 150 150 Toilet 25 100 Urinal 125 50 Other: Weight 107.7 kg Number of Voids Toilet 1 2 Urinal 1 Number of Stools Toilet 4 Chest x-ray reviewed no pneumothorax. Lead well placed. Result Diagrams: 02/12/18 04:43 02/12/18 04:43 - Physical Exam Constitutional: no apparent distress Cardiovascular: regular rate and rhythm, other (ICD incision free of erythema or edema. Dressing intact.) ICD10 Worksheet Patient Problems: Problems Problem Status Onset Acute exacerbation of congestive heart failure Acute Anasarca Acute Chronic Disease Mgmt/Transitional Care Acute Diabetic infection of left foot Acute Heart failure Acute Pulmonary hypertension Acute Renal insufficiency Acute
[2018-02-12] MEDS: ALLOPURINOL 100 MG TAB PO SCH (08:46)
[2018-02-12] MEDS: AMIODARONE HCL 200 MG TAB PO SCH (08:46)
[2018-02-12] MEDS: SENNOSIDES/DOCUSATE SODIUM TAB PO SCH (09:39)
--- NOTE | 2018-02-12 11:48 | SOAPPROG ---
SOAP Progress Note Assessment/Plan: Assessment: 1. esrd: now established on hd, has spot at [facility] [address] on mwf schedule. S/p avf placement by Dr. Simmons 02/02, will dialyze via cath until matures in approx 2 months. Hold add'l uf as appears dry and struggling with hypotension. Hd today, presumably can start at [facility] on Thursday. 2. chf: now appears euvolemic. s/p ICD. Coreg held due to hypotension. 3. uremia: resolved. 4. hypotension: coreg held, is likely dry at this point s/p aggressive uf on hd. Hold add'l uf for now. Plan: 02/03/18 13:41 02/10/18 10:27 02/10/18 10:30 02/12/18 11:46 Subjective: s/p AICD yesterday. Feels well. For hd later today. Objective: Vital Signs Temp Pulse Resp BP Pulse Ox 36.7 C 74 16 88/47 L 99 02/12/18 08:00 02/12/18 08:00 02/12/18 08:00 02/12/18 08:00 02/12/18 08:00 Laboratory Results 02/12/18 04:43 02/12/18 04:43 02/11/18 02/12/18 02/13/18 05:59 05:59 05:59 Intake Total 300 1280 Output Total 150 150 150 Balance 150 1130 -150 PT 16.1 SEC (12.0-15.0) H 02/12/18 04:35 INR 1.27 (0.83-1.16) H 02/12/18 04:35 Physical Exam - Physical Exam General Appearance: no apparent distress Respiratory: lungs clear (anteriorly) Cardiac/Chest: regular rate, rhythm Abdomen: non-tender, soft Extremities: pedal edema (none) ICD10 Worksheet Patient Problems: Problems Problem Status Onset Acute exacerbation of congestive heart failure Acute Anasarca Acute Chronic Disease Mgmt/Transitional Care Acute Diabetic infection of left foot Acute Heart failure Acute Pulmonary hypertension Acute Renal insufficiency Acute
--- NOTE | 2018-02-12 14:16 | CPEKG ---
Test Reason : Post-pacemaker placement Blood Pressure : / mmHG Vent. Rate : 064 BPM Atrial Rate : 000 BPM P-R Int : 187 ms QRS Dur : 145 ms QT Int : 485 ms P-R-T Axes : 000 266 065 degrees QTc Int : 501 ms Afib/flut and V-paced complexes Confirmed by Nakul Mitchell ([id number]) on 02/12/2018 2:16:25 PM Referred By: Confirmed By:Nakul Mitchell
--- NOTE | 2018-02-12 14:18 | CPEKG ---
Test Reason : OPEN Blood Pressure : / mmHG Vent. Rate : 069 BPM Atrial Rate : 000 BPM P-R Int : 170 ms QRS Dur : 143 ms QT Int : 434 ms P-R-T Axes : 000 -78 105 degrees QTc Int : 465 ms Atrial fibrillation Ventricular premature complex Paced complexes Left bundle branch block Confirmed by Nakul Mitchell ([id number]) on 02/12/2018 2:17:41 PM Referred By: Confirmed By:Nakul Mitchell
[2018-02-12] MEDS ORDERED: WARFARIN SODIUM 3 MG TAB PO SCH (16:00)
--- NOTE | 2018-02-12 16:16 | PDIAF ---
- Diagnosis Diagnosis: ESRD started on HD, PPM/AICD placement Code Status: Full Code - Medication Management Discharge Medications: Medications to Continue on Transfer Aspirin EC [Aspirin EC 81 mg (*)] 81 mg PO HS 04/22/16 [Last Taken 01/31/18] Levothyroxine [Synthroid 75 mcg (*)] 75 mcg PO DAILY@04/22/16 [Last Taken ] Acetaminophen [Tylenol 325mg (*)] 325 mg PO Q6HRS PRN 02/01/18 [Last Taken Unknown] Famotidine [Pepcid 20 MG (*)] 20 mg PO DAILY@02/01/18 [Last Taken 01/31/18] Sodium Chloride [[place]] 1 gissell NS DAILY PRN 02/01/18 [Last Taken Unknown] Vitamin B Complex [Vitamin B Complex (OTC)] 1 each PO DAILY 02/01/18 [Last Taken 01/31/18] Warfarin Sodium [Coumadin 3MG (*)] 3 mg PO WEFR@02/01/18 [Last Taken 1 Week Ago ~01/25/18] Warfarin Sodium [Coumadin 4MG (*)] 4 mg PO SUMOTUTHSA@02/01/18 [Last Taken 1 Week Ago ~01/25/18] Allopurinol [Allopurinol 100 MG (*)] 100 mg PO DAILY tab 02/12/18 [Last Taken Unknown] Amiodarone HCl [Pacerone (*)] 400 mg PO DAILY tab 02/12/18 [Last Taken Unknown] Sennosides/Docusate Sodium [Senokot-S] 1 - 2 tab PO BID tab 02/12/18 [Last Taken Unknown] Sodium Cl Nasal [[place] (*)] 1 spray EACHNARE DAILY PRN btl 02/12/18 [ Last Taken Unknown] Discharge Medications: Refer to the Discharge Home Medication list for PRN reason. PICC Care - Routine: N/A - Orders Services needed: Registered Nurse, Physical Therapy, Occupational Therapy Isolation Type: None Oxygen: RA Diet Recommendation: potassium restricted (renal diet) Weigh Patient: daily Rosario: Not applicable Wound Care Instructions: Keep wound clean and dry. We will remove the dressing at your follow up visit in one week. Activity/Weight Bearing Restrictions: No lifting more then 10 pounds for 4 weeks. No lifting your hand above your head for 4 weeks. Additional Instructions: Pacer precautions: No lifting more then 10 pounds for 4 weeks. No lifting your hand above your head for 4 weeks. Keep wound clean and dry. We will remove the dressing at your follow up visit in one week. You are scheduled for a wound check and pacer interrogation 02/19 at 11. You are scheduled to see Dr. Maldonado on 03/15 at 3. Please arrive 15 minutes prior to your schedule appointment time. - Labs/Radiology PT/INR Date: 02/15/18 Call or Fax Lab and Imaging Results to: Dr. Maldonado - Follow Up Care Current Providers and Referrals: Brigido Maldonado MD [Medical Doctor] - 03/15/18 2:45 pm Lucy Esparza MD [Primary Care Provider] - [employer]olly [employer] PA [Physician Manager Of Transportation] - 02/19/18 10:45 am (AICD check, wound check) Megan Crowell MD [Medical Doctor] - (as needed, will be seen at dialysis center )
--- NOTE | 2018-02-12 16:26 | PDDCSUM ---
Discharge Summary Discharge Summary: DISCHARGE SUMMARY FOLLOW-UP ITEMS: Outpatient Thursday dialysis Follow-up INR on 02/[address] Maldonado Blood cultures to be followed up by Dr. Crowell DATE OF ADMISSION: 02/01/2018 DATE OF DISCHARGE: 02/12/2018 DISCHARGE DIAGNOSES: 1. End-stage renal disease 2. Ventricular tachycardia 3. Nonischemic cardiomyopathy with chronic systolic congestive heart failure 4. Chronic coronary artery disease 5. Paroxysmal atrial fibrillation 6. Chronic hypotension 7. Acute hyponatremia 8. Acute encephalopathy CONSULTATIONS: Cardiology, nephrology, General surgery, electrophysiology PROCEDURES / IMAGING: Right chest dialysis catheter placed Left AV fistula placed 02/11/2018 single chamber ICD CHIEF COMPLAINT: Acute encephalopathy SUBJECTIVE: Patient is feeling well at time discharge, he is cognitively clear PHYSICAL EXAM ON DISCHARGE: Systolic blood pressure 80 to 100, heart rate 70, afebrile overnight, satting well on room air, heart rhythm is irregularly irregular, lower extremities have trace edema, chronic stasis dermatitis hyperpigmentation distally, lungs are clear to auscultation bilaterally, no significant erythema or induration over the AV fistula, right chest catheterization, ICD site, inferior ecchymoses from the ICD site LABS ON DISCHARGE: White blood cell count 8000, hemoglobin 12.3, INR 1.3, serum sodium 130, serum bicarbonate 25, creatinine 5.1, BUN 56 HOSPITAL COURSE BY PROBLEM: The patient presented with acute encephalopathy characterized as significant confusion and cognitive impairment which was a significant change from his baseline, witnessed by the patient's , resulting in head presentation. These mental status changes were most likely secondary to the metabolic effects of uremia, which the patient was identified as having, and his mental status improved after receiving hemodialysis. He received dialysis through a right chest cath placed by Dr. Simmons, the patient also had a left-sided AV fistula placed, will require 2 months of maturation. In the meantime, the patient will be continued on Thursday dialysis through his right chest catheterization, under the direction of Dr. Crowell in the outpatient setting. He received significant volume removal during this hospitalization, and his weight is substantially improved from presentation. We did discontinue his diuretics, as the patient received adequate volume removal with dialysis. We also discontinued his beta-juanita given his chronically low blood pressure, most likely secondary to his nonischemic cardiomyopathy. He did not demonstrate decompensation of his chronic systolic congestive heart failure, and his last known ejection fraction was 20%. He did experience ventricular tachycardia which is most likely triggered by his poor ejection fraction, and consultation by electrophysiology recommended ICD placement. He received ICD placement and will return to [facility] next week for wound check and device interrogation. His Coumadin was held prior to this procedure, and has been subsequently re-initiated, with outpatient INR check next week. Of note, patient did experience some chills on the day of discharge, and given his numerous procedures, the patient is at risk for bacteremia. That being said , his white blood cell count was normal, he is afebrile, and at the time of discharge, I do not believe that the patient is bacteremic. Blood cultures were drawn, and should be followed up by his outpatient technical instructor course developer who will be seeing him regularly through dialysis. DISCHARGE MEDICATIONS: Please see official discharge medication reconciliation sheet in chart , discontinuation of Coreg, diuretics, reduction in output urine all to 100 mg daily, continuation of Coumadin and aspirin, initiation of amiodarone 400 mg daily. DISCHARGE INSTRUCTIONS: Please follow up with dialysis next week as scheduled, [facility] thereafter. TIME SPENT: Greater than 30 minutes were spent on direct patient care, as well as discharge planning and preparation.
--- NOTE | 2018-02-12 16:57 | ASMTDCNOTE ---
Case Management Discharge Discharge Order Complete? Answers: Yes Patient to Obtain Answers: Other Notes: [facility] Medications Transportation Arranged Answers: Other Notes: Francisco J [facility] W/C Transport will Pick (Date 02/12/2018 06:00 PM & Time) EMTALA Complete Answers: No Case Management Transport Answers: Yes Form Complete Faxed Final Orders Answers: Yes Agency/Facility Transfer Answers: Yes Report Printed & Faxed to Receiving Agency Family Notified Answers: Yes Discharge Comments Notes: Pts case discussed w/ Dr. Sosa. Pt is being discharged today to [facility] in [place]. DC orders sent. CARYL provided ANJANA Dinh w/ phone number to give report. CARYL spoke to [facility] at [facility] [address] [address] in [place]. She will be expecting pt at 7AM on Thursday. [facility] will bring pt to dialysis MWF to [facility] [address]. CARYL left a msg to notify of the d/c. CM available for changes. Plan: [facility] Date Signed: 02/12/2018 04:41 PM Electronically Signed By:ORLANDO Diaz
--- NOTE | 2018-02-12 16:58 | ASDISCHSUM ---
Discharge Information Plan Status:SNF Medically Cleared to Leave:02/12/2018 Discharge Date:02/12/2018 CM D/C Disposition: ADT D/C Disposition:Long Term Facility Projected Discharge Date:02/12/2018 11:00 AM Transportation at D/C: Discharge Delay Reason: Follow-Up Date:02/12/2018 11:00 AM Discharge Slot: Final Diagnosis: Placement Information Referral Type:*Fci/SNF Referral ID:[id number] Provider Name:Cb choudhury [place] Address 1:[address] Address 2: City:[place] Selection Factors: State:[place] Patient Contact Information Contact Name:MOSHESERGEYTHONY Relationship: Address:[address] Work Phone: [facility]:[place] Alternate Phone: State/Zip Code:[place] [address] Email: Financial Information Financial Class:Medicare Primary Plan Desc:MEDICARE INPATIENT Primary Plan Number:[id number] Secondary Plan Desc:NAKUL CLARK BEREA Secondary Plan Number:[id number] Assessment Information [facility] CM Progress Note CM Note CM Note Notes: 02/01/2018 Case Management Note Pt discussed during rounds this morning. Pt admitted from [facility] for renal failure. Planning for dialysis. Pt is known to case management with recent discharge from on 11/27/2017. Pt discharged to [facility]. Pt had palliative consult during the November admission. Discharged with [facility] Palliative outpatient support. Notified Palliative team of admission. El planning to meet pt tomorrow. Case Management d/c poc: to be determined. Case Management will follow. Date Signed: 02/01/2018 02:16 PM Electronically Signed By:Kassidy Mitchell RN LACE TALA Length of stay for Answers: 7-13 days current admission Acuity / Level of Answers: Yes Care: Did the patient have an inpatient admission? Comorbidities - select Answers: Congestive heart failure all that apply Diabetes (uncontrolled or controlled) Other Notes: HTN; AFib # of Emergency department Answers: 1-2 visits in the last 6 months Score: 13 Date Signed: 02/12/2018 04:42 PM Electronically Signed By:ORLANDO Diaz [facility] CARYL Progress Note CARYL Bowles CM Note Notes: CARYL spoke to ANJANA Kong and Dr. Pierre regarding d/c POC. PT is recommending SNF. A new referral sent to [facility] (P#: [phone]). The doctor following will be Dr. Hanson. CARYL spoke to pts Maite (P#: [phone]) on the phone. She wants to hold off on referrals to SNFs. She reports that pt was doing very well at home and needed very little assistance. CM to follow. Plan: TBD Date Signed: 02/03/2018 02:17 PM Electronically Signed By:ORLANDO Diaz [facility] CARYL Progress Note CARYL Note CARYL Note Notes: 02/05/2018 Case Management Note Met w/pt to discuss discharge plans. Faxed referrals to [facility], [facility] and [facility]. [facility] declined pt d/t dialysis. [facility] accepted pt. At pt request called Maite to discuss. Maite to tour [facility] but in agreement. Kathy from [facility] visited pt and can be reached at [phone] for discharge transportation when needed. Case Management d/c poc: [facility] rehab in [place]. Case Management to follow. Date Signed: 02/05/2018 02:13 PM Electronically Signed By:Kassidy Mitchell RN [facility] CM Progress Note CM Note CM Note Notes: 02/05/2018 Case Management Note Received phone call from Nicky from the [facility] on requesting Hep B panel results, current medications and flow sheets from dialysis. Faxed all to [phone]. Confirmed receipt. Nikcy cell phone [phone]. Nick[facility] accepted pt and [facility] after d/c. Date Signed: 02/05/2018 04:08 PM Electronically Signed By:Kassidy Mitchell RN [facility] CM Progress Note CM Note CM Note Notes: 02/06/2018 Case Management Note Confirmed with Nicky [phone] pt has chair time on Thursday02/08/2018 at 13:00. Pt to arrive by 12:30 pm to [facility] in [place]. Pt to have dialysis MWF. Discussed with Shira [phone] from [facility]. Shira has arranged transport from [facility] to the [facility] for Thursday. Case Management d/c poc: Anticipating d/c tomorrow to [facility] rehab Case Management to follow. Date Signed: 02/06/2018 04:19 PM Electronically Signed By:Kassidy Mitchell RN [facility] CM Progress Note CM Note CM Note Notes: 02/07/2018 Case Management Note Discussed with MD. Aguiar to have further cardiac evaluation. Notified [facility] rehab. Cancelled Thursday chair time at the [facility] in [place]. Will reschedule once d/c date becomes clear. Case Management d/c poc: [facility] rehab Case Management to follow. Date Signed: 02/07/2018 01:59 PM Electronically Signed By:Kassidy Mitchell RN [facility] CM Progress Note CM Note CM Note Notes: Rounded on this patient with Dr. Trevizo. He and is had concerns about patients status and prognosis. They want to redo MOST form and would like a notary to come to the patient's room. They report they have enough support at home. He is to go to [facility] upon discharge and will begin outpatient dialysis at the [facility] in [place] on MW with a chair time of 7am. He was seen by EP high school counselor and his input is still pending. CM to follow. Plan: [facility] with outpatient dialysis, Date Signed: 02/09/2018 04:33 PM Electronically Signed By:Lidia Danielle RN [facility] Progress Note CM Note CM Note Notes: CARYL called Ellie with surgery. Ellie does notaries here at the hospital. Ellie met w/ the pt and . Ellie reports that she is unable to notarize [employer] paperwork. Pt and was understanding. Updates sent to [facility]. CARYL to follow. Plan: [facility] SNF Date Signed: 02/11/2018 03:51 PM Electronically Signed By:ORLANDO Diaz Case Management Discharge Plan Note Case Management Discharge Discharge Order Complete? Answers: Yes Patient to Obtain Answers: Other Notes: [facility] Transportation Arranged Answers: Other Notes: [facility] will Pick (Date 02/12/2018 06:00 PM & Time) EMTALA Complete Answers: No Case Management Transport Answers: Yes Form Complete Faxed Final Orders Answers: Yes Agency/Facility Transfer Answers: Yes Report Printed & Faxed to Receiving Agency Family Notified Answers: Yes Discharge Comments Notes: Pts case discussed w/ Dr. Sosa. Pt is being discharged today to [facility] in [place]. DC orders sent. CARYL provided ANJANA Dinh w/ phone number to give report. CARYL spoke to Hannah at [facility] in [place]. She will be expecting pt at 7AM on Thursday. [facility] will bring pt to dialysis MWF to [facility]. CARYL left a msg to notify of the d/c. CM available for changes. Plan: [facility] SN[facility] Date Signed: 02/12/2018 04:41 PM Electronically Signed By:ORLANDO Diaz Intervention Information
[2018-02-12 17:56] VITALS: BP 114/83
== END 2018-02-12 18:54 | DRG 673 ==
LOC: F2N 09:15 → EDSTATUS 02-02 14:45 → F2W 02-02 19:53
PROVIDERS: ADMIT Internal Medicine; ATTEND Internal Medicine
PROC: 02H633Z Insertion of Infusion Device into Right Atrium, Percutaneous Approach (ICD-10-PCS; 2018-02-01)
PROC: 30233K1 Transfusion of Nonautologous Frozen Plasma into Peripheral Vein, Percutaneous Approach (ICD-10-PCS; 2018-02-01)
PROC: 5A1D70Z Performance of Urinary Filtration, Intermittent, Less than 6 Hours Per Day (ICD-10-PCS; 2018-02-02)
PROC: 031809F Bypass Left Brachial Artery to Lower Arm Vein with Autologous Venous Tissue, Open Approach (ICD-10-PCS; principal; 2018-02-02 14:45)
PROC: 02HK3KZ Insertion of Defibrillator Lead into Right Ventricle, Percutaneous Approach (ICD-10-PCS; 2018-02-11)
PROC: 0JH607Z Insertion of Cardiac Resynchronization Pacemaker Pulse Generator into Chest Subcutaneous Tissue and Fascia, Open Approach (ICD-10-PCS; 2018-02-11)
DX: N17.9 Acute kidney failure, unspecified (principal); G93.49 Other encephalopathy; I13.2 Hypertensive heart and chronic kidney disease with heart failure and with stage 5 chronic kidney disease, or end stage renal disease; I50.22 Chronic systolic (congestive) heart failure; N18.6 End stage renal disease; I47.2 Ventricular tachycardia; I42.9 Cardiomyopathy, unspecified; E87.1 Hypo-osmolality and hyponatremia; I25.10 Atherosclerotic heart disease of native coronary artery without angina pectoris; I48.0 Paroxysmal atrial fibrillation; E11.9 Type 2 diabetes mellitus without complications; M10.9 Gout, unspecified; E03.9 Hypothyroidism, unspecified; G47.33 Obstructive sleep apnea (adult) (pediatric); I27.20 Pulmonary hypertension, unspecified; E66.01 Morbid (severe) obesity due to excess calories; Z79.01 Long term (current) use of anticoagulants
CPT/HCPCS: 86705-90; 97110-GP; 97116-GP; 97162-GP; 97166-GO; 97530-GO; 97530-GP; 97535-GO; C1722; C1750; C1777; C8924; G8978-GP-CK; G8979-GP-CI; G8987-GO-CK; G8988-GO-CI; J0690; J1642; J1644; J2250; J2370; J2440; J2704; J2720; J3010; P9016; P9017; Q9967

== ENCOUNTER 2018-03-16 09:41 | Inpatient (IN) | payer OTHER ==
--- NOTE | 2018-03-15 09:35 | GHP ---
DATE OF ADMISSION: 03/16/2018 [facility] next presurgery visit as 05/06/2018. He is actually having [facility], which is 03/16/2018. Responsible physician is Dr. Grant Simmons. HISTORY OF PRESENT ILLNESS: The patient is a 67-year-old male with multiple comorbidities, including diabetes, gout, hypertension, congestive heart failure, atrial fibrillation, on anticoagulation with Coumadin, who has had worsening renal failure and is now status post left upper extremity AV fistula creation in January of 2018. On followup examination in the office, he was found to have 2 venous tr ibutaries along the fistula vein stealing flow and is now here for revision with ligation of venous t ributaries. Risks and options have been discussed, including, but not limited to, bleeding, infectio n, injury to a nerve, loss of fistula, clotting, steal syndrome, need for further surgery or alternat e access, and he requests to proceed. 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 PAST SURGICAL HISTORY: Includes arteriovenous fistula, as described above, as well as coronary angio gram. MEDICATIONS: Acetazolamide, allopurinol, aspirin, carvedilol, colchicine, famotidine, Humalog insuli n, Lasix, levothyroxine, potassium, spironolactone, vitamin B complex, and warfarin. ALLERGIES: No known drug allergies. SOCIAL HISTORY: Patient has 2 children. He denies use of alcohol. He is and retired, and h e is a never smoker. REVIEW OF SYSTEMS: A 10-point review of systems includes peripheral edema, in addition to above. PHYSICAL EXAMINATION: GENERAL: Reveals a somewhat chronically ill-appearing 67-year-old male in no acute distress. HEENT: Normocephalic, atraumatic. Sclerae white. CHEST: Clear to auscultation bi laterally, without wheezes, rhonchi, or rales. CARDIAC: Irregularly irregular rhythm. ABDOMEN: So ft, nontender, nondistended. Obese. GENITAL: Exam deferred. EXTREMITIES: Warm, with palpable radi al pulses, fistula with good thrill, improved thrill with compression of venous tributaries seen on u ltrasound. IMPRESSION: This is a 67-year-old male with renal failure and an arteriovenous fistula, with venous tributaries. PLAN: Plan is to revise his AV fistula with ligation of venous tributaries for better fistula flow. Again, risks and options have been discussed, and he requests to proceed. /[id number]/MODL
[2018-03-16] MEDS ORDERED: ceFAZolin 2 GM/DEXTROSE 100 ML IV ONE (09:50)
[2018-03-16] MEDS ORDERED: PAPAVERINE HCL 60 MG/2 ML SDV ONE (09:51)
[2018-03-16] MEDS ORDERED: BUPIVACAINE 0.5% 30 ML SDV ONE (09:51)
[2018-03-16] MEDS ORDERED: THROMBIN (BOVINE) 20,000 UNIT SPRAY TP ONE (09:52)
[2018-03-16] MEDS ORDERED: PROTAMINE SULFATE 50 MG/5 ML VIAL IVP ONE (09:53)
[2018-03-16] MEDS ORDERED: THROMBIN (BOVINE) 5,000 UNIT VIAL TP ONE (09:53)
[2018-03-16] MEDS ORDERED: NS 1,000 ML IV ONE (10:05)
[2018-03-16 10:34] LABS: INR 2.64 (0.83-1.16); PROTIME(PATIENT) 28.1 SEC (12.0-15.0)
--- NOTE | 2018-03-16 10:39 | PDHPUP ---
History & Physical Update H&P update statement: This history and physical update is based on an assessment of the patient which was completed after admission or registration (within 24 hours), but prior to the surgery/procedure. H&P update: H&P reviewed & patient examined, changes noted H&P changes: Patient had fever overnight and this am. Possible gout flare versus infected HD catheter? Will postpone surgery and request admission by hospitalist service for work up.
[2018-03-16 10:43] LABS: PLATELET COUNT 233 10^3/uL (150-400)
[2018-03-16] MEDS ORDERED: ONDANSETRON 4 MG/2 ML VIAL IVP PRN (11:42)
[2018-03-16] MEDS ORDERED: ONDANSETRON DISINTEGRATING 4 MG TAB PO PRN (11:42)
[2018-03-16] MEDS ORDERED: D50W 25 GM/50 ML SYR IVP PRN (12:33)
[2018-03-16] MEDS ORDERED: VANCOMYCIN 1.75 GM in D5W 500 ML IV ONE (13:30)
--- NOTE | 2018-03-16 13:33 | GHP ---
CHIEF COMPLAINT: Fever. HISTORY OF PRESENT ILLNESS: This is a 67-year-old man with multiple medical problems, who is admitted with fever. He had a planned AV fistula revision today by Dr. Simmons as he had some venous tributaries that they plan to ligate. Apparently, he had called last night with a fever. Dary Wong recommended that he go to the emergency department last night, however he did not. He presented today with ongoing fever. Surgery was canceled and I am asked to admit him. I met with him and his . She tells me he had a fever to 102 last night. She treated him with multiple doses of acetaminophen. It did resolve at some point last night. He has also been much more somnolent. He has had a dry cough which has not really changed. For the past few days, she had been expressing some. purulence around his right sided dialysis catheter. That resolved yesterday. It was not foul smelling, although was very dark. She says it was somewhat thick in nature. Also last night, his left foot swelled up quite significantly. He is telling me, it does not hurt, however, he was unable to bear weight on it. He does have a history of gout as well as what sounds like osteomyelitis of the left foot. This was treated in July in [place] with 6 weeks of antibiotics. He had had a nonhealing ulcer there, which has finally improved. Surgery was discussed although ultimately he was successful with medical treatment. He is not having any diarrhea. He does have a mild scratch in his right intertriginous area that has not been significantly erythematous. PAST MEDICAL/SURGICAL HISTORY: 1. CHF with an ejection fraction of 20%. 2. End-stage renal disease, instituted on dialysis this summer. 3. History of ventricular tachycardia status post AICD placement. 4. Coronary artery disease, nonobstructive. 5. Atrial fibrillation. 6. Diabetes mellitus, type 2. 7. History of likely osteo in the left foot. 8. History of gout. 9. AV placement. 10. Right-sided dialysis placement. MEDICATIONS: Please see medication reconciliation. ALLERGIES: No known drug allergies. SOCIAL HISTORY: He is , retired. He has never smoked. FAMILY HISTORY: Reviewed and noncontributory. REVIEW OF SYSTEMS: 10-point review of systems is conducted and is negative except per HPI. PHYSICAL EXAM: VITAL SIGNS: Blood pressure 89/55, heart rate 115, respiration rate 19, saturating initially 84% on room air. Temperature 37.6. GENERAL: This patient is a pleasant man who appears somewhat somnolent, lying in bed. His is providing a lot of the history, though he is conversant. HEENT: Shows him to be normocephalic, atraumatic. There is no scleral icterus. CARDIOVASCULAR: Shows him to be irregularly irregular. There are no murmurs, rubs, or gallops. PULMONARY: Shows him to be in no respiratory distress. He is clear to auscultation bilaterally. ABDOMEN: Soft, nontender, nondistended. CHEST: Exam shows a right tunneled dialysis catheter in place. There is no significant erythema. There is no purulence. : Exam shows no Rosario. Does have a mild scratch in his right intertriginous area which is not erythematous. NEUROLOGIC: Exam shows him to be alert and oriented x3. He is moving all extremities. PSYCHIATRIC: Exam shows a normal mood and affect. EXTREMITIES: Exam shows his left foot to be erythematous and edematous. It is not really tender to palpation. LABS: White count is 29,000, hemoglobin is 10, INR is 2.6. Sodium is 133, bicarb 21, BUN 56, creatinine 4.6, glucose 118. DATA: 1. Discussed with Dary Wong. 2. I reviewed his chart including his previous admission, AICD placement. IMPRESSION AND PLAN: 1. Suspected sepsis: His blood pressure is currently low though he is exactly at his baseline. He is tachycardic and he was febrile last night. Potential sources include pneumonia given his hypoxia, catheter infection given possible purulence expressed, as well as cellulitis or osteomyelitis of his left foot. Workup for a source is pending. Chest x-ray will be done soon. Unable to get an MRI given his ACID, I will order a CT scan. I will consult Infectious Disease. I will empirically start him on vancomycin given the overall clinical appearance and his multiple comorbidities. I am more suspicious of a cellulitis /osteomyelitis or catheter infection. Blood cultures have also been drawn. He will be triaged to the step down unit. PICC will be placed. His catheter has been removed. 2. Congestive heart failure with an ejection fraction of 20%: Currently he appears to be compensated. He has an automatic implantable cardioverter- defibrillator, which is in for low ejection fraction as well as ventricular tachycardia and syncope. We will continue beta-juanita if tolerated, I am unsure if he is on one currently. 3. Ventricular tachycardia: He is currently on amiodarone. We will follow him on telemetry for now. 4. Atrial fibrillation: He took his warfarin last, 2 nights ago. He is therapeutically anticoagulated. We will follow him on telemetry. 5. End-stage renal disease: I will alert Nephrology of his admission. I believe he will be due for dialysis tomorrow. 6. Diabetes mellitus type 2: I do not believe that he is on insulin currently. We will follow his blood sugars and start insulin if needed. 7. Hypoxia: PE is unlikely given his therapeutic anticoagulation. Chest x- ray is pending. 8. Code status: Discussed with patient and . He will be a DNI. She will bring in his most. Patient is critically ill given sepsis and multiple comorbidities. I spent 65 mins of CC time. DICTATION ENDS HERE /[id number]/MODL MTDD
[2018-03-16] MEDS ORDERED: HEPARIN 5,000 UNIT/0.5 ML INJ SC SCH (14:00)
[2018-03-16] MEDS ORDERED: NS 250 ML IV ONE (14:45)
--- NOTE | 2018-03-16 15:08 | GCON ---
DATE OF CONSULTATION: 03/16/2018 REASON FOR CONSULTATION: Opinion regarding end-stage kidney failure. HISTORY OF PRESENT ILLNESS: The patient is a very pleasant 67-year-old gentleman with end-stage kidney failure on 3 times weekly hemodialysis. The patient dialyzes through a right IJ tunneled hemodialysis catheter, has a left forearm AV fistula that is developing. The patient was in his usual state of health until yesterday when he began having fevers and chills. He was seen in the dialysis unit for his regular dialysis treatment and purulence was expressed from his catheter tunnel. He has been placed on what sounds like gentamicin cream to help with that which has done so over the course of the past 24 or so hours. However, today he spiked a fever to 102.4 degrees at home. He was to have some surgery by Dr. Simmons today, so he came in to see Dr. Simmons and was subsequently admitted. He has not had chest pain, shortness of breath, nausea, vomiting, cough, or sputum production. No hemoptysis, hematemesis, epistaxis, abdominal pain, diarrhea, constipation, melena, hematochezia, blurry vision, double vision, headache, orthopnea, paroxysmal nocturnal dyspnea, palpitations, or syncope. PAST MEDICAL HISTORY: Significant for: 1. End-stage kidney failure. On 3 times weekly dialysis. He has been on dialysis for about 3 months. 2. Congestive heart failure. 3. Ejection fraction of about 20%. 4. History of gout. 5. History of osteomyelitis. 6. Atrial fibrillation. 7. Coronary artery disease. 8. History of ventricular tachycardia. 9. Status post AICD placement. 10. Diabetes mellitus type 2. 11. Left upper arm arteriovenous fistula placement. 12. Hypothyroidism. CURRENT MEDICATIONS: Include insulin, vancomycin, Zofran, Tylenol, Ancef that he received in the emergency department, and Synthroid. ALLERGIES: None known. FAMILY HISTORY: Noncontributory. SOCIAL HISTORY: He is . He has 2 children. He is retired. Does not use tobacco, alcohol, IV or recreational drugs. REVIEW OF SYSTEMS: A complete 12-point review of systems was performed with pertinent positives and negatives as per the previous sections. PHYSICAL EXAMINATION: VITAL SIGNS: Blood pressures are ranging in the 90s to low 100s/50s and 60s. Pulse 100-115, respirations 19, temperature 37.6 degrees , weight 118 kg. GENERAL: He is awake, alert, cooperative, is in no acute distress, although his left foot hurts. HEENT: Pupils are reactive to light. Extraocular movements are intact. Mucous membranes are moist. NECK: No lymphadenopathy or thyromegaly. HEART: Regular with a grade 2/6 systolic murmur. No rub. No S3. CHEST: Has an AICD in his left upper chest. ABDOMEN : Bowel sounds are positive. Soft, nontender, nondistended. EXTREMITIES: Bilateral lower extremity edema. Left seems a little bit worse than the right. LYMPH: No palpable lymphadenopathy. SKIN: He has erythema and warmth over his distal left lower extremity and the dorsum of his foot. He also has been able to express what sounds like pus from his right IJ catheter tunnel. MUSCULOSKELETAL: Tenderness over his left foot. LABORATORY: Serum sodium is 133, potassium 4.6, chloride 93, CO2 21, BUN 56, creatinine 4.6, glucose 118. INR 2.64. WBC 29,000, hemoglobin 10.4, hematocrit 31.7, platelet count 233,000. Calcium 8.6, AST 434, ALT 227, alk phos 135, albumin is 3. IMPRESSION: 1. End-stage kidney failure. On 3 times weekly dialysis. 2. Fever to 102.4 degrees today. 3. Erythema, warmth, and pain over the dorsum of his left foot and below the knee on the left. 4. Purulence from his dialysis catheter tunnel. 5. Automatic implantable cardioverter defibrillator in place. RECOMMENDATIONS: 1. We will try some dialysis today. Unfortunately, he popped into A-fib and BP dropped into the 90's systolic, will hold on HD today. 2. He needs to have his dialysis catheter removed. His INR is long, so that needs to be addressed. 3. IV antibiotics to include vancomycin. He also has received a gram of Ancef in the emergency department. 4. I have discussed the plan with him and his . His was present during the entire interview. All questions were answered to their satisfaction. Thank you for allowing me to participate in the care of your patient, Kwame Mak. If there are any questions, please do not hesitate to contact us. We will be following along with you. /[id number]/MODL MTDD
[2018-03-16] MEDS ORDERED: ALTEPLASE 2 MG VIAL IVP PRN (16:34)
--- NOTE | 2018-03-16 16:43 | SOAPPROG ---
PATRICE Progress Note Assessment/Plan: Assessment/Plan: 67 Y M multiple comorbidities including CHF, afib, ESRD on HD, admitted with fever after postponing elective AVF revision. Plan to remove HD catheter tomorrow. Should be able to do this bedside. Continue hold coumadin. Recheck INR tomorrow --2.64 today. 03/16/18 16:41 Objective: Vital Signs Temp Pulse Resp BP Pulse Ox 37.1 C 111 H 18 95/66 L 100 03/16/18 15:52 03/16/18 16:00 03/16/18 15:52 03/16/18 16:00 03/16/18 15:52 Laboratory Results 03/16/18 10:25 03/16/18 10:14 PT 28.1 SEC (12.0-15.0) H 03/16/18 10:14 INR 2.64 (0.83-1.16) H 03/16/18 10:14 ICD10 Worksheet Patient Problems: Problems Problem Status Onset Acute exacerbation of congestive heart failure Acute Anasarca Acute Chronic Disease Mgmt/Transitional Care Acute Diabetic infection of left foot Acute Heart failure Acute Pulmonary hypertension Acute Renal insufficiency Acute
[2018-03-16] MEDS: INSULIN LISPRO 100 UNIT/ML SC SCH (18:23)
--- NOTE | 2018-03-16 18:42 | PDMN ---
Medical Necessity Medical necessity: Change to IP, as of 03/16/18, per MD & MCG M-160; los >2 mn for eval/tx of suspected sepsis w/tachycardia & hypoxia; r/t possible pneumonia vs catheter infection vs cellulitis/osteomyelitis of foot; pt critically ill; requiring further workup/close SDU monitoring, ID consult & IV abx; comorbid CHF , ESRD on dialysis, V-tach s/p AICD, CAD, AFIB, diabetes
--- NOTE | 2018-03-16 18:54 | POSTOPPROG ---
Post Op Note Date of Operation: 03/16/18 Surgeon: Grant Simmons Anesthesia: Local (Specify) Pre-op Diagnosis: Possible infected dialysis catheter Post-op Diagnosis: Same Indication: Possible sepsis Procedure: Removal of palindrome tunneled catheter Findings: No significant bleeding Inf/Abcess present in the surg proc area at time of surgery?: Yes Depth: Superfical (Skin SQ) EBL: Minimal Complications: None Specimen(s): Catheter tip cultured
[2018-03-16] MEDS ORDERED: MAGNESIUM SULF 2 GM/WATER 50 ML IV ONE (19:34)
[2018-03-16] MEDS ORDERED: PROTOCOL MAGNESIUM 1 DOSE IV PRN (19:35)
[2018-03-16 20:00] LABS: PLATELET COUNT 198 10^3/uL (150-400)
[2018-03-16] MEDS ORDERED: AMPICILLIN/SULBACTAM 3 GM in NS 100 ML IV SCH (20:00)
[2018-03-16] MEDS: ACETAMINOPHEN 325 MG TAB PO PRN (20:03)
[2018-03-16 20:18] LABS: INR 2.72 (0.83-1.16); PROTIME(PATIENT) 28.8 SEC (12.0-15.0)
[2018-03-16] MEDS: ASPIRIN EC 81 MG TAB PO SCH (20:50)
[2018-03-17 04:28] LABS: PLATELET COUNT 181 10^3/uL (150-400)
[2018-03-17 04:40] LABS: INR 2.92 (0.83-1.16); PROTIME(PATIENT) 30.4 SEC (12.0-15.0)
[2018-03-17] MEDS: AMIODARONE HCL 200 MG TAB PO SCH (08:27)
[2018-03-17] MEDS: LEVOTHYROXINE 75 MCG TAB PO SCH (08:28)
[2018-03-17] MEDS: MULTIVITAMINS 1 EACH TAB PO SCH (08:28)
[2018-03-17] MEDS: INSULIN LISPRO 100 UNIT/ML SC SCH ×3 (08:29→20:14)
--- NOTE | 2018-03-17 08:31 | SOAPPROG ---
SOAP Progress Note Assessment/Plan: Assessment: ESRD, last HD Thursday MRSA bacteremia from HD cath HD cath removed 03/16/18, appreciate Dr. Simmons's help has AICD in place, occasional V-tach and A-fib foot pain, CT 03/16/18 negative for osteomyelitis hypotension, BP OK today, he tends to run a little low at baseline Fever, seems to be improving with treatment Plan: keep HD cath out until at least Thursday Replace HD cath on Thursday, may want to consider temp cath initially in light of AICD consider POOJA to look for infected leads on AICD continue antibiotics supportive care for now 03/17/18 08:24 Objective: Vital Signs Temp Pulse Resp BP Pulse Ox 36.7 C 87 14 81/56 L 90 L 03/17/18 07:30 03/17/18 07:30 03/17/18 07:30 03/17/18 07:30 03/17/18 07:30 Microbiology 03/16/18 11:42 Blood Panel (PCR) - Final Blood MRSA Laboratory Results 03/17/18 04:15 03/17/18 04:15 03/16/18 03/17/18 03/18/18 05:59 05:59 05:59 Intake Total 1300 Balance 1300 PT 30.4 SEC (12.0-15.0) H 03/17/18 04:15 INR 2.92 (0.83-1.16) H 03/17/18 04:15 Physical Exam - Physical Exam General Appearance: alert, no apparent distress Neck: other (cath site looks OK after removal) Respiratory: No rales, No rhonchi, No wheezing, No pleural rub Cardiac/Chest: regular rate, rhythm, edema, No friction rub Abdomen: normal bowel sounds, non-tender, soft Skin: other (still erythema LLE) Neuro/Psych: alert, normal mood/affect, oriented x 3 ICD10 Worksheet Patient Problems: Problems Problem Status Onset Acute exacerbation of congestive heart failure Acute Anasarca Acute Chronic Disease Mgmt/Transitional Care Acute Diabetic infection of left foot Acute Heart failure Acute Pulmonary hypertension Acute Renal insufficiency Acute
--- NOTE | 2018-03-17 09:36 | ASMTCMCOM ---
CM Note CM Note Notes: 67yr old male admitted for fever. He was scheduled for a AV revision fistula. Patient has a Hx of CHF, End stage renal dis-dialysis, AICD, CAD, Afib, DM-2, Osteo L foot, Gout. Patient lives with his in [place]. CM to follow for discharge needs. Date Signed: 03/17/2018 09:35 AM Electronically Signed By:Archana Archer LCSW
--- NOTE | 2018-03-17 09:41 | HOSPPROG ---
Hospitalist Progress Note Assessment/Plan: # sepsis - d/t MRSA bacteremia - PICC line (will need to be removed) # MRSA bacteremia - likely d/t line infection; complicated by AICD - vanc - repeat BCx tomorrow - ID consult - TTE; # tunnel infection - s/p tunneled line removal # L foot edema/erythema - suspect gout; will d/w ID regarding steroids, will hold for now # ESRD - no urgent needs for HD today - tunneled line removed - will need temp catheter at some point soon # cardiac - sCHF (20%), VT (with AICD), non-obstructive CAD and a-fib - cont amiodarone, hold warfarin 35 minutes of critical care time; patient critically ill from life threatening bacteremia in setting of multiple comorbidities Subjective: somnolent today; has some pain in L foot Objective: Vital Signs Temp Pulse Resp BP Pulse Ox 36.7 C 87 14 81/56 L 90 L 03/17/18 07:30 03/17/18 07:30 03/17/18 07:30 03/17/18 07:30 03/17/18 07:30 Microbiology 03/16/18 11:42 Blood Panel (PCR) - Final Blood MRSA Laboratory Results 03/17/18 04:15 03/17/18 04:15 03/16/18 03/17/18 03/18/18 05:59 05:59 05:59 Intake Total 1300 Balance 1300 PT 30.4 SEC (12.0-15.0) H 03/17/18 04:15 INR 2.92 (0.83-1.16) H 03/17/18 04:[address] Sahu - Physical Exam Constitutional: obese Cardiovascular: regular rate and rhythym, no murmur, rub, or gallop Respiratory: no respiratory distress, no rales or rhonchi, clear to auscultation Gastrointestinal: soft, non-tender abdomen, no palpable masses, No guarding, No rebound, No distension ICD10 Worksheet Patient Problems: Problems Problem Status Onset Anasarca Acute Pulmonary hypertension Acute Chronic Disease Mgmt/Transitional Care Acute Diabetic infection of left foot Acute Heart failure Acute Renal insufficiency Acute Acute exacerbation of congestive heart failure Acute
--- NOTE | 2018-03-17 10:09 | PCMIDPN ---
Assessment/Plan: Assessment/Plan: * Sepsis due to MRSA bacteremia: Most likely etiology for MRSA bacteremia is dialysis catheter given documented purulence from exit site. Catheter has now been removed. Suspect left lower extremity erythema more customer assistance representative of venous insufficiency rather than cellulitis. Continue vancomycin dosed according to levels. Repeat blood cultures to document clearing of bacteremia ( will performed today which is early given goal of new dialysis catheter placement on Thursday). Patient also has AICD in place which needs to be kept in mind with MRSA bacteremia creating potential for seeding. Transthoracic echocardiogram is currently pending to assess for endocarditis. Additionally, PICC line was placed with concern patient would require pressor support. Ideally will limit duration of use as this also has potential for secondary seeding. Time spent, greater than 35 min, of which greater than half was spent in education/counseling/coordination of care related to sepsis from MRSA bacteremia. Care coordinated with nursing staff and Dr. Nash. 03/17/18 10:06 03/17/18 10:13 Subjective: Patient previously seen by our service in July for osteomyelitis of left lower extremity. Received treatment with 6 weeks of IV antibiotic therapy. Patient describes having 2 days of fever and chills and purulence noted at dialysis catheter exit site. Patient was originally scheduled for AV fistula revision today. Based on presentation, blood cultures were obtained which show 2 of 2 sets with MRSA. Dialysis catheter was also removed. Patient does not have any pain over AICD site in left upper chest. Has chronic erythema of left lower extremity which he states is not different from typical. No pain as he has had previously with gout. Patient has been started on vancomycin and transthoracic echocardiogram is currently pending. Past medical/surgical/medications/allergies all have been reviewed. Objective: Vital Signs Temp Pulse Resp BP Pulse Ox 36.7 C 87 14 81/56 L 90 L 03/17/18 07:30 03/17/18 07:30 03/17/18 07:30 03/17/18 07:30 03/17/18 07:30 Microbiology 03/16/18 11:42 Blood Panel (PCR) - Final Blood MRSA Laboratory Results 03/17/18 04:15 03/17/18 04:15 03/16/18 03/17/18 03/18/18 05:59 05:59 05:59 Intake Total 1300 Balance 1300 Blood cultures 03/16/2018 2/2 sets MRSA Catheter tip culture pending T-max 38.0 degrees - Physical Exam General Appearance: alert, no apparent distress EENT: No scleral icterus, No thrush, No conjunctival petechiae Respiratory: lungs clear, No normal breath sounds Cardiac/Chest: regular rate, rhythm, other (Distant heart tones), No systolic murmur Extremities: inflammation (Left lower extremity with venous insufficiency changes with erythema from foot to mid fontanez; hemosiderin deposition present, nontender, warmth present, 2+ edema; right 2nd toe with hammertoe deformity and small shallow ulceration without surrounding erythema) Abdomen: non-tender, No distended Skin: No embolic lesions - Line/s RUE PICC Lines: No drainage, No erythema ICD10 Worksheet Patient Problems: Problems Problem Status Onset Acute exacerbation of congestive heart failure Acute Anasarca Acute Chronic Disease Mgmt/Transitional Care Acute Diabetic infection of left foot Acute Heart failure Acute Pulmonary hypertension Acute Renal insufficiency Acute
--- NOTE | 2018-03-17 10:56 | ECHO ---
[email or web address] [address] [address] Main: [phone] Fax: Transthoracic Echocardiogram Name: MICHELLE BHANDARI MR#: [id number] Study Date: 03/17/2018 Study Time: 08:03 AM Date of : 1950 Age: 67 year(s) Height: 185.4 cm (73 in.) Weight: 117.94 kg (260 lb.) BSA: 2.41 m2 Gender: Male Examination: Echo Indication: MSRA bacteremia Image Quality: Fair Contrast: Requested by: Christopher Trevizo BP: 97 mmHg/56 mmHg Heart Rate: Rhythm: Indication: MSRA bacteremia Procedure Staff Sales Floor Team Leader: Nalini Alcantar [facility] Reading Physician: Manoj Lujan MD Requesting Provider: Conclusions: Severely dilated left ventricle. Severely reduced systolic LV function. The ejection fraction is estimated to be 20-25 %. There is paradoxic septal motion suggestive of bundle branch block, paced cardiac rhythm, or prior cardiac surgery. Severely dilated right ventricle. Severely reduced RV function. The left atrium is severely dilated. The right atrium is severely dilated. There is mild thickening of the mitral valve leaflets. Mild mitral annular calcification. Moderate to severe mitral regurgitation. Cannot rule out mitral valve vegetation. Severe tricuspid regurgitation is present. Moderate pulmonic valve regurgitation is noted. No pericardial effusion. Cannot exclude vegeation on mitral valve. Consider POOJA if clinicallly indicated Measurements: Chambers Valvular Assessment AV/MV Valvular Assessment TV/PV Normal Normal Normal Name Value Range Name Value Range Name Value Range Ao Elizabeth (MM): 3.9 cm (2.2 cm-3.7 AV Vmax: 95.80 m/s (1 m/s-1.7 TR Vmax: 2.17 mm/s ( - ) cm) m/s) TR PGmax: 19 mmHg ( - ) IVSd (2D): 0.7 cm (0.6 cm-1.1 AV meanP mmHg ( - ) syst. PAP: 24 mmHg ( - ) cm) JARED (VTI): 3.1 cm ( - ) LVDd (2D): 6.8 cm (4.2 cm-5.9 MV E Vmax: 0.89 m/s ( - ) cm) MV A Vmax: 0.28 m/s ( - ) LVDs (2D): 5.8 cm (2.1 cm-4 MV E/A: 3.18 ( - ) cm) MV meanP mmHg ( - ) Patient: MICHELLE BHANDARI Study Date: 03/17/2018 Page 1 of 2 08:03 AM LVPWd (2D): 0.8 cm (0.6 cm-1 MVA (Vmax): 2.1 m/s ( - ) cm) LVOTd 2.5 cm 2.5 cm mm LVEF (2D): 29 (>=54 %) EF Range: 20-25 % Continued Measurements: Chambers Valvular Assessment AV/MV Valvular Assessment TV/PV Name Value Name Value Name Value LADs: 5.5 cm MV Annulus: 3.3 cm CVP (est.): 5 mmHg LADs Lon.2 cm MV E' Septal: 0.04 m/s LA Area: 35.6 cm2 MV E/E' Septal: 23.90 LA Volume: 142 ml MV E/E' Lateral: 6.60 LA Volume Index: 58.9 ml/m2 MV VTI: 27.70 cm MR Vena Contracta: 0.5 cm MR ERO: 0.520 cm2 MR PISA radius: 10 mm MR Reg. Volume: 55 ml MR Reg. Fraction: 23 % Findings: Left Ventricle: Severely dilated left ventricle. No LV hypertrophy. Severely reduced systolic LV function. The ejection fraction is estimated to be 20-25 %. There is paradoxic septal motion suggestive of bundle branch block, paced cardiac rhythm, or prior cardiac surgery. Right Ventricle: Severely dilated right ventricle. Severely reduced RV function. There is a pacemaker lead noted in the right ventricle. Left Atrium: The left atrium is severely dilated. Normal appearing atrial septum. Right Atrium: The right atrium is severely dilated. Mitral Valve: There is mild thickening of the mitral valve leaflets. Mild mitral annular calcification. Moderate to severe mitral regurgitation. Cannot rule out mitral valve vegetation. Aortic Valve: The aortic valve is normal in appearance and function. The aortic valve is tri-leaflet. There is no aortic valve regurgitation. Tricuspid Valve: Severe tricuspid regurgitation is present. The pulmonary artery pressure is normal. RVSP is 24mmHG.. Pulmonic Valve: The pulmonic valve is normal in appearance and function. Moderate pulmonic valve regurgitation is noted. Aorta: The aorta is normal. Pericardium: No pericardial effusion. (No Signature Object) Patient: MICHELLE BHANDARI Study Date: 03/17/2018 Page 2 of 2 08:03 AM [id number]
[2018-03-17] MEDS: ALLOPURINOL 100 MG TAB PO SCH (14:03)
[2018-03-17] MEDS ORDERED: VANCOMYCIN 1.5 GM in D5W 250 ML IV ONE (17:00)
--- NOTE | 2018-03-17 17:50 | GCON ---
PULMONARY/CRITICAL CARE CONSULTATION DATE OF CONSULTATION: 03/17/2018 REFERRING PHYSICIAN: Christopher Trevizo MD REASON FOR REFERRAL: Evaluation and management of congestive heart failure and sepsis. HISTORY OF PRESENT ILLNESS: The patient is a 67-year-old male with a history of end-stage renal dise ase on dialysis 3 times weekly who is going to undergo a venous fistula revision yesterday when he be jairo developing fevers the day before surgery. He presented to the hospital yesterday with ongoing fe atif to 102 and some purulence around his dialysis catheter. He had an elevated white blood count, hy potension, and elevated lactate at 2.6. His catheter was removed yesterday by Dr. Simmons. The patien t reports that he feels quite weak, but he thinks it is improving a bit. He denies any chest pain or shortness of breath. PAST MEDICAL HISTORY: 1. Congestive heart failure with an ejection fraction of 20%. 2. End-stage renal disease on hemodialysis. 3. History of ventricular tachycardia, status post AICD placement. 4. Coronary artery disease. 5. Atrial fibrillation. 6. Type 2 diabetes. 7. History of osteomyelitis in his left foot. 8. History of gout. MEDICATIONS: At the time of admission, included: Aspirin, levothyroxine, amiodarone, warfarin, mido drine, mupirocin, and allopurinol. ALLERGIES: None. SOCIAL HISTORY: The patient is and retired. He has never smoked. FAMILY HISTORY: Unremarkable. REVIEW OF SYSTEMS: 10-point review of systems adds nothing to the history of present illness. PHYSICAL EXAMINATION: GENERAL: The patient is awake and alert. VITAL SIGNS: Blood pressure is 82/ 56, with a heart rate of 101. He is afebrile currently, but had a temperature of 38.0 last night. O xygen saturations are 100% on 2 L of oxygen. HEENT: Normocephalic and atraumatic. No icterus. NEC K: no JVD. Trachea is midline. CHEST: Clear to auscultation. Cardiac: Irregular tachycardia wit hout murmur. ABDOMEN: Soft, nontender. Bowel sounds are present. EXTREMITIES: No clubbing or cya nosis. He has trace lower extremity edema. NEURO: The patient is awake, alert. He has no gross mo tor or sensory deficits. LABORATORY/IMAGING: Chemistry group was remarkable for creatinine of 5.1, glucose is 115, it was 29 earlier today. Hemoglobin is 9.7 with a white blood count of 23.6. INR is 2.9. His lactate is down to 1.6. An echocardiogram shows an erection fraction of 20%-25% with no visible vegetations. RV function is severely reduced. Blood cultures from March 16 are positive for MRSA. ASSESSMENT: 1. Sepsis due to methicillin-resistant Staphylococcus aureus line infection. The dialysis catheter has been removed. Repeat blood cultures are pending. The patient has been treated with vancomycin. He remains a bit hypotensive, but is not symptomatic and is not requiring pressors. 2. Congestive heart failure. This likely contributes to the patient's hypotension. 3. End-stage renal disease. The patient usually would be dialyzed today. He likely will not get hi s next dialysis until Thursday. He currently does not have any emergent indications for dialysis. 4. Diabetes. The patient's blood sugar is currently normal; however, it was low earlier today. He is on sliding scale insulin. RECOMMENDATIONS: 1. Continue vancomycin. We will follow blood cultures. 2. Continue on sliding scale insulin. 3. Keep in the ICU. 4. If his cultures are negative, he could have his dialysis catheter replaced tomorrow or Thursday, wi th dialysis on Thursday. /[id number]/MODL
[2018-03-17] MEDS: ASPIRIN EC 81 MG TAB PO SCH (20:14)
[2018-03-17] MEDS: ACETAMINOPHEN 325 MG TAB PO PRN (21:47)
[2018-03-18] MEDS ORDERED: LACTULOSE 20 GM/30 ML UDCUP PO PRN (02:38)
[2018-03-18] MEDS ORDERED: BISACODYL 10 MG SUPP PR PRN (02:38)
[2018-03-18] MEDS ORDERED: POLYETHYLENE GLYCOL 3350 17 GM PKT PO PRN (02:38)
[2018-03-18] MEDS: MELATONIN 3 MG TAB PO SCH ×2 (02:54→21:28)
[2018-03-18 03:15] LABS: PLATELET COUNT 217 10^3/uL (150-400)
[2018-03-18 05:09] LABS: INR 3.28 (0.83-1.16); PROTIME(PATIENT) 33.2 SEC (12.0-15.0)
[2018-03-18] MEDS: LEVOTHYROXINE 75 MCG TAB PO SCH (06:45)
[2018-03-18] MEDS: AMIODARONE HCL 200 MG TAB PO SCH (08:37)
[2018-03-18] MEDS: MULTIVITAMINS 1 EACH TAB PO SCH (08:37)
[2018-03-18] MEDS: SENNOSIDES/DOCUSATE SODIUM TAB PO SCH ×2 (08:38→21:27)
--- NOTE | 2018-03-18 09:11 | HOSPPROG ---
Hospitalist Progress Note Assessment/Plan: # sepsis - d/t MRSA bacteremia - physiology improving - PICC line (will need to be removed) # MRSA bacteremia, persistent - likely d/t line infection; complicated by AICD - vanc - repeat blood cultures drawn early in hopes of early clearance and placement of dialysis catheter - possible vegetation on MV; may need POOJA # tunnel infection - s/p tunneled line removal # L foot edema/erythema - suspect gout; will d/w ID regarding steroids, will hold for now # ESRD - no urgent needs for HD today - tunneled line removed - will need temp catheter at some point soon # cardiac - sCHF (20%), VT (with AICD), non-obstructive CAD and a-fib - cont amiodarone, hold warfarin Subjective: did not sleep well last night Objective: Vital Signs Temp Pulse Resp BP Pulse Ox 36.9 C 88 13 102/66 90 L 03/18/18 08:00 03/18/18 08:00 03/18/18 08:00 03/18/18 08:00 03/18/18 08:00 Microbiology 03/16/18 11:42 Blood Panel (PCR) - Final Blood MRSA Laboratory Results 03/18/18 03:00 03/18/18 03:00 03/17/18 03/18/18 03/19/18 05:59 05:59 05:59 Intake Total 1300 1630 Balance 1300 1630 PT 33.2 SEC (12.0-15.0) H 03/18/18 04:30 INR 3.28 (0.83-1.16) H 03/18/18 04:30 high risk - Physical Exam Constitutional: chronically ill appearing, uncomfortable Cardiovascular: regular rate and rhythym, no murmur, rub, or gallop, other (R tunneled line site without erythema) Respiratory: no respiratory distress, no rales or rhonchi Gastrointestinal: normoactive bowel sounds, soft, non-tender abdomen, no palpable masses Skin: warm Musculoskeletal: other (R PICC ok) Neurologic: AAOx3 Psychiatric: not anxious ICD10 Worksheet Patient Problems: Problems Problem Status Onset Anasarca Acute Pulmonary hypertension Acute Chronic Disease Mgmt/Transitional Care Acute Diabetic infection of left foot Acute Heart failure Acute Renal insufficiency Acute Acute exacerbation of congestive heart failure Acute
--- NOTE | 2018-03-18 10:07 | PCMIDPN ---
Assessment/Plan: #MRSA bacteremia due to HD cath infection. Cath out. Blood cx still positive. Complicating bacteremia is AICD in place. Reviewed TTE, severely reduced EF, multivalve dysfunction w specific query about MV. White count gradually improving --temp HD cath 03/19 --repeat blood cx 03/19 --Check random level tomorrow 6am, will dose for level < 15. Will continue to dose vancomycin off intermittent level. Last received 1.5 g yesterday --discuss utility of POOJA, probably would still treat him for 6 weeks complicating factors such as AICD in place Microbiology 03/16 blood cultures (2) MRSA, vancomycin ANNA MARIE =1 03/17 blood cultures (2) GPCs in clusters meds Vancomycin IV intermittently, # 3 Subjective: Patient without specific complaints, no chest pain, no chest wall tenderness Objective: Vital Signs Temp Pulse Resp BP Pulse Ox 36.9 C 88 13 102/66 90 L 03/18/18 08:00 03/18/18 08:00 03/18/18 08:00 03/18/18 08:00 03/18/18 08:00 Microbiology 03/16/18 11:42 Blood Panel (PCR) - Final Blood MRSA Laboratory Results 03/18/18 03:00 03/18/18 03:00 03/17/18 03/18/18 03/19/18 05:59 05:59 05:59 Intake Total 1300 1630 Balance 1300 1630 General: Pleasant nontoxic-appearing male, fluent speech HEENT: Moist mucous membranes, no oral thrush Cardiovascular distant heart sounds with rumbling 2/3 systolic murmur Chest: Clear to auscultation bilaterally no crackles; right upper chest wall insertion site of hemodialysis catheter C/D/I, no erythema, no purulent Right upper extremity: PICC line C/D/I Lower extremities: Chronic skin changes consistent with venous insufficiency, mild edema : No Rosario Neuro: Alert orient x4, moving all 4 extremities equally - Time Spent With Patient Time Spent with Patient: greater than 35 minutes (Care coordinated with Dr. Crowell and Dr. Simmons) Time Spent with Patient: Greater than 35 minutes spent on this patients care, greater than 50% of time spent counseling, educating, and coordinating care regarding the above mentioned plan. ICD10 Worksheet Patient Problems: Problems Problem Status Onset Acute exacerbation of congestive heart failure Acute Anasarca Acute Chronic Disease Mgmt/Transitional Care Acute Diabetic infection of left foot Acute Heart failure Acute Pulmonary hypertension Acute Renal insufficiency Acute
--- NOTE | 2018-03-18 10:15 | SOAPPROG ---
[facility] Progress Note Assessment/Plan: Assessment/Plan: ESRD: last HD was on Thursday. - Would plan on placing temporary dialysis catheter tomorrow so HD can be done tomorrow and Thursday. If cultures remain positive, catheter can be pulled out after HD on Thursday with plans for tunneled catheter placement early next week. Anemia: Hgb at goal at 10.1, no need for epo at this time, will monitor. Hyponatremia: will modulate on HD. CINDY: will check phos with am labs, not on phos binder. Subjective: No acute events overnight. Pt states he feels tired, did not sleep well. He has no dyspnea or pain. Objective: Vital Signs Temp Pulse Resp BP Pulse Ox 36.9 C 88 13 102/66 90 L 03/18/18 08:00 03/18/18 08:00 03/18/18 08:00 03/18/18 08:00 03/18/18 08:00 Microbiology 03/16/18 11:42 Blood Panel (PCR) - Final Blood MRSA Laboratory Results 03/18/18 03:00 03/18/18 03:00 03/17/18 03/18/18 03/19/18 05:59 05:59 05:59 Intake Total 1300 1630 Balance 1300 1630 PT 33.2 SEC (12.0-15.0) H 03/18/18 04:30 INR 3.28 (0.83-1.16) H 03/18/18 04:30 General: alert and oriented, no acute distress Eyes: EOMI, PERRL OP: CLear CV: RRR Resp: nonlabored respirations Abd: Soft, NT/ND Ext: trace edema BLE Neuro: CN II-XII grossly intact Psych: cooperative ICD10 Worksheet Patient Problems: Problems Problem Status Onset Acute exacerbation of congestive heart failure Acute Anasarca Acute Chronic Disease Mgmt/Transitional Care Acute Diabetic infection of left foot Acute Heart failure Acute Pulmonary hypertension Acute Renal insufficiency Acute
--- NOTE | 2018-03-18 11:15 | PDINTPN ---
[employer] Progress Note Assessment/Plan: Assessment: MRSA Bacteremia: Due to dialysis catheter. Cultures remain (+) after 24 hours of Vanco and line removal. ESRD: No HD since Thursday. Cr rising, but no emergent indication for dialysis CHF: EF 20-25%. Compensated. Afib: Rate OK Hx VT s/p AICD Plan: Continue Vanco. Place dialysis catheter tonight/tomorrow in anticipation of HD tomorrow. Check blood cultures at time of catheter placement. OK to transfer to floor. 03/18/18 11:22 Subjective: Feels weak, about the same as yesterday. Appetite good. Objective: Vital Signs Temp Pulse Resp BP Pulse Ox 36.9 C 88 13 102/66 90 L 03/18/18 08:00 03/18/18 08:00 03/18/18 08:00 03/18/18 08:00 03/18/18 08:00 Microbiology 03/16/18 11:42 Blood Panel (PCR) - Final Blood MRSA Laboratory Results 03/18/18 03:00 03/18/18 03:00 03/17/18 03/18/18 03/19/18 05:59 05:59 05:59 Intake Total 1300 1630 Balance 1300 1630 PT 33.2 SEC (12.0-15.0) H 03/18/18 04:30 INR 3.28 (0.83-1.16) H 03/18/18 04:30 Microbiology 03/17/18 11:00 Blood Blood Culture - Preliminary Gram Positive Cocci Clusters 03/17/18 10:55 Blood Blood Culture - Preliminary Gram Positive Cocci Clusters Physical Exam - Physical Exam General Appearance: alert, no apparent distress EENT: normal ENT inspection Neck: normal inspection Respiratory: lungs clear, normal breath sounds Cardiac/Chest: edema (1+ LLE), irregularly irregular Abdomen: normal bowel sounds, non-tender Skin: normal color, warm/dry Extremities: normal inspection Neuro/Psych: alert, normal mood/affect, oriented x 3 ICD10 Worksheet Patient Problems: Problems Problem Status Onset Acute exacerbation of congestive heart failure Acute Anasarca Acute Chronic Disease Mgmt/Transitional Care Acute Diabetic infection of left foot Acute Heart failure Acute Pulmonary hypertension Acute Renal insufficiency Acute
--- NOTE | 2018-03-18 12:17 | SOAPPROG ---
SOAP Progress Note Assessment/Plan: Assessment: 67 y/o M with hx of CHF, ESRD, and VT currently admitted for sepsis bacteremia due to neck catheter. Catheter was removed and pt is on vanc. Plan for bedside placement of temp dialysis catheter today or tomorrow so pt can have dialysis tomorrow. He can eat a regular diet up until procedure. S: No complaints. O: Alert Afebrile No increased WOB Abdomen soft LUE: AVF with good thrill, +radial pulse 03/18/18 12:14 Objective: Vital Signs Temp Pulse Resp BP Pulse Ox 36.4 C 83 16 98/67 L 93 03/18/18 11:39 03/18/18 11:39 03/18/18 11:39 03/18/18 11:39 03/18/18 11:39 Microbiology 03/16/18 11:42 Blood Culture - Final Blood MRSA Blood Panel (PCR) - Final MRSA Laboratory Results 03/18/18 03:00 03/18/18 03:00 03/17/18 03/18/18 03/19/18 05:59 05:59 05:59 Intake Total 1300 1630 Balance 1300 1630 PT 33.2 SEC (12.0-15.0) H 03/18/18 04:30 INR 3.28 (0.83-1.16) H 03/18/18 04:30 ICD10 Worksheet Patient Problems: Problems Problem Status Onset Acute exacerbation of congestive heart failure Acute Anasarca Acute Chronic Disease Mgmt/Transitional Care Acute Diabetic infection of left foot Acute Heart failure Acute Pulmonary hypertension Acute Renal insufficiency Acute
[2018-03-18] MEDS: ALLOPURINOL 100 MG TAB PO SCH (12:18)
--- NOTE | 2018-03-18 16:22 | ASMTCMCOM ---
CM Note CM Note Notes: Spoke with Jennifer from [facility] who states patient is current with them. Jennifer did say patient's has been unhappy with several home health companies (has fired several) and they are fine if the family would like to choose another company. [facility] states they are also willing to continue services if this is what the patient and his would like to do. Palliative met with patient this morning and states patient informed him they are already with a palliative care company though he could not remember the name. El was able to locate that it is [facility] from previous admission records and he confirmed this with [facility] via telephone. CM will follow. Date Signed: 03/18/2018 04:21 PM Electronically Signed By:Yesy Ovalle LCSW
[2018-03-18] MEDS: ACETAMINOPHEN 325 MG TAB PO PRN (21:28)
[2018-03-18] MEDS: ASPIRIN EC 81 MG TAB PO SCH (21:28)
[2018-03-19] MEDS: LEVOTHYROXINE 75 MCG TAB PO SCH (06:12)
--- NOTE | 2018-03-19 07:14 | SOAPPROG ---
SOAP Progress Note Assessment/Plan: Assessment: Afebrile/much more alert and comfortable Wound okay Plan: Temporary dialysis catheter today and then a tunnel catheter next week for dialysis was bacteremia is cleared 03/19/18 07:13 Objective: Vital Signs Temp Pulse Resp BP Pulse Ox 36.6 C 86 12 95/74 L 94 03/19/18 04:00 03/19/18 04:00 03/19/18 04:00 03/19/18 04:00 03/19/18 04:00 Microbiology 03/16/18 11:42 Blood Culture - Final Blood MRSA Blood Panel (PCR) - Final MRSA Laboratory Results 03/18/18 03:00 03/19/18 06:20 03/18/18 03/19/18 03/20/18 05:59 05:59 05:59 Intake Total 1630 300 Balance 1630 300 PT 33.2 SEC (12.0-15.0) H 03/18/18 04:30 INR 3.28 (0.83-1.16) H 03/18/18 04:30 ICD10 Worksheet Patient Problems: Problems Problem Status Onset Acute exacerbation of congestive heart failure Acute Anasarca Acute Chronic Disease Mgmt/Transitional Care Acute Diabetic infection of left foot Acute Heart failure Acute Pulmonary hypertension Acute Renal insufficiency Acute
[2018-03-19] MEDS: MULTIVITAMINS 1 EACH TAB PO SCH (08:55)
[2018-03-19] MEDS: AMIODARONE HCL 200 MG TAB PO SCH (08:55)
[2018-03-19] MEDS: SENNOSIDES/DOCUSATE SODIUM TAB PO SCH ×2 (08:56→23:44)
[2018-03-19] MEDS ORDERED: HEPARIN 50,000 UNIT/10 ML VIAL ONE ×2 (09:25→22:40)
--- NOTE | 2018-03-19 09:38 | SOAPPROG ---
SOAP Progress Note Assessment/Plan: Assessment/Plan: ESRD: last HD was on Thursday. Blood cultures from Thursday still positive, repeat cultures drawn today. - Temporary dialysis catheter being placed today. - Will plan on HD today and tomorrow. - If cultures remain positive, catheter can be pulled out after HD on Thursday with plans for tunneled catheter placement early next week. Anemia: Hgb at goal at 10.1, no need for epo at this time, will monitor. Hyponatremia: will modulate on HD. CIDNY: Phos 5.8, will modulate on HD, no need for phos binder at this time. Subjective: No acute events overnight. Pt states he feels more tired today. He has no dyspnea or pain. Objective: Vital Signs Temp Pulse Resp BP Pulse Ox 36.3 C 80 14 111/69 93 03/19/18 08:00 03/19/18 08:00 03/19/18 08:00 03/19/18 08:00 03/19/18 08:00 Microbiology 03/16/18 11:42 Blood Culture - Final Blood MRSA Blood Panel (PCR) - Final MRSA Laboratory Results 03/18/18 03:00 03/19/18 06:20 03/18/18 03/19/18 03/20/18 05:59 05:59 05:59 Intake Total 1630 300 Balance 1630 300 PT 33.2 SEC (12.0-15.0) H 03/18/18 04:30 INR 3.28 (0.83-1.16) H 03/18/18 04:30 General: alert and oriented, no acute distress Eyes: EOMI, PERRL OP: Clear CV: RRR Resp: nonlabored respirations on NC Abd: Soft, NT Ext: +1 edema BLE Neuro: CN II-XII grossly intact ICD10 Worksheet Patient Problems: Problems Problem Status Onset Acute exacerbation of congestive heart failure Acute Anasarca Acute Chronic Disease Mgmt/Transitional Care Acute Diabetic infection of left foot Acute Heart failure Acute Pulmonary hypertension Acute Renal insufficiency Acute
[2018-03-19] MEDS: ALLOPURINOL 100 MG TAB PO SCH (12:30)
[2018-03-19 12:31] LABS: INR 4.97 (0.83-1.16); PROTIME(PATIENT) 45.6 SEC (12.0-15.0)
[2018-03-19] MEDS ORDERED: PHYTONADIONE 2.5 MG/2.5 ML ORAL UDL PO ONE (13:37)
--- NOTE | 2018-03-19 13:46 | HOSPPROG ---
Hospitalist Progress Note Assessment/Plan: # sepsis - d/t MRSA bacteremia - physiology improving - PICC line (will need to be removed) # MRSA bacteremia, persistent - likely d/t line infection; complicated by AICD - vanc - repeat blood cultures drawn early in hopes of early clearance and placement of dialysis catheter - possible vegetation on MV; may need POOJA # tunnel infection - s/p tunneled line removal # L foot edema/erythema - suspect gout # ESRD - no urgent needs for HD today - tunneled line removed - temp catheter placed today # cardiac - sCHF (20%), VT (with AICD), non-obstructive CAD and a-fib - cont amiodarone, hold warfarin # coagulopathy * give small dose of vitamin K since it is going up # acute gout * will give a few days of prednisone Subjective: having pain in left foot from gout Objective: Vital Signs Temp Pulse Resp BP Pulse Ox 36.4 C 78 15 96/63 L 95 03/19/18 12:00 03/19/18 12:00 03/19/18 12:00 03/19/18 12:00 03/19/18 12:00 Microbiology 03/16/18 17:10 Catheter Tip Culture - Final Catheter Tip MRSA 03/16/18 11:42 Blood Culture - Final Blood MRSA 03/16/18 11:42 Blood Culture - Final Blood MRSA Blood Panel (PCR) - Final MRSA Laboratory Results 03/18/18 03:00 03/19/18 06:20 03/18/18 03/19/18 03/20/18 05:59 05:59 05:59 Intake Total 1630 300 Balance 1630 300 PT 45.6 SEC (12.0-15.0) H 03/19/18 11:05 INR 4.97 (0.83-1.16) H 03/19/18 11:05 discussed with nephrology - Physical Exam Constitutional: no apparent distress, appears nourished, not in pain Ears, Nose, Mouth, Throat: moist mucous membranes, hearing normal Cardiovascular: regular rate and rhythym Respiratory: no respiratory distress, clear to auscultation Gastrointestinal: normoactive bowel sounds, soft, non-tender abdomen, no palpable masses Skin: other (brawny changes) Musculoskeletal: other (lft foot swelling and tenderness) Neurologic: AAOx3 Psychiatric: interacting appropriately, not anxious, not encephalopathic, thought process linear ICD10 Worksheet Patient Problems: Problems Problem Status Onset Acute exacerbation of congestive heart failure Acute Anasarca Acute Chronic Disease Mgmt/Transitional Care Acute Diabetic infection of left foot Acute Heart failure Acute Pulmonary hypertension Acute Renal insufficiency Acute
[2018-03-19] MEDS: predniSONE 20 MG TAB PO SCH (14:17)
--- NOTE | 2018-03-19 14:41 | PCMIDPN ---
Assessment/Plan: Assessment/Plan: * Sepsis due to MRSA bacteremia: Etiology for bacteremia is catheter associated from prior dialysis catheter. Repeat blood cultures are pending to assess for clearance of bacteremia which is not been achieved to date. Continue vancomycin dosed according to levels. Patient to have dialysis today and will plan repeat vancomycin dosing post dialysis. If cannot clear bacteremia, think will need to proceed with transesophageal echocardiogram in the setting of AICD presence. PICC line also in place which was placed at time of bacteremia and if unable to clear bacteremia will need to be removed and replaced. * Left ankle pain: Most likely secondary to gout based on clinical findings and prior history of gout which he says feels like this. Need to keep in mind gouty arthropathy can become superinfected. No opposition to trial of prednisone to see if this helps with patient's symptomatology. \\ * Leukocytosis: Likely multifactorial with both MRSA and acute gout flare potentially contributing. 03/19/18 14:38 03/19/18 14:43 Subjective: Patient complains of left ankle pain. "Feels like my gout". Otherwise feels clinically improved. Objective: Vital Signs Temp Pulse Resp BP Pulse Ox 36.4 C 78 15 96/63 L 95 03/19/18 12:00 03/19/18 12:00 03/19/18 12:00 03/19/18 12:00 03/19/18 12:00 Microbiology 03/16/18 17:10 Catheter Tip Culture - Final Catheter Tip MRSA 03/16/18 11:42 Blood Culture - Final Blood MRSA 03/16/18 11:42 Blood Culture - Final Blood MRSA Blood Panel (PCR) - Final MRSA Laboratory Results 03/18/18 03:00 03/19/18 06:20 03/18/18 03/19/18 03/20/18 05:59 05:59 05:59 Intake Total 1630 300 Balance 1630 300 Vancomycin by levels # 4 Blood cultures 03/19/2018 pending Laboratory Tests 03/19/18 06:20 Random Vancomycin 15.4 - Physical Exam General Appearance: alert, no apparent distress EENT: No scleral icterus, No thrush, No conjunctival petechiae Respiratory: lungs clear, No respiratory distress Cardiac/Chest: regular rate, rhythm, other (Pacemaker site nontender without erythema or drainage) Extremities: inflammation (Left ankle with overlying erythema and warmth with painful range of motion) Abdomen: non-tender, No distended Skin: other (Venous stasis dermatitis over left lower extremity) ICD10 Worksheet Patient Problems: Problems Problem Status Onset Acute exacerbation of congestive heart failure Acute Anasarca Acute Chronic Disease Mgmt/Transitional Care Acute Diabetic infection of left foot Acute Heart failure Acute Pulmonary hypertension Acute Renal insufficiency Acute
[2018-03-19] MEDS: ACETAMINOPHEN 325 MG TAB PO PRN (17:38)
[2018-03-19] MEDS ORDERED: VANCOMYCIN 1.5 GM in D5W 250 ML IV ONE (22:00)
[2018-03-19] MEDS: MELATONIN 3 MG TAB PO SCH (23:43)
[2018-03-19] MEDS: ASPIRIN EC 81 MG TAB PO SCH (23:43)
[2018-03-20] MEDS: LEVOTHYROXINE 75 MCG TAB PO SCH (05:32)
[2018-03-20 06:13] LABS: INR 2.47 (0.83-1.16); PROTIME(PATIENT) 26.7 SEC (12.0-15.0)
[2018-03-20] MEDS: ACETAMINOPHEN 325 MG TAB PO PRN ×4 (08:58→23:18)
[2018-03-20 09:33] LABS: PLATELET COUNT 247 10^3/uL (150-400)
[2018-03-20] MEDS: AMIODARONE HCL 200 MG TAB PO SCH (09:58)
[2018-03-20] MEDS: MULTIVITAMINS 1 EACH TAB PO SCH (09:59)
[2018-03-20] MEDS: predniSONE 20 MG TAB PO SCH (09:59)
[2018-03-20] MEDS: SENNOSIDES/DOCUSATE SODIUM TAB PO SCH ×2 (10:01→22:16)
[2018-03-20] MEDS: ALLOPURINOL 100 MG TAB PO SCH (13:17)
--- NOTE | 2018-03-20 14:01 | HOSPPROG ---
Hospitalist Progress Note Assessment/Plan: # sepsis - d/t MRSA bacteremia - physiology improving - PICC line (will need to be removed) # MRSA bacteremia, persistent - likely d/t line infection; complicated by AICD - vanc - continue bacteremia, probably need POOJA and removal of lines - possible vegetation on MV; may need POOJA # tunnel infection - s/p tunneled line removal # L foot edema/erythema - suspect gout, on prednisone # ESRD - no urgent needs for HD today - tunneled line removed - temp catheter placed today # cardiac - sCHF (20%), [place] (with AICD), non-obstructive CAD and a-fib - cont amiodarone, hold warfarin # coagulopathy * INR in more acceptable range * Continue to hold Coumadin for possible procedures Subjective: Left ankle starting to feel better Objective: Vital Signs Temp Pulse Resp BP Pulse Ox 36.1 C 70 12 112/78 95 03/20/18 09:03 03/20/18 12:00 03/20/18 12:00 03/20/18 12:00 03/20/18 12:00 Microbiology 03/16/18 17:10 Catheter Tip Culture - Final Catheter Tip MRSA 03/16/18 11:42 Blood Culture - Final Blood MRSA Laboratory Results 03/20/18 09:15 03/20/18 05:40 03/19/18 03/20/18 03/21/18 05:59 05:59 05:59 Intake Total 300 510 Output Total 25 Balance 300 485 PT 26.7 SEC (12.0-15.0) H 03/20/18 05:40 INR 2.47 (0.83-1.16) H 03/20/18 05:40 - Physical Exam Constitutional: no apparent distress, appears nourished, not in pain Eyes: anicteric sclera, EOMI Ears, Nose, Mouth, Throat: moist mucous membranes Cardiovascular: regular rate and rhythym Respiratory: no respiratory distress, no rales or rhonchi, clear to auscultation Gastrointestinal: normoactive bowel sounds, soft, non-tender abdomen, no palpable masses Musculoskeletal: other (Left ankle erythema and swelling) Neurologic: AAOx3 Psychiatric: interacting appropriately, not anxious, not encephalopathic, thought process linear ICD10 Worksheet Patient Problems: Problems Problem Status Onset Acute exacerbation of congestive heart failure Acute Anasarca Acute Chronic Disease Mgmt/Transitional Care Acute Diabetic infection of left foot Acute Heart failure Acute Pulmonary hypertension Acute Renal insufficiency Acute
--- NOTE | 2018-03-20 14:36 | SOAPPROG ---
SOAP Progress Note Assessment/Plan: Assessment: ESRD, last HD Thursday MRSA bacteremia from HD cath HD cath removed 03/16/18, appreciate Dr. Simmons's help has AICD in place, occasional V-tach and A-fib foot pain, CT 03/16/18 negative for osteomyelitis hypotension, BP OK today, he tends to run a little low at baseline Fever, seems to be improving with treatment Plan: Temp HD cath replaced Thursday blood cultures remain + will pull temp cath after HD today consider POOJA to look for infected leads on AICD continue antibiotics supportive care for now 03/17/18 08:24 03/20/18 14:33 Subjective: Feels a lot better since I last saw him denies cp sob nausea vomiting or anorexia spirits good sleeping well L foot remains tender, but he was able to get his slipper on today so he could walk around a bit Objective: Vital Signs Temp Pulse Resp BP Pulse Ox 36.1 C 70 12 112/78 95 03/20/18 09:03 03/20/18 12:00 03/20/18 12:00 03/20/18 12:00 03/20/18 12:00 Microbiology 03/16/18 17:10 Catheter Tip Culture - Final Catheter Tip MRSA 03/16/18 11:42 Blood Culture - Final Blood MRSA Laboratory Results 03/20/18 09:15 03/20/18 05:40 03/19/18 03/20/18 03/21/18 05:59 05:59 05:59 Intake Total 300 510 Output Total 25 Balance 300 485 PT 26.7 SEC (12.0-15.0) H 03/20/18 05:40 INR 2.47 (0.83-1.16) H 03/20/18 05:40 Physical Exam - Physical Exam General Appearance: alert Neck: normal inspection Respiratory: No rhonchi, No wheezing, No pleural rub (irreg, no rub nos S3) Abdomen: normal bowel sounds, non-tender, soft Skin: other (still some erythema over L ankle) Neuro/Psych: alert, normal mood/affect, oriented x 3 ICD10 Worksheet Patient Problems: Problems Problem Status Onset Acute exacerbation of congestive heart failure Acute Anasarca Acute Chronic Disease Mgmt/Transitional Care Acute Diabetic infection of left foot Acute Heart failure Acute Pulmonary hypertension Acute Renal insufficiency Acute
--- NOTE | 2018-03-20 16:06 | ASMTCMCOM ---
CM Note CM Note Notes: Pts case discussed w/ ANJANA Dinh. PT is recommending SNF. CM met w/ pt and for dispo planning. Pt and does not want to go to SNF. They would like to continue w/ [facility]. Reports that they are excellent. Updates sent to [facility]. Referral made to [facility] for home infusions. Updates sent to [facility]. CM to follow. Plan: Possibly Home w/ [facility]; PT, OT, RN w/ [facility] and [facility] Date Signed: 03/20/2018 04:05 PM Electronically Signed By:ORLANDO Diaz
--- NOTE | 2018-03-20 17:08 | PCMIDPN ---
Assessment/Plan: Assessment/Plan: * Sepsis due to MRSA bacteremia: Etiology for bacteremia is catheter associated from prior dialysis catheter. Repeat blood cultures show persistent bacteremia. Will obtain vancomycin level post dialysis today and re-dose if less than 15. Plan to discontinue PICC line as this is not being utilized other than blood draws once repeat blood cultures performed in a.m.. Plan to proceed with POOJA to ensure no evidence of AICD involvement. * Left ankle pain: Most likely secondary to gout based on clinical findings and prior history of gout which he says feels like this. Need to keep in mind gouty arthropathy can become superinfected. If bacteremia persists and POOJA negative, will need to consider aspiration of ankle to ensure no evidence of septic arthritis. * Leukocytosis: Likely multifactorial with both MRSA and acute gout flare potentially contributing. 03/20/18 17:04 Subjective: Patient complains of left ankle pain which is slightly reduced. Otherwise feels improved. Objective: Vital Signs Temp Pulse Resp BP Pulse Ox 34.4 C L 74 11 L 86/54 L 93 03/20/18 15:25 03/20/18 15:25 03/20/18 15:25 03/20/18 15:25 03/20/18 15:25 Microbiology 03/16/18 17:10 Catheter Tip Culture - Final Catheter Tip MRSA Laboratory Results 03/20/18 09:15 03/20/18 05:40 03/19/18 03/20/18 03/21/18 05:59 05:59 05:59 Intake Total 300 510 Output Total 25 Balance 300 485 Vancomycin # 5 Blood cultures 03/19/201807/10 MRSA - Physical Exam General Appearance: alert, no apparent distress, non-toxic EENT: No scleral icterus, No conjunctival petechiae Respiratory: lungs clear, No respiratory distress Cardiac/Chest: regular rate, rhythm, systolic murmur, other Extremities: inflammation (Left ankle remains tender with range of motion; erythema and edema decreased) Abdomen: non-tender, No distended Skin: No embolic lesions - Line/s RUE PICC Lines: No drainage, No erythema ICD10 Worksheet Patient Problems: Problems Problem Status Onset Acute exacerbation of congestive heart failure Acute Anasarca Acute Chronic Disease Mgmt/Transitional Care Acute Diabetic infection of left foot Acute Heart failure Acute Pulmonary hypertension Acute Renal insufficiency Acute
[2018-03-20] MEDS: ASPIRIN EC 81 MG TAB PO SCH (21:38)
[2018-03-20] MEDS: MELATONIN 3 MG TAB PO SCH (21:49)
[2018-03-20] MEDS ORDERED: HEPARIN 50,000 UNIT/10 ML VIAL ONE (21:55)
[2018-03-21 04:23] LABS: INR 1.81 (0.83-1.16); PROTIME(PATIENT) 21.1 SEC (12.0-15.0)
[2018-03-21] MEDS: LEVOTHYROXINE 75 MCG TAB PO SCH (07:12)
[2018-03-21] MEDS: AMIODARONE HCL 200 MG TAB PO SCH (08:17)
[2018-03-21] MEDS: MULTIVITAMINS 1 EACH TAB PO SCH (08:17)
[2018-03-21] MEDS: predniSONE 20 MG TAB PO SCH (08:17)
--- NOTE | 2018-03-21 09:26 | HOSPPROG ---
Hospitalist Progress Note Assessment/Plan: # sepsis - d/t MRSA bacteremia, physiology improving. RUE PICC was placed while bacteremic. - remove RUE PICC # MRSA bacteremia, persistent - likely d/t line infection; complicated by AICD , BCx's persist positive. Discussed with ID. - cont vanc, dosing per ID - POOJA in am to eval possible veg on MV and ensure no involvement of AICD, NPO at midnight. Discussed with cards. - remove PICC as above, repeat BCx's pending # tunnel infection - s/p tunneled line removal # L foot edema/erythema - suspect gout, on prednisone - may need joint aspiration to r/o septic joint if POOJA neg # ESRD - no urgent needs for HD today - tunneled line removed, now with temp cath - will likely resume M,W,F HD schedule, per renal # Chronic systolic HF - EF 20%, euvolemic today # V Tac - has AICD # CAD - non-obstructive dz # A fib- cont amiodarone, holding warfarin with ongoing procedures. INR was up to 4, now 1.8 - resume warfarin tomorrow if POOJA neg - recheck INR in am, will need either CHELI pplx or resume warfarin # coagulopathy - INR in more acceptable range - Continue to hold Coumadin for possible procedures # dispo - cont inpt Subjective: Pt feels much better. Denies fevers/chills, CP, SOB. Still feels a bit weak. Objective: Vital Signs Temp Pulse Resp BP Pulse Ox 36.3 C 68 16 91/58 L 93 03/21/18 07:16 03/21/18 07:16 03/21/18 07:16 03/21/18 07:16 03/21/18 07:16 Laboratory Results 03/20/18 09:15 03/21/18 03:35 03/20/18 03/21/18 03/22/18 05:59 05:59 05:59 Intake Total 510 800 Output Total 25 30 Balance 485 770 PT 21.1 SEC (12.0-15.0) H 03/21/18 03:35 INR 1.81 (0.83-1.16) H 03/21/18 03:35 - Physical Exam Constitutional: no apparent distress Eyes: PERRL Ears, Nose, Mouth, Throat: moist mucous membranes Cardiovascular: regular rate and rhythym Respiratory: no respiratory distress, clear to auscultation Gastrointestinal: normoactive bowel sounds, soft, non-tender abdomen Skin: warm Musculoskeletal: full muscle strength Neurologic: AAOx3 Psychiatric: interacting appropriately ICD10 Worksheet Patient Problems: Problems Problem Status Onset Acute exacerbation of congestive heart failure Acute Anasarca Acute Chronic Disease Mgmt/Transitional Care Acute Diabetic infection of left foot Acute Heart failure Acute Pulmonary hypertension Acute Renal insufficiency Acute
--- NOTE | 2018-03-21 10:19 | PCMIDPN ---
Assessment/Plan: Assessment: MRSA bacteremia from suspected dialysis catheter source. Catheter from chest wall removed now has a temporary neck catheter. Patient clinically is doing very well. He is being treated with vancomycin dosed by level. Level yesterday was greater than 15. We will wait until after next dialysis to recheck and re-dose. POOJA arranged for tomorrow. Plan: 1. Continue vancomycin dosed as levels. 2. Check transesophageal echocardiogram tomorrow. 3. Resume dialysis as per Renal. 03/21/18 10:17 Subjective: Patient is resting comfortably in his hospital bed. He notes no new complaint. Denies fevers or chills. No rash. Objective: Vancomycin by levels Vital Signs Temp Pulse Resp BP Pulse Ox 36.3 C 68 16 91/58 L 93 03/21/18 07:16 03/21/18 07:16 03/21/18 07:16 03/21/18 07:16 03/21/18 07:16 Laboratory Results 03/20/18 09:15 03/21/18 03:35 03/20/18 03/21/18 03/22/18 05:59 05:59 05:59 Intake Total 510 800 Output Total 25 30 Balance 485 770 - Physical Exam General Appearance: WD/WN, alert, no apparent distress, non-toxic Respiratory: lungs clear, normal breath sounds, No respiratory distress Neck: supple, normal inspection, other (Cath line right neck) Cardiac/Chest: regular rate, rhythm, No tachycardia Skin: normal color, warm/dry, No rash Neuro/Psych: alert, normal mood/affect, oriented x 3 ICD10 Worksheet Patient Problems: Problems Problem Status Onset Acute exacerbation of congestive heart failure Acute Anasarca Acute Chronic Disease Mgmt/Transitional Care Acute Diabetic infection of left foot Acute Heart failure Acute Pulmonary hypertension Acute Renal insufficiency Acute
[2018-03-21] MEDS: SENNOSIDES/DOCUSATE SODIUM TAB PO SCH ×2 (10:32→20:15)
[2018-03-21] MEDS: ALLOPURINOL 100 MG TAB PO SCH (11:38)
[2018-03-21] MEDS: ACETAMINOPHEN 325 MG TAB PO PRN ×2 (12:10→20:14)
--- NOTE | 2018-03-21 14:46 | ASMTCMCOM ---
CM Note CM Note Notes: Patient discussed during rounds. POOJA arranged for tomorrow, PICC to be removed. He is ambulating better today, still requires assistance to ambulate, ANJANA Dinh shared she spoke with around possibility of SNF if he does not improve getting around and ambulating. CM met with patient, no new needs identified. Patient states he knows he needs to be able to walk to go home. He shares his [facility] (c:[phone]) cares for him and is well versed in Renal diet. [facility] has accepted. CM spoke with ANJANA Dinh, patient may not discharge on IV ABX, [facility] did respond with questions, CM will need to respond with clarification on drug/dosing upon discharge if still required. CM to follow. Plan[facility], and [facility]. Date Signed: 03/21/2018 02:45 PM Electronically Signed By:Katy Leslie
--- NOTE | 2018-03-21 16:53 | SOAPPROG ---
SOAP Progress Note Assessment/Plan: Assessment: ESRD, HD Thursday MRSA bacteremia from HD cath HD cath removed 03/16/18, appreciate Dr. Simmons's help has AICD in place, occasional V-tach and A-fib foot pain, CT 03/16/18 negative for osteomyelitis, likely gout, overall a little better today hypotension, BP OK today, he tends to run a little low at baseline Fever, seems to be improving with treatment Plan: Temp HD cath replaced Thursday blood cultures remain + consider POOJA to look for infected leads on AICD, planned for Thursday continue antibiotics supportive care for now 03/17/18 08:24 03/20/18 14:33 03/21/18 16:50 Subjective: Not happy about how the [employer] are playing no cp sob nausea or vomiting spirits are good appetite OK sleeping OK Objective: Vital Signs Temp Pulse Resp BP Pulse Ox 36.4 C 77 11 L 113/60 96 03/21/18 16:02 03/21/18 16:02 03/21/18 16:02 03/21/18 16:02 03/21/18 16:02 Laboratory Results 03/20/18 09:15 03/21/18 03:35 03/20/18 03/21/18 03/22/18 05:59 05:59 05:59 Intake Total 510 800 Output Total 25 30 Balance 485 770 PT 21.1 SEC (12.0-15.0) H 03/21/18 03:35 INR 1.81 (0.83-1.16) H 03/21/18 03:35 Physical Exam - Physical Exam General Appearance: alert, no apparent distress Neck: normal inspection Respiratory: crackles (bases), No rhonchi, No wheezing Cardiac/Chest: irregularly irregular (no rub, 1/6 murmur) Abdomen: normal bowel sounds, non-tender, soft Extremities: swelling Neuro/Psych: alert, normal mood/affect, oriented x 3 ICD10 Worksheet Patient Problems: Problems Problem Status Onset Acute exacerbation of congestive heart failure Acute Anasarca Acute Chronic Disease Mgmt/Transitional Care Acute Diabetic infection of left foot Acute Heart failure Acute Pulmonary hypertension Acute Renal insufficiency Acute
[2018-03-21] MEDS: MELATONIN 3 MG TAB PO SCH (20:15)
[2018-03-21] MEDS: ASPIRIN EC 81 MG TAB PO SCH (20:15)
[2018-03-22 05:39] LABS: PLATELET COUNT 256 10^3/uL (150-400)
[2018-03-22 05:50] LABS: INR 1.85 (0.83-1.16); PROTIME(PATIENT) 21.4 SEC (12.0-15.0)
[2018-03-22 06:55] LABS: HEPATITIS B CORE AB TOTAL NEGATIVE (NEGATIVE); HEPATITIS B SURFACE ANTIGEN NEGATIVE (NEGATIVE)
[2018-03-22] MEDS: AMIODARONE HCL 200 MG TAB PO SCH (08:01)
[2018-03-22] MEDS: LEVOTHYROXINE 75 MCG TAB PO SCH (08:02)
[2018-03-22] MEDS: ACETAMINOPHEN 325 MG TAB PO PRN ×2 (08:04→23:20)
[2018-03-22] MEDS: SENNOSIDES/DOCUSATE SODIUM TAB PO SCH ×2 (08:16→21:03)
--- NOTE | 2018-03-22 09:03 | HOSPPROG ---
Hospitalist Progress Note Assessment/Plan: #MRSA bacteremia: form HD cath. Cultures 03/21 positive. Vegetation on RV lead; Dr. Tijerina to remove tomorrow -IV Vanc; random level today #CKD: HD MWF per renal. Temporary line in place #Gout left foot: pred #Compensated systolic HF: EF 20%. No ACEI, BP at goal. 3L taken of with HD #h/o VT: AICD #Permanent a fib: amiodarone. Coumadin held for POOJA #Compensated systolic HF: EF down to 10%. #Coagulopathy: Vit K for procedure tomorrow #Diet: renal, NPO after MN #DVT ppx: holding coumadin for procedure #Disp: inpatient admission for IV abx, surgery in morning. D/w Dr. Caldwell and Dr. Tijerina Subjective: no chest pain, SOB Objective: Vital Signs Temp Pulse Resp BP Pulse Ox 35.6 C L 62 18 134/74 H 96 03/22/18 07:53 03/22/18 07:53 03/22/18 07:53 03/22/18 07:53 03/22/18 07:53 Laboratory Results 03/22/18 05:20 03/22/18 05:20 03/21/18 03/22/18 03/23/18 05:59 05:59 05:59 Intake Total 800 400 Output Total 30 25 Balance 770 375 PT 21.4 SEC (12.0-15.0) H 03/22/18 05:20 INR 1.85 (0.83-1.16) H 03/22/18 05:20 - Time Spent With Patient Time Spent with Patient: greater than 35 minutes Time Spent with Patient: Greater than 35 minutes spent on this patients care, greater than 50% of time spent counseling, educating, and coordinating care regarding the above mentioned plan. - Physical Exam Constitutional: no apparent distress Eyes: PERRL Ears, Nose, Mouth, Throat: moist mucous membranes Cardiovascular: regular rate and rhythym Respiratory: no respiratory distress Gastrointestinal: normoactive bowel sounds Genitourinary: No fan in urethra Musculoskeletal: other (temporary HD line right neck without e/o infection) Neurologic: AAOx3 Psychiatric: interacting appropriately ICD10 Worksheet Patient Problems: Problems Problem Status Onset Acute exacerbation of congestive heart failure Acute Anasarca Acute Chronic Disease Mgmt/Transitional Care Acute Diabetic infection of left foot Acute Heart failure Acute Pulmonary hypertension Acute Renal insufficiency Acute
--- NOTE | 2018-03-22 10:47 | SOAPPROG ---
SOAP Progress Note Assessment/Plan: Assessment/Plan: ESRD: Pt seen on HD today. Blood cultures still positive from 03/21. - TDC removed last week, temporary dialysis catheter placed 03/19. - Will plan on HD next on Thursday. Anemia: Hgb at goal at 10.8, no need for epo at this time, will monitor. Hyponatremia: will modulate on HD. CINDY: Phos 6.0, will modulate on HD, no need for phos binder at this time. Metabolic acidosis: will modulate on HD. Subjective: No acute events overnight. Pt on HD this am and tolerating well, BP stable, planning on 3L fluid removal. Pt feels thirsty, getting a POOJA later today. Objective: Vital Signs Temp Pulse Resp BP Pulse Ox 35.6 C L 62 18 134/74 H 96 03/22/18 07:53 03/22/18 07:53 03/22/18 07:53 03/22/18 07:53 03/22/18 07:53 Laboratory Results 03/22/18 05:20 03/22/18 05:20 03/21/18 03/22/18 03/23/18 05:59 05:59 05:59 Intake Total 800 400 Output Total 30 25 Balance 770 375 PT 21.4 SEC (12.0-15.0) H 03/22/18 05:20 INR 1.85 (0.83-1.16) H 03/22/18 05:20 General: alert and oriented, no acute distress Eyes: EOMI, PERRL OP: Clear CV: RRR Resp: nonlabored respirations Abd: Soft, NT/ND Ext: +1 edema BLE Neuro: CN II-XII Grossly intact, no asterixis Psych: cooperative Access: temp catheter placed 03/19/18 ICD10 Worksheet Patient Problems: Problems Problem Status Onset Acute exacerbation of congestive heart failure Acute Anasarca Acute Chronic Disease Mgmt/Transitional Care Acute Diabetic infection of left foot Acute Heart failure Acute Pulmonary hypertension Acute Renal insufficiency Acute
[2018-03-22] MEDS: predniSONE 20 MG TAB PO SCH (11:43)
[2018-03-22] MEDS: MULTIVITAMINS 1 EACH TAB PO SCH (11:44)
[2018-03-22] MEDS: ALLOPURINOL 100 MG TAB PO SCH (11:44)
--- NOTE | 2018-03-22 12:50 | SOAPPROG ---
SOAP Progress Note Assessment/Plan: Assessment/Plan: 67 Y M multiple comorbidities including CHF, afib, ESRD on HD, admitted with fever after postponing elective AVF revision. Will hold off on AVF revision 2/2 +blood cultures. Can reschedule once medically stable and cleared for surgery. 03/22/18 12:50 Objective: Vital Signs Temp Pulse Resp BP Pulse Ox 36.4 C 70 16 108/68 94 03/22/18 11:46 03/22/18 11:46 03/22/18 11:46 03/22/18 11:46 03/22/18 11:46 Microbiology 03/17/18 11:00 Blood Culture - Final Blood MRSA 03/17/18 10:55 Blood Culture - Final Blood MRSA Laboratory Results 03/22/18 05:20 03/22/18 05:20 03/21/18 03/22/18 03/23/18 05:59 05:59 05:59 Intake Total 800 400 Output Total 30 25 3040 Balance 770 375 -3040 PT 21.4 SEC (12.0-15.0) H 03/22/18 05:20 INR 1.85 (0.83-1.16) H 03/22/18 05:20 ICD10 Worksheet Patient Problems: Problems Problem Status Onset Acute exacerbation of congestive heart failure Acute Anasarca Acute Chronic Disease Mgmt/Transitional Care Acute Diabetic infection of left foot Acute Heart failure Acute Pulmonary hypertension Acute Renal insufficiency Acute
--- NOTE | 2018-03-22 13:29 | PDANEPAE ---
ANE History of Present Illness here for POOJA ANE Past Medical History - Cardiovascular History Hx Hypertension: Yes Hx Arrhythmias: Yes Hx Chest Pain: No Hx Coronary Artery / Peripheral Vascular Disease: No Hx CHF / Valvular Disease: Yes Hx Palpitations: No Cardiovascular History Comment: EF 20% - Pulmonary History Hx COPD: No Hx Asthma/Reactive Airway Disease: No Hx Recent Upper Respiratory Infection: No Hx Oxygen in Use at Home: No Hx Sleep Apnea: Yes - Neurologic History Hx Cerebrovascular Accident: No Hx Seizures: No Hx Dementia: No - Endocrine History Hx Diabetes: Yes - Renal History Hx Renal Disorders: Yes - Liver History Hx Hepatic Disorders: No - Neurological & Psychiatric Hx Hx Neurological and Psychiatric Disorders: No - Chronic Pain History Chronic Pain: No ANE Review of Systems Review of Systems: - Exercise capacity Exercise capacity: <4 METS ANE Patient History - Allergies Allergies/Adverse Reactions: No Known Allergies Allergy (Unverified 04/12/09 16:18) - Home Medications Home medications: home medication list seen and reviewed Home Medications: Aspirin EC [Aspirin EC 81 mg (*)] 81 mg PO HS 04/22/16 [Last Taken 03/15/18] Levothyroxine [Synthroid 75 mcg (*)] 75 mcg PO DAILY@04/22/16 [Last Taken 02/23] Acetaminophen [Tylenol ES 500 mg (*)] 500 mg PO Q6 PRN 03/16/18 [Last Taken 01/23] Allopurinol [Allopurinol 100 MG (*)] 100 mg PO DAILY@12 03/16/18 [Last Taken 01/23] Midodrine HCl 5 mg PO MOWEFR@03/16/18 [Last Taken Unknown] Multivitamins [Multivitamin (*)] 1 each PO DAILY 03/16/18 [Last Taken 03/15/18] Mupirocin [Mupirocin] 1 gissell TP DAILY 03/16/18 [Last Taken 03/15/18] Warfarin Sodium [Coumadin 1MG (*)] 0.5 mg PO SUTUTHSA@03/16/18 [Last Taken ] Warfarin Sodium [Coumadin 1MG (*)] 1 mg PO MOWEFR@03/16/18 [Last Taken ] Warfarin Sodium [Coumadin 5MG (*)] 5 mg PO DAILY@03/16/18 [Last Taken ] - NPO status NPO Status: no food or drink >8 hours - Smoking Hx Smoking Status: Former smoker ANE Labs/Vital Signs - Labs Result Diagrams: 03/22/18 05:20 03/22/18 05:20 - Vital Signs Vital Signs: reviewed preoperatively; see RN documention for details Blood Pressure: 108/68 Heart Rate: 70 Respiratory Rate: 16 O2 Sat (%): 94 Height: 185.42 cm Weight: 125 kg ANE Physical Exam - Airway Neck exam: FROM Mallampati Score: Class 2 Mouth exam: normal dental/mouth exam - Pulmonary Pulmonary: no respiratory distress - Cardiovascular Cardiovascular: irregularly irregular - ASA Status ASA Status: IV ANE Anesthesia Plan Anesthesia Plan: GA with mask
[2018-03-22] MEDS ORDERED: PROPOFOL 200 MG/20 ML VIAL ONE (13:31)
--- NOTE | 2018-03-22 14:01 | PDCARTEE ---
CAR POOJA CAR POOJA: Preliminary report on POOJA After consents for sedation (anesthesia) and the procedure (POOJA alone) were obtained, the patient was positioned in the left lateral position. The POOJA probe was placed without difficulty, and standard views were obtained. (1) LVEF was 10-15% (2) Severe biatrial dilation (3) "smoke" is noted to the atria - consistent with low flow (4) Mod to severe MR (5) Trileaflet aortic valve without AI or (6) Torrential TR (7) Mild PI (8) There is an obvious thrombus on the RV lead at the level of the tricuspid valve (9) Bubble contrast injection without right to left passage noted (10) No complications with the procedure were noted Formal report is pending
--- NOTE | 2018-03-22 14:03 | POSTANESTH ---
Post Anesthetic Evaluation Cardiovascular Status: Normal, Stable Respiratory Status: Normal, Stable Level of Consciousness/Mental Status: Mildly Sleepy, Arousable Pain Control: Adequate, Prn Tx Ordered Nausea/Vomiting Control: Adequate, Prn Tx Ordered Complications Possibly Related to Anesthesia: None Noted
--- NOTE | 2018-03-22 14:11 | ASMTCMCOM ---
CM Note CM Note Notes: 03/22/2018 Case Management Note Reviewed chart. Pt is well known to case management with the following recent d/c plans: d/c to [facility] in [place] 11/29/2017 d/c to [facility] [place] 02/12/2018 d/c to [facility] in [place] with dialysis at [facility] in [place] MWF Phone call from Elena Fitch [phone]. Pt has not signed onto [facility] as of today. Elena left 3 voicemails for pt but has not had a return call yet. Case Management to discuss w/pt tomorrow. Pt is not in room this afternoon. Pt had dialysis this morning preventing a case management visit. [facility] has accepted pt. Phone call from An with [facility] requesting updates. Faxed updates via [employer]. Per An exact pricing for pt will be determined closer to discharge. Pt has a Medicare Part D copay. In the past the daily copay has been cost prohibitive for pt and resulted in pt d/c to SNF to complete antibiotic course. Currently, PT recommends SNF. Case Management d/c poc: to be determined. Case Management to follow. Date Signed: 03/22/2018 02:11 PM Electronically Signed By:Kassidy Mitchell RN
[2018-03-22] MEDS ORDERED: HEPARIN 50,000 UNIT/10 ML VIAL ONE (15:16)
--- NOTE | 2018-03-22 15:16 | PCMIDPN ---
Assessment/Plan: Assessment: MRSA bacteremia from suspected dialysis catheter source. Catheter from chest wall removed now has a temporary neck catheter. Patient clinically is doing very well. He is being treated with vancomycin dosed by level. POOJA showed pacer lead with vegetation. This is the right ventricular lead. Will continue dosing vancomycin as needed by level. He will probably need a dose today. Will check a vancomycin random in if below 15 will give 1 more g. Will wait the discussion result from Cardiology and cardiothoracic surgery regarding lead removal. Plan: 1. Recheck vancomycin random level. 2. Re-dose vancomycin 1 g x1 of lower than 15. 3. Await determination on lead removal. 03/21/18 10:17 03/22/18 15:13 Subjective: Patient just returned from transesophageal echocardiogram. He is awake and alert doing fairly well. Deliver the news that he had a vegetation on his pacer lead. He is encouraged that we know the reason for his continued infection. Objective: Vancomycin by levels Vital Signs Temp Pulse Resp BP Pulse Ox 36.4 C 70 16 108/68 94 03/22/18 11:46 03/22/18 14:02 03/22/18 14:02 03/22/18 14:02 03/22/18 14:02 Microbiology 03/17/18 11:00 Blood Culture - Final Blood MRSA 03/17/18 10:55 Blood Culture - Final Blood MRSA Laboratory Results 03/22/18 05:20 03/22/18 05:20 03/21/18 03/22/18 03/23/18 05:59 05:59 05:59 Intake Total 800 400 Output Total 30 25 3040 Balance 770 375 -3040 - Physical Exam General Appearance: WD/WN, alert, no apparent distress, non-toxic Respiratory: lungs clear, normal breath sounds, No respiratory distress Cardiac/Chest: regular rate, rhythm, No tachycardia Skin: normal color, warm/dry, No rash Neuro/Psych: alert, normal mood/affect, oriented x 3 ICD10 Worksheet Patient Problems: Problems Problem Status Onset Acute exacerbation of congestive heart failure Acute Anasarca Acute Chronic Disease Mgmt/Transitional Care Acute Diabetic infection of left foot Acute Heart failure Acute Pulmonary hypertension Acute Renal insufficiency Acute
[2018-03-22] MEDS ORDERED: PHYTONADIONE 10 MG in NS 50 ML IV ONE (16:11)
--- NOTE | 2018-03-22 16:19 | ECHO ---
[email or web address] [address] [address]: [phone] Fax: Transesophageal Echocardiography Name: MICHELLE BHANDARI MR#: [id number] Study Date: 03/22/2018 Study Time: 01:39 PM Date of : 1950 Age: 67 year(s) Height: ( ) Weight: ( ) BSA: Gender: Male Examination: POOJA Indication: Pacemaker Image Quality: Contrast: Requested by: Grant Simmons Heart Rate: Rhythm: BP: / Procedure Staff Maternal Child Nurse: Shar Blackmon RDCS Reading Physician: Hilton Lara MD Requesting Provider: POOJA Exam Details Conclusions: The ejection fraction is estimated to be 10-15 %. The ejection fraction is visually estimated to be 10 %. There is a pacemaker lead noted in the right ventricle. A vegetation is noted on the PM lead in the right ventricle. The left atrium is severely dilated. The right atrium is severely dilated. Moderate to severe mitral regurgitation. The aortic valve is tri-leaflet. No aortic valve stenosis is present. Severe tricuspid regurgitation is present. Mild pulmonic valve regurgitation is noted. Measurements: Chambers Valvular Assessment AV/MV Valvular Assessment TV/PV Normal Normal Normal Name Value Range Name Value Range Name Value Range Visual EF: 10 % EF Range: 10-15 % Additional Measurements: Findings: Left Ventricle: Patient: MICHELLE BHANDARI Study Date: 03/22/2018 Page 1 of 2 01:39 PM The ejection fraction is estimated to be 10-15 %. The ejection fraction is visually estimated to be 10 %. Right Ventricle: There is a pacemaker lead noted in the right ventricle. A vegetation is noted on the PM lead in the right ventricle. Left Atrium: The left atrium is severely dilated. An agitated saline study was performed and was negative for intracardiac shunting. Right Atrium: The right atrium is severely dilated. Mitral Valve: Moderate to severe mitral regurgitation. Aortic Valve: The aortic valve is tri-leaflet. There is no significant aortic valve regurgitation. No aortic valve stenosis is present. Tricuspid Valve: Severe tricuspid regurgitation is present. Pulmonic Valve: The pulmonic valve is normal in appearance. Mild pulmonic valve regurgitation is noted. Aorta: The aorta is normal. Pericardium: No pericardial effusion. l1n (No Signature Object) Patient: MICHELLE BHANDARI Study Date: 03/22/2018 Page 2 of 2 01:39 PM [id number]
--- NOTE | 2018-03-22 18:22 | GCON ---
DATE OF CONSULTATION: 03/22/2018 REFERRING PHYSICIAN: Hilton Lara MD Patient seen at the request of Dr. Lara with the patient's permission. IMPRESSION: 1. Presumed bacterial infection of a defibrillator lead. 2. Sepsis due to methicillin-resistant Staphylococcus aureus, status post removal of peripherally in serted central catheter line. 3. Chronic left foot infection with multiple previous interventions. 4. End-stage renal disease with temporary catheter. 5. Cardiomyopathy with ejection fraction of 20% with implantable cardioverter defibrillator placed f or ventricular tachycardia and syncope with nonobstructive coronary disease and permanent atrial fibr illation. 6. Chronic anticoagulation, on Coumadin, held since admission. INR prolonged. RECOMMENDATIONS: This gentleman should have explantation of his indwelling lead and defibrillator. It is 5 weeks old, therefore will be unlikely to have any scar formation or significant attachment. We will explant it in the operating room tomorrow. I did spend some time with his on the teleph one and the patient simultaneously. He understands that this does carry some small risk of cardiac p erforation requiring a sternotomy in order to repair. Again, this is a 5 week old lead and unlikely will have significant adherence to vascular structures. CHIEF COMPLAINT: A 67-year-old chronically ill gentleman with multiple medical issues as previously stated, presents with fevers and an MRSA bacteremia. His PICC line removed and an indwelling access catheter for dialysis was also removed. POOJA today showed vegetations on the right atrial side of the single lead defibrillator. The pocket appears stable. PHYSICAL EXAMINATION: GENERAL: This is a morbidly obese gentleman eating dinner post-POOJA, reluctant to interact. I did discuss it at length with his who was quite emotional and angry at the situ ation. I advised her that the first step was to remove the lead and then make decisions about other forms of protecting him once the infection is controlled. Please see chart for details. LABORATORY DATA: INR is 21. White count started at 29 on the 9th, is currently 17.6. Chemistries r eveal most recent potassium of 5.0, CO2 of 19, BUN is 70, creatinine of 5, glucose 210. /[id number]/MODL
[2018-03-22] MEDS: MELATONIN 3 MG TAB PO SCH (20:09)
[2018-03-22] MEDS: ASPIRIN EC 81 MG TAB PO SCH (20:09)
[2018-03-23] MEDS ORDERED: VANCOMYCIN HCL/NORMAL SALINE 250 ML IV ONE (06:00)
[2018-03-23 06:03] LABS: INR 1.44 (0.83-1.16); PROTIME(PATIENT) 17.7 SEC (12.0-15.0)
--- NOTE | 2018-03-23 07:15 | PDANEPAE ---
ANE Past Medical History - Cardiovascular History Hx Hypertension: Yes Hx Arrhythmias: Yes Hx Chest Pain: No Hx Coronary Artery / Peripheral Vascular Disease: No Hx CHF / Valvular Disease: Yes Hx Palpitations: No Cardiovascular History Comment: EF 20% - Pulmonary History Hx COPD: No Hx Asthma/Reactive Airway Disease: No Hx Recent Upper Respiratory Infection: No Hx Oxygen in Use at Home: No Hx Sleep Apnea: Yes Sleep Apnea Screening Result - Last Documented: Positive - Neurologic History Hx Cerebrovascular Accident: No Hx Seizures: No Hx Dementia: No - Endocrine History Hx Diabetes: Yes Hypothyroid: Yes Hyperthyroid: No Obesity: yes, moderate - Renal History Hx Renal Disorders: Yes - Liver History Hx Hepatic Disorders: No - Neurological & Psychiatric Hx Hx Neurological and Psychiatric Disorders: No - Chronic Pain History Chronic Pain: No ANE Review of Systems Review of Systems: - Exercise capacity Exercise capacity: <4 METS - Pacemaker Pacemaker Type: Permanent Pacer/Defib Pacemaker Mode: VVI ANE Patient History - Allergies Allergies/Adverse Reactions: No Known Allergies Allergy (Unverified 04/12/09 16:18) - Home Medications Home Medications: Aspirin EC [Aspirin EC 81 mg (*)] 81 mg PO HS 04/22/16 [Last Taken 03/15/18] Levothyroxine [Synthroid 75 mcg (*)] 75 mcg PO DAILY@07 04/22/16 [Last Taken 02/23] Acetaminophen [Tylenol ES 500 mg (*)] 500 mg PO Q6 PRN 03/16/18 [Last Taken 01/23] Allopurinol [Allopurinol 100 MG (*)] 100 mg PO DAILY@12 03/16/18 [Last Taken 01/23] Midodrine HCl 5 mg PO MOWEFR@03/16/18 [Last Taken Unknown] Multivitamins [Multivitamin (*)] 1 each PO DAILY 03/16/18 [Last Taken 03/15/18] Mupirocin [Mupirocin] 1 gissell TP DAILY 03/16/18 [Last Taken 03/15/18] Warfarin Sodium [Coumadin 1MG (*)] 0.5 mg PO SUTUTHSA@03/16/18 [Last Taken ] Warfarin Sodium [Coumadin 1MG (*)] 1 mg PO MOWEFR@03/16/18 [Last Taken ] Warfarin Sodium [Coumadin 5MG (*)] 5 mg PO DAILY@08 03/16/18 [Last Taken ] - NPO status NPO Since - Liquids (Date): 03/22/18 NPO Since - Liquids (Time): 23:59 NPO Since - Solids (Date): 03/22/18 NPO Since - Solids (Time): 23:59 - Smoking Hx Smoking Status: Former smoker ANE Labs/Vital Signs - Labs Result Diagrams: 03/23/18 06:00 03/23/18 05:40 - Vital Signs Blood Pressure: 110/72 Heart Rate: 81 Respiratory Rate: 14 O2 Sat (%): 94 Height: 185.42 cm Weight: 124.3 kg ANE Physical Exam - Airway Neck exam: FROM Mallampati Score: Class 3 Mouth exam: normal dental/mouth exam - Pulmonary Pulmonary: no rales or rhonchi, reduced air movement - Cardiovascular Cardiovascular: regular rate and rhythym - ASA Status ASA Status: IV ANE Anesthesia Plan Anesthesia Plan: general endotracheal anesthesia Total IV Anesthesia: No
[2018-03-23] MEDS ORDERED: NS 1,000 ML IV ONE (07:22)
[2018-03-23] MEDS ORDERED: NS 500 ML IV ONE (07:22)
--- NOTE | 2018-03-23 07:28 | PDHPUP ---
History & Physical Update H&P update statement: This history and physical update is based on an assessment of the patient which was completed after admission or registration (within 24 hours), but prior to the surgery/procedure. H&P update: H&P reviewed & patient examined, no change in patient's condition since H&P completed
[2018-03-23] MEDS ORDERED: LIDOCAINE 2% 2 ML INJ ONE ×2 (08:00)
[2018-03-23] MEDS ORDERED: fentaNYL 100 MCG/2 ML INJ ONE ×2 (08:00→08:30)
[2018-03-23] MEDS ORDERED: PROPOFOL 200 MG/20 ML VIAL ONE (08:00)
[2018-03-23] MEDS ORDERED: ONDANSETRON 4 MG/2 ML VIAL ONE (08:02)
[2018-03-23] MEDS ORDERED: ETOMIDATE 20 MG/10 ML VIAL ONE (08:03)
[2018-03-23] MEDS ORDERED: EPINEPHrine 1 MG/ML INJ ONE (08:16)
[2018-03-23] MEDS ORDERED: BUPIVACAINE 0.25% 30 ML SDV ONE (08:16)
[2018-03-23] MEDS ORDERED: PHENYLEPHRINE HCL 100 MCG/ML SYR ONE (08:26)
[2018-03-23] MEDS ORDERED: traMADol 50 MG TAB PO PRN (09:16)
[2018-03-23] MEDS ORDERED: NS 500 ML IV PRN (09:21)
[2018-03-23] MEDS ORDERED: fentaNYL 100 MCG/2 ML INJ IVP PRN (09:21)
[2018-03-23] MEDS ORDERED: HYDROCODONE/APAP 5/325 TAB PO PRN (09:21)
[2018-03-23] MEDS ORDERED: ACETAMINOPHEN 500 MG TAB PO PRN (09:21)
[2018-03-23] MEDS ORDERED: PHENYLEPHRINE HCL 100 MCG/ML SYR IVP PRN (09:21)
[2018-03-23] MEDS ORDERED: NALOXONE HCL 0.4 MG/ML INJ IVP PRN (09:21)
[2018-03-23] MEDS ORDERED: ONDANSETRON 4 MG/2 ML VIAL IVP PRN (09:21)
--- NOTE | 2018-03-23 09:23 | POSTANESTH ---
Post Anesthetic Evaluation Cardiovascular Status: Similar to Pre-Op Cond Respiratory Status: Similar to Pre-op Cond. Level of Consciousness/Mental Status: Can Participate in Eval Pain Control: Adequate, Prn Tx Ordered Nausea/Vomiting Control: Adequate, Prn Tx Ordered Complications Possibly Related to Anesthesia: None Noted
[2018-03-23] MEDS: MULTIVITAMINS 1 EACH TAB PO SCH (11:08)
[2018-03-23] MEDS: ALLOPURINOL 100 MG TAB PO SCH (11:08)
[2018-03-23] MEDS: AMIODARONE HCL 200 MG TAB PO SCH (11:10)
[2018-03-23] MEDS: predniSONE 20 MG TAB PO SCH (11:10)
[2018-03-23] MEDS: LEVOTHYROXINE 75 MCG TAB PO SCH (11:10)
[2018-03-23] MEDS: HYDROCODONE/APAP 5/325 TAB PO PRN ×2 (11:11→17:40)
[2018-03-23] MEDS: SENNOSIDES/DOCUSATE SODIUM TAB PO SCH ×2 (11:11→19:29)
--- NOTE | 2018-03-23 12:06 | HOSPPROG ---
Hospitalist Progress Note Assessment/Plan: #MRSA bacteremia: form HD cath. Cultures 03/21 positive. Vegetation on RV, thus defibrillator and lead removed today -IV Vanc, renally-dose #CKD: HD MWF per renal. Temporary line in place #Gout left foot: pred burst completed #Compensated systolic HF: EF 20%. No ACEI, BP at goal. 3L taken of with HD 03/22 #h/o VT: K/Mg at goal. #Permanent a fib: amiodarone. Coumadin held for POOJA #Compensated systolic HF: EF down to 10%. #Coagulopathy: Vit K #Anemia of renal disease: H/H stable #Goals: explained given co-morbidities that LTAC would be beneficial at DC to assist with abx, HD. He wants to d/w #Diet: renal #DVT ppx: holding coumadin for procedure #Goals: followed by Rocio AGUIAR, will have them visit here. #Disp: inpatient admission for IV abx, HD Subjective: discomfort at pacer site Objective: Vital Signs Temp Pulse Resp BP Pulse Ox 36.5 C 100 19 94/74 L 91 L 03/23/18 09:51 03/23/18 10:27 03/23/18 10:27 03/23/18 10:27 03/23/18 10:27 Microbiology 03/17/18 11:00 Blood Culture - Final Blood MRSA 03/17/18 10:55 Blood Culture - Final Blood MRSA Laboratory Results 03/23/18 06:00 03/23/18 05:40 03/22/18 03/23/18 03/24/18 05:59 05:59 05:59 Intake Total 400 352 600 Output Total 25 3065 5 Balance 375 -2713 595 PT 17.7 SEC (12.0-15.0) H 03/23/18 05:40 INR 1.44 (0.83-1.16) H 03/23/18 05:40 - Time Spent With Patient Time Spent with Patient: greater than 35 minutes Time Spent with Patient: Greater than 35 minutes spent on this patients care, greater than 50% of time spent counseling, educating, and coordinating care regarding the above mentioned plan. ICD10 Worksheet Patient Problems: Problems Problem Status Onset Acute exacerbation of congestive heart failure Acute Anasarca Acute Chronic Disease Mgmt/Transitional Care Acute Diabetic infection of left foot Acute Heart failure Acute Pulmonary hypertension Acute Renal insufficiency Acute
--- NOTE | 2018-03-23 14:01 | GOP ---
DATE OF OPERATION: 03/23/2018 SURGEON: Aureliano Tijerina DO NEUROSURGEON: Aureliano Tijerina DO [employer]CH[employer]OLOGY MANAGER: None. ANESTHESIA: As listed. PREOPERATIVE DIAGNOSIS: Bacteremia with indwelling defibrillator and defibrillator leads with possib le vegetation. POSTOPERATIVE DIAGNOSIS: Bacteremia with indwelling defibrillator and defibrillator leads with possi ble vegetation. PROCEDURE PERFORMED: 1. Evacuation of defibrillator. 2. Pacemaker pocket revision. 3. Extraction of right ventricular lead. FINDINGS: DESCRIPTION OF PROCEDURE: Under general anesthetic, the patient's chest was prepped and draped with pump standby. The pacemaker pocket was opened. There was a small amount of sanguinous fluid which w as old. The device was explanted. We then freed up the suture holding the lead in place. A stylet was passed down the lead and it was gently unscrewed, approximately 12 turns, and then over gentle tr action, the lead came out without incident. Blood pressure remained stable. A single drain was plac ed, and the pacemaker pocket was closed in standard fashion. Patient was returned to recovery room i n stable condition. /[id number]/MODL
[2018-03-23] MEDS: ACETAMINOPHEN 325 MG TAB PO PRN (14:16)
--- NOTE | 2018-03-23 14:18 | SOAPPROG ---
SOAP Progress Note Assessment/Plan: Assessment/Plan: 67 y/o M ESRD with MRRSA bacteremia now s/p revision of pacer. ESRD: - Plan for HD tomorrow - TDC removed last week, temporary dialysis catheter placed 03/19 MRSA bacteremia - CTS appreciated - cx's positive from 03/21, likely should be drawn again post-op - on vanc, goal trough 15-25 Anemia: Hgb at goal. Holding EPO Hyponatremia: FW restriction 1L. Will modulate with HD. CINDY: Renal diet, will modulate with HD. Metabolic acidosis: will modulate on HD. 03/23/18 14:16 Subjective: OR today for pacer revision. Afebrile. Objective: Vital Signs Temp Pulse Resp BP Pulse Ox 36.3 C 78 10 L 93/60 L 96 03/23/18 12:10 03/23/18 12:10 03/23/18 12:10 03/23/18 12:10 03/23/18 12:10 Microbiology 03/17/18 11:00 Blood Culture - Final Blood MRSA 03/17/18 10:55 Blood Culture - Final Blood MRSA Laboratory Results 03/23/18 06:00 03/23/18 05:40 03/22/18 03/23/18 03/24/18 05:59 05:59 05:59 Intake Total 400 352 600 Output Total 25 3065 5 Balance 375 -2713 595 PT 17.7 SEC (12.0-15.0) H 03/23/18 05:40 INR 1.44 (0.83-1.16) H 03/23/18 05:40 Physical Exam - Physical Exam General Appearance: WD/WN, alert, no apparent distress EENT: PERRL/EOMI Neck: non-tender, full range of motion, supple Respiratory: chest non-tender, lungs clear Cardiac/Chest: normal peripheral pulses, regular rate, rhythm, edema Abdomen: normal bowel sounds, non-tender, soft Skin: normal color, warm/dry Extremities: normal range of motion, non-tender Neuro/Psych: other (resting) ICD10 Worksheet Patient Problems: Problems Problem Status Onset Acute exacerbation of congestive heart failure Acute Anasarca Acute Chronic Disease Mgmt/Transitional Care Acute Diabetic infection of left foot Acute Heart failure Acute Pulmonary hypertension Acute Renal insufficiency Acute
--- NOTE | 2018-03-23 16:01 | ASMTCMCOM ---
CM Note CM Note Notes: 03/23/2018 Case Management Note Met w/pt and Maite to discuss d/c plans. Maite son lives in the basement apartment of family home and is often home when Maite is at work and can assist patient if needed. Discussed working on several discharge plans at the same time and picking the most appropriate option closer to discharge. Pt in agreement. Option 1: Assisted Acute Care. Referrals sent to multiple facilities via [employer]. Option 2: Return to SNF rehab with outpatient dialysis. Faxed referrals to [facility], [facility] and [facility]. [facility] is preferred by family however will require shifting dialysis location. Option 3: Antibiotic infusions to happen at [facility] [address]. Called Nicky summer child caregiver at [facility] [phone] to discuss. Antibiotics would be covered under dialysis visit at no cost to family as dialysis catheter is likely source of infection per ID note. However pt will only have antibiotics on MWF. Uncertain if this is appropriate and will follow ID notes for instructions for antibiotic needs at discharge. Option 4: Maite to transport to outpatient infusion center for IV antibiotics if needed after discharge. Likely would be on alternate days with dialysis. Palliative consult ordered. Notified El for visit tomorrow. Maite expresses sadness about pt prognosis and wants pt home to spend time with him, however they are both aware pt needs to make progress with physical capabilities for this to be a safe discharge. Case Management d/c poc: to be determined. Case Management to follow. Date Signed: 03/23/2018 03:59 PM Electronically Signed By:Kassidy Mitchell RN
--- NOTE | 2018-03-23 16:23 | PCMIDPN ---
Assessment/Plan: #MRSA Pacer wire endocarditis, source HD cath. Defib, wire out today, HD cath out, PICC line out. Temp HD cath present R neck --repeat blood cultures tomorrow --continue intermittent Vancomycin dosing for level <15 #ESRD: vancomycin dosed intermittently Microbiology 03/16 blood cultures (2) MRSA, vancomycin ANNA MARIE =1 03/17 & 03/19 blood cultures (2) MRSA 03/21 blood cx 1/2 MRSA, vancomycin ANNA MARIE = 1 meds Vancomycin IV intermittently, #7 Subjective: c/o pain L upper chest postop no other c/o Objective: Vital Signs Temp Pulse Resp BP Pulse Ox 36.4 C 72 18 94/59 L 94 03/23/18 15:22 03/23/18 15:22 03/23/18 15:22 03/23/18 15:22 03/23/18 15:22 Microbiology 03/17/18 11:00 Blood Culture - Final Blood MRSA 03/17/18 10:55 Blood Culture - Final Blood MRSA Laboratory Results 03/23/18 06:00 03/23/18 05:40 03/22/18 03/23/18 03/24/18 05:59 05:59 05:59 Intake Total 400 352 840 Output Total 25 3065 105 Balance 375 -9352 735 - Physical Exam General Appearance: alert, no apparent distress EENT: pale conjunctiva, No scleral icterus, No thrush Respiratory: No accessory muscle use Cardiac/Chest: regular rate, rhythm, other (Surgical dressin L shoulder) Extremities: pedal edema, swelling (L arm) Abdomen: non-tender, soft Male Genitalia: No fan Skin: pallor, No rash Neuro/Psych: alert, normal mood/affect, oriented x 3 - Line/s Rowell Lines: other (R IJ position), No drainage, No erythema - Time Spent With Patient Time Spent with Patient: greater than 35 minutes Time Spent with Patient: Greater than 35 minutes spent on this patients care, greater than 50% of time spent counseling, educating, and coordinating care regarding the above mentioned plan. ICD10 Worksheet Patient Problems: Problems Problem Status Onset Acute exacerbation of congestive heart failure Acute Anasarca Acute Chronic Disease Mgmt/Transitional Care Acute Diabetic infection of left foot Acute Heart failure Acute Pulmonary hypertension Acute Renal insufficiency Acute
[2018-03-23] MEDS: ASPIRIN EC 81 MG TAB PO SCH (21:40)
[2018-03-23] MEDS: MELATONIN 3 MG TAB PO SCH (21:40)
[2018-03-24] MEDS: LEVOTHYROXINE 75 MCG TAB PO SCH (06:07)
--- NOTE | 2018-03-24 06:10 | SOAPPROG ---
SOAP Progress Note Assessment/Plan: Bacteremia with indwelling defibrillator and defibrillator leads with possible vegetation - POD #1: Extraction of right ventricular lead, removal of defibrillator with pacemaker pocket revision - Drain removed - Further mgmt as per primary/consultants Subjective: Pain well-controlled. Objective: Vital Signs Temp Pulse Resp BP Pulse Ox 36.4 C 80 12 121/86 H 94 03/24/18 04:00 03/24/18 04:00 03/24/18 04:00 03/24/18 04:00 03/24/18 04:00 Laboratory Results 03/23/18 06:00 03/24/18 04:10 03/23/18 03/24/18 03/25/18 05:59 05:59 05:59 Intake Total 352 1190 Output Total 3065 205 Balance -2713 985 PT 17.7 SEC (12.0-15.0) H 03/23/18 05:40 INR 1.44 (0.83-1.16) H 03/23/18 05:40 Physical Exam - Physical Exam Skin: other (pacer site C/D/I) ICD10 Worksheet Patient Problems: Problems Problem Status Onset Acute exacerbation of congestive heart failure Acute Anasarca Acute Chronic Disease Mgmt/Transitional Care Acute Diabetic infection of left foot Acute Heart failure Acute Pulmonary hypertension Acute Renal insufficiency Acute
[2018-03-24] MEDS: AMIODARONE HCL 200 MG TAB PO SCH (10:11)
[2018-03-24] MEDS: MULTIVITAMINS 1 EACH TAB PO SCH (10:12)
[2018-03-24] MEDS: ACETAMINOPHEN 325 MG TAB PO PRN ×2 (10:12→21:54)
[2018-03-24] MEDS: SENNOSIDES/DOCUSATE SODIUM TAB PO SCH ×2 (10:27→21:54)
--- NOTE | 2018-03-24 10:45 | HOSPPROG ---
Hospitalist Progress Note Assessment/Plan: * MRSA sepsis - from HD catheter with seeding of defibrillator lead - vegetation -IV Vanco per ID -await BC clearance * ESRD -HD MWF -dialysis catheter removed - now with temporary line * Chronic systolic CHF EF 20% - now reduced to 10% -no ACEI due to hyperkalemia * V tach - AICD now out -will ask cardiology to consult regarding lower EF and loss of AICD * Afib -amiodarone -restart warfarin once procedures complete * Gout -s/p prednisone burst * Obesity BMI 36 Subjective: No new complaints. Objective: Vital Signs Temp Pulse Resp BP Pulse Ox 36.3 C 78 12 109/89 H 95 03/24/18 07:15 03/24/18 07:15 03/24/18 07:15 03/24/18 07:15 03/24/18 07:15 Microbiology 03/19/18 04:08 Blood Culture - Final Blood MRSA 03/19/18 06:00 Blood Culture - Final Blood MRSA Laboratory Results 03/23/18 06:00 03/24/18 04:10 03/23/18 03/24/18 03/25/18 05:59 05:59 05:59 Intake Total 352 1190 Output Total 3065 205 50 Balance -2713 985 -50 PT 17.7 SEC (12.0-15.0) H 03/23/18 05:40 INR 1.44 (0.83-1.16) H 03/23/18 05:40 CT left foot negative d/w cardiology Mickie Zapata for cardiology consultation - Physical Exam Constitutional: no apparent distress, appears nourished, not in pain Cardiovascular: regular rate and rhythym, no murmur, rub, or gallop Respiratory: no respiratory distress, no rales or rhonchi, clear to auscultation Gastrointestinal: normoactive bowel sounds, soft, non-tender abdomen, no palpable masses Skin: no rashes or abrasions, no fluctuance, no induration Neurologic: AAOx3, sensation intact bilaterally Psychiatric: interacting appropriately, not anxious, not encephalopathic, thought process linear ICD10 Worksheet Patient Problems: Problems Problem Status Onset Acute exacerbation of congestive heart failure Acute Anasarca Acute Chronic Disease Mgmt/Transitional Care Acute Diabetic infection of left foot Acute Heart failure Acute Pulmonary hypertension Acute Renal insufficiency Acute
[2018-03-24] MEDS ORDERED: D50W 25 GM/50 ML SYR IVP PRN (11:44)
--- NOTE | 2018-03-24 11:55 | PCMIDPN ---
Assessment/Plan: #MRSA Pacer wire endocarditis, source HD cath. Defib, wire out today, HD cath out, PICC line out. Temp HD cath present R neck. Incision L chest wall c/d/i --blood cx repeated today --random vancomycin level 18 today, okay. Will check tomorrow, likely could be dc on vancomycin 1gm at HD TIW #ESRD: vancomycin dosed intermittently Microbiology 03/16 blood cultures (2) MRSA, vancomycin ANNA MARIE =1 03/17 & 03/19 blood cultures (2) MRSA 03/21 blood cx 1/2 MRSA, vancomycin ANNA MARIE = 1 meds Vancomycin IV intermittently, #8 Subjective: still w mild pain L chest pain minimal other c/o Objective: Vital Signs Temp Pulse Resp BP Pulse Ox 36.3 C 78 12 109/89 H 95 03/24/18 07:15 03/24/18 07:15 03/24/18 07:15 03/24/18 07:15 03/24/18 07:15 Microbiology 03/19/18 04:08 Blood Culture - Final Blood MRSA 03/19/18 06:00 Blood Culture - Final Blood MRSA Laboratory Results 03/23/18 06:00 03/24/18 04:10 03/23/18 03/24/18 03/25/18 05:59 05:59 05:59 Intake Total 352 1190 Output Total 3065 205 50 Balance -2713 985 -50 - Physical Exam General Appearance: alert, no apparent distress Respiratory: other (decreased bs bases), No accessory muscle use Neck: supple Cardiac/Chest: regular rate, rhythm, other (L upper chest wall incision c/d/i) Extremities: pedal edema Abdomen: non-tender, soft Skin: No rash Neuro/Psych: alert, normal mood/affect, oriented x 3 - Line/s Rowell Lines: other (R IJ ), No drainage, No erythema - Time Spent With Patient Time Spent with Patient: greater than 25 minutes Time Spent with Patient: Greater than 25 minutes spent on this patients care, greater than 50% of time spent counseling, educating, and coordinating care regarding the above mentioned plan. ICD10 Worksheet Patient Problems: Problems Problem Status Onset Acute exacerbation of congestive heart failure Acute Anasarca Acute Chronic Disease Mgmt/Transitional Care Acute Diabetic infection of left foot Acute Heart failure Acute Pulmonary hypertension Acute Renal insufficiency Acute
[2018-03-24] MEDS: ALLOPURINOL 100 MG TAB PO SCH (12:22)
--- NOTE | 2018-03-24 12:42 | SOAPPROG ---
SOAP Progress Note Assessment/Plan: Assessment: 1. esrd: hd today on typical mwf schedule. Currently with temp cath, will need new tunneled cath once bld cx clear. Avf patent, apparently still needs collaterals ligated. 2. MRSA bacteremia: tunneled cath out, pacer out, on vanc. Repeat cx done today , once definitively cleared will need new tunneled cath as above. Will need to check availability of vanco at outpt hd clinic prior to d/c, as has been backordered recently. 3. Volume: volume up, will cont to uf as tolerated on hd. 4. anemia: hgb at goal. Plan: 03/24/18 12:39 Subjective: No particular c/o, feeling much better than on admit. For hd later today. Objective: Vital Signs Temp Pulse Resp BP Pulse Ox 36.3 C 78 12 109/89 H 95 03/24/18 07:15 03/24/18 07:15 03/24/18 07:15 03/24/18 07:15 03/24/18 07:15 Microbiology 03/19/18 04:08 Blood Culture - Final Blood MRSA 03/19/18 06:00 Blood Culture - Final Blood MRSA Laboratory Results 03/23/18 06:00 03/24/18 04:10 03/23/18 03/24/18 03/25/18 05:59 05:59 05:59 Intake Total 352 1190 Output Total 3065 205 50 Balance -2713 985 -50 PT 17.7 SEC (12.0-15.0) H 03/23/18 05:40 INR 1.44 (0.83-1.16) H 03/23/18 05:40 Physical Exam - Physical Exam General Appearance: no apparent distress Abdomen: non-tender, soft Extremities: pedal edema, other (+patent LUE avf) ICD10 Worksheet Patient Problems: Problems Problem Status Onset Acute exacerbation of congestive heart failure Acute Anasarca Acute Chronic Disease Mgmt/Transitional Care Acute Diabetic infection of left foot Acute Heart failure Acute Pulmonary hypertension Acute Renal insufficiency Acute
--- NOTE | 2018-03-24 15:16 | GCON ---
CARDIOLOGY CONSULTATION DATE OF CONSULTATION: 03/24/2018 REASON FOR CONSULTATION: We were asked by Dr. Kecia Carvalho of [facility] to evaluate the patient for his systolic CHF and atrial fibrillation. HISTORY OF PRESENT ILLNESS: The patient is a 67-year-old male known to us through multiple hospital and clinic visits. He has a complex medical history which includes chronic morbid obesity, chronic nonischemic systolic CHF with most recent LV systolic function of 20% to 25% based on transthoracic echo with concurrent RV dysfunction, central sleep apnea on CPAP, atrial fibrillation, chronic kidney disease now on hemodialysis, type 2 diabetes mellitus, previous cellulitis, gout, who is admitted due to purulent discharge from his IJ tunneled catheter. He noted antecedent fever and chills on the day prior to admission. Additionally, he has been noting lower extremity erythema for which he had been hospitalized at [address] and treated with antibiotics in the previous weeks. In February, he was hospitalized here for syncope which was felt to be likely related to hypovolemia. However, he had runs of nonsustained VT 4-6 beats, and he proceeded to ICD implantation and initiation of amiodarone therapy. Since his admission here for fever and chills, he has been found to have an MRSA bacteremia for which he has been started on antibiotics. A transesophageal echocardiogram was obtained and showed a vegetation on his RV lead and an estimated LV systolic function of 10%. He proceeded to explantation of RV lead and device removal on 03/23/18. Currently, patient reports he is feeling improved. He has been afebrile and is ambulatory. He denies any PND, orthopnea, but does note fatigue on exertion. He does not note cough or hemoptysis. PAST MEDICAL HISTORY: 1. Chronic systolic CHF with ejection fraction by transthoracic echo of 20% to 25%. 2. Mild coronary artery disease based on left heart catheterization from 2016, which showed distal LAD disease of 60%, RCA disease of 50% proximally and distally, and minimal left circumflex disease. 3. Type 2 diabetes mellitus. 4. End-stage renal disease, on hemodialysis. 5. Chronic pulmonary hypertension. 6. Gout. 7. Morbid obesity. 8. Central sleep apnea, on CPAP. 9. Atrial fibrillation, usually on Coumadin therapy. PAST SURGICAL HISTORY: Recent surgeries include a left-sided fistula. SOCIAL HISTORY: Patient is . He is a nonsmoker and denies any significant alcohol intake. MEDICATIONS: Please see med reconciliation for current medical therapies. ALLERGIES: No known drug allergies. FAMILY HISTORY: No family history of any significant cardiac diseases. REVIEW OF SYSTEMS: As per HPI, a complete 10-point review of systems was obtained and is negative except for what is dictated. PHYSICAL EXAMINATION: VITAL SIGNS: BP of 110/81, heart rate of 78, respirations 14, O2 saturation 95% on room air. GENERAL: He is a very pleasant male in no apparent distress. HEENT: Normocephalic, atraumatic. Eyes are without scleral icterus. NECK: Without JVD. HEART: Regular rate and rhythm with distant heart sounds. LUNGS: Clear in the bases. ABDOMEN: Distended with normoactive bowel sounds. EXTREMITIES: There are some venous stasis changes in the lower extremities. There is at least 1 to 2+ pitting edema. PSYCH: Normal mood and affect. SKIN: Warm and dry. DATABASE: Chest x-ray shows no acute findings. This is dated 03/16/2018. Echo results as dictated in HPI. LABORATORY DATA: CBC was WBC 15.87, hemoglobin 10.7, hematocrit 33, platelet count of 236. INR 1.44, that was last checked on 03/23/2018. BMP was sodium 128, potassium 5.6, chloride 91, CO2 21, BUN 74, creatinine 5, glucose of 268. TELEMETRY: Personally reviewed, shows atrial fibrillation with controlled ventricular rates. IMPRESSION AND PLAN: The patient is a 67-year-old male who is admitted with an MRSA bacteremia. On transesophageal echocardiogram, he had evidence of vegetation on his RV lead, which has led to surgical explantation of his ICD as well as extraction of his RV lead. 1. 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 He is status post explantation. Due to his age, low ejection fraction, diabetes, coronary atherosclerosis, he has a [id number] of at least 4. This puts him at high risk for stroke. We recommend prophylaxis with heparin which will now be initiated. 2. Systolic congestive heart failure. He has class 3-4 congestive heart failure symptoms. Most of his cardiac medications appear to be on hold. As tolerated, we will reintroduce beta juanita therapy. His lisinopril likely cannot be used given his end-stage renal disease. His volume status is being treated with dialysis. 3. Nonsustained ventricular tachycardia. He is currently on amiodarone therapy. 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 I will go ahead and reduce his dose of amiodarone as he has been on several weeks of higher dosing. 4. Nonischemic cardiomyopathy. His ejection fraction is likely stable as comparative echocardiograms have had similar ejection fractions. He has had an ischemic workup and had no significant coronary artery disease warranting percutaneous intervention. He has not had symptoms of angina. Due to his low ejection fraction and the extraction of his implantable cardioverter- defibrillator and right ventricular lead, he is not protected from ventricular arrhythmias. We will therefore plan for an external LifeVest until a defibrillator can be replaced. /[id number]/MODL MTDD
[2018-03-24 16:07] LABS: PLATELET COUNT 224 10^3/uL (150-400)
[2018-03-24 16:16] LABS: INR 1.32 (0.83-1.16); PROTIME(PATIENT) 16.6 SEC (12.0-15.0)
--- NOTE | 2018-03-24 16:38 | ASMTCMCOM ---
CM Note CM Note Notes: 03/24/2018 Case Management Note Met w/Maite to update on discharge options. Option 1: [facility]. Phone call from Ander Song to assess pt for placement at [facility] Provided printed info to Maite. [facility] considering pt as well. Option 2: [facility] accepted pt and is agreeable to transporting pt to [place] for dialysis. This plan is less desireable to Maite today due to lengthy drive and time lost for therapies commuting to dialysis. Option 3: Preferred option for Maite. Antibiotics to be administered after dialysis. [facility] to provide RN and PT. Maite has elminated option 4. Outpatient infusion clinic on opposite days of dialysis will not work with Maite's work schedule. Provided printed info on Palliative Care. Maite expressed she was a very private person and needed time to digest the recommendations for discharge. Pt and Maite is considering Palliative care and need education and reassurance that it does not mean end of life. Case Management d/c poc: to be determined. Case Management to follow. 03/23/2018 Case Management Note Met w/pt and Maite to discuss d/c plans. Maite son lives in the basement apartment of family home and is often home when Maite is at work and can assist patient if needed. Discussed working on several discharge plans at the same time and picking the most appropriate option closer to discharge. Pt in agreement. Option 1: [facility]. Referrals sent to multiple facilities via [employer] [facility] Option 2: Return to SNF rehab with outpatient dialysis. Faxed referrals to [facility], [place] facilities and [facility]. [facility] is preferred by family however will require shifting dialysis location. Option 3: Antibiotic infusions to happen at [facility] on . Called Nicky medication care manager at [facility] [phone] to discuss. Antibiotics would be covered under dialysis visit at no cost to family as dialysis catheter is likely source of infection per ID note. However pt will only have antibiotics on MWF. Uncertain if this is appropriate and will follow ID notes for instructions for antibiotic needs at discharge. Option 4: Maite to transport to outpatient infusion center for IV antibiotics if needed after discharge. Likely would be on alternate days with dialysis. Palliative consult ordered. Notified El for visit tomorrow. Maite expresses sadness about pt prognosis and wants pt home to spend time with him, however they are both aware pt needs to make progress with physical capabilities for this to be a safe discharge. Case Management d/c poc: to be determined. Case Management to follow. Date Signed: 03/24/2018 04:37 PM Electronically Signed By:Kassidy Mitchell RN
[2018-03-24] MEDS: HEPARIN 10,000 UNIT/10 ML MDV (1,000 UNIT/ML) IVP PRN (16:51)
[2018-03-24] MEDS: HEPARIN/DEXTROSE 500 ML IV SCH (16:56)
[2018-03-24] MEDS: INSULIN REGULAR HUMAN 100 UNIT/ML UNIT SC SCH ×2 (18:17→23:09)
[2018-03-24] MEDS ORDERED: HEPARIN 50,000 UNIT/10 ML VIAL ONE (19:24)
[2018-03-24] MEDS: ASPIRIN EC 81 MG TAB PO SCH (21:54)
[2018-03-24] MEDS: MELATONIN 3 MG TAB PO SCH (21:54)
[2018-03-25] MEDS: LEVOTHYROXINE 75 MCG TAB PO SCH (05:16)
[2018-03-25] MEDS: HEPARIN/DEXTROSE 500 ML IV SCH ×2 (05:17→17:09)
[2018-03-25 06:11] LABS: PLATELET COUNT 205 10^3/uL (150-400)
[2018-03-25] MEDS: INSULIN REGULAR HUMAN 100 UNIT/ML UNIT SC SCH ×4 (07:46→22:02)
[2018-03-25] MEDS: AMIODARONE HCL 200 MG TAB PO SCH (09:13)
[2018-03-25] MEDS: MULTIVITAMINS 1 EACH TAB PO SCH (09:13)
[2018-03-25] MEDS: ACETAMINOPHEN 325 MG TAB PO PRN (09:13)
[2018-03-25] MEDS: SENNOSIDES/DOCUSATE SODIUM TAB PO SCH ×2 (09:32→22:04)
--- NOTE | 2018-03-25 11:05 | SOAPPROG ---
SOAP Progress Note Assessment/Plan: Assessment/Plan: ESRD: Blood cultures still positive from 03/24. - TDC removed last week, temporary dialysis catheter placed 03/19. - Will plan on HD next tomorrow. Anemia: Hgb at goal at 10.9, no need for epo at this time, will monitor. Hyponatremia: will modulate on HD. CINDY: will modulate on HD and continue to monitor, no need for phos binder at this time. Subjective: No acute events overnight. Pt is resting this am, no new complaints. Objective: Vital Signs Temp Pulse Resp BP Pulse Ox 36.4 C 94 11 L 91/58 L 97 03/25/18 07:42 03/25/18 07:42 03/25/18 07:42 03/25/18 07:42 03/25/18 07:42 Microbiology 03/19/18 04:08 Blood Culture - Final Blood MRSA 03/19/18 06:00 Blood Culture - Final Blood MRSA Laboratory Results 03/25/18 06:00 03/25/18 06:00 03/24/18 03/25/18 03/26/18 05:59 05:59 05:59 Intake Total 1190 1805.6 Output Total 205 105 Balance 985 1700.6 PT 16.6 SEC (12.0-15.0) H 03/24/18 16:00 INR 1.32 (0.83-1.16) H 03/24/18 16:00 General: alert and oriented, no acute distress Eyes: EOMI, PERRL OP: Clear CV: RRR Resp: nonlabored respirations Abd: Soft, NT Ext: +2 edema BLE Neuro: CN II-XII grossly intact Psych: cooperative Access; RIJ temp cath ICD10 Worksheet Patient Problems: Problems Problem Status Onset Acute exacerbation of congestive heart failure Acute Anasarca Acute Chronic Disease Mgmt/Transitional Care Acute Diabetic infection of left foot Acute Heart failure Acute Pulmonary hypertension Acute Renal insufficiency Acute
[2018-03-25] MEDS ORDERED: COLCHICINE 0.6 MG CAP/TAB PO SCH (11:30)
--- NOTE | 2018-03-25 11:39 | PDCARPN ---
Cardiology Progress Note Chief Complaint: SCHF and AF Assessment/Plan: Assessment/Plan: 67M with MMP including ESRD on HD, htn, morbid obesity BMI 37, nonobstructive CAD based on [facility] 08/22, T2DM, SCHF with RV dysfunction, central sleep apnea, permanent AF, admitted with purulent discharge from IJ tunneled catheter, found to have MRSA bacteremia. On POOJA, he had findings suggestive of RV lead endocarditis. He is s/p extraction of RV lead and ICD removal 03/23/18. #. permanent AF: has been off Warfarin due to high [id number] of 4, he has been started on heparin rates appear controlled #. SCHF: EF 10% by POOJA and 20-25% by TTE he is not on BB due to hypotension/ will defer until he is more recovered from his bacteremia #. CAD: EF stable if compared to previous TTE will defer ischemic workup #. ICM: EF low and patient now unprotected with known h/o NSVT Zoll Lifevest orders are currently in place #. NSVT: his Amiodarone dose has been decreased as he has been on higher dosing for several weeks now 03/25/18 11:28 Subjective: Pt asleep but arousable. Objective: Vital Signs (8 Hrs) Temp Pulse Resp BP Pulse Ox 03/25/18 07:42 97.6 F 94 11 L 91/58 L 97 03/25/18 04:00 97.5 F 72 17 90/52 L 94 Intake/Output (24 Hrs) 03/24/18 03/25/18 03/26/18 05:59 05:59 05:59 Intake Total 1190 1805.6 Output Total 205 105 Balance 985 1700.6 Intake: Oral (ml) 690 1280 IV Intake (ml) 500 IV Infused (ml) 525.6 Heparin/Dextrose 500 ml @ 525.6 Per Protocol IV CONT CHELI Rx#:[id number] Output: Urine (ml) 200 105 Bedside Commode 200 105 Estimated Blood Loss (ml) 5 Kathy Drain Output (ml) 0 Left Chest Kathy 0 Other: Weight 124.3 kg 126.6 kg 127.1 kg Intake Quantity Yes Sufficient Number of Voids Bedside Commode 1 1 Number of Stools Bedside Commode 1 1 Result Diagrams: 03/25/18 06:00 03/25/18 06:00 Telemetry: AF/occ PVCs - Physical Exam Constitutional: no apparent distress Eyes: anicteric sclera Cardiovascular: regular rate and rhythm Respiratory: clear to auscultate bilat Gastrointestinal: normoactive bowel sounds Skin: warm ICD10 Worksheet Patient Problems: Problems Problem Status Onset Acute exacerbation of congestive heart failure Acute Anasarca Acute Chronic Disease Mgmt/Transitional Care Acute Diabetic infection of left foot Acute Heart failure Acute Pulmonary hypertension Acute Renal insufficiency Acute
[2018-03-25] MEDS: ALLOPURINOL 100 MG TAB PO SCH (12:20)
[2018-03-25] MEDS: HYDROCODONE/APAP 5/325 TAB PO PRN (13:23)
--- NOTE | 2018-03-25 14:26 | HOSPPROG ---
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 - AICD removed -IV Vanco per ID -await BC clearance * ESRD -HD MWF -dialysis catheter removed - now with temporary line * Chronic systolic CHF EF 20% - now reduced to 10% -no ACEI due to hyperkalemia * V tach - AICD now out -life vest until device can be replaced * Afib -amiodarone -restart warfarin once procedures complete - now on IV heparin * Gout -s/p prednisone burst -d/w pharmacy - okay for colchicine 0.6mg Q14 days in ESRD -continue renally adjusted allopurinol * Obesity BMI 36 * RUE/LUE edema -check US -rule out abscess on foot Subjective: No new complaints. Right ankle/foot hurting again Objective: Vital Signs Temp Pulse Resp BP Pulse Ox 36.4 C 77 11 L 91/57 L 95 03/25/18 12:00 03/25/18 12:00 03/25/18 12:00 03/25/18 12:00 03/25/18 12:00 Laboratory Results 03/25/18 06:00 03/25/18 06:00 03/24/18 03/25/18 03/26/18 05:59 05:59 05:59 Intake Total 1190 1805.6 Output Total 205 105 Balance 985 1700.6 PT 16.6 SEC (12.0-15.0) H 03/24/18 16:00 INR 1.32 (0.83-1.16) H 03/24/18 16:00 d/w Dr. blanton regarding us plan - Physical Exam Constitutional: no apparent distress, appears nourished, not in pain Cardiovascular: regular rate and rhythym, no murmur, rub, or gallop, edema (LUE/ LLE) Respiratory: no respiratory distress, no rales or rhonchi, clear to auscultation Gastrointestinal: normoactive bowel sounds, soft, non-tender abdomen, no palpable masses Skin: no rashes or abrasions, no fluctuance, no induration Neurologic: AAOx3, sensation intact bilaterally Psychiatric: interacting appropriately, not anxious, not encephalopathic, thought process linear ICD10 Worksheet Patient Problems: Problems Problem Status Onset Anasarca Acute Pulmonary hypertension Acute Chronic Disease Mgmt/Transitional Care Acute Diabetic infection of left foot Acute Heart failure Acute Renal insufficiency Acute Acute exacerbation of congestive heart failure Acute
--- NOTE | 2018-03-25 14:46 | PCMIDPN ---
Assessment/Plan: #MRSA Pacer wire endocarditis, source HD cath. Defib, wire out today, HD cath out, PICC line out. Temp HD cath present R neck. Incision L chest wall c/d/i --blood cx positive from yesterday - not entirely unexpected as it was done the day after wire removal, repeat tomorrow morning --vancomycin level okay today, start vancomycin 1gm at HD MWF, starting tomorrow # L foot pain, erythema and warmth on dorsum: --rule out DVT, doppler of veins left leg --US of dorsum of foot #ESRD: vancomycin dosed intermittently Microbiology 03/16 blood cultures (2) MRSA, vancomycin ANNA MARIE =1 03/17 & 03/19 blood cultures (2) MRSA 03/21 blood cx 1/2 MRSA, vancomycin ANNA MARIE = 1 03/24 blood cx 1/2 MRSA meds Vancomycin IV intermittently, #9 Subjective: Patient complaining of left foot pain that woke him from sleep last night Left chest wall pain controlled Objective: Vital Signs Temp Pulse Resp BP Pulse Ox 36.4 C 77 11 L 91/57 L 95 03/25/18 12:00 03/25/18 12:00 03/25/18 12:00 03/25/18 12:00 03/25/18 12:00 Laboratory Results 03/25/18 06:00 03/25/18 06:00 03/24/18 03/25/18 03/26/18 05:59 05:59 05:59 Intake Total 1190 1805.6 200 Output Total 205 105 Balance 985 1700.6 200 - Physical Exam General Appearance: alert, no apparent distress, obese, non-toxic EENT: pale conjunctiva, No scleral icterus, No thrush Respiratory: other (Decreased breath sounds in the bases), No accessory muscle use Cardiac/Chest: irregularly irregular Extremities: pedal edema (Left greater than right), inflammation (Dorsum of left foot, mild tenderness to palpation, no crepitus, no fluctuance), other ( Bilateral lower extremity pinkness consistent with venous insufficiency) Abdomen: normal bowel sounds, non-tender, soft Male Genitalia: No fan Skin: No rash Neuro/Psych: alert, oriented x 3, depressed affect - Line/s Rowell Lines: other (Right IJ position), No drainage, No erythema - Time Spent With Patient Time Spent with Patient: greater than 35 minutes (Care coordinated with hospitalist and nursing) Time Spent with Patient: Greater than 35 minutes spent on this patients care, greater than 50% of time spent counseling, educating, and coordinating care regarding the above mentioned plan. ICD10 Worksheet Patient Problems: Problems Problem Status Onset Acute exacerbation of congestive heart failure Acute Anasarca Acute Chronic Disease Mgmt/Transitional Care Acute Diabetic infection of left foot Acute Heart failure Acute Pulmonary hypertension Acute Renal insufficiency Acute
[2018-03-25] MEDS: ASPIRIN EC 81 MG TAB PO SCH (22:02)
[2018-03-25] MEDS: MELATONIN 3 MG TAB PO SCH (22:02)
[2018-03-26 05:09] LABS: PLATELET COUNT 184 10^3/uL (150-400)
[2018-03-26] MEDS: LEVOTHYROXINE 75 MCG TAB PO SCH (05:23)
[2018-03-26] MEDS: HEPARIN/DEXTROSE 500 ML IV SCH (05:23)
[2018-03-26] MEDS: MULTIVITAMINS 1 EACH TAB PO SCH (08:44)
[2018-03-26] MEDS: AMIODARONE HCL 200 MG TAB PO SCH (08:44)
[2018-03-26] MEDS: INSULIN REGULAR HUMAN 100 UNIT/ML UNIT SC SCH ×3 (08:44→18:41)
[2018-03-26] MEDS: SENNOSIDES/DOCUSATE SODIUM TAB PO SCH ×2 (08:45→23:42)
--- NOTE | 2018-03-26 09:56 | SOAPPROG ---
SOAP Progress Note Assessment/Plan: Assessment/Plan: ESRD: Blood cultures still positive from 03/24. - TDC removed last week, temporary dialysis catheter placed 03/19. - Will do HD today. - Repeat blood cultures drawn today. Anemia: Hgb at goal, no need for epo at this time, will monitor. Hyponatremia: will modulate on HD. CINDY: will modulate on HD and continue to monitor, no need for phos binder at this time. Hypervolemia: will modulate on HD, provide albumin as needed to aid in fluid removal on HD. Subjective: No acute events overnight. Pt states that he feels tired but has no other complaints today. Objective: Vital Signs Temp Pulse Resp BP Pulse Ox 36.5 C 93 17 115/72 96 03/26/18 07:48 03/26/18 07:48 03/26/18 07:48 03/26/18 07:48 03/26/18 07:48 Microbiology 03/21/18 03:35 Blood Culture - Final Blood 03/21/18 03:50 Blood Culture - Final Blood MRSA Laboratory Results 03/26/18 04:30 03/26/18 04:30 03/25/18 03/26/18 03/27/18 05:59 05:59 05:59 Intake Total 1805.6 1571 Output Total 105 25 Balance 1700.6 1546 PT 16.6 SEC (12.0-15.0) H 03/24/18 16:00 INR 1.32 (0.83-1.16) H 03/24/18 16:00 General: alert and oriented, no acute distress Eyes; EOMI, PERRL OP: Clear CV: RRR Resp: nonlabored respirations Abd: Soft, NT/ND Ext: +2 edema BLE Neuro: CN II-XII Grossly intact Psych: cooperative Access; RIJ temp catheter ICD10 Worksheet Patient Problems: Problems Problem Status Onset Acute exacerbation of congestive heart failure Acute Anasarca Acute Chronic Disease Mgmt/Transitional Care Acute Diabetic infection of left foot Acute Heart failure Acute Pulmonary hypertension Acute Renal insufficiency Acute
--- NOTE | 2018-03-26 10:51 | PCMIDPN ---
Assessment/Plan: #MRSA Pacer wire endocarditis, source HD cath. Defib, wire out today, HD cath out, PICC line out. Temp HD cath present R neck. Incision L chest wall c/d/i --blood cx repeated today --start vancomycin 1gm at HD MWF, discussed w RN # L foot pain, erythema and warmth c/w cellulitis now US suggestive of abscess --consulted Dr. Simmons for I&D #ESRD: vancomycin dosed intermittently; seems to have a bit of steal syndrome L hand associated w fistula Microbiology 03/16 blood cultures (2) MRSA, vancomycin ANNA MARIE =1 03/17 & 03/19 blood cultures (2) MRSA 03/21 blood cx 1/2 MRSA, vancomycin ANNA MARIE = 1 03/24 blood cx 1/2 MRSA 03/26 blood cx (2) pending meds Vancomycin IV intermittently, #10 Subjective: somewhat downtrodden about complexity of his situation Objective: Vital Signs Temp Pulse Resp BP Pulse Ox 36.5 C 93 17 115/72 96 03/26/18 07:48 03/26/18 07:48 03/26/18 07:48 03/26/18 07:48 03/26/18 07:48 Microbiology 03/21/18 03:35 Blood Culture - Final Blood 03/21/18 03:50 Blood Culture - Final Blood MRSA Laboratory Results 03/26/18 04:30 03/26/18 04:30 03/25/18 03/26/18 03/27/18 05:59 05:59 05:59 Intake Total 1805.6 1571 Output Total 105 25 Balance 1700.6 1546 - Physical Exam General Appearance: alert, no apparent distress Respiratory: other (shallow inspiration, no crackles), No accessory muscle use Cardiac/Chest: systolic murmur Extremities: pedal edema (R>L), swelling (LUE, palable thrill associated with fistula, index and middle finger a bit blue and cold (?steal)), erythema (L distal leg and foot, also associated warmth) Abdomen: non-tender, soft Skin: No rash Neuro/Psych: alert, oriented x 3, depressed affect - Line/s Rowell Lines: other (R IJ, some pinkness at insertion site), No drainage, No erythema - Time Spent With Patient Time Spent with Patient: greater than 35 minutes Time Spent with Patient: Greater than 35 minutes spent on this patients care, greater than 50% of time spent counseling, educating, and coordinating care regarding the above mentioned plan. ICD10 Worksheet Patient Problems: Problems Problem Status Onset Acute exacerbation of congestive heart failure Acute Anasarca Acute Chronic Disease Mgmt/Transitional Care Acute Diabetic infection of left foot Acute Heart failure Acute Pulmonary hypertension Acute Renal insufficiency Acute
--- NOTE | 2018-03-26 11:01 | SOAPPROG ---
SOAP Progress Note Assessment/Plan: Assessment: 67 y/o M with hx of CHF, ESRD, and VT currently admitted for sepsis bacteremia due to neck catheter. Catheter was removed and pt is on vanc. S/p temp cath placement for dialysis S: No complaints. Pain in left foot with ambulation. O: Alert Afebrile No increased WOB Abdomen soft LUE: AVF with good thrill, +radial pulse Left foot: erythematous, fluctuant area on dorsum of left foot, slightly tender to palpation. U/s shows abscess vs. hematoma. Plan: Bedside L foot abscess I&D under local. As far as dialysis catheter, hoping we can nurse temp cath along until LUE AVF has matured- about 2 more weeks. Pt will need surgery to ligate 2 tributaries prior to using AVF. 03/26/18 10:56 Objective: Vital Signs Temp Pulse Resp BP Pulse Ox 36.5 C 93 17 115/72 96 03/26/18 07:48 03/26/18 07:48 03/26/18 07:48 03/26/18 07:48 03/26/18 07:48 Microbiology 03/21/18 03:35 Blood Culture - Final Blood 03/21/18 03:50 Blood Culture - Final Blood MRSA Laboratory Results 03/26/18 04:30 03/26/18 04:30 03/25/18 03/26/18 03/27/18 05:59 05:59 05:59 Intake Total 1805.6 1571 Output Total 105 25 Balance 1700.6 1546 PT 16.6 SEC (12.0-15.0) H 03/24/18 16:00 INR 1.32 (0.83-1.16) H 03/24/18 16:00 ICD10 Worksheet Patient Problems: Problems Problem Status Onset Acute exacerbation of congestive heart failure Acute Anasarca Acute Chronic Disease Mgmt/Transitional Care Acute Diabetic infection of left foot Acute Heart failure Acute Pulmonary hypertension Acute Renal insufficiency Acute
[2018-03-26] MEDS: ALLOPURINOL 100 MG TAB PO SCH (13:37)
--- NOTE | 2018-03-26 14:10 | ASMTCMCOM ---
CM Note CM Note Notes: Pts case discussed in tx rounds. CM spoke to Ander and he reports that pt is appropriate at this time for LTAC. Ander called pts and spoke w/ her. Pts would like pt to return home. Pt will continue to have iv fluids until next week. Pt will have dialysis today. When pt is medically stable to d/c pt will go with a life vest. Pt has been approved for it. Pts blood cultures are positive. Pt will most likely require ivabx. CM to follow up next week. Plan: TBD Date Signed: 03/26/2018 02:09 PM Electronically Signed By:ORLANDO Diaz
--- NOTE | 2018-03-26 14:13 | PDCARPN ---
Cardiology Progress Note Chief Complaint: SCHF/VT Assessment/Plan: Assessment/Plan: 67M with MMP including ESRD on HD, htn, morbid obesity BMI 37, nonobstructive CAD based on [facility] 08/22, T2DM, SCHF with RV dysfunction, central sleep apnea, permanent AF, admitted with purulent discharge from IJ tunneled catheter, found to have MRSA bacteremia. On POOJA, he had findings suggestive of RV lead endocarditis. He is s/p extraction of RV lead and ICD removal 03/23/18. #. permanent AF: has been off Warfarin due to high [id number] of 4, he has been started on heparin rates appear controlled #. SCHF: EF 10% by POOJA and 20-25% by TTE he has not been on typical CHF regimen likely due to hypotension will resume low dose Carvedilol #. CAD: EF stable if compared to previous TTE will defer ischemic workup #. ICM: EF low and patient now unprotected with known h/o NSVT Zoll Lifevest approved and awaiting fitting #. NSVT: his Amiodarone dose has been decreased as he has been on higher dosing for several weeks now 03/26/18 14:08 Subjective: L foot is painful to the point that he cannot ambulate. Awaiting dialysis. Objective: Vital Signs (8 Hrs) Temp Pulse Resp BP Pulse Ox 03/26/18 10:56 97.5 F 86 13 117/62 96 03/26/18 07:48 97.7 F 93 17 115/72 96 Intake/Output (24 Hrs) 03/25/18 03/26/18 03/27/18 05:59 05:59 05:59 Intake Total 1805.6 1571 Output Total 105 25 Balance 1700.6 1546 Intake: Oral (ml) 1280 1100 IV Infused (ml) 525.6 471 Heparin/Dextrose 500 ml @ 525.6 471 Per Protocol IV CONT CHELI Rx#:[id number] Output: Urine (ml) 105 25 Bedside Commode 105 25 Other: Weight 126.6 kg 127.1 kg Urine Specific [place] Bedside Commode 1 Intake Quantity Yes Sufficient Number of Voids Bedside Commode 1 1 Number of Stools Bedside Commode 1 1 Result Diagrams: 03/26/18 04:30 03/26/18 04:30 Telemetry: telemetry/occasional PVCs - Physical Exam Constitutional: WDWN Eyes: anicteric sclera Cardiovascular: no murmurs, irregularly irregular Respiratory: clear to auscultate bilat, no crackles Gastrointestinal: normoactive bowel sounds Neurologic: AAOx3 Psychiatric: cooperative, interactive ICD10 Worksheet Patient Problems: Problems Problem Status Onset Acute exacerbation of congestive heart failure Acute Anasarca Acute Chronic Disease Mgmt/Transitional Care Acute Diabetic infection of left foot Acute Heart failure Acute Pulmonary hypertension Acute Renal insufficiency Acute
--- NOTE | 2018-03-26 17:13 | SOAPPROG ---
SOAP Progress Note Assessment/Plan: Assessment: 67 y/o M with hx of CHF, ESRD, and VT currently admitted for sepsis bacteremia due to neck catheter. Catheter was removed and pt is on vanc. S/p temp cath placement for dialysis S: No complaints. Pain in left foot with ambulation. O: Alert Afebrile No increased WOB Abdomen soft LUE: AVF with good thrill, +radial pulse Left foot: erythematous, fluctuant area on dorsum of left foot, slightly tender to palpation. U/s shows abscess vs. hematoma. Plan: Bedside L foot abscess I&D under local. As far as dialysis catheter, hoping we can nurse temp cath along until LUE AVF has matured- about 2 more weeks. Pt will need surgery to ligate 2 tributaries prior to using AVF. 03/26/18 10:56 03/26/18 17:10 Procedure note: Bedside I&D of fluid collection on L dorsum of foot. Consent was obtained. Time out was performed. Local anesthetic was injected at the site prior to incision. Serous fluid was expressed from the wound. Very little if any purulent material was expressed. Wound was packed with iodoform gauze and a secondary dressing was applied. Objective: Vital Signs Temp Pulse Resp BP Pulse Ox 36.4 C 92 14 115/75 94 03/26/18 10:56 03/26/18 15:12 03/26/18 15:12 03/26/18 15:12 03/26/18 15:12 Microbiology 03/21/18 03:35 Blood Culture - Final Blood 03/21/18 03:50 Blood Culture - Final Blood MRSA Laboratory Results 03/26/18 04:30 03/26/18 04:30 03/25/18 03/26/18 03/27/18 05:59 05:59 05:59 Intake Total 1805.6 1571 Output Total 105 25 Balance 1700.6 1546 PT 16.6 SEC (12.0-15.0) H 03/24/18 16:00 INR 1.32 (0.83-1.16) H 03/24/18 16:00 ICD10 Worksheet Patient Problems: Problems Problem Status Onset Acute exacerbation of congestive heart failure Acute Anasarca Acute Chronic Disease Mgmt/Transitional Care Acute Diabetic infection of left foot Acute Heart failure Acute Pulmonary hypertension Acute Renal insufficiency Acute
--- NOTE | 2018-03-26 17:53 | HOSPPROG ---
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 - AICD removed -IV Vanco per ID -await BC clearance * ESRD -HD MWF -dialysis catheter removed - now with temporary line -arm fistula ready for use 2 weeks * Chronic systolic CHF EF 20% - now reduced to 10% -no ACEI due to hyperkalemia -coreg * V tach - AICD now out -life vest until device can be replaced * Afib -amiodarone -restart warfarin once procedures complete - now on IV heparin * Gout -s/p prednisone burst -d/w pharmacy - okay for colchicine 0.6mg Q14 days in ESRD -continue renally adjusted allopurinol * Obesity BMI 36 * RLE abscess -await I&D by surgery Subjective: left foot pain at site of fluctuance Objective: Vital Signs Temp Pulse Resp BP Pulse Ox 36.4 C 92 14 115/75 94 03/26/18 10:56 03/26/18 15:12 03/26/18 15:12 03/26/18 15:12 03/26/18 15:12 Microbiology 03/21/18 03:35 Blood Culture - Final Blood 03/21/18 03:50 Blood Culture - Final Blood MRSA Laboratory Results 03/26/18 04:30 03/26/18 04:30 03/25/18 03/26/18 03/27/18 05:59 05:59 05:59 Intake Total 1805.6 1571 Output Total 105 25 Balance 1700.6 1546 PT 16.6 SEC (12.0-15.0) H 03/24/18 16:00 INR 1.32 (0.83-1.16) H 03/24/18 16:[address] blanton regarding surgery consultation US - no DVT US foot - + fluid collection - Physical Exam Constitutional: no apparent distress, appears nourished, not in pain Cardiovascular: regular rate and rhythym, no murmur, rub, or gallop, edema (2+) Respiratory: no respiratory distress, no rales or rhonchi, clear to auscultation Gastrointestinal: normoactive bowel sounds, soft, non-tender abdomen, no palpable masses Skin: warm, fluctuance, No mottled, No abrasion, No rash Neurologic: AAOx3, sensation intact bilaterally Psychiatric: interacting appropriately, flat affect, No encephalopathic, No poor insight, No poor judgement, No poor memory ICD10 Worksheet Patient Problems: Problems Problem Status Onset Anasarca Acute Pulmonary hypertension Acute Chronic Disease Mgmt/Transitional Care Acute Diabetic infection of left foot Acute Heart failure Acute Renal insufficiency Acute Acute exacerbation of congestive heart failure Acute
[2018-03-26] MEDS: ACETAMINOPHEN 325 MG TAB PO PRN (18:41)
[2018-03-26] MEDS ORDERED: ALBUMIN 25% 100 ML SOLN IV ONE (18:44)
[2018-03-27] MEDS: ASPIRIN EC 81 MG TAB PO SCH ×2 (00:21→21:24)
[2018-03-27] MEDS: INSULIN REGULAR HUMAN 100 UNIT/ML UNIT SC SCH ×5 (00:21→21:24)
[2018-03-27] MEDS: MELATONIN 3 MG TAB PO SCH ×2 (00:21→21:24)
[2018-03-27] MEDS: HEPARIN/DEXTROSE 500 ML IV SCH ×2 (00:21→16:34)
[2018-03-27] MEDS: VANCOMYCIN HCL/NORMAL SALINE 250 ML IV SCH (00:21)
[2018-03-27] MEDS: ACETAMINOPHEN 325 MG TAB PO PRN ×2 (01:40→17:42)
[2018-03-27] MEDS ORDERED: HEPARIN 50,000 UNIT/10 ML VIAL IV ONE (02:04)
[2018-03-27] MEDS: HYDROCODONE/APAP 5/325 TAB PO PRN ×2 (03:35→23:09)
[2018-03-27 05:57] LABS: PLATELET COUNT 165 10^3/uL (150-400)
[2018-03-27] MEDS: AMIODARONE HCL 200 MG TAB PO SCH (08:20)
[2018-03-27] MEDS: MULTIVITAMINS 1 EACH TAB PO SCH (08:20)
[2018-03-27] MEDS: SENNOSIDES/DOCUSATE SODIUM TAB PO SCH ×2 (10:46→21:25)
--- NOTE | 2018-03-27 10:55 | SOAPPROG ---
SOAP Progress Note Assessment/Plan: Assessment: 1. ESRD Stable HD Thursday. Still volume overloaded. Next on Thursday. 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 3. Anemia Hg down. Follow. 4. Foot Would s/p Debridement. Plan: 03/27/18 10:51 Subjective: In good spirits. Some foot pain, otherwise no complaints Objective: Vital Signs Temp Pulse Resp BP Pulse Ox 36.6 C 84 12 106/65 96 03/27/18 00:00 03/27/18 07:35 03/27/18 07:35 03/27/18 07:35 03/27/18 07:35 Microbiology 03/26/18 16:30 Gram Stain - Final Foot - Anaerobic Tube/Swab 03/21/18 03:35 Blood Culture - Final Blood 03/21/18 03:50 Blood Culture - Final Blood MRSA Laboratory Results 03/27/18 05:50 03/27/18 05:50 03/26/18 03/27/18 03/28/18 05:59 05:59 05:59 Intake Total 1571 1495 Output Total 25 2125 Balance 1546 -630 PT 16.6 SEC (12.0-15.0) H 03/24/18 16:00 INR 1.32 (0.83-1.16) H 03/24/18 16:00 Physical Exam - Physical Exam General Appearance: no apparent distress Neck: other (temp cath site ok) Respiratory: lungs clear Cardiac/Chest: regular rate, rhythm Extremities: pedal edema (2+) Neuro/Psych: oriented x 3 ICD10 Worksheet Patient Problems: Problems Problem Status Onset Acute exacerbation of congestive heart failure Acute Anasarca Acute Chronic Disease Mgmt/Transitional Care Acute Diabetic infection of left foot Acute Heart failure Acute Pulmonary hypertension Acute Renal insufficiency Acute
--- NOTE | 2018-03-27 12:12 | PDCARPN ---
Cardiology Progress Note Chief Complaint: Patient reports fatigue. Assessment/Plan: Assessment: 67-year-old male with significant past history that includes ESRD on HD, htn, morbid obesity, nonobstructive CAD based on [facility] 08/22, T2DM, SCHF with RV dysfunction (EF 10% POOJA 03/22), central sleep apnea, permanent AF, admitted with purulent discharge from IJ tunneled catheter, found to have MRSA bacteremia. On POOJA, he had findings suggestive of RV lead endocarditis. He is s/ p extraction of RV lead and ICD removal 03/23/18. 03/27/2018: He reports no chest pain or pressure. Denies of any significant dyspnea on exertion. He did undergo I and D of the left foot abscess yesterday by surgery. Remains in chronic atrial fib, no malignant arrhythmias or pauses noted. Laboratory studies show continuation of elevated white blood cell count at 16.37. Sodium 131, BUN 48, creatinine 3.5. Plan: 1. permanent AF: Rate controlled on amiodarone. Warfarin has been on hold. Chads Vasc score of 4, on continuous heparin drip until cleared by surgery, then reinstitute warfarin. 2. Systolic heart failure: EF 10% by POOJA and 20-25% by transthoracic echo. Patient not a candidate for José Antonio or Arb due to renal insufficiency. Consideration on starting low-dose carvedilol when blood pressure improves. Hemodialysis per Nephrology. 3. CAD: Denies of any chest pain, pressure, or symptoms suggesting of ischemia. No flow limiting CAD off of cardiac catheterization 08/2016. Continue on anti-platelet therapy of aspirin. 4. AICD wires endocarditis: Vegetation on RV lead. AICD removed. IV vancomycin per Infectious Disease. 5. Ischemic cardiomyopathy: EF low patient at risk of sudden cardiac . now unprotected with known history of nonsustained ventricular tachycardia. Zoll Lifevest approved and awaiting fitting upon discharge. 6. NSVT: Continue on amiodarone dose. No VT noted on continuous cardiac monitoring. Life vest as above upon discharge. 03/27/18 12:09 Subjective: He denies of any chest pressure or pain. Reports no orthopnea, continues to feel bloated. Denies of any palpitations, lightheadedness, near-syncope or syncopal events. Reviewed/Discussed With: multidisciplinary team (Patient RN), other (Dr Pinedo) Objective: Vital Signs (8 Hrs) Pulse Resp BP Pulse Ox 03/27/18 07:35 84 12 106/65 96 Intake/Output (24 Hrs) 03/26/18 03/27/18 03/28/18 05:59 05:59 05:59 Intake Total 1571 1495 Output Total 25 2125 Balance 1546 -630 Intake: Oral (ml) 1100 800 IV Intake (ml) 275 IV Infused (ml) 471 420 Heparin/Dextrose 500 ml @ 471 420 Per Protocol IV CONT CHELI Rx#:[id number] Output: Urine (ml) 25 125 Bedside Commode 25 Urinal 125 Dialysis Fluid Removed 1999 Other: Weight 127.1 kg Urine Specific [place] Bedside Commode 1 Intake Quantity Yes Yes Sufficient Number of Voids Bedside Commode 1 Number of Stools Bedside Commode 1 Urinal 1 Result Diagrams: 03/27/18 05:50 03/27/18 05:50 - Physical Exam Constitutional: no apparent distress, obese Ears, Nose, Mouth, Throat: moist mucous membranes Cardiovascular: systolic murmur (1-2/6 systolic murmur noted along left sternal border.), irregularly irregular (AFib with rate control.), jugular vein distention (5 cm above sternal notch), pulses symmetric bilat, No carotid bruit Peripheral Pulses: 2+: carotid (R), carotid (L) Respiratory: other (Diminished in bases, no rhonchi, rales, or wheezing noted. No accessary muscle use, no intercostal muscle retraction noted.) Gastrointestinal: normoactive bowel sounds Skin: warm, other (AICD pocket incision without redness, swelling, or drainage. Dressing to left lower foot, clean dry and intact), No no edema (+3 peripheral edema bilateral lower extremities to thighs.) Neurologic: AAOx3 Psychiatric: cooperative, following commands ICD10 Worksheet Patient Problems: Problems Problem Status Onset Anasarca Acute Pulmonary hypertension Acute Chronic Disease Mgmt/Transitional Care Acute Diabetic infection of left foot Acute Heart failure Acute Renal insufficiency Acute Acute exacerbation of congestive heart failure Acute
[2018-03-27] MEDS: LEVOTHYROXINE 75 MCG TAB PO SCH (12:27)
[2018-03-27] MEDS: ALLOPURINOL 100 MG TAB PO SCH (13:29)
[2018-03-27] MEDS: HEPARIN 10,000 UNIT/10 ML MDV (1,000 UNIT/ML) IVP PRN ×2 (14:08→22:25)
--- NOTE | 2018-03-27 17:04 | HOSPPROG ---
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 - AICD removed -IV Vanco per ID -await BC clearance * ESRD -HD MWF -dialysis catheter removed - now with temporary line -arm fistula ready for use 2 weeks * Chronic systolic CHF EF 20% - now reduced to 10% -no ACEI due to hyperkalemia -coreg * V tach - AICD now out -life vest until device can be replaced * Afib -amiodarone -restart warfarin once procedures complete - now on IV heparin * Gout -s/p prednisone burst -d/w pharmacy - okay for colchicine 0.6mg Q14 days in ESRD -continue renally adjusted allopurinol * Obesity BMI 36 * RLE pain -no pus seen on I&D - culture pending -check MRI foot Subjective: Leg pain hurts with minimal palpation Objective: Vital Signs Temp Pulse Resp BP Pulse Ox 36.6 C 86 15 109/55 L 96 03/27/18 12:00 03/27/18 12:00 03/27/18 12:00 03/27/18 12:00 03/27/18 12:00 Microbiology 03/26/18 16:30 Gram Stain - Final Foot - Anaerobic Tube/Swab Laboratory Results 03/27/18 05:50 03/27/18 05:50 03/26/18 03/27/18 03/28/18 05:59 05:59 05:59 Intake Total 1571 1495 Output Total 25 2125 Balance 1546 -630 PT 16.6 SEC (12.0-15.0) H 03/24/18 16:00 INR 1.32 (0.83-1.16) H 03/24/18 16:00 d/w Dr. Britton regarding MRI plan - Physical Exam Constitutional: no apparent distress, appears nourished, not in pain Cardiovascular: regular rate and rhythym, no murmur, rub, or gallop Respiratory: no respiratory distress, no rales or rhonchi, clear to auscultation Gastrointestinal: normoactive bowel sounds, soft, non-tender abdomen, no palpable masses Skin: erythema, fluctuance, other (extreme TTP RLE), No mottled, No induration Neurologic: AAOx3, sensation intact bilaterally Psychiatric: interacting appropriately, not anxious, not encephalopathic, thought process linear ICD10 Worksheet Patient Problems: Problems Problem Status Onset Anasarca Acute Pulmonary hypertension Acute Chronic Disease Mgmt/Transitional Care Acute Diabetic infection of left foot Acute Heart failure Acute Renal insufficiency Acute Acute exacerbation of congestive heart failure Acute
[2018-03-28 05:06] LABS: PLATELET COUNT 185 10^3/uL (150-400)
[2018-03-28] MEDS: MULTIVITAMINS 1 EACH TAB PO SCH (08:33)
[2018-03-28] MEDS: INSULIN REGULAR HUMAN 100 UNIT/ML UNIT SC SCH ×3 (08:34→19:14)
[2018-03-28] MEDS: AMIODARONE HCL 200 MG TAB PO SCH (08:34)
[2018-03-28] MEDS: SENNOSIDES/DOCUSATE SODIUM TAB PO SCH (09:00)
--- NOTE | 2018-03-28 09:36 | SOAPPROG ---
SOAP Progress Note Assessment/Plan: Assessment: Afebrile/much more alert and comfortable Wound okay Plan: Temporary dialysis catheter today and then a tunnel catheter next week for dialysis was bacteremia is cleared 03/19/18 07:13 03/28/18 09:35 MORE ALERT AND COMFORTABLE/AFEBRILE/ WBC 53089 LEFT FOOT MINIMAL DRAINAGE FROM I AND D SITE/MARKED EDEMA OF THE LEFT CALF BUT ULTRASOUND -3 DAYS AGO AV FISTULAS FLOWING WELL WILL NEED A NEW TUNNEL CATHETER WHEN BLOOD STREAM IS CLEAR OF INFECTION AND STILL NEEDS LIGATION OF HIS AV FISTULA COLLATERALS Objective: Vital Signs Temp Pulse Resp BP Pulse Ox 36.5 C 85 14 127/72 H 96 03/28/18 07:33 03/28/18 07:33 03/28/18 07:33 03/28/18 07:33 03/28/18 07:33 Microbiology 03/26/18 16:30 Gram Stain - Final Foot - Anaerobic Tube/Swab Laboratory Results 03/28/18 04:38 03/28/18 04:38 03/27/18 03/28/18 03/29/18 05:59 05:59 05:59 Intake Total 1495 3228 Output Total 2125 100 Balance -630 3128 PT 16.6 SEC (12.0-15.0) H 03/24/18 16:00 INR 1.32 (0.83-1.16) H 03/24/18 16:00 ICD10 Worksheet Patient Problems: Problems Problem Status Onset Acute exacerbation of congestive heart failure Acute Anasarca Acute Chronic Disease Mgmt/Transitional Care Acute Diabetic infection of left foot Acute Heart failure Acute Pulmonary hypertension Acute Renal insufficiency Acute
--- NOTE | 2018-03-28 09:50 | SOAPPROG ---
SOAP Progress Note Assessment/Plan: Assessment: 1. ESRD Next HD tomorrow using temp catheter. He is overloaded. Will try lasix. Also, consider extra treatments this week. 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 3. Anemia Hg down. Follow. 4. Foot Would s/p Debridement. Plan: 03/27/18 10:51 03/28/18 09:46 Subjective: In good spirits Objective: Vital Signs Temp Pulse Resp BP Pulse Ox 36.5 C 85 14 127/72 H 96 03/28/18 07:33 03/28/18 07:33 03/28/18 07:33 03/28/18 07:33 03/28/18 07:33 Microbiology 03/26/18 16:30 Gram Stain - Final Foot - Anaerobic Tube/Swab Laboratory Results 03/28/18 04:38 03/28/18 04:38 03/27/18 03/28/18 03/29/18 05:59 05:59 05:59 Intake Total 1495 3228 Output Total 2125 100 Balance -630 3128 PT 16.6 SEC (12.0-15.0) H 03/24/18 16:00 INR 1.32 (0.83-1.16) H 03/24/18 16:00 Physical Exam - Physical Exam General Appearance: no apparent distress Neck: other (neck line ok) Respiratory: lungs clear, other (dim'd but clear) Cardiac/Chest: regular rate, rhythm Extremities: swelling (3+ edema) Neuro/Psych: oriented x 3 ICD10 Worksheet Patient Problems: Problems Problem Status Onset Acute exacerbation of congestive heart failure Acute Anasarca Acute Chronic Disease Mgmt/Transitional Care Acute Diabetic infection of left foot Acute Heart failure Acute Pulmonary hypertension Acute Renal insufficiency Acute
--- NOTE | 2018-03-28 09:58 | PDCARPN ---
Cardiology Progress Note Assessment/Plan: Assessment: 1. Permanent AFIB 2. Systolic CHF 3. Ischemic cardiomyopathy 4. AICD endocarditis, sp AICD explant - primary source IJ tunneled catheter/ foot abscess 5. Nonsustained VT Plan: 1. On amiodarone. Warfarin on hold, on IV heparin. CHADSVASC = 4 2. Not on ACEI due to CRI. Start carvedilol when BP improves 3. LifeVest upon discharge. When infection resolves, will implant [employer] SubQ ICD with subQ leads 03/28/18 09:54 Subjective: feels well reports no symptoms Reviewed/Discussed With: multidisciplinary team Time Spent with Patient: greater than 25 minutes Time Spent with Patient: Greater than 25 minutes spent on this patients care, greater than 50% of time spent counseling, educating, and coordinating care regarding the above mentioned plan. Objective: Vital Signs (8 Hrs) Temp Pulse Resp BP Pulse Ox 03/28/18 07:33 36.5 C 85 14 127/72 H 96 03/28/18 04:00 36.6 C 77 16 109/62 96 Intake/Output (24 Hrs) 03/26/18 03/27/18 03/28/18 11:59 11:59 11:59 Intake Total 1571 1495 3228 Output Total 25 2125 100 Balance 1546 -630 3128 Intake: Oral (ml) 6610 859 6624 IV Intake (ml) 275 IV Infused (ml) 471 420 878 Heparin/Dextrose 500 ml @ 471 420 878 Per Protocol IV CONT CHELI Rx#:[id number] Output: Urine (ml) 25 125 100 Bedside Commode 25 Urinal 125 100 Dialysis Fluid Removed 1999 Other: Weight 135.125 kg Urine Specific [place] Bedside Commode 1 Intake Quantity Yes Yes Sufficient Number of Voids Bedside Commode 1 Urinal 1 Number of Stools Bedside Commode 1 1 Urinal 1 Result Diagrams: 03/28/18 04:38 03/28/18 04:38 Telemetry: AFIB ICD10 Worksheet Patient Problems: Problems Problem Status Onset Anasarca Acute Pulmonary hypertension Acute Chronic Disease Mgmt/Transitional Care Acute Diabetic infection of left foot Acute Heart failure Acute Renal insufficiency Acute Acute exacerbation of congestive heart failure Acute
[2018-03-28] MEDS: FUROSEMIDE 100 MG/10 ML VIAL IVP SCH ×2 (10:30→15:34)
[2018-03-28] MEDS: HYDROCODONE/APAP 5/325 TAB PO PRN (10:53)
--- NOTE | 2018-03-28 11:01 | PCMIDPN ---
Assessment/Plan: #MRSA Pacer wire endocarditis, source HD cath. Defib, wire out, HD cath out, PICC line out. Temp HD cath present R neck. Incision L chest wall c/d/i. Blood cx 03/26 have established clearance. WBC still remains slightly elevated but clinically improving. --increase vancomycin 1.25gm at HD MWF, based on vanco R level @ 15.6 today, is stop date # L foot pain, erythema and warmth c/w cellulitis : MRI shows myositis, s/p I&D by Dr Simmons #ESRD: vancomycin dosed intermittently --planning on leaving temp cath in place until can use L arm fistula per Dr. Simmons Microbiology 03/16 blood cultures (2) MRSA, vancomycin ANNA MARIE =1 03/17 & 03/19 blood cultures (2) MRSA 03/21 blood cx 1/2 MRSA, vancomycin ANNA MARIE = 1 03/24 blood cx 1/2 MRSA 03/26 blood cx (2) NGTD meds Vancomycin IV intermittently, #12 Subjective: pain reports L foot numb no other c/o today Objective: Vital Signs Temp Pulse Resp BP Pulse Ox 36.5 C 85 14 127/72 H 96 03/28/18 07:33 03/28/18 07:33 03/28/18 07:33 03/28/18 07:33 03/28/18 07:33 Microbiology 03/26/18 16:30 Gram Stain - Final Foot - Anaerobic Tube/Swab Laboratory Results 03/28/18 04:38 03/28/18 04:38 03/27/18 03/28/18 03/29/18 05:59 05:59 05:59 Intake Total 1495 3228 Output Total 2125 100 Balance -630 3128 - Physical Exam General Appearance: alert, no apparent distress Respiratory: other, No accessory muscle use Neck: supple Cardiac/Chest: systolic murmur, irregularly irregular Extremities: pedal edema (L > R) Abdomen: non-tender, soft Skin: pallor, No rash Neuro/Psych: alert, normal mood/affect, oriented x 3 - Line/s [place] Lines: other (R IJ ), No drainage, No erythema - Time Spent With Patient Time Spent with Patient: greater than 35 minutes Time Spent with Patient: Greater than 35 minutes spent on this patients care, greater than 50% of time spent counseling, educating, and coordinating care regarding the above mentioned plan. ICD10 Worksheet Patient Problems: Problems Problem Status Onset Acute exacerbation of congestive heart failure Acute Anasarca Acute Chronic Disease Mgmt/Transitional Care Acute Diabetic infection of left foot Acute Heart failure Acute Pulmonary hypertension Acute Renal insufficiency Acute
[2018-03-28] MEDS: LEVOTHYROXINE 75 MCG TAB PO SCH (11:04)
[2018-03-28] MEDS: ALLOPURINOL 100 MG TAB PO SCH (15:30)
--- NOTE | 2018-03-28 16:04 | HOSPPROG ---
Hospitalist Progress Note Assessment/Plan: * MRSA sepsis - initial source from dialysis catheter * PCM wire endocarditis - vegetation RV lead - AICD removed -IV Vanco -BC clearing * ESRD -HD MWF -infected dialysis catheter removed - now with temporary line -arm fistula ready for use 2 weeks - needs AV fistula collaterals ligated -place tunnelled catheter once BC clear -volume overload - IV lasix and extra dialysis per renal * Chronic systolic CHF EF 20% - now reduced to 10% -no ACEI due to hyperkalemia * V tach - AICD now out -life vest until device can be replaced * Afib -amiodarone -restart warfarin once procedures complete - now on IV heparin * Gout -s/p prednisone burst -d/w pharmacy - okay for colchicine 0.6mg Q14 days in ESRD -continue renally adjusted allopurinol * Obesity BMI 36 * RLE abscess of dorsum of foot -no pus seen on I&D - culture pending -MRI foot - still pending final read - but prelim without deeper abscess Subjective: Feels a little better today Objective: Vital Signs Temp Pulse Resp BP Pulse Ox 36.6 C 89 14 85/62 L 96 03/28/18 12:40 03/28/18 12:40 03/28/18 12:40 03/28/18 12:40 03/28/18 12:40 Microbiology 03/26/18 16:30 Gram Stain - Final Foot - Anaerobic Tube/Swab Laboratory Results 03/28/18 04:38 03/28/18 04:38 03/27/18 03/28/18 03/29/18 05:59 05:59 05:59 Intake Total 1495 3228 Output Total 2125 100 Balance -630 3128 PT 16.6 SEC (12.0-15.0) H 03/24/18 16:00 INR 1.32 (0.83-1.16) H 03/24/18 16:00 - Physical Exam Constitutional: no apparent distress, appears nourished, not in pain Cardiovascular: regular rate and rhythym, no murmur, rub, or gallop, edema Respiratory: no respiratory distress, no rales or rhonchi, clear to auscultation Gastrointestinal: normoactive bowel sounds, soft, non-tender abdomen, no palpable masses Skin: no rashes or abrasions, no fluctuance, no induration Neurologic: AAOx3, sensation intact bilaterally Psychiatric: interacting appropriately, not anxious, not encephalopathic, thought process linear ICD10 Worksheet Patient Problems: Problems Problem Status Onset Acute exacerbation of congestive heart failure Acute Anasarca Acute Chronic Disease Mgmt/Transitional Care Acute Diabetic infection of left foot Acute Heart failure Acute Pulmonary hypertension Acute Renal insufficiency Acute
[2018-03-28] MEDS: HEPARIN/DEXTROSE 500 ML IV SCH (16:24)
--- NOTE | 2018-03-28 18:53 | ASMTLACE ---
LACE Length of stay for Answers: 7-13 days current admission Acuity / Level of Answers: Yes Care: Did the patient have an inpatient admission? Comorbidities - select Answers: Congestive heart failure all that apply Coronary Artery Disease Diabetes (uncontrolled or controlled) Moderate or severe liver or renal disease Other Notes: HTN; AFib # of Emergency department Answers: 1-2 visits in the last 6 months Score: 19 Date Signed: 03/28/2018 06:52 PM Electronically Signed By:Barbara Donald
[2018-03-29] MEDS: MELATONIN 3 MG TAB PO SCH ×2 (00:12→21:36)
[2018-03-29] MEDS: ASPIRIN EC 81 MG TAB PO SCH ×2 (00:13→23:53)
[2018-03-29] MEDS: HYDROCODONE/APAP 5/325 TAB PO PRN ×2 (00:13→21:37)
[2018-03-29] MEDS: INSULIN REGULAR HUMAN 100 UNIT/ML UNIT SC SCH ×5 (00:14→23:48)
[2018-03-29 03:50] LABS: PLATELET COUNT 206 10^3/uL (150-400)
[2018-03-29] MEDS ORDERED: ALBUMIN 25% 100 ML IV PRN (08:35)
--- NOTE | 2018-03-29 08:53 | SOAPPROG ---
SOAP Progress Note Assessment/Plan: Assessment/Plan: 67 y/o M ESRD with MRSA bacteremia with foot wound. ESRD: - Plan for HD Thursday, may consider PUF tomorrow - has temp cath and will need TDC once BC's clear - needs ligation of collaterals on new AVF per Dr. Simmons, appreciated - monitor AVF for possible use in 2-4 weeks MRSA bacteremia - continue foot wound debridement - had pacer revision also per CTS - cannot get gadolinium with MRI - on vanc, goal trough 15-25, ID following appreciated Anemia: Hgb 9.5, will add EPO for next tx. Hyponatremia: FW restriction 1L. Will modulate with HD and added lasix per Dr. Hanson yesterday. CINDY: Renal diet, will add binder for elevated phos. Calcium corrects with albumin. 03/29/18 10:03 03/29/18 10:04 Subjective: Seen on HD with temp cath today. Tolerating well. Objective: Vital Signs Temp Pulse Resp BP Pulse Ox 36.7 C 81 14 108/72 94 03/29/18 07:29 03/29/18 07:29 03/29/18 07:29 03/29/18 07:29 03/29/18 07:29 Microbiology 03/24/18 04:25 Blood Culture - Final Blood 03/24/18 04:10 Blood Culture - Final Blood MRSA 03/26/18 16:30 Gram Stain - Final Foot - Anaerobic Tube/Swab Laboratory Results 03/29/18 03:37 03/29/18 03:37 03/28/18 03/29/18 03/30/18 05:59 05:59 05:59 Intake Total 3228 1620 Output Total 100 190 Balance 3128 1430 PT 16.6 SEC (12.0-15.0) H 03/24/18 16:00 INR 1.32 (0.83-1.16) H 03/24/18 16:00 Physical Exam - Physical Exam General Appearance: obese, other (sleeping) EENT: PERRL/EOMI Neck: non-tender, full range of motion, supple Respiratory: chest non-tender, decreased breath sounds Cardiac/Chest: regular rate, rhythm, edema Abdomen: normal bowel sounds, non-tender, soft Skin: warm/dry, pallor Extremities: normal range of motion, pedal edema Neuro/Psych: no motor/sensory deficits, oriented x 3 ICD10 Worksheet Patient Problems: Problems Problem Status Onset Acute exacerbation of congestive heart failure Acute Anasarca Acute Chronic Disease Mgmt/Transitional Care Acute Diabetic infection of left foot Acute Heart failure Acute Pulmonary hypertension Acute Renal insufficiency Acute
[2018-03-29] MEDS ORDERED: EPOETIN ALFA 10,000 UNIT/ML VIAL SC SCH (10:15)
--- NOTE | 2018-03-29 12:33 | PDCARPN ---
Cardiology Progress Note Chief Complaint: Patient reports ongoing fatigue Assessment/Plan: Assessment: 67-year-old male with significant past history that includes ESRD on HD, htn, morbid obesity, nonobstructive CAD based on [facility] 08/22, T2DM, SCHF with RV dysfunction (EF 10% POOJA 03/22), central sleep apnea, permanent AF, admitted with purulent discharge from IJ tunneled catheter, found to have MRSA bacteremia. On POOJA, he had findings suggestive of RV lead endocarditis. He is s/ p extraction of RV lead and ICD removal 03/23/18. 03/29/2018: Patient denies of any chest pain, pressure. Reporting ongoing fatigue symptoms. Currently being dialyzed. Continues to appear fluid overloaded. Pacemaker incision healing without signs of infection. Continuous cardiac monitoring showing AFib, with no malignant arrhythmias or pauses. No VT noted. Plan: 1. permanent AF: Rate controlled on amiodarone. Warfarin has been on hold. Chads Vasc score of 4, on continuous heparin drip until cleared by surgery, then reinstitute warfarin. 2. Systolic heart failure: EF 10% by POOJA and 20-25% by transthoracic echo. Patient not a candidate for José Antonio or Arb due to renal insufficiency. Consideration on starting low-dose carvedilol when blood pressure improves. Hemodialysis per Nephrology. 3. CAD: Denies of any chest pain, pressure, or symptoms suggesting of ischemia. No flow limiting CAD off of cardiac catheterization 08/2016. Continue on anti-platelet therapy of aspirin. 4. AICD wires endocarditis: Vegetation on RV lead. AICD removed. Primary source IJ tunnel catheter/foot abscess. IV vancomycin per Infectious Disease. 5. Ischemic cardiomyopathy: EF low patient at risk of sudden cardiac . now unprotected with known history of nonsustained ventricular tachycardia. Zoll Lifevest approved and awaiting fitting upon discharge. 6. NSVT: Continue on amiodarone dose. No VT noted on continuous cardiac monitoring. Life vest as above upon discharge. Once infection resolved, Dr. Baker will plan on implanting [employer] subcu ICD 03/29/18 12:32 Subjective: Reports no chest pressure or pain. Denies of any palpitations. Reports no lightheadedness, near-syncope or syncopal Reviewed/Discussed With: hospitalist (Dr Hart), other (Dr Pinedo and Dr Baker) Objective: Vital Signs (8 Hrs) Temp Pulse Resp BP Pulse Ox 03/29/18 07:29 36.7 C 81 14 108/72 94 03/29/18 05:40 36.2 C 93 16 119/61 93 Intake/Output (24 Hrs) 03/28/18 03/29/18 03/30/18 05:59 05:59 05:59 Intake Total 3228 1620 Output Total 100 190 Balance 3128 1430 Intake: Oral (ml) 2350 470 IV Infused (ml) 878 1150 Heparin/Dextrose 500 ml @ 878 315 Per Protocol IV CONT CHELI Rx#:[id number] Heparin/Dextrose 500 ml @ 835 Per Protocol IV CONT CHELI Rx#:[id number] Output: Urine (ml) 100 190 Urinal 100 190 Other: Weight 135.125 kg Number of Voids Urinal 1 1 Number of Stools Bedside Commode 1 Urinal 1 Result Diagrams: 03/29/18 03:37 03/29/18 03:37 - Physical Exam Constitutional: no apparent distress, obese (Severe) Ears, Nose, Mouth, Throat: moist mucous membranes Cardiovascular: irregularly irregular (AFib normal ventricular rate response), jugular vein distention (4-5 cm above sternal notch), pulses symmetric bilat Respiratory: other (Diminished in bases bilateral, no rhonchi, rales, wheezing noted.) Gastrointestinal: normoactive bowel sounds Skin: other (AICD explantation incision site, left anterior chest, midclavicular line, no redness, swelling, or drainage. Dressing to left foot, clean dry intact.), No no edema (+3 peripheral edema bilateral lower extremities to the thighs.) Neurologic: AAOx3 Psychiatric: cooperative, interactive, following commands ICD10 Worksheet Patient Problems: Problems Problem Status Onset Anasarca Acute Pulmonary hypertension Acute Chronic Disease Mgmt/Transitional Care Acute Diabetic infection of left foot Acute Heart failure Acute Renal insufficiency Acute Acute exacerbation of congestive heart failure Acute
[2018-03-29] MEDS: VANCOMYCIN HCL/NORMAL SALINE 250 ML IV SCH (12:53)
[2018-03-29] MEDS: FUROSEMIDE 100 MG/10 ML VIAL IVP SCH ×2 (12:58→14:21)
[2018-03-29] MEDS: LEVOTHYROXINE 75 MCG TAB PO SCH (13:01)
[2018-03-29] MEDS: SEVELAMER HCL 800 MG TAB PO SCH ×2 (13:01→18:47)
[2018-03-29] MEDS: ALLOPURINOL 100 MG TAB PO SCH (13:01)
[2018-03-29] MEDS: AMIODARONE HCL 200 MG TAB PO SCH (13:02)
[2018-03-29] MEDS: MULTIVITAMINS 1 EACH TAB PO SCH (13:02)
[2018-03-29] MEDS: MIDODRINE HCL 5 MG TAB PO SCH (13:07)
--- NOTE | 2018-03-29 13:07 | HOSPPROG ---
Hospitalist Progress Note Assessment/Plan: * MRSA pacemaker wire endocarditis - Device/wires, dialysis catheter out - IV vancomycin per ID, plan thru 05/07 - Blood cultures cleared 03/26 * Sepsis - source temp dialysis catheter, physiology resolved * ESRD -HD MWF -infected dialysis catheter removed - now with temporary line -arm fistula ready for use 2 weeks - needs AV fistula collaterals ligated -place tunnelled catheter once BC clear, hopefully Thursday -volume overload - plan for PUF tomorrow * L foot cellulitis, myositis - MRI without OM or deeper abscess -s/p I&D -Vancomycin as above -Has charcot arthropathy, query whether will need detention suppressive abx * Chronic systolic CHF - LVEF 10% on POOJA, 20-25% on TTE -no ACEI due to hyperkalemia * VT - AICD now out - Life vest at discharge until device can be replaced * Afib -amiodarone -Continue IV heparing, restart warfarin once procedures complete * Gout -s/p prednisone burst -d/w pharmacy - okay for colchicine 0.6mg Q14 days in ESRD -continue renally adjusted allopurinol * Obesity BMI 36 Dispo: remain inpatient. Needs TDC, hopefully Thursday Subjective: Just finished HD, feeling tired. Left foot hurts but no new symptoms. No VT on telemetry. Objective: Vital Signs Temp Pulse Resp BP Pulse Ox 36.7 C 81 14 108/72 94 03/29/18 07:29 03/29/18 07:29 03/29/18 07:29 03/29/18 07:29 03/29/18 07:29 Microbiology 03/24/18 04:25 Blood Culture - Final Blood 03/24/18 04:10 Blood Culture - Final Blood MRSA 03/26/18 16:30 Gram Stain - Final Foot - Anaerobic Tube/Swab Laboratory Results 03/29/18 03:37 03/29/18 03:37 03/28/18 03/29/18 03/30/18 05:59 05:59 05:59 Intake Total 3228 1620 Output Total 100 190 Balance 3128 1430 PT 16.6 SEC (12.0-15.0) H 03/24/18 16:00 INR 1.32 (0.83-1.16) H 03/24/18 16:00 - Physical Exam Constitutional: no apparent distress, appears nourished, not in pain Eyes: PERRL, anicteric sclera, EOMI Ears, Nose, Mouth, Throat: moist mucous membranes, hearing normal, ears appear normal, no oral mucosal ulcers Cardiovascular: irregularly irregular, edema Respiratory: no respiratory distress, no rales or rhonchi, clear to auscultation Gastrointestinal: normoactive bowel sounds, soft, non-tender abdomen, no palpable masses Genitourinary: no bladder fullness, no bladder tenderness, no renal bruits Skin: no rashes or abrasions, no fluctuance, no induration, other (bruising on bilateral arms, chronic venous stasis changes of BLE) Musculoskeletal: full muscle strength, no muscle tenderness, normal joint ROM, other (left midfoot wrapped) Neurologic: AAOx3, sensation intact bilaterally Psychiatric: interacting appropriately, not anxious, not encephalopathic, thought process linear ICD10 Worksheet Patient Problems: Problems Problem Status Onset Acute exacerbation of congestive heart failure Acute Anasarca Acute Chronic Disease Mgmt/Transitional Care Acute Diabetic infection of left foot Acute Heart failure Acute Pulmonary hypertension Acute Renal insufficiency Acute
[2018-03-29] MEDS: ACETAMINOPHEN 325 MG TAB PO PRN (14:17)
--- NOTE | 2018-03-29 14:55 | PCMIDPN ---
Assessment/Plan: Assessment: MRSA bacteremia from suspected dialysis catheter source. Patient also with lead vegetation which has since been removed. Patient clinically is doing very well. He is being treated with vancomycin dosed by level. Vancomycin level adjusted yesterday. Will continue with current dosing. Plan: 1. Continue vancomycin at current dose. Stop date remains unchanged. Subjective: Patient is resting in his hospital bed. States he feels fairly well. Slight problem with bloody nose this morning. No fevers or chills. Objective: Vancomycin # 13 Vital Signs Temp Pulse Resp BP Pulse Ox 36.7 C 81 14 108/72 94 03/29/18 07:29 03/29/18 07:29 03/29/18 07:29 03/29/18 07:29 03/29/18 07:29 Microbiology 03/24/18 04:25 Blood Culture - Final Blood 03/24/18 04:10 Blood Culture - Final Blood MRSA 03/26/18 16:30 Gram Stain - Final Foot - Anaerobic Tube/Swab Laboratory Results 03/29/18 03:37 03/29/18 03:37 03/28/18 03/29/18 03/30/18 05:59 05:59 05:59 Intake Total 3228 1620 Output Total 100 190 Balance 3128 1430 - Physical Exam General Appearance: WD/WN, alert, no apparent distress, non-toxic Respiratory: lungs clear, normal breath sounds, No respiratory distress Cardiac/Chest: regular rate, rhythm, No tachycardia Skin: normal color, warm/dry, No rash Neuro/Psych: alert, normal mood/affect, oriented x 3 ICD10 Worksheet Patient Problems: Problems Problem Status Onset Acute exacerbation of congestive heart failure Acute Anasarca Acute Chronic Disease [facility]/Transitional Care Acute Diabetic infection of left foot Acute Heart failure Acute Pulmonary hypertension Acute Renal insufficiency Acute
--- NOTE | 2018-03-29 16:14 | ASMTCMCOM ---
CM Note CM Note Notes: Attempted to see pt x2 today however he was sleeping after his dialysis. D/C plan unclear - SNF and LTAC referrals have been made however pt has continued to say he wants to go home. PT/OT continue to recommend SNF. CM will continue to follow. Date Signed: 03/29/2018 04:13 PM Electronically Signed By:ALANNA Reed
[2018-03-29] MEDS ORDERED: CANN-EASE 2 GM TUBE TP PRN (19:05)
[2018-03-29] MEDS ORDERED: HEPARIN 50,000 UNIT/10 ML VIAL ONE (19:55)
[2018-03-30] MEDS: INSULIN REGULAR HUMAN 100 UNIT/ML UNIT SC SCH ×2 (08:35→12:06)
[2018-03-30] MEDS: LEVOTHYROXINE 75 MCG TAB PO SCH (09:07)
[2018-03-30] MEDS: SEVELAMER HCL 800 MG TAB PO SCH ×3 (09:07→19:22)
--- NOTE | 2018-03-30 09:13 | SOAPPROG ---
SOAP Progress Note Assessment/Plan: Assessment/Plan: 67 y/o M ESRD with MRSA bacteremia 2/2 to LE wound. ESRD: - Plan for HD Thursday, PUF today - has temp cath, see below - needs ligation of collaterals on new AVF per Dr. Simmons, appreciated - monitor AVF for possible use in 2-4 weeks MRSA bacteremia - cultures from 03/26 NTD, will plan for TDC on if ok with ID - continue foot wound debridement - had pacer revision also per CTS - cannot get gadolinium with MRI - on vanc, goal trough 15-25, ID following appreciated Anemia: Hgb 9.5, will add EPO for next tx. Hyponatremia: FW restriction 1L. Will modulate with HD. CINDY: Renal diet, added binder for phos>6. Calcium corrects with albumin. HTN/vol: Lasix added on Thursday but not much UO recorded. Will discontinue. BP's ok. 03/30/18 09:11 Subjective: Patient has been lethargic on HD. Very volume overloaded. Objective: Vital Signs Temp Pulse Resp BP Pulse Ox 36.4 C 89 18 113/65 94 03/30/18 08:00 03/30/18 08:00 03/30/18 08:00 03/30/18 08:00 03/30/18 08:00 Microbiology 03/26/18 16:30 Gram Stain - Final Foot - Anaerobic Tube/Swab Wound Culture - Final Staphylococcus Epidermidis 03/24/18 04:25 Blood Culture - Final Blood 03/24/18 04:10 Blood Culture - Final Blood MRSA Laboratory Results 03/30/18 04:00 03/30/18 04:00 03/29/18 03/30/18 03/31/18 05:59 05:59 05:59 Intake Total 1620 1719 Output Total 190 3000 Balance 1430 -1281 PT 16.6 SEC (12.0-15.0) H 03/24/18 16:00 INR 1.32 (0.83-1.16) H 03/24/18 16:00 Physical Exam - Physical Exam General Appearance: no apparent distress, obese EENT: PERRL/EOMI Neck: non-tender, full range of motion, supple Respiratory: chest non-tender, decreased breath sounds Cardiac/Chest: regular rate, rhythm, edema, JVD Abdomen: non-tender, distended Skin: pallor Extremities: normal range of motion, non-tender, pedal edema, other (wound covered) Neuro/Psych: other (resting) ICD10 Worksheet Patient Problems: Problems Problem Status Onset Acute exacerbation of congestive heart failure Acute Anasarca Acute Chronic Disease Mgmt/Transitional Care Acute Diabetic infection of left foot Acute Heart failure Acute Pulmonary hypertension Acute Renal insufficiency Acute
[2018-03-30] MEDS: MULTIVITAMINS 1 EACH TAB PO SCH (12:04)
[2018-03-30] MEDS: AMIODARONE HCL 200 MG TAB PO SCH (12:04)
[2018-03-30] MEDS: ALLOPURINOL 100 MG TAB PO SCH (12:05)
[2018-03-30] MEDS: ACETAMINOPHEN 325 MG TAB PO PRN ×2 (12:05→21:24)
[2018-03-30] MEDS: FUROSEMIDE 100 MG/10 ML VIAL IVP SCH (12:31)
--- NOTE | 2018-03-30 12:57 | PCMIDPN ---
Assessment/Plan: #MRSA Pacer wire endocarditis, source HD cath. Defib, wire out, HD cath out, PICC line out. Temp HD cath present R neck. Incision L chest wall c/d/i. Blood cx 03/26 have established clearance. WBC still remains slightly elevated but gradual clinical improvement and WBC getting better. --increase vancomycin 1.25gm at HD MWF --got additional HD today, check vancomycin random level # L foot pain, erythema and warmth c/w cellulitis : MRI shows myositis, slowly improving. The culture with Staph epi not likely significant #ESRD: vancomycin dosed intermittently --placed tunneled hemodialysis catheter on due to uncertain maturity of left arm fistula Microbiology 03/16 blood cultures (2) MRSA, vancomycin ANNA MARIE =1 03/17 & 03/19 blood cultures (2) MRSA 03/21 blood cx 1/2 MRSA, vancomycin ANNA MARIE = 1 03/24 blood cx 1/2 MRSA 03/26 blood cx (2) NGTD 03/26 foot cx s. epi meds Vancomycin IV intermittently, #14 Care coordinated with hospitalist and surgical team. Subjective: patient still w L foot pain but it is a little better Objective: Vital Signs Temp Pulse Resp BP Pulse Ox 36.4 C 96 16 102/62 97 03/30/18 12:00 03/30/18 12:00 03/30/18 12:00 03/30/18 12:00 03/30/18 12:00 Microbiology 03/26/18 16:30 Gram Stain - Final Foot - Anaerobic Tube/Swab Wound Culture - Final Staphylococcus Epidermidis 03/24/18 04:25 Blood Culture - Final Blood 03/24/18 04:10 Blood Culture - Final Blood MRSA Laboratory Results 03/30/18 04:00 03/30/18 04:00 03/29/18 03/30/18 03/31/18 05:59 05:59 05:59 Intake Total 1620 1719 200 Output Total 190 3000 Balance 1430 -1281 200 - Physical Exam General Appearance: alert, no apparent distress EENT: pale conjunctiva, No thrush Respiratory: other (decreased bs bases), No accessory muscle use Cardiac/Chest: regular rate, rhythm, other (L upper chest wall incision healing well ) Extremities: swelling (L arm swelling) Abdomen: non-tender, soft Male Genitalia: No fan Skin: other (Ecchymosis), No rash Neuro/Psych: alert, normal mood/affect, depressed affect - Line/s [place] Lines: No drainage, No erythema - Time Spent With Patient Time Spent with Patient: greater than 35 minutes Time Spent with Patient: Greater than 35 minutes spent on this patients care, greater than 50% of time spent counseling, educating, and coordinating care regarding the above mentioned plan. ICD10 Worksheet Patient Problems: Problems Problem Status Onset Acute exacerbation of congestive heart failure Acute Anasarca Acute Chronic Disease Mgmt/Transitional Care Acute Diabetic infection of left foot Acute Heart failure Acute Pulmonary hypertension Acute Renal insufficiency Acute
[2018-03-30] MEDS: HEPARIN/DEXTROSE 500 ML IV SCH (15:09)
--- NOTE | 2018-03-30 15:31 | PDCARPN ---
Cardiology Progress Note Chief Complaint: Patient reports fatigue symptoms, but feels the proved. Assessment/Plan: Assessment: 67-year-old male with significant past history that includes ESRD on HD, htn, morbid obesity, nonobstructive CAD based on [facility] 08/22, T2DM, SCHF with RV dysfunction (EF 10% POOJA 03/22), central sleep apnea, permanent AF, admitted with purulent discharge from IJ tunneled catheter, found to have MRSA bacteremia. On POOJA, he had findings suggestive of RV lead endocarditis. He is s/ p extraction of RV lead and ICD removal 03/23/18. 03/30/2018: Patient reports improvement in shortness of breath and fatigue symptoms. Patient's weight is down approximately 1.5 kilos from yesterday. Maintains atrial fibrillation with normal ventricular rate. No malignant arrhythmias or pauses noted. Patient reports no chest pain, pressure, or symptoms suggesting ischemia Plan: 1. permanent AF: Rate controlled on amiodarone. Warfarin has been on hold. Chads Vasc score of 4, on continuous heparin drip until cleared by surgery, then reinstitute warfarin. 2. Systolic heart failure: EF 10% by POOJA and 20-25% by transthoracic echo. Patient not a candidate for José Antonio or Arb due to renal insufficiency. Consideration on starting low-dose carvedilol when blood pressure improves. Systolic blood pressure into the 90s today. Hemodialysis per Nephrology. 3. CAD: Denies of any chest pain, pressure, or symptoms suggesting of ischemia. No flow limiting CAD off of cardiac catheterization 08/2016. Continue on anti-platelet therapy of aspirin. 4. AICD wires endocarditis: Vegetation on RV lead. AICD removed. Primary source IJ tunnel catheter/foot abscess. IV vancomycin per Infectious Disease. 5. Ischemic cardiomyopathy: EF low patient at risk of sudden cardiac . now unprotected with known history of nonsustained ventricular tachycardia. [employer]oll Lifevest approved and awaiting fitting upon discharge. 6. NSVT: Continue on amiodarone dose. No VT noted on continuous cardiac monitoring. Life vest as above upon discharge. Once infection resolved, Dr. Baker will plan on implanting [employer] subcu ICD 03/30/18 15:25 Subjective: Denies of any chest pressure pain palpitations, or lightheadedness. Does have ongoing SOB with exertion, and reports pain left foot. Reviewed/Discussed With: other (Dr Pinedo) Objective: Vital Signs (8 Hrs) Temp Pulse Resp BP Pulse Ox 03/30/18 15:19 36.4 C 84 16 93/61 L 94 03/30/18 12:00 36.4 C 96 16 102/62 97 03/30/18 08:00 36.4 C 89 18 113/65 94 Intake/Output (24 Hrs) 03/29/18 03/30/18 03/31/18 05:59 05:59 05:59 Intake Total 1620 1719 200 Output Total 190 3000 Balance 1430 -1281 200 Intake: Oral (ml) 470 1040 200 IV Infused (ml) 1150 679 Heparin/Dextrose 500 ml @ 315 Per Protocol IV CONT CHELI Rx#:[id number] Heparin/Dextrose 500 ml @ 835 414 Per Protocol IV CONT CHELI Rx#:[id number] Vancomycin HCl/Normal 265 Saline 250 ml @ 250 mls/ hr IV MWF@1500 CHELI Rx#: [id number] Output: Urine (ml) 190 Urinal 190 Dialysis Fluid Removed 3000 Other: Weight 135.125 kg 133.6 kg Intake Quantity Yes Sufficient Number of Voids Urinal 1 Number of Stools Urinal 1 1 Result Diagrams: 03/30/18 04:00 03/30/18 04:00 - Physical Exam Constitutional: obese (Severely) Ears, Nose, Mouth, Throat: moist mucous membranes Cardiovascular: no rubs, no gallops, irregularly irregular (AFib with rate control ventricular rate.), pulses symmetric bilat, No systolic murmur Peripheral Pulses: 1+: dorsalis-pedis (R), dorsalis-pedis (L), 2+: carotid (R), carotid (L) Respiratory: other (Decreased in bases bilateral, no rhonchi, rales, wheezing noted) Gastrointestinal: normoactive bowel sounds Skin: warm, other, No no edema (+3 peripheral edema bilateral lower extremities to thighs.) Neurologic: AAOx3 Psychiatric: cooperative, interactive, following commands ICD10 Worksheet Patient Problems: Problems Problem Status Onset Anasarca Acute Pulmonary hypertension Acute Chronic Disease Mgmt/Transitional Care Acute Diabetic infection of left foot Acute Heart failure Acute Renal insufficiency Acute Acute exacerbation of congestive heart failure Acute
--- NOTE | 2018-03-30 16:23 | SOAPPROG ---
SOAP Progress Note Assessment/Plan: Assessment/Plan: 67 Y M multiple comorbidities including CHF, afib, ESRD on HD, admitted with fever after postponing elective AVF revision. Discussed with Drs. Britton and Regino. Will plan for tunneled HD catheter on morning. Can hold heparin drip before procedure. NPO ordered for Thursday night. Consent in chart. 03/30/18 16:21 Objective: Vital Signs Temp Pulse Resp BP Pulse Ox 36.4 C 84 16 93/61 L 94 03/30/18 15:19 03/30/18 15:19 03/30/18 15:19 03/30/18 15:19 03/30/18 15:19 Microbiology 03/26/18 16:30 Gram Stain - Final Foot - Anaerobic Tube/Swab Wound Culture - Final Staphylococcus Epidermidis Laboratory Results 03/30/18 04:00 03/30/18 04:00 03/29/18 03/30/18 03/31/18 05:59 05:59 05:59 Intake Total 1620 1719 200 Output Total 190 3000 Balance 1430 -1281 200 PT 16.6 SEC (12.0-15.0) H 03/24/18 16:00 INR 1.32 (0.83-1.16) H 03/24/18 16:00 ICD10 Worksheet Patient Problems: Problems Problem Status Onset Acute exacerbation of congestive heart failure Acute Anasarca Acute Chronic Disease Mgmt/Transitional Care Acute Diabetic infection of left foot Acute Heart failure Acute Pulmonary hypertension Acute Renal insufficiency Acute
--- NOTE | 2018-03-30 19:12 | HOSPPROG ---
Hospitalist Progress Note Assessment/Plan: * MRSA pacemaker wire endocarditis - Device/wires, dialysis catheter out - IV vancomycin per ID, plan thru 05/07 - Blood cultures cleared 03/26 * Sepsis - source temp dialysis catheter, physiology resolved * ESRD -HD MWF, volume management per renal -infected dialysis catheter removed - now with temporary line -arm fistula ready for use 2 weeks - needs AV fistula collaterals ligated as well -plan for tunneled dialysis cath placement on AM * L foot cellulitis, myositis - MRI without OM or deeper abscess -s/p I&D -Vancomycin as above -Has charcot arthropathy, query whether will need correction suppressive abx * Chronic systolic CHF - LVEF 10% on POOJA, 20-25% on TTE -no ACEI due to hyperkalemia, start beta juanita as BP tolerates (still low today) * VT - AICD now out - Life vest at discharge until device can be replaced * Afib -amiodarone -Continue IV heparin, restart warfarin once procedures complete * Gout -s/p prednisone burst -d/w pharmacy - okay for colchicine 0.6mg Q14 days in ESRD -continue renally adjusted allopurinol * Obesity BMI 36 * Deconditionin - severe -PT/OT recommending SNF but patient refusing Dispo: remain inpatient. Needs TDC on and initiation of warfarin. unclear if patient will be amenable to SNF Subjective: Getting ultrafiltration today. Feeling ok. Foot pain better. Objective: Vital Signs Temp Pulse Resp BP Pulse Ox 36.4 C 84 16 93/61 L 94 03/30/18 15:19 03/30/18 15:19 03/30/18 15:19 03/30/18 15:19 03/30/18 15:19 Microbiology 03/26/18 16:30 Gram Stain - Final Foot - Anaerobic Tube/Swab Wound Culture - Final Staphylococcus Epidermidis Laboratory Results 03/30/18 04:00 03/30/18 04:00 03/29/18 03/30/18 03/31/18 05:59 05:59 05:59 Intake Total 1620 1719 680 Output Total 190 3000 Balance 1430 -1281 680 PT 16.6 SEC (12.0-15.0) H 03/24/18 16:00 INR 1.32 (0.83-1.16) H 03/24/18 16:00 - Physical Exam Constitutional: no apparent distress, appears nourished, not in pain Eyes: PERRL, anicteric sclera, EOMI Ears, Nose, Mouth, Throat: moist mucous membranes, other (right IJ line c/d/i) Cardiovascular: regular rate and rhythym, no murmur, rub, or gallop, edema Respiratory: no respiratory distress, no rales or rhonchi, clear to auscultation Gastrointestinal: normoactive bowel sounds, soft, non-tender abdomen, no palpable masses Genitourinary: no bladder fullness, no bladder tenderness, no renal bruits Skin: other (left midfoot wrapped) Musculoskeletal: full muscle strength, no muscle tenderness, normal joint ROM Neurologic: AAOx3, sensation intact bilaterally Psychiatric: interacting appropriately, not anxious, not encephalopathic, thought process linear ICD10 Worksheet Patient Problems: Problems Problem Status Onset Acute exacerbation of congestive heart failure Acute Anasarca Acute Chronic Disease Mgmt/Transitional Care Acute Diabetic infection of left foot Acute Heart failure Acute Pulmonary hypertension Acute Renal insufficiency Acute
[2018-03-30] MEDS: MELATONIN 3 MG TAB PO SCH (21:25)
[2018-03-30] MEDS: ASPIRIN EC 81 MG TAB PO SCH (21:25)
[2018-03-31] MEDS: HEPARIN/DEXTROSE 500 ML IV SCH ×2 (01:04→11:55)
[2018-03-31] MEDS ORDERED: HEPARIN 50,000 UNIT/10 ML VIAL IV ONE (01:53)
[2018-03-31 04:14] LABS: PLATELET COUNT 203 10^3/uL (150-400)
[2018-03-31] MEDS: AMIODARONE HCL 200 MG TAB PO SCH (08:23)
[2018-03-31] MEDS: MULTIVITAMINS 1 EACH TAB PO SCH (08:23)
[2018-03-31] MEDS: SEVELAMER HCL 800 MG TAB PO SCH ×3 (08:24→20:13)
[2018-03-31] MEDS: MIDODRINE HCL 5 MG TAB PO SCH (08:24)
[2018-03-31] MEDS: LEVOTHYROXINE 75 MCG TAB PO SCH (08:24)
--- NOTE | 2018-03-31 11:29 | SOAPPROG ---
SOAP Progress Note Assessment/Plan: Assessment: ESRD, HD today MRSA bacteremia from HD cath, ICD wire infected, removed HD cath removed 03/16/18, appreciate Dr. Simmons's help has AICD in place, infected wire, occasional V-tach and continuous A-fib foot pain, CT 03/16/18 negative for osteomyelitis, likely gout, overall a little better today hypotension, BP OK today, he tends to run a little low at baseline Fever, resolved Plan: Temp HD cath in place Tunneled HD cath to be placed tomorrow, appreciate ID input ultrasound left arm for edema that is new per patient HD today, eval for ultrafiltration needs prn continue antibiotics per ID recs supportive care for now 03/17/18 08:24 03/20/18 14:33 03/21/18 16:50 03/31/18 11:39 03/31/18 11:43 Subjective: up to chair, left arm swelled up yesterday no cp, sob about at his baseline no nausea or vomiting slept OK pain overall better spirits good Objective: Vital Signs Temp Pulse Resp BP Pulse Ox 36.3 C 84 13 92/66 L 94 03/31/18 10:59 03/31/18 10:59 03/31/18 10:59 03/31/18 10:59 03/31/18 10:59 Microbiology 03/26/18 04:30 Blood Culture - Final Blood 03/26/18 04:15 Blood Culture - Final Blood Laboratory Results 03/31/18 03:50 03/31/18 03:50 03/30/18 03/31/18 04/01/18 05:59 05:59 05:59 Intake Total 1719 2342 Output Total 3000 Balance -1281 2342 PT 16.6 SEC (12.0-15.0) H 03/24/18 16:00 INR 1.32 (0.83-1.16) H 03/24/18 16:00 Physical Exam - Physical Exam General Appearance: alert, other (cooperative) Neck: other (JVD) Respiratory: rales, wheezing, No rhonchi, No pleural rub Cardiac/Chest: edema, systolic murmur, irregularly irregular, No friction rub Abdomen: normal bowel sounds, non-tender, soft Skin: warm/dry Extremities: swelling Neuro/Psych: alert, normal mood/affect, oriented x 3 ICD10 Worksheet Patient Problems: Problems Problem Status Onset Acute exacerbation of congestive heart failure Acute Anasarca Acute Chronic Disease Mgmt/Transitional Care Acute Diabetic infection of left foot Acute Heart failure Acute Pulmonary hypertension Acute Renal insufficiency Acute
[2018-03-31] MEDS: ALLOPURINOL 100 MG TAB PO SCH (11:54)
--- NOTE | 2018-03-31 14:06 | HOSPPROG ---
Hospitalist Progress Note Assessment/Plan: * MRSA pacemaker wire endocarditis - Device/wires, dialysis catheter out - IV vancomycin per ID, plan thru 05/07 - Blood cultures cleared 03/26 * Sepsis - source temp dialysis catheter, physiology resolved * ESRD -HD MWF, volume management per renal -infected dialysis catheter removed - now with temporary line -arm fistula ready for use 2 weeks - needs AV fistula collaterals ligated as well -plan for tunneled dialysis cath placement tomorrow AM * Left arm swelling. negative US: no dvt * L foot cellulitis, myositis - MRI without OM or deeper abscess -s/p I&D -Vancomycin as above -Has charcot arthropathy, query whether will need jail suppressive abx * Chronic systolic CHF - LVEF 10% on POOJA, 20-25% on TTE -no ACEI due to hyperkalemia, start beta juanita as BP tolerates soon. not today * VT - AICD now out - Life vest at discharge until device can be replaced * Afib -amiodarone -Continue IV heparin, restart warfarin once procedures complete * Gout -s/p prednisone burst -d/w pharmacy - okay for colchicine 0.6mg Q14 days in ESRD -continue renally adjusted allopurinol * Obesity BMI 36 * Deconditionin - severe -PT/OT recommending SNF but patient refusing Plan: -cont inpatient. Needs TDC on and initiation of warfarin. -unclear if patient will be amenable to SNF -Dialysis per Nephrology. Appears to have volume that needs to be removed -no room for BB today Subjective: reports new left hand swelling. no cp or sob. Objective: Vital Signs Temp Pulse Resp BP Pulse Ox 36.3 C 84 13 92/66 L 94 03/31/18 10:59 03/31/18 10:59 03/31/18 10:59 03/31/18 10:59 03/31/18 10:59 Microbiology 03/26/18 04:30 Blood Culture - Final Blood 03/26/18 04:15 Blood Culture - Final Blood Laboratory Results 03/31/18 03:50 03/31/18 03:50 03/30/18 03/31/18 04/01/18 05:59 05:59 05:59 Intake Total 1719 2342 Output Total 3000 Balance -1281 2342 PT 16.6 SEC (12.0-15.0) H 03/24/18 16:00 INR 1.32 (0.83-1.16) H 03/24/18 16:00 - Physical Exam Constitutional: no apparent distress Eyes: PERRL Ears, Nose, Mouth, Throat: moist mucous membranes, hearing normal Cardiovascular: regular rate and rhythym, edema Respiratory: no respiratory distress, no rales or rhonchi, reduced air movement Skin: warm Neurologic: AAOx3 Psychiatric: interacting appropriately, not anxious, not encephalopathic ICD10 Worksheet Patient Problems: Problems Problem Status Onset Acute exacerbation of congestive heart failure Acute Anasarca Acute Chronic Disease Mgmt/Transitional Care Acute Diabetic infection of left foot Acute Heart failure Acute Pulmonary hypertension Acute Renal insufficiency Acute
--- NOTE | 2018-03-31 16:24 | PDCARPN ---
Cardiology Progress Note Chief Complaint: Patient reports fatigue. Assessment/Plan: Assessment: 67-year-old male with significant past history that includes ESRD on HD, htn, morbid obesity, nonobstructive CAD based on [facility] 08/22, T2DM, SCHF with RV dysfunction (EF 10% POOJA 03/22), central sleep apnea, permanent AF, admitted with purulent discharge from IJ tunneled catheter, found to have MRSA bacteremia. On POOJA, he had findings suggestive of RV lead endocarditis. He is s/ p extraction of RV lead and ICD removal 03/23/18. 03/31/2018 Patient in atrial fibrillation, no malignant arrhythmias or pauses noted. Patient denies of chest pressure or pain. Continues to have fatigue symptoms. Currently being dialyzed. Continues to have significant peripheral edema. Noted be occasional hypotensive, currently carvedilol hold. Plan: 1. permanent AF: Rate controlled on amiodarone. Warfarin has been on hold. Chads Vasc score of 4, on continuous heparin drip until cleared by surgery, then reinstitute warfarin. 2. Systolic heart failure: EF 10% by POOJA and 20-25% by transthoracic echo. Patient not a candidate for José Antonio or Arb due to renal insufficiency. Consideration on starting low-dose carvedilol when blood pressure improves. Systolic blood pressure into the 90s today. Hemodialysis per Nephrology. 3. CAD: Denies of any chest pain, pressure, or symptoms suggesting of ischemia. No flow limiting CAD off of cardiac catheterization 08/2016. Continue on anti-platelet therapy of aspirin. 4. AICD wires endocarditis: Vegetation on RV lead. AICD removed. Primary source IJ tunnel catheter/foot abscess. IV vancomycin per Infectious Disease. 5. Ischemic cardiomyopathy: EF low patient at risk of sudden cardiac . now unprotected with known history of nonsustained ventricular tachycardia. [employer] Lifevest approved and awaiting fitting upon discharge. 6. NSVT: Continue on amiodarone dose. No VT noted on continuous cardiac monitoring. Life vest as above upon discharge. Once infection resolved, Dr. Baker will plan on implanting [employer] subcu ICD His cardiac status is unchanged for the last few days. We will sign off at this time. Have spoken to hospital services, who resume his Coreg when his blood pressure is able to tolerate. Please let us know when patient is close to be discharge, will arrange for follow-up. His life vest has been arranged to be placed upon discharge. If he have any questions or concerns, please feel free to call. 03/31/18 16:19 Subjective: Denies of any chest pressure, pain, palpitations, lightheadedness. Denies of any orthopnea. Continues to have pain in left foot. Reviewed/Discussed With: hospitalist (Dr Billy), other Objective: Vital Signs (8 Hrs) Temp Pulse Resp BP Pulse Ox 03/31/18 16:00 74 118/69 03/31/18 10:59 36.3 C 84 13 92/66 L 94 Intake/Output (24 Hrs) 03/30/18 03/31/18 04/01/18 05:59 05:59 05:59 Intake Total 1719 2342 Output Total 3000 Balance -1281 2342 Intake: Oral (ml) 1040 1380 IV Infused (ml) 679 962 Heparin/Dextrose 500 ml @ 414 962 Per Protocol IV CONT CHELI Rx#:[id number] Vancomycin HCl/Normal 265 Saline 250 ml @ 250 mls/ hr IV MWF@1500 CHELI Rx#: [id number] Output: Dialysis Fluid Removed 3000 Other: Weight 133.6 kg Intake Quantity Yes Sufficient Number of Stools Urinal 1 Result Diagrams: 03/31/18 03:50 03/31/18 03:50 - Physical Exam Constitutional: no apparent distress, obese (Severely obese) Ears, Nose, Mouth, Throat: moist mucous membranes Cardiovascular: no rubs, no gallops, irregularly irregular (Atrial fibrillation) , jugular vein distention (5-6 cm above sternal notch), pulses symmetric bilat Peripheral Pulses: 1+: dorsalis-pedis (R), dorsalis-pedis (L), 2+: carotid (R), carotid (L) Respiratory: other (Diminished in bases bilateral, no rhonchi, rales, wheezing noted. No accessary muscle use, no intercostal muscle) Gastrointestinal: normoactive bowel sounds Skin: warm, other (Dressing to left foot clean dry and intact.), No no edema (+ 3 peripheral edema bilateral lower extremities to thighs.) Neurologic: AAOx3 Psychiatric: cooperative, interactive, following commands ICD10 Worksheet Patient Problems: Problems Problem Status Onset Anasarca Acute Pulmonary hypertension Acute Chronic Disease Mgmt/Transitional Care Acute Diabetic infection of left foot Acute Heart failure Acute Renal insufficiency Acute Acute exacerbation of congestive heart failure Acute
[2018-03-31] MEDS: VANCOMYCIN 1.25 GM in NS 250 ML IV SCH (20:12)
[2018-03-31] MEDS: MELATONIN 3 MG TAB PO SCH (20:13)
[2018-03-31] MEDS: ASPIRIN EC 81 MG TAB PO SCH (20:13)
[2018-03-31] MEDS: ACETAMINOPHEN 325 MG TAB PO PRN (20:16)
[2018-03-31] MEDS ORDERED: HEPARIN 50,000 UNIT/10 ML VIAL ONE (20:33)
[2018-04-01] MEDS: LEVOTHYROXINE 75 MCG TAB PO SCH (05:40)
[2018-04-01 05:55] LABS: PLATELET COUNT 195 10^3/uL (150-400)
--- NOTE | 2018-04-01 06:57 | PDANEPAE ---
ANE Past Medical History - Cardiovascular History Hx Hypertension: Yes Hx Arrhythmias: Yes Hx Chest Pain: No Hx Coronary Artery / Peripheral Vascular Disease: No Hx CHF / Valvular Disease: Yes Hx Palpitations: No Cardiovascular History Comment: EF 20% - Pulmonary History Hx COPD: No Hx Asthma/Reactive Airway Disease: No Hx Recent Upper Respiratory Infection: No Hx Oxygen in Use at Home: No Hx Sleep Apnea: Yes Sleep Apnea Screening Result - Last Documented: Positive - Neurologic History Hx Cerebrovascular Accident: No Hx Seizures: No Hx Dementia: No - Endocrine History Hx Diabetes: Yes Hypothyroid: Yes Hyperthyroid: No Obesity: yes, moderate - Renal History Hx Renal Disorders: Yes - Liver History Hx Hepatic Disorders: No - Neurological & Psychiatric Hx Hx Neurological and Psychiatric Disorders: No - GI History GERD: no Hx Gastrointestinal Disorders: No - Chronic Pain History Chronic Pain: No ANE Review of Systems Review of Systems: - Exercise capacity Exercise capacity: <4 METS - Pacemaker Pacemaker Type: Permanent Pacer/Defib Pacemaker Mode: VVI ANE Patient History - Allergies Allergies/Adverse Reactions: No Known Allergies Allergy (Unverified 04/12/09 16:18) - Home Medications Home Medications: Aspirin EC [Aspirin EC 81 mg (*)] 81 mg PO HS 04/22/16 [Last Taken 03/15/18] Levothyroxine [Synthroid 75 mcg (*)] 75 mcg PO DAILY@07 04/22/16 [Last Taken 02/23] Acetaminophen [Tylenol ES 500 mg (*)] 500 mg PO Q6 PRN 03/16/18 [Last Taken 01/23] Allopurinol [Allopurinol 100 MG (*)] 100 mg PO DAILY@12 03/16/18 [Last Taken 01/23] Midodrine HCl 5 mg PO MOWEFR@03/16/18 [Last Taken Unknown] Multivitamins [Multivitamin (*)] 1 each PO DAILY 03/16/18 [Last Taken 03/15/18] Mupirocin [Mupirocin] 1 gissell TP DAILY 03/16/18 [Last Taken 03/15/18] Warfarin Sodium [Coumadin 1MG (*)] 0.5 mg PO SUTUTHSA@03/16/18 [Last Taken ] Warfarin Sodium [Coumadin 1MG (*)] 1 mg PO MOWEFR@03/16/18 [Last Taken ] Warfarin Sodium [Coumadin 5MG (*)] 5 mg PO DAILY@08 03/16/18 [Last Taken ] - NPO status NPO Since - Liquids (Date): 04/01/18 NPO Since - Liquids (Time): 00:00 NPO Since - Solids (Date): 04/01/18 NPO Since - Solids (Time): 00:00 - Anes Hx Anes Hx: no prior problems - Smoking Hx Smoking Status: Former smoker - Alcohol Use Alcohol Use: None - Family Anes Hx Family Anes Hx: neg - N/A ANE Labs/Vital Signs - Labs Result Diagrams: 04/01/18 05:40 04/01/18 05:40 - Vital Signs Blood Pressure: 110/72 Heart Rate: 79 Respiratory Rate: 16 O2 Sat (%): 94 Height: 185.42 cm Weight: 133.311 kg ANE Physical Exam - Airway Neck exam: decreased ROM Mallampati Score: Class 3 Mouth exam: normal dental/mouth exam - Pulmonary Pulmonary: no respiratory distress, reduced air movement - Cardiovascular Cardiovascular: other (reg rate, irreg rhythym) - ASA Status ASA Status: IV (reg rate, irreg rhythym) ANE Anesthesia Plan Anesthesia Plan: GA w LMA Total IV Anesthesia: No
[2018-04-01] MEDS ORDERED: BUPIVACAINE 0.5% 30 ML SDV ONE (07:07)
[2018-04-01] MEDS ORDERED: BACITRACIN ZINC 14.2 GM OINTTUBE TP ONE (07:07)
[2018-04-01] MEDS ORDERED: HEPARIN 5,000 UNIT/0.5 ML INJ ONE (07:07)
[2018-04-01] MEDS ORDERED: LIDOCAINE 1% 300 MG/30 ML SDV ONE (07:07)
[2018-04-01] MEDS ORDERED: fentaNYL 100 MCG/2 ML INJ ONE (07:17)
[2018-04-01] MEDS ORDERED: LIDOCAINE 2% 5 ML SDV ONE (07:19)
[2018-04-01] MEDS ORDERED: ETOMIDATE 20 MG/10 ML VIAL ONE (07:19)
[2018-04-01] MEDS ORDERED: NS 1,000 ML IV ONE (07:21)
[2018-04-01] MEDS ORDERED: PROPOFOL 200 MG/20 ML VIAL ONE (07:25)
[2018-04-01] MEDS ORDERED: RANITIDINE 50 MG/2 ML VIAL ONE (07:27)
[2018-04-01] MEDS ORDERED: PHENYLEPHRINE HCL 100 MCG/ML SYR ONE ×2 (07:46→08:11)
[2018-04-01] MEDS ORDERED: ONDANSETRON 4 MG/2 ML VIAL IVP PRN (08:31)
[2018-04-01] MEDS ORDERED: PROMETHAZINE HCL 25 MG/ML INJ IVP PRN (08:31)
[2018-04-01] MEDS ORDERED: NS 500 ML IV PRN (08:31)
[2018-04-01] MEDS ORDERED: PHENYLEPHRINE HCL 100 MCG/ML SYR IVP PRN (08:31)
[2018-04-01] MEDS ORDERED: ACETAMINOPHEN 500 MG TAB PO PRN (08:31)
[2018-04-01] MEDS ORDERED: NALOXONE HCL 0.4 MG/ML INJ IVP PRN (08:31)
[2018-04-01] MEDS ORDERED: HYDROCODONE/APAP 5/325 TAB PO PRN (08:31)
--- NOTE | 2018-04-01 08:38 | POSTOPPROG ---
Post Op Note Date of Operation: 04/01/18 Surgeon: Lucy Lacy Anesthesiologist: makenzie Anesthesia: GET(General Endotracheal) Pre-op Diagnosis: renal failure Post-op Diagnosis: same Indication: 67 yo recovered from bacteremia, now needs tunneled catheter while fistula Procedure: remove IJ catheter, place tunneled palindrome Findings: no unusual Inf/Abcess present in the surg proc area at time of surgery?: No EBL: 100-500
--- NOTE | 2018-04-01 08:51 | POSTANESTH ---
Post Anesthetic Evaluation Cardiovascular Status: Similar to Pre-Op Cond Respiratory Status: Normal, Stable Level of Consciousness/Mental Status: Can Participate in Eval Pain Control: Adequate, Prn Tx Ordered Nausea/Vomiting Control: Adequate, Prn Tx Ordered Complications Possibly Related to Anesthesia: None Noted (rate controlled a-fib)
[2018-04-01] MEDS: SEVELAMER HCL 800 MG TAB PO SCH ×3 (10:46→19:08)
[2018-04-01] MEDS: MULTIVITAMINS 1 EACH TAB PO SCH (10:46)
[2018-04-01] MEDS: AMIODARONE HCL 200 MG TAB PO SCH (10:47)
--- NOTE | 2018-04-01 11:49 | ASMTCMCOM ---
CM Note CM Note Notes: Pts case discussed in tx rounds. Pt got his tunnel catheter today. CM met w/ pt for dispo planning w/ Kale, RN. Pt is unable to walk independently on his own. He is open to meeting w/ [facility] this afternoon to learn more about their LTAC. CM left a msg for pts . Pt understands that an LTAC would be able to provide ivabx and dialysis MWF in addition to more comprehensive therapies. Another option would be for pt to return back home and have his bring him to dialysis MWF and to have ivabx there w/ HC services.CM spoke to Hannah at [facility] in [place] and they are able to accommodate pt for ivabx, MWF (vanco). Hannah's phone number is [phone], fax is [phone]. Updates sent to Frieda. CM to follow. Plan: TBD Date Signed: 04/01/2018 11:49 AM Electronically Signed By:ORLANDO Diaz
--- NOTE | 2018-04-01 11:58 | GOP ---
DATE OF OPERATION: 04/01/2018 SURGEON: Lucy Lacy MD ANESTHESIA: General. ANESTHESIOLOGIST: Saima Hodge DO. PREOPERATIVE DIAGNOSIS: Renal failure. POSTOPERATIVE DIAGNOSIS: Renal failure. PROCEDURE PERFORMED: Removal of temporary dialysis catheter and placement of tunneled dialysis ifeanyi ter. FINDINGS: SPECIMENS: None. ESTIMATED BLOOD LOSS: 200 cc. INDICATIONS: The patient is a 67-year-old who was waiting for his AV fistula to mature. He has a te mporary dialysis catheter. Bacteremia has been cleared. DESCRIPTION OF PROCEDURE: Patient was brought into the operating room, placed supine on the table, a nd general anesthesia was administered. His neck and chest were prepped and draped in the usual ster ile fashion. I made an incision on his chest. I tunneled the catheter up to the other insertion sit e. I placed a wire through the previous catheter. Placement was confirmed with fluoroscopy, and I r emoved the catheter. I placed pressure on the right internal jugular vein and performed sequential d ilation. I then placed a dilator and sheath over the wire. I removed the wire and the dilator. The re was brisk blood flow from the sheath. The catheter was quickly placed into the sheath and the she ath peeled away. There was a nice curvature. Each port withdrew blood easily and was flushed with h eparin. The catheter was sewn into place. The neck incision also closed with Prolene. Sterile dres sings applied. He was awakened in the operating room, extubated, transferred to PACU in stable condi tion. Postoperative chest x-ray shows no immediate complication. /[id number]/MODL
--- NOTE | 2018-04-01 12:23 | PCMIDPN ---
Assessment/Plan: #MRSA Pacer wire endocarditis, source HD cath. Defib wire out, original HD cath out, PICC line out. Now Temp HD cath out 04/01/18. --intermittent vancomycin through 05/07/18 will goal levels between 15-20 --increased dose vancomycin 1.25gm MWF, check random level before HD tomorrow # L foot pain, erythema and warmth c/w cellulitis : MRI shows myositis, continued improvement #ESRD: vancomycin dosed intermittently --placed tunneled hemodialysis cath today Microbiology 03/16 blood cultures (2) MRSA, vancomycin ANNA MARIE =1 03/17 & 03/19 blood cultures (2) MRSA 03/21 blood cx 12 MRSA, vancomycin ANNA MARIE = 1 03/24 blood cx 12 MRSA 03/26 blood cx (2) NGTD 03/26 foot cx s. epi meds Vancomycin IV intermittently, #16 Subjective: patient feels very week L foot pain improved Objective: Vital Signs Temp Pulse Resp BP Pulse Ox 36.4 C 75 14 102/61 91 L 04/01/18 11:21 04/01/18 11:21 04/01/18 11:21 04/01/18 11:21 04/01/18 11:21 Microbiology 03/26/18 04:30 Blood Culture - Final Blood 03/26/18 04:15 Blood Culture - Final Blood Laboratory Results 04/01/18 05:40 04/01/18 05:40 03/31/18 04/01/18 04/02/18 05:59 05:59 05:59 Intake Total 2342 2153 380 Output Total 4500 Balance 2342 -2347 380 Gen: chr ill appearing, conversations o/p no lesions Chest: new tunneled HD cath R chest Neck :R IJ removed CV: RRR + SM Abd: Soft NT L foot less erythema on dorsum of foot ICD10 Worksheet Patient Problems: Problems Problem Status Onset Acute exacerbation of congestive heart failure Acute Anasarca Acute Chronic Disease Mgmt/Transitional Care Acute Diabetic infection of left foot Acute Heart failure Acute Pulmonary hypertension Acute Renal insufficiency Acute
[2018-04-01] MEDS: ALLOPURINOL 100 MG TAB PO SCH (12:52)
[2018-04-01] MEDS: ACETAMINOPHEN 325 MG TAB PO PRN ×2 (12:52→20:32)
--- NOTE | 2018-04-01 15:00 | HOSPPROG ---
Hospitalist Progress Note Assessment/Plan: * MRSA pacemaker wire endocarditis - Device/wires, dialysis catheter out - IV vancomycin per ID, plan thru 05/07 - Blood cultures cleared 03/26 * Sepsis - source temp dialysis catheter, physiology resolved * ESRD -HD MWF, volume management per renal -infected dialysis catheter removed -arm fistula ready for use 2 weeks - needs AV fistula collaterals ligated as well -a/p unneled dialysis cath placement today * Left arm swelling. negative US: no dvt * L foot cellulitis, myositis - MRI without OM or deeper abscess -s/p I&D -Vancomycin as above -Has charcot arthropathy, query whether will need shelter suppressive abx * Chronic systolic CHF - LVEF 10% on POOJA, 20-25% on TTE -no ACEI due to hyperkalemia, start beta juanita as BP tolerates soon. not today -bp remains soft * VT - AICD now out - Life vest at discharge until device can be replaced * Afib -amiodarone -restart IV heparin, restart warfarin today. Pharm to dose * Gout -s/p prednisone burst -d/w pharmacy - okay for colchicine 0.6mg Q14 days in ESRD -continue renally adjusted allopurinol * Obesity BMI 36 * Deconditionin - severe -PT/OT recommending SNF but patient refusing. He needs SNF. LTACs to reconsider Subjective: had tunneled dialysis catheter today. no cp or sob. Objective: Vital Signs Temp Pulse Resp BP Pulse Ox 36.4 C 75 14 102/61 91 L 04/01/18 11:21 04/01/18 11:21 04/01/18 11:21 04/01/18 11:21 04/01/18 11:21 Laboratory Results 04/01/18 05:40 04/01/18 05:40 03/31/18 04/01/18 04/02/18 05:59 05:59 05:59 Intake Total 2342 2153 380 Output Total 4500 Balance 2342 -2347 380 PT 16.6 SEC (12.0-15.0) H 03/24/18 16:00 INR 1.32 (0.83-1.16) H 03/24/18 16:00 - Physical Exam Constitutional: no apparent distress Eyes: PERRL Ears, Nose, Mouth, Throat: moist mucous membranes Cardiovascular: regular rate and rhythym, edema Respiratory: no respiratory distress, no rales or rhonchi Gastrointestinal: normoactive bowel sounds Skin: warm Musculoskeletal: generalized weakness Neurologic: AAOx3 Psychiatric: interacting appropriately, not anxious, not encephalopathic Lymph, Heme, Immunologic: No petechiae ICD10 Worksheet Patient Problems: Problems Problem Status Onset Acute exacerbation of congestive heart failure Acute Anasarca Acute Chronic Disease Mgmt/Transitional Care Acute Diabetic infection of left foot Acute Heart failure Acute Pulmonary hypertension Acute Renal insufficiency Acute
--- NOTE | 2018-04-01 15:14 | SOAPPROG ---
SOAP Progress Note Assessment/Plan: Assessment: Temp dialysis catheter removed New tunneled dialysis catheter placed on 04/01 Per patient, surgeon doesn't want fistula used yet Next HD will be on 04/02, will go for 3.5-4.5L UF foot pain, CT 03/16/18 negative for osteomyelitis, likely gout, overall a little better today hypotension, BP OK today, he tends to run a little low at baseline Vanc dosing per ID and pharmacy, will need to call patient's outpatient dialysis unit with dosing when ready for dsicharge (abx through 05/07) Subjective: Feeling ok, denies shortness of breath. Still can't walk on L foot. Tunneled dialysis catheter placed today. Objective: Vital Signs Temp Pulse Resp BP Pulse Ox 36.4 C 75 14 102/61 91 L 04/01/18 11:21 04/01/18 11:21 04/01/18 11:21 04/01/18 11:21 04/01/18 11:21 Laboratory Results 04/01/18 05:40 04/01/18 05:40 03/31/18 04/01/18 04/02/18 05:59 05:59 05:59 Intake Total 2342 2153 380 Output Total 4500 Balance 2342 -2347 380 PT 16.6 SEC (12.0-15.0) H 03/24/18 16:00 INR 1.32 (0.83-1.16) H 03/24/18 16:00 Exam: General- awake, alert, NAD Eyes: anicteric sclera, no conjunctival injection HEENT: MMM, no gross oral lesions Neck: RIJ tunneled dialysis catheter in place CV: NRRR, no g/m/r Pulm: Rales at bilateral bases, breathing comfortably on O2 NC Abd: soft, non-tender, +BS Extrem: LUE AVF with good bruit and thrill, stasis changes bilateral LE, 2+ LE edema, wound L foot with bandage in place ICD10 Worksheet Patient Problems: Problems Problem Status Onset Acute exacerbation of congestive heart failure Acute Anasarca Acute Chronic Disease Mgmt/Transitional Care Acute Diabetic infection of left foot Acute Heart failure Acute Pulmonary hypertension Acute Renal insufficiency Acute
[2018-04-01] MEDS: HEPARIN/DEXTROSE 500 ML IV SCH (15:32)
[2018-04-01] MEDS: WARFARIN SODIUM 5 MG TAB PO SCH (16:39)
[2018-04-01] MEDS ORDERED: WARFARIN SODIUM 1 MG TAB PO SCH (17:00)
[2018-04-01] MEDS: ASPIRIN EC 81 MG TAB PO SCH (20:29)
[2018-04-01] MEDS: MELATONIN 3 MG TAB PO SCH (20:29)
[2018-04-02 04:40] LABS: PLATELET COUNT 202 10^3/uL (150-400)
[2018-04-02 04:48] LABS: INR 1.21 (0.83-1.16); PROTIME(PATIENT) 15.5 SEC (12.0-15.0)
[2018-04-02] MEDS: ACETAMINOPHEN 325 MG TAB PO PRN (07:55)
[2018-04-02] MEDS: LEVOTHYROXINE 75 MCG TAB PO SCH (07:55)
[2018-04-02] MEDS: MULTIVITAMINS 1 EACH TAB PO SCH (08:07)
[2018-04-02] MEDS: SEVELAMER HCL 800 MG TAB PO SCH ×3 (08:07→19:37)
[2018-04-02] MEDS: AMIODARONE HCL 200 MG TAB PO SCH (08:07)
[2018-04-02] MEDS: MIDODRINE HCL 5 MG TAB PO SCH (08:07)
--- NOTE | 2018-04-02 09:12 | SOAPPROG ---
SOAP Progress Note Assessment/Plan: Assessment: #ESRD -HD MWF [facility] -HD today and likely again tomorrow for volume -his AVF arm is more edematous relative to R arm and thus I think needs f'gram soon to eval for stenosis -using RIJ TDC for access (new placed 04/01 by IR) #MSRA bacteremia with pacemaker endocarditis -TDC removed-> temp cath-> now with new TDC -plans for IV Vanco through 05/07- will need to notify outpt HD unit -appreciate ID input #anemia CKD -Hb 8.3, continue Epo 10,000 units weekly -transfuse if Hb <7 #volume overload- on NA/fluid restriction, UF with HD as tolerates -Na low so needs to follow oral fluid restriction as well #MBD Of CKD -phos high-- increase sevelamer 1600mg po tid, renal diet I discussed with RN Dr. Villanueva [employer] for weekend Martha Trevizo MD [facility] pager [phone] 04/02/18 10:24 Subjective: Feels ok. NEw RIJ TDC placed by IR. Thinks edema better but still present everywhere. No n/v, fevers. Objective: Vital Signs Temp Pulse Resp BP Pulse Ox 36.5 C 94 16 125/77 H 94 04/02/18 07:30 04/02/18 07:30 04/02/18 07:30 04/02/18 07:30 04/02/18 07:30 Laboratory Results 04/02/18 04:10 04/02/18 04:10 04/01/18 04/02/18 04/03/18 05:59 05:59 05:59 Intake Total 2153 2046 Output Total 4500 350 Balance -2347 1696 PT 15.5 SEC (12.0-15.0) H 04/02/18 04:10 INR 1.21 (0.83-1.16) H 04/02/18 04:10 Physical Exam - Physical Exam General Appearance: no apparent distress, other (sitting in bed watching tv) EENT: other (mmm) Neck: other (RIJ TDC) Respiratory: other (non labored,o2) Cardiac/Chest: regular rate, rhythm Abdomen: non-tender, soft Extremities: other (+ansarca. LUE >RUE, AVF over LUE With thrill/bruit) Neuro/Psych: alert, oriented x 3 ICD10 Worksheet Patient Problems: Problems Problem Status Onset Acute exacerbation of congestive heart failure Acute Anasarca Acute Chronic Disease Mgmt/Transitional Care Acute Diabetic infection of left foot Acute Heart failure Acute Pulmonary hypertension Acute Renal insufficiency Acute
--- NOTE | 2018-04-02 11:29 | PCMIDPN ---
Assessment/Plan: Assessment: MRSA bacteremia from suspected dialysis catheter source. Patient also with lead vegetation which has since been removed. Patient clinically is doing very well. He is being treated with vancomycin dosed by level. Vancomycin level stable this am. Will continue with current dosing. L foot myositis -- wound healing well -- foot much less swollen. Plan: 1. Continue vancomycin at current dose. Stop date remains unchanged. 04/02/18 11:26 Subjective: Patient resting in bed. No new complaints. Busy day today with HD cath placement already this AM - no complications -- and HD this afternoon. Objective: Vancomycin 1.25 g scheluled p HD Vital Signs Temp Pulse Resp BP Pulse Ox 36.5 C 94 16 125/77 H 94 04/02/18 07:30 04/02/18 07:30 04/02/18 07:30 04/02/18 07:30 04/02/18 07:30 Laboratory Results 04/02/18 04:10 04/02/18 04:10 04/01/18 04/02/18 04/03/18 05:59 05:59 05:59 Intake Total 2153 2046 100 Output Total 4500 350 Balance -2347 1696 100 - Physical Exam General Appearance: WD/WN, alert, no apparent distress, non-toxic Respiratory: lungs clear, normal breath sounds, No respiratory distress Cardiac/Chest: regular rate, rhythm, No tachycardia Extremities: non-tender, No normal inspection, No inflammation, No erythema Skin: normal color, warm/dry, No rash Neuro/Psych: alert, normal mood/affect, oriented x 3 ICD10 Worksheet Patient Problems: Problems Problem Status Onset Acute exacerbation of congestive heart failure Acute Anasarca Acute Chronic Disease Mgmt/Transitional Care Acute Diabetic infection of left foot Acute Heart failure Acute Pulmonary hypertension Acute Renal insufficiency Acute
--- NOTE | 2018-04-02 12:35 | ASMTCMCOM ---
CM Note CM Note Notes: 04/02/2018 Case Management Note Discussed pt during rounds. Anticipating d/c tomorrow after dialysis is completed. Life Vest rep Wilmer to fit pt today at 1700. Please call Masha at [phone] [facility] rep for questions. Discussed LTAC placement with pt and . Both want [facility] in [place]. Faxed updates to Madeleine. RN to call report at [phone] upon d/c. MD to MD pager: [phone]. If difficulties Maribel instructed to call RN report line. Case Management to fax dialysis flow sheets today at [phone]. Case Management to arrange transport tomorrow. Case Management d/c poc: [facility] Case Management to follow. Date Signed: 04/02/2018 12:34 PM Electronically Signed By:Kassidy Mitchell RN
[2018-04-02] MEDS: ALLOPURINOL 100 MG TAB PO SCH (12:54)
[2018-04-02] MEDS ORDERED: COLCHICINE 0.6 MG CAP/TAB PO PRN (13:30)
--- NOTE | 2018-04-02 13:59 | HOSPPROG ---
Hospitalist Progress Note Assessment/Plan: * MRSA pacemaker wire endocarditis - Device/wires, dialysis catheter out - IV vancomycin per ID, plan thru 05/07 - Blood cultures cleared 03/26 * Sepsis - source temp dialysis catheter, physiology resolved * ESRD -HD MWF, volume management per renal -infected dialysis catheter removed -arm fistula ready for use 2 weeks - needs AV fistula collaterals ligated as well -Had tunneled dialysis cath placement on 04/01 *volume overload -HD/UF today, possibly tomorrow as well * Left arm swelling. negative US: no dvt * L foot cellulitis, myositis - MRI without OM or deeper abscess -s/p I&D -Vancomycin as above -Has charcot arthropathy * Chronic systolic CHF - LVEF 10% on POOJA, 20-25% on TTE -no ACEI due to hyperkalemia, start beta juanita as BP tolerates soon. not today -bp remains soft. May need to start this as an outpatient * VT - AICD now out - Life vest at discharge until device can be replaced * Afib -amiodarone -cont Heparin/Warfarin bridge. Pharm to dose * Gout -s/p prednisone burst -continue renally adjusted allopurinol * Obesity BMI 36 * Deconditionin - severe -PT/OT recommending SNF but patient refusing. He needs SNF. LTACs to reconsider. He is not safe for home discharge Subjective: still with lots of fluid overload. no cp or sob. afebrile Objective: Vital Signs Temp Pulse Resp BP Pulse Ox 36.6 C 86 14 129/68 H 93 04/02/18 12:00 04/02/18 12:00 04/02/18 12:00 04/02/18 12:00 04/02/18 12:00 Laboratory Results 04/02/18 04:10 04/02/18 04:10 04/01/18 04/02/18 04/03/18 05:59 05:59 05:59 Intake Total 2153 2046 100 Output Total 4500 350 Balance -2347 1696 100 PT 15.5 SEC (12.0-15.0) H 04/02/18 04:10 INR 1.21 (0.83-1.16) H 04/02/18 04:10 - Physical Exam Constitutional: no apparent distress Eyes: PERRL Ears, Nose, Mouth, Throat: moist mucous membranes, hearing normal Cardiovascular: regular rate and rhythym, edema Respiratory: no respiratory distress, no rales or rhonchi, reduced air movement Gastrointestinal: normoactive bowel sounds, soft, non-tender abdomen Skin: warm Neurologic: AAOx3 Psychiatric: interacting appropriately, not anxious, not encephalopathic Lymph, Heme, Immunologic: No petechiae ICD10 Worksheet Patient Problems: Problems Problem Status Onset Acute exacerbation of congestive heart failure Acute Anasarca Acute Chronic Disease Mgmt/Transitional Care Acute Diabetic infection of left foot Acute Heart failure Acute Pulmonary hypertension Acute Renal insufficiency Acute
[2018-04-02] MEDS: HEPARIN/DEXTROSE 500 ML IV SCH (15:01)
[2018-04-02] MEDS: VANCOMYCIN 1.25 GM in NS 250 ML IV SCH (15:01)
[2018-04-02] MEDS ORDERED: WARFARIN SODIUM 1 MG TAB PO SCH (16:00)
--- NOTE | 2018-04-02 16:11 | SOAPPROG ---
SOAP Progress Note Assessment/Plan: Assessment: Wound ck POD#10 RV lead and ICD explant with revision of generator pocket Left chest deltopec incision CDI. Dermabond yet to slough. Pocket soft and flat. No erythema. Drain site closed with dry eschar. Plan: Stable wound healing. Further surgical f/u prn. 04/02/18 16:09 Objective: Vital Signs Temp Pulse Resp BP Pulse Ox 36.6 C 86 14 129/68 H 93 04/02/18 12:00 04/02/18 12:00 04/02/18 12:00 04/02/18 12:00 04/02/18 12:00 Laboratory Results 04/02/18 04:10 04/02/18 04:10 04/01/18 04/02/18 04/03/18 05:59 05:59 05:59 Intake Total 2153 2046 100 Output Total 4500 350 Balance -2347 1696 100 PT 15.5 SEC (12.0-15.0) H 04/02/18 04:10 INR 1.21 (0.83-1.16) H 04/02/18 04:10 ICD10 Worksheet Patient Problems: Problems Problem Status Onset Acute exacerbation of congestive heart failure Acute Anasarca Acute Chronic Disease Mgmt/Transitional Care Acute Diabetic infection of left foot Acute Heart failure Acute Pulmonary hypertension Acute Renal insufficiency Acute
[2018-04-02] MEDS: WARFARIN SODIUM 5 MG TAB PO SCH (17:30)
[2018-04-02] MEDS: MELATONIN 3 MG TAB PO SCH (20:20)
[2018-04-02] MEDS: ASPIRIN EC 81 MG TAB PO SCH (20:20)
[2018-04-03] MEDS: LEVOTHYROXINE 75 MCG TAB PO SCH (05:40)
[2018-04-03] MEDS: ACETAMINOPHEN 325 MG TAB PO PRN ×2 (05:41→12:06)
[2018-04-03 06:57] LABS: INR 1.21 (0.83-1.16); PROTIME(PATIENT) 15.5 SEC (12.0-15.0)
[2018-04-03 07:46] VITALS: BP 114/80
[2018-04-03] MEDS: AMIODARONE HCL 200 MG TAB PO SCH (07:46)
[2018-04-03] MEDS: SEVELAMER HCL 800 MG TAB PO SCH (07:46)
[2018-04-03] MEDS: MULTIVITAMINS 1 EACH TAB PO SCH (07:46)
--- NOTE | 2018-04-03 10:52 | SOAPPROG ---
SOAP Progress Note Assessment/Plan: Assessment/Plan: 67 y/o M ESRD with MRSA bacteremia 2/2 to LE wound. Ready for discharge to LTAC. ESRD -HD MWF [facility] -last HD on 04/02, PUF tomorrow -his AVF arm is more edematous relative to R arm and thus I think needs f'gram soon to eval for stenosis as well as ligation of collateral (f/u with Dr. Simmons) -using RIJ TDC for access (new placed 04/01 by IR) MSRA bacteremia with pacemaker endocarditis -plans for IV Vanco through 05/07- will need to notify outpt HD unit -appreciate ID input Anemia CKD -Hb 8.3, continue Epo 10,000 units weekly -transfuse if Hb <7 Volume overload -on NA/fluid restriction, UF with HD as tolerates -Na low so needs to follow oral fluid restriction as well MBD Of CKD -phos high-- increase sevelamer 1600mg po tid, renal diet 04/03/18 11:41 Subjective: Held PUF today and will do at LTAC tomorrow. Objective: Vital Signs Temp Pulse Resp BP Pulse Ox 36.9 C 65 14 114/80 94 04/03/18 07:45 04/03/18 07:45 04/03/18 07:45 04/03/18 07:45 04/03/18 07:45 Laboratory Results 04/02/18 04:10 04/03/18 06:03 04/02/18 04/03/18 04/04/18 05:59 05:59 05:59 Intake Total 2046 2266 Output Total 350 4600 Balance 1696 -2334 PT 15.5 SEC (12.0-15.0) H 04/03/18 06:03 INR 1.21 (0.83-1.16) H 04/03/18 06:03 Physical Exam - Physical Exam General Appearance: obese, other (resting) EENT: PERRL/EOMI Neck: non-tender, full range of motion Respiratory: accessory muscle use, decreased breath sounds Abdomen: normal bowel sounds, non-tender, distended Skin: pallor Extremities: normal range of motion, pedal edema Neuro/Psych: no motor/sensory deficits, normal mood/affect, oriented x 3 ICD10 Worksheet Patient Problems: Problems Problem Status Onset Acute exacerbation of congestive heart failure Acute Anasarca Acute Chronic Disease Mgmt/Transitional Care Acute Diabetic infection of left foot Acute Heart failure Acute Pulmonary hypertension Acute Renal insufficiency Acute
--- NOTE | 2018-04-03 11:14 | PDIAF ---
- Diagnosis Diagnosis: MRSA RV lead endocarditis, ESRD Code Status: Limited Resuscitation - Medication Management Discharge Medications: Medications to Continue on Transfer Aspirin EC [Aspirin EC 81 mg (*)] 81 mg PO HS 04/22/16 [Last Taken 03/15/18] Levothyroxine [Synthroid 75 mcg (*)] 75 mcg PO DAILY@07 04/22/16 [Last Taken 02/23] Allopurinol [Allopurinol 100 MG (*)] 100 mg PO DAILY@12 03/16/18 [Last Taken 01/23] Midodrine HCl 5 mg PO MOWEFR@03/16/18 [Last Taken Unknown] Multivitamins [Multivitamin (*)] 1 each PO DAILY 03/16/18 [Last Taken 03/15/18] Mupirocin 1 gissell TP DAILY 03/16/18 [Last Taken 03/15/18] Warfarin Sodium [Coumadin 1MG (*)] 0.5 mg PO SUTUTHSA@03/16/18 [Last Taken ] Warfarin Sodium [Coumadin 5MG (*)] 5 mg PO DAILY@08 03/16/18 [Last Taken ] Acetaminophen [Tylenol 325mg (*)] 650 mg PO Q4HRS PRN tab 04/03/18 [Last Taken Unknown] Alteplase [Cathflo Activase 2 mg (*)] 2 mg IVP PRN PRN vial 04/03/18 [Last Taken Unknown] Amiodarone HCl [Pacerone (*)] 200 mg PO DAILY tab 04/03/18 [Last Taken Unknown] Carvedilol [Coreg (*)] 3.125 mg PO BIDMEAL #30 tab 04/03/18 [Last Taken Unknown] Colchicine [Colchicine (*)] 0.6 mg PO Q14D PRN ea 04/03/18 [Last Taken Unknown] Epoetin Sergio [Procrit 04623 UNIT/ML (*)] 10,000 unit SC Q7D vial 04/03/18 [ Last Taken Unknown] Heparin/Dextrose [Heparin 50 Units/ml (Premix) (*)] 2,279 units IV CONT bag [Last Taken Unknown] Melatonin [Melatonin 3 MG (*)] 3 mg PO HS tab 04/03/18 [Last Taken Unknown] Ondansetron Odt [Zofran Odt 4 mg (*)] 4 mg PO Q4HRS PRN tab 04/03/18 [Last Taken Unknown] Polyethylene Glycol 3350 [Miralax 17 gm (*)] 17 gm PO DAILY PRN pkt 04/03/18 [ Last Taken Unknown] Sevelamer HCl [Renagel 800mg (*)] 800 mg PO TIDMEAL tab 04/03/18 [Last Taken Unknown] Vancomycin [Vancomycin (*)] 1.25 gm IV MWF@1500 vial 04/03/18 [Last Taken Unknown] Warfarin Sodium [Coumadin 1MG (*)] 1 mg PO MoWeFr@1600 tab 04/03/18 [Last Taken Unknown] Discharge Medications: Refer to the Discharge Home Medication list for PRN reason. - Orders Services needed: Registered Nurse, Certified Design Editor, Master Software Support Engineer , Physical Therapy, Occupational Therapy Isolation Type: Contact Isolation Diet Recommendation: cardiac -low fat low salt, ADA 2200 consistent carb, fluid restriction (use comment for amount) (1000mL) Diet Texture: Regular Texture Diet - Labs/Radiology BMP Date: 04/04/18 PT/INR Date: 04/04/18 (daily until 2) Vanco Random Date: 04/04/18 (3 days weekly before HD, goal 15-20) - Follow Up Care Current Providers and Referrals: Lucy Esparza MD [Primary Care Provider] -
[2018-04-03] MEDS ORDERED: HEPARIN 50,000 UNIT/10 ML VIAL ONE (11:40)
--- NOTE | 2018-04-03 11:49 | GDS ---
DISCHARGE DIAGNOSES: 1. MRSA pacer- wire endocarditis, from HD catheter. 2. Left foot myositis. 3. End stage renal disease on dialysis. 4. Sepsis, now resolved. 5. Volume overload. 6. Left arm swelling, negative for deep venous thrombosis. 7. Chronic systolic heart failure/ischemic cardiomyopathy, left ventricular ejection fraction 10%. 8. History of ventricular tachycardia. 9. Atrial fibrillation. 10. Gout. 11. Obesity. 12. Type 2 diabetes. 13. History of osteomyelitis in the left foot. PROCEDURES: 1. 04/01/2018: Removal of temporary dialysis catheter, placement of tunneled dialysis catheter. 2. 03/23/2018: Evacuation of defibrillator, pacemaker pocket revision, extraction of right ventricular lead. CONSULTATIONS: 1. Cardiothoracic Surgery. 2. General Surgery. 3. Cardiology. 4. Renal. 5. Hospitalist Service. 6. Infectious Disease. HISTORY OF PRESENT ILLNESS: A 67-year-old male with multiple medical problems including ischemic cardiomyopathy with an EF of 10, end stage renal disease on dialysis, coronary disease who had presented 03/16/2018, for a planned AV fistula revision, but called the night prior with a fever. Spiked a temp to 102 , and his dosed him with Tylenol. He does have a history of gout and osteomyelitis of the left foot which was treated in July at [facility] with 6 weeks of antibiotics. He had a nonhealing ulcer there. Here during this stay, his blood cultures became positive with MRSA on 2017. HOSPITAL COURSE BY PROBLEM: 1. MRSA, pace wire endocarditis: Source was his hemodialysis catheter. Status post removal of defibrillator, RV wire, and a pocket revision. He was evaluated by Infectious Disease. He will receive intermittent vancomycin through 05/07/2018, with goal levels between 15 and 20. Random levels should be checked 3 times a week prior to hemodialysis. Current dose is 1.25 g Thursday , Thursday, and Thursday. Cultures, 03/26, showed no growth to date. 2. Foot pain: Consistent with cellulitis. MRI showed myositis. This is improved. 3. End stage renal disease. General Surgery placed tunneled dialysis catheter. 4. Permanent atrial fibrillation: Is currently rate controlled on amiodarone. He has a [id number] of 4. He will be continued on a heparin drip until his INR is at goal at 2. INR today is 1.21. 5. Systolic heart failure: EF of 10% by POOJA, 20 by TTE. He is not a candidate for FRANCHESKA or ARB due to renal insufficiency. Will resume low-dose Coreg at 3.125 twice daily. 6. Coronary disease: Currently asymptomatic. No flow limiting coronary disease on his catheterization, 08/25/2016. Continue aspirin. 7. Ischemic cardiomyopathy: Given low EF, he is at a high risk of sudden cardiac . A ZOLL LifeVest was approved; however, patient will not wear. I went over risks extensively with him and his including VT, sudden cardiac . They understand the risks and will forego this medical treatment. 8. History of nonsustained VT: Continue amiodarone. No VT was noted during this stay. Again, he has declined a LifeVest, knowing the high risk. Once infection had resolved, Dr. Baker planned on implanting an ICD. 9. Gout: Renally dosed colchicine. 10. Diabetes: Sugars have been controlled here on diet. 11. Hypothyroidism: Levothyroxine. 12. Goals: Palliative Care was consulted and followed patient during this stay. I had a long discussion with patient and today regarding goals. He is foregoing the LifeVest which is not consistent with his full medical plan. I expressed to them to continue discussions about goals of care, whether hospice is the more appropriate intervention at this time. PHYSICAL EXAMINATION: VITAL SIGNS: Today, temperature 36.9, blood pressure 114 /80, heart rate is in the 60s, respiratory rate is 14, 94% on room air. GENERAL : He is an overweight male who is pale, no acute distress, lying in his chair. HEENT: PERRLA. Moist mucous membranes. CV: Regular rate, rhythm. Pacemaker site healing without signs of infection, erythema, or purulence. +2 to +3 lower extremity edema. LUNGS: Clear anteriorly. ABDOMEN: Soft, nontender, nondistended. Positive bowel sounds. : No Rosario. MUSCULOSKELETAL: He is moving all 4 extremities. Tunneled catheter line, right upper chest, with dried blood. No tenderness with palpation. NEUROLOGIC : 2 through 12 intact. PSYCH: Alert and oriented x3. Flat affect. DISPOSITION: Patient is stable for discharge to [facility]. FOLLOWUP: 1. INR with goal of 2. Once therapeutic, discontinue heparin. 2. Random vancomycin Thursday, Thursday, Thursday prior to dialysis with a goal 15 to 20. 3. Follow up with Dr. Baker for ICD placement once infection treated. 4. Continue antibiotics through 05/07/2018. 5. Recommend Palliative Care to continue further discussions about goals. Time spent on discharge, greater than 60 minutes reviewing labs, Progress Notes , and discussing case with Cardiology, Infectious Disease, and coordinating discharge with Case Management. /[id number]/MODL MTDD
[2018-04-03] MEDS: ALLOPURINOL 100 MG TAB PO SCH (12:06)
--- NOTE | 2018-04-03 12:53 | ASMTDCNOTE ---
Case Management Discharge Discharge Order Complete? Answers: Yes Patient to Obtain Answers: Other Notes: [facility] Medications Transportation Arranged Answers: [facility] Case Management Transport Answers: Yes Form Complete Faxed Final Orders Answers: Yes Notes: to [facility] Agency/Facility Transfer Answers: Yes Notes: to [facility] Report Printed & Faxed to Receiving Agency Family Notified Answers: Yes Notes: in room Discharge Comments Notes: 04/03/2018 Case Management Note Faxed final orders and dialysis flow sheets to [facility]. RN called report. called report. Faxed final orders to [facility]. Arranged transport with [facility]. Per [facility] pt required ALS transport d/t heparin drip. Completed PCS form. Pt refused ZOLL life vest. Case Management d/c poc: [facility] Date Signed: 04/03/2018 12:52 PM Electronically Signed By:Kassidy Mitchell RN
--- NOTE | 2018-04-03 12:54 | ASDISCHSUM ---
Discharge Information Plan Status:LTAC Medically Cleared to Leave:04/03/2018 Discharge Date:04/03/2018 12:35 PM CM D/C Disposition[facility] ADT D/C Disposition:Acute Care Hospital Projected Discharge Date:03/27/2018 11:00 AM Transportation at D/C:Wheelchair Van Discharge Delay Reason: Follow-Up Date:03/27/2018 11:00 AM Discharge Slot:2 - 12:01 pm - 18:00 pm Final Diagnosis:MRSA pacer wires, Left foot myositis, sepsis resolved, left arm swelling, CHF, ische edgar cardiomyopathy, vtach, afib, obesity, gout, left foot osteomyelitis Placement Information Referral Type:Home Infusion Referral ID:[id number] Provider Name: Address 1: Phone Number: Address 2: Fax Number: City: Selection Factors: State: Referral Type:*Home Health Care Services Referral ID:[id number] Provider Name: Address 1: Phone Number: Address 2: Fax Number: City: Selection Factors: State: Referral Type:Palliative Care Referral ID:[id number] Provider Name: Address 1: Phone Number: Address 2: Fax Number: City: Selection Factors: State: Referral Type:[facility] Referral ID:[id number] Provider Name:[facility] Address 1:[address] Address 2: City:[place] Selection Factors: State:[place] Referral Type:*Senior Care/SNF Referral ID:[facility]-[id number] Provider Name: Address 1: Phone Number: Address 2: Fax Number: City: Selection Factors: State: Patient Contact Information Contact Name:EMIL Relationship: Address:[address] Work Phone: City:[facility] [facility] Alternate Phone: State/Zip Code:[place] [address] Email: Financial Information Financial Class:Medicare Primary Plan Desc:MEDICARE INPATIENT Primary Plan Number:[id number] Secondary Plan Desc:[facility] Secondary Plan Number:[id number] Assessment Information LACE TALA Length of stay for Answers: 7-13 days current admission Acuity / Level of Answers: Yes Care: Did the patient have an inpatient admission? Comorbidities - select Answers: Congestive heart failure all that apply Coronary Artery Disease Diabetes (uncontrolled or controlled) Moderate or severe liver or renal disease Other Notes: HTN; AFib # of Emergency department Answers: 1-2 visits in the last 6 months Score: 19 Date Signed: 03/28/2018 06:52 PM Electronically Signed By:Barbara Donald [facility] Progress Note CM Wilbur CM Note Notes: 67yr old male admitted for fever. He was scheduled for a AV revision fistula. Patient has a Hx of CHF, End stage renal dis-dialysis, AICD, CAD, Afib, DM-2, Osteo L foot, Gout. Patient lives with his in [place]. CM to follow for discharge needs. Date Signed: 03/17/2018 09:35 AM Electronically Signed By:rAchana Archer LCSW [facility] Progress Note CM Note CM Note Notes: Spoke with Jennifer from [employer] who states patient is current with them. Jennifer did say patient's has been unhappy with several home health companies (has fired several) and they are fine if the family would like to choose another company. Jennifer states they are also willing to continue services if this is what the patient and his would like to do. Palliative met with patient this morning and states patient informed him they are already with a palliative care company though he could not remember the name. El was able to locate that it is [facility] from previous admission records and he confirmed this with [facility] via telephone. CM will follow. Date Signed: 03/18/2018 04:21 PM Electronically Signed By:Yesy Ovalle LCSW [facility] CM Progress Note CM Note CM Note Notes: Pts case discussed w/ ANJANA Dinh. PT is recommending SNF. CM met w/ pt and for dispo planning. Pt and does not want to go to SNF. They would like to continue w/ [facility]. Reports that they are excellent. Updates sent to [facility]. Referral made to [facility] for home infusions. Updates sent to [facility]. CM to follow. Plan: Possibly Home w/ [facility]; PT, OT, RN w/ [facility] and [facility] Date Signed: 03/20/2018 04:05 PM Electronically Signed By:ORLANDO Diaz [facility] CM Progress Note CM Note CM Note Notes: Patient discussed during rounds. POOJA arranged for tomorrow, PICC to be removed. He is ambulating better today, still requires assistance to ambulate, ANJANA Dinh shared she spoke with around possibility of SNF if he does not improve getting around and ambulating. CM met with patient, no new needs identified. Patient states he knows he needs to be able to walk to go home. He shares his Maite (c:[phone]) cares for him and is well versed in Renal diet. [facility] has accepted. CM spoke with ANJANA Dinh, patient may not discharge on IV ABX, [facility] did respond with questions, CM will need to respond with clarification on drug/dosing upon discharge if still required. CM to follow. Plan: [facility], [facility] infustions, and [facility]. Date Signed: 03/21/2018 02:45 PM Electronically Signed By:Katy Leslie [facility] CM Progress Note CM Note CM Note Notes: 03/22/2018 Case Management Note Reviewed chart. Pt is well known to case management with the following recent d/c plans: d/c to [facility] in [place] 11/29/2017 d/c to [facility] 02/12/2018 d/c to [facility] in [place] with dialysis at [facility] Phone call from [facility] justine Fitch [phone]. Pt has not signed onto [facility] as of today. [facility] left 3 voicemails for pt but has not had a return call yet. Case Management to discuss w/pt tomorrow. Pt is not in room this afternoon. Pt had dialysis this morning preventing a case management visit. [facility] has accepted pt. Phone call from An with [facility] requesting updates. Faxed updates via [employer]. Per An exact pricing for pt will be determined closer to discharge. Pt has a Medicare Part D copay. In the past the daily copay has been cost prohibitive for pt and resulted in pt d/c to SNF to complete antibiotic course. Currently, PT recommends SNF. Case Management d/c poc: to be determined. Case Management to follow. Date Signed: 03/22/2018 02:11 PM Electronically Signed By:Kassidy Mitchell RN [facility] Progress Note CM Note CM Note Notes: 03/23/2018 Case Management Note Met w/pt and Maite to discuss d/c plans. Maite son lives in the basement apartment of family home and is often home when Maite is at work and can assist patient if needed. Discussed working on several discharge plans at the same time and picking the most appropriate option closer to discharge. Pt in agreement. Option 1: [facility]. Referrals sent to multiple facilities via [employer]. Option 2: Return to [facility] rehab with outpatient dialysis. Faxed referrals to [facility], [facility] and [facility]. [facility] is preferred by family however will require shifting dialysis location. Option 3: Antibiotic infusions to happen at [facility] [place] [facility] [address]. Called Nicky rn patient care at [facility] [phone] to discuss. Antibiotics would be covered under dialysis visit at no cost to family as dialysis catheter is likely source of infection per ID note. However pt will only have antibiotics on MWF. Uncertain if this is appropriate and will follow ID notes for instructions for antibiotic needs at discharge. Option 4: [facility] to transport to outpatient infusion center for IV antibiotics if needed after discharge. Likely would be on alternate days with dialysis. Palliative consult ordered. Notified El for visit tomorrow. Maite expresses sadness about pt prognosis and wants pt home to spend time with him, however they are both aware pt needs to make progress with physical capabilities for this to be a safe discharge. Case Management d/c poc: to be determined. Case Management to follow. Date Signed: 03/23/2018 03:59 PM Electronically Signed By:Kassidy Mitchell RN [facility] CM Progress Note CM Note CM Note Notes: 03/24/2018 Case Management Note Met w/Maite to update on discharge options. Option 1: [facility]. Phone call from Ander Song to assess pt for placement at [facility] Provided printed info to Maite. [facility] considering pt as well. Option 2: [facility] accepted pt and is agreeable to transporting pt to [place] for dialysis. This plan is less desireable to Maite today due to lengthy drive and time lost for therapies commuting to dialysis. Option 3: Preferred option for Maite. Antibiotics to be administered after dialysis. [facility] to provide RN and PT. Matie has elminated option 4. Outpatient infusion clinic on opposite days of dialysis will not work with Maite's work schedule. Provided printed info on Palliative Care. Maite expressed she was a very private person and needed time to digest the recommendations for discharge. Pt and Maite is considering Palliative care and need education and reassurance that it does not mean end of life. Case Management d/c poc: to be determined. Case Management to follow. 03/23/2018 Case Management Note Met w/pt and Maite to discuss d/c plans. Maite son lives in the basement apartment of family home and is often home when Maite is at work and can assist patient if needed. Discussed working on several discharge plans at the same time and picking the most appropriate option closer to discharge. Pt in agreement. Option 1: [facility]. Referrals sent to multiple facilities via [employer]. Option 2: Return to SNF rehab with outpatient dialysis. Faxed referrals to [facility], [place] facilities and [facility]. [facility] is preferred by family however will require shifting dialysis location. Option 3: Antibiotic infusions to happen at [facility]. Called Nicky rn patient care at [facility] [phone] to discuss. Antibiotics would be covered under dialysis visit at no cost to family as dialysis catheter is likely source of infection per ID note. However pt will only have antibiotics on MWF. Uncertain if this is appropriate and will follow ID notes for instructions for antibiotic needs at discharge. Option 4: [facility] to transport to outpatient infusion center for IV antibiotics if needed after discharge. Likely would be on alternate days with dialysis. Palliative consult ordered. Notified El for visit tomorrow. Maite expresses sadness about pt prognosis and wants pt home to spend time with him, however they are both aware pt needs to make progress with physical capabilities for this to be a safe discharge. Case Management d/c poc: to be determined. Case Management to follow. Date Signed: 03/24/2018 04:37 PM Electronically Signed By:Kassidy Mitchell RN [facility] Progress Note CM Note CM Note Notes: Pts case discussed in tx rounds. CM spoke to Ander and he reports that pt is appropriate at this time for LTAC. Ander called pts and spoke w/ her. Pts would like pt to return home. Pt will continue to have iv fluids until next week. Pt will have dialysis today. When pt is medically stable to d/c pt will go with a life vest. Pt has been approved for it. Pts blood cultures are positive. Pt will most likely require ivabx. CM to follow up next week. Plan: TBD Date Signed: 03/26/2018 02:09 PM Electronically Signed By:ORLANDO Diaz [facility] Progress Note CM Note CM Note Notes: Attempted to see pt x2 today however he was sleeping after his dialysis. D/C plan unclear - SNF and LTAC referrals have been made however pt has continued to say he wants to go home. PT/OT continue to recommend SNF. CM will continue to follow. Date Signed: 03/29/2018 04:13 PM Electronically Signed By:ALANNA Reed [facility] Progress Note CM Note CM Note Notes: Pts case discussed in tx rounds. Pt got his tunnel catheter today. [facility] met w/ pt for dispo planning w/ Kale, RN. Pt is unable to walk independently on his own. He is open to meeting w/ Frieda this afternoon to learn more about their LTAC. CM left a msg for pts . Pt understands that an LTAC would be able to provide ivabx and dialysis MWF in addition to more comprehensive therapies. Another option would be for pt to return back home and have his bring him to dialysis MWF and to have ivabx there w/ HC services.CM spoke to Hannah at [facility] in [place] and they are able to accommodate pt for ivabx, MWF (vanco). Hannah's phone number is [phone], fax is [phone]. Updates sent to [facility]. CM to follow. Plan: TBD Date Signed: 04/01/2018 11:49 AM Electronically Signed By:ORLANDO Diaz [facility] Progress Note CM Note CM Note Notes: 04/02/2018 Case Management Note Discussed pt during rounds. Anticipating d/c tomorrow after dialysis is completed. Life Vest rep Wilmer to fit pt today at 1700. Please call Masha at [phone] [facility] for questions. Discussed LTAC placement with pt and . Both want [facility] in [place]. Faxed updates to Madeleine. RN to call report at [phone] upon d/c. MD to MD pager: [phone]. If difficulties Maribel instructed to call RN report line. Case Management to fax dialysis flow sheets today at [phone]. Case Management to arrange transport tomorrow. Case Management d/c poc: [facility] Case Management to follow. Date Signed: 04/02/2018 12:34 PM Electronically Signed By:Kassidy Mitchell RN Case Management Discharge Plan Note Case Management Discharge Discharge Order Complete? Answers: Yes Patient to Obtain Answers: Other Notes: [place] Medications Transportation Arranged Answers: [place] [facility] Case Management Transport Answers: Yes Form Complete Faxed Final Orders Answers: Yes Notes: to [facility] Agency/Facility Transfer Answers: Yes Notes: to [facility] Report Printed & Faxed to Receiving Agency Family Notified Answers: Yes Notes: in room Discharge Comments Notes: 04/03/2018 Case Management Note Faxed final orders and dialysis flow sheets to Maribel at [facility]. RN called report. called report. Faxed final orders to [place]. Arranged transport with [facility]. Per [facility] pt required ALS transport d/t heparin drip. Completed PCS form. Pt refused [facility] life vest. Case Management d/c poc: [facility] Date Signed: 04/03/2018 12:52 PM Electronically Signed By:Kassidy Mitchell RN Intervention Information
[2018-04-08] MEDS ORDERED: COLCHICINE 0.6 MG CAP/TAB PO PRN (09:00)
== END 2018-04-03 12:35 | DRG 260 ==
LOC: FSGY 09:41 → F3N 10:46 → OBSVTOIN 12:35 → F2W 13:07 → F2N 18:05 → F3E 03-18 14:43 → F2W 03-18 17:00
PROVIDERS: ADMIT Surgery; ATTEND Surgery
PROC: 02HV33Z Insertion of Infusion Device into Superior Vena Cava, Percutaneous Approach (ICD-10-PCS; 2018-03-16)
PROC: 02PY33Z Removal of Infusion Device from Great Vessel, Percutaneous Approach (ICD-10-PCS; 2018-03-16)
PROC: 0JH63XZ Insertion of Tunneled Vascular Access Device into Chest Subcutaneous Tissue and Fascia, Percutaneous Approach (ICD-10-PCS; 2018-03-19)
PROC: B246ZZ4 Ultrasonography of Right and Left Heart, Transesophageal (ICD-10-PCS; 2018-03-22)
PROC: 02PA3MZ Removal of Cardiac Lead from Heart, Percutaneous Approach (ICD-10-PCS; principal; 2018-03-23 07:15)
PROC: 0JPT0PZ Removal of Cardiac Rhythm Related Device from Trunk Subcutaneous Tissue and Fascia, Open Approach (ICD-10-PCS; principal; 2018-03-23 07:15)
PROC: 0J9R3ZX Drainage of Left Foot Subcutaneous Tissue and Fascia, Percutaneous Approach, Diagnostic (ICD-10-PCS; 2018-03-26)
PROC: 02PY33Z Removal of Infusion Device from Great Vessel, Percutaneous Approach (ICD-10-PCS; 2018-04-01)
PROC: 02HV33Z Insertion of Infusion Device into Superior Vena Cava, Percutaneous Approach (ICD-10-PCS; 2018-04-01)
DX: T82.7XXA Infection and inflammatory reaction due to other cardiac and vascular devices, implants and grafts, initial encounter (principal); A41.02 Sepsis due to Methicillin resistant Staphylococcus aureus; I33.0 Acute and subacute infective endocarditis; M60.07 Infective myositis, ankle, foot and toes; L03.116 Cellulitis of left lower limb; I47.2 Ventricular tachycardia; I13.2 Hypertensive heart and chronic kidney disease with heart failure and with stage 5 chronic kidney disease, or end stage renal disease; I50.22 Chronic systolic (congestive) heart failure; E11.22 Type 2 diabetes mellitus with diabetic chronic kidney disease; N18.6 End stage renal disease; I25.10 Atherosclerotic heart disease of native coronary artery without angina pectoris; I48.2 Chronic atrial fibrillation; M10.9 Gout, unspecified; E03.9 Hypothyroidism, unspecified; E87.1 Hypo-osmolality and hyponatremia; D63.1 Anemia in chronic kidney disease; G47.31 Primary central sleep apnea; D68.4 Acquired coagulation factor deficiency; E66.01 Morbid (severe) obesity due to excess calories; Z68.37 Body mass index [BMI] 37.0-37.9, adult; Z95.810 Presence of automatic (implantable) cardiac defibrillator; Z79.4 Long term (current) use of insulin; Z99.2 Dependence on renal dialysis; Z79.01 Long term (current) use of anticoagulants; Z51.5 Encounter for palliative care
CPT/HCPCS: 85520-90; 86704-90; 97110-GP; 97116-GP; 97163-GP; 97166-GO; 97530-GO; 97530-GP; 97535-GO; C1750; C1751; G0480; G8978-GP-CL; G8979-GP-CJ; G8979-GP-CK; G8987-GO-CL; G8988-GO-CJ; J0171; J0295; J0885; J1642; J1644; J1815; J1940; J2370; J2405; J2440; J2704; J2720; J2780; J3010; J3370; J3430; J3475; J7512; P9047